=== PATIENT | male | born 1960 | race Caucasian/White ===

== ENCOUNTER 2022-06-11 09:38 | Inpatient (IN) | payer OTHER ==
[2022-06-11] VITALS (9 sets, daily range): BP systolic 109–167; BP diastolic 74–91
[~2022-06-11] VITALS: Ht 162.6 cm; Wt 99.4 kg
[2022-06-11 10:05] LABS: BASOPHILS % (AUTO) 0 % (0-10); EOSINOPHILS # (AUTO) 0.2 10^3/uL (0.0-0.3); EOSINOPHILS % (AUTO) 3 % (0-10); HEMATOCRIT 34 % (40-54); HEMOGLOBIN 11.3 g/dL (13.3-17.7); LYMPHOCYTES # (AUTO) 1.3 10^3/uL (1.0-4.0); LYMPHOCYTES % (AUTO) 18 % (12-44); MEAN CORPUSCULAR HEMOGLOBIN 30 pg (25-34); MEAN CORPUSCULAR HGB CONC 34 g/dL (32-36); MEAN CORPUSCULAR VOLUME 88 fL (80-99); MEAN PLATELET VOLUME 10.1 fL (9.0-12.2); MONOCYTES # (AUTO) 0.5 10^3/uL (0.0-1.0); MONOCYTES % (AUTO) 8 % (0-12); NEUTROPHILS % (AUTO) 71 % (42-75); PLATELET COUNT 264 10^3/uL (130-400); WHITE BLOOD COUNT 7.2 10^3/uL (4.3-11.0)
--- NOTE | 2022-06-11 10:11 | Diagnostic Imaging Report ---
CLINICAL INDICATIONS: Patient with chest pain. EXAM: Portable chest x-ray upright view. COMPARISON: None. FINDINGS: Lungs/pleura: There are patchy infiltrates involving both midlung stacy and both lung bases. There is no pneumothorax. There is no pleural effusion. Mediastinum: Unremarkable. Pulmonary vasculature: There is mild pulmonary vascular congestion. Heart: There is cardiomegaly. Bones/extrathoracic soft tissue: There are degenerative spurs involving the thoracic spine. IMPRESSION: 1: There is cardiomegaly with mild pulmonary vascular congestion. These findings may be related to congestive heart failure. 2: There is bilateral lung infiltrates concerning for pulmonary congestion or lung infiltrates/infectious process. Dictated by: Dictated on workstation # [id number]
[2022-06-11 10:13] LABS: POTASSIUM 4.6 MMOL/L (3.6-5.0)
[2022-06-11 10:14] LABS: CALCIUM 8.3 MG/DL (8.5-10.1)
[2022-06-11 10:16] LABS: INR 0.9 (0.8-1.4); PROTHROMBIN TIME PATIENT 12.8 SEC (12.2-14.7); TOTAL PROTEIN 7.1 GM/DL (6.4-8.2)
--- NOTE | 2022-06-11 10:17 | ED Respiratory ---
General Chief Complaint: Respiratory Problems Stated Complaint: SOB Source: patient Exam Limitations: no limitations History of Present Illness Date Seen by Provider: Jun 11, 2022 Time Seen by Provider: 09:40 Initial Comments This is 62-year-old gentleman presents to the emergency room via EMS with shortness of breath and wheezing. He states that shortness of breath has been progressive over the last several years. He received a DuoNeb treatment in route and reports that significantly improved his shortness of breath. He activated EMS today because he felt like he was going to pass out from his shortness of breath. He denies any known heart or lung diagnoses. He denies any chest pain. He has no new swelling and denies fever or cough. Dr. Rogers is his primary care provider, but he only goes to the office once or twice a year. He does not monitor his diabetes. He does check his blood pressure daily. Allergies and Home Medications Allergies Coded Allergies: No Known Drug Allergies (Unverified , 06/11/22) Patient Home Medication List Home Medication List Reviewed: Yes Alprazolam (Alprazolam) 1 Mg Tablet, 0.5-1 MG PO Q8H PRN for ANXIETY, (Reported) Entered as Reported by: CAMERON WALDRON on 06/11/221608 Last Action: Continued Amlodipine Besylate (Amlodipine Besylate) 10 Mg Tablet, 10 MG PO DAILY, (Reported) Entered as Reported by: CAMERON WALDRON on 06/11/221608 Last Action: Continued Glyburide (Glyburide) 5 Mg Tablet, 5 MG PO DAILY, (Reported) Entered as Reported by: CAMERON WALDRON on 06/11/221608 Last Action: Held Losartan Potassium (Losartan Potassium) 100 Mg Tablet, 100 MG PO DAILY, (Reported) Entered as Reported by: CAMERON WALDRON on 06/11/221608 Last Action: Held Metformin HCl (Metformin HCl) 500 Mg Tablet, 1,000 MG PO DAILY, (Reported) Entered as Reported by: CAMERON WALDRON on 06/11/221608 Last Action: Held Metoprolol Succinate (Metoprolol Succinate) 100 Mg Tab.er.24h, 100 MG PO DAILY, (Reported) Entered as Reported by: CAMERON WALDRON on 06/11/221608 Last Action: Continued Naproxen Sodium (Aleve) 220 Mg Tablet, 220-440 MG PO Q12H PRN for PAIN-MILD (1- 4), (Reported) Entered as Reported by: CAMERON WALDRON on 06/11/221608 Last Action: Held Sildenafil Citrate (Sildenafil) 20 Mg Tablet, 20 MG PO UD PRN for ED, (Reported) Entered as Reported by: CAMERON WALDRON on 06/11/221608 Last Action: Held Review of Systems Review of Systems Constitutional: No fever; weakness EENTM: no symptoms reported Respiratory: see HPI Cardiovascular: see HPI Gastrointestinal: no symptoms reported Genitourinary: no symptoms reported Musculoskeletal: no symptoms reported Skin: no symptoms reported Psychiatric/Neurological: Other (feeling depressed) Hematologic/Lymphatic: No Symptoms Reported Immunological/Allergic: no symptoms reported Past Awuytri-Rlxqnb-Saimlx Hx Patient Social History Tobacco Use?: No Tobacco type used: Cigarettes Smoking Status: Former Smoker Substance use?: No Alcohol Use?: Yes Alcohol Frequency: Rarely Past Medical History Surgeries: No Respiratory: Yes (Chronic SOA, pulmonary HTN) Cardiac: Yes Hypertension Neurological: No Genitourinary: No Gastrointestinal: No Musculoskeletal: No Endocrine: Yes Diabetes, Non-Insulin dep HEENT: No Cancer: No Psychosocial: Yes Depression Physical Exam Vital Signs - First Documented 06/11/22 09:38 Temp 36.4 Pulse 96 Resp 28 B/P (MAP) 174/90 (118) Pulse Ox 98 O2 Delivery Room Air O2 Flow Rate 5.00 Capillary Refill : Height: '" Weight: lbs. oz. kg; BMI Method: General Appearance: WD/WN, no apparent distress, obese HEENT: normal ENT inspection Neck: normal inspection Respiratory: no respiratory distress, no accessory muscle use, decreased breath sounds, wheezing Cardiovascular: regular rate, rhythm, no murmur, other (bilateral LE edema) Gastrointestinal: normal bowel sounds, non tender, soft Extremities: non-tender, swelling Neurologic/Psychiatric: no motor/sensory deficits, alert, oriented x 3, other (depressed mood) Skin: normal color, warm/dry Progress/Results/Core Measures Suspected Sepsis SIRS Temperature: Pulse: Respiratory Rate: Laboratory Tests 06/11/22 09:45: White Blood Count 7.2 Blood Pressure / Mean: Laboratory Tests 06/11/22 09:45: Creatinine 3.61H, INR Comment 0.9, Platelet Count 264, Total Bilirubin 0.3 Results/Orders Lab Results Laboratory Tests Test 06/11/22 09:45 06/11/22 09:55 Range/Units White Blood Count 7.2 4.3-11.0 10^3/uL Red Blood Count 3.80 L 4.30-5.52 10^6/uL Hemoglobin 11.3 L 13.3-17.7 g/dL Hematocrit 34 L 40-54 % Mean Corpuscular Volume 88 80-99 fL Mean Corpuscular Hemoglobin 30 25-34 pg Mean Corpuscular Hemoglobin Concent 34 32-36 g/dL Red Cell Distribution Width 13.4 10.0-14.5 % Platelet Count 264 130-400 10^3/uL Mean Platelet Volume 10.1 9.0-12.2 fL Immature Granulocyte % (Auto) 1 % Neutrophils (%) (Auto) 71 42-75 % Lymphocytes (%) (Auto) 18 12-44 % Monocytes (%) (Auto) 8 0-12 % Eosinophils (%) (Auto) 3 0-10 % Basophils (%) (Auto) 0 0-10 % Neutrophils # (Auto) 5.0 1.8-7.8 10^3/uL Lymphocytes # (Auto) 1.3 1.0-4.0 10^3/uL Monocytes # (Auto) 0.5 0.0-1.0 10^3/uL Eosinophils # (Auto) 0.2 0.0-0.3 10^3/uL Basophils # (Auto) 0.0 0.0-0.1 10^3/uL Immature Granulocyte # (Auto) 0.1 0.0-0.1 10^3/uL Prothrombin Time 12.8 12.2-14.7 SEC INR Comment 0.9 0.8-1.4 Activated Partial Thromboplast Time 28 24-35 SEC Sodium Level 135 135-145 MMOL/L Potassium Level 4.6 3.6-5.0 MMOL/L Chloride Level 104 98-107 MMOL/L Carbon Dioxide Level 20 L 21-32 MMOL/L Anion Gap 11 5-14 MMOL/L Blood Urea Nitrogen 59 H 7-18 MG/DL Creatinine 3.61 H 0.60-1.30 MG/DL Estimat Glomerular Filtration Rate 18 BUN/Creatinine Ratio 16 Glucose Level 321 H 70-105 MG/DL Calcium Level 8.3 L 8.5-10.1 MG/DL Corrected Calcium 8.3 L 8.5-10.1 MG/DL Magnesium Level 1.5 L 1.6-2.4 MG/DL Total Bilirubin 0.3 0.1-1.0 MG/DL Aspartate Amino Transf (AST/SGOT) 15 5-34 U/L Alanine Aminotransferase (ALT/SGPT) 19 0-55 U/L Alkaline Phosphatase 62 40-136 U/L Myoglobin 336.0 H 10.0-92.0 NG/ML Troponin I < 0.028 <0.028 NG/ML C-Reactive Protein High Sensitivity 0.54 H 0.00-0.50 MG/DL B-Type Natriuretic Peptide 579.2 H <100.0 PG/ML Total Protein 7.1 6.4-8.2 GM/DL Albumin 4.0 3.2-4.5 GM/DL Procalcitonin 0.17 H <0.10 NG/ML Influenza Type A (RT-PCR) Not Detected Not Detecte Influenza Type B (RT-PCR) Not Detected Not Detecte SARS-CoV-2 RNA (RT-PCR) Not Detected Not Detecte My Orders Orders - ZACK MUNROE MD Covid 19 Inhouse Test (06/11/22 09:46) Influenza A And B By Pcr (06/11/22 09:46) Cbc With Automated Diff (06/11/22 09:57) Magnesium (06/11/22 09:57) Chest 1 View, Ap/Pa Only (06/11/22 09:57) Ekg Tracing (06/11/22 09:57) Comprehensive Metabolic Panel (06/11/22 09:57) Myoglobin Serum (06/11/22 09:57) Protime With Inr (06/11/22 09:57) Partial Thromboplastin Time (06/11/22 09:57) O2 (06/11/22 09:57) Monitor-Rhythm Ecg Trace Only (06/11/22 09:57) Lipid Panel (06/12/22 06:00) Ed Iv/Invasive Line Start (06/11/22 09:57) Troponin I Bianka (06/11/22 09:57) Bnp Bianka (06/11/22 10:38) Hs C Reactive Protein (06/11/22 10:38) Procalcitonin (Pct) (06/11/22 10:38) Troponin I Bianka (06/11/22 11:45) Magnesium 1 Gm/100 Ml Ivpb (Magnesium Travis (06/11/22 11:45) Ns Iv 500 Ml (Sodium Chloride 0.9%) (06/11/22 11:45) Vital Signs/I&O 06/11/22 06/11/22 06/11/22 09:38 09:38 11:30 Temp 36.4 Pulse 96 Resp 28 B/P (MAP) 174/90 (118) Pulse Ox 98 95 O2 Delivery Room Air T Piece Nasal Cannula O2 Flow Rate 5.00 2.00 Capillary Refill : Progress Note : Progress Note Breathing improved with DuoNeb. СЕРГЕЙ was noted. Congestion was noted on CXR and peripheral edema was noted. However, СЕРГЕЙ and lower BNP would suggest patient has intravascular fluid depletion. IVF was initiated. Labs did not support bacterial infection. Admission for treatment of СЕРГЕЙ while monitoring respiratory status was deemed necessary. Repeat troponin was elevated. ASA given and Dr. Ugarte consulted. He recommended Lovenox 1 mg//kg x 1. Patient denied chest pain. ECG Initial ECG Impression Date: Jun 11, 2022 Initial ECG Impression Time: 09:49 Initial ECG Rate: 85 Initial ECG Rhythm: Normal Sinus Initial ECG Intervals: Normal Comment Sinus rhythm with no ST elevation. Possible minor bundle branch block. Subtle nondiagnostic ST depression. No axis deviation. EKG : EKG Time: 13:44 Rate: 84 Rhythm: Normal Sinus Intervals: Normal ECG Impression: Normal Comment NSR with no ST elevation or depression. No abnormal intervals or axis deviation. Diagnostic Imaging Diagonstic Imaging: Xray Plain Films/CT/US/NM/MRI: chest Comments NAME: KENRICK HEALY [facility] REC#: [id number] PT STATUS: ADM [place] : 1960 PHYSICIAN: ZACK MUNROE MD ADMIT DATE: 06/11/22/[facility] Signed Date of Exam:06/11/22 CHEST 1 VIEW, AP/PA ONLY CLINICAL INDICATIONS: Patient with chest pain. EXAM: Portable chest x-ray upright view. COMPARISON: None. FINDINGS: Lungs/pleura: There are patchy infiltrates involving both midlung stacy and both lung bases. There is no pneumothorax. There is no pleural effusion. Mediastinum: Unremarkable. Pulmonary vasculature: There is mild pulmonary vascular congestion. Heart: There is cardiomegaly. Bones/extrathoracic soft tissue: There are degenerative spurs involving the thoracic spine. IMPRESSION: 1: There is cardiomegaly with mild pulmonary vascular congestion. These findings may be related to congestive heart failure. 2: There is bilateral lung infiltrates concerning for pulmonary congestion or lung infiltrates/infectious process. Dictated by: Dictated on workstation # [id number] Dict: 06/11/22 1005 Trans: 06/11/221744 [facility] [id number] Interpreted by: DIANNA SLADE MD Electronically signed by: DIANNA SLADE MD 06/11/22 1745 Departure Communication (Admissions) Time/Spoke to Admitting Phy: 13:50 Dr. Rogers Time/Spoke to Consulting Phy: 13:50 Dr. Ugarte Impression Primary Impression: Acute kidney injury Additional Impressions: COPD exacerbation Shortness of breath Abnormal chest x-ray Uncontrolled diabetes mellitus Qualified Codes: E11.65 - Type 2 diabetes mellitus with hyperglycemia Disposition: ADMITTED INPATIENT Condition: Improved Admissions Decision to Admit Reason: Admit from ER (General) Decision to Admit/Date: Jun 11, 2022 Time/Decision to Admit Time: 12:00 Departure-Patient Inst. Referrals: TIFFANY ROGERS MD (PCP) Primary Care Physician RIYA ARORA MD (Family) Primary Care Physician ZACK MUNROE MD Jun 11, 2022 10:17
[2022-06-11 10:18] LABS: BILIRUBIN,TOTAL 0.3 MG/DL (0.1-1.0)
[2022-06-11 10:19] LABS: CREATININE SERUM 3.61 MG/DL (0.60-1.30)
[2022-06-11 10:22] LABS: MAGNESIUM 1.5 MG/DL (1.6-2.4)
[2022-06-11] MEDS ORDERED: NS IV 500 ML 500 ML IV ONE (11:45)
[2022-06-11] MEDS ORDERED: MAGNESIUM 1 GM/100 ML IVPB 100 ML IV ONE (11:45)
[2022-06-11] MEDS ORDERED: ASPIRIN 81 MG CHEW (CHILDREN'S ASA) PO ONE (14:00)
[2022-06-11] MEDS ORDERED: ENOXAPARIN 100 MG/1 ML (LOVENOX) SYR SC ONE (14:00)
[2022-06-11] MEDS: NS IV 1000 ML 1,000 ML IV SCH (15:13)
[2022-06-11] MEDS ORDERED: ONDANSETRON 4 MG/2 ML (SDV) Z0FRAN IV PRN (15:15)
[2022-06-11] MEDS ORDERED: GLBR5T PO (16:09)
[2022-06-11] MEDS ORDERED: ALPR1TAB7 PO (16:09)
[2022-06-11] MEDS ORDERED: SILD20TA14 PO (16:09)
[2022-06-11] MEDS ORDERED: METF-397 PO (16:09)
[2022-06-11] MEDS ORDERED: NAPR220T66 PO (16:09)
[2022-06-11] MEDS ORDERED: LOSA100T57 PO (16:09)
[2022-06-11] MEDS ORDERED: MTP100TCR PO (16:09)
[2022-06-11] MEDS ORDERED: AMLO-251 PO (16:09)
--- NOTE | 2022-06-11 16:21 | Consultation-Cardiology ---
HPI-Cardiology Cardiology Consultation: Date of Consultation 06/11/22 Date of Admission 06/11/22 Attending Physician Frank Londono MD Admitting Physician Admitting Physician: Frank Londono MD Attending Physician: Frank Londono MD Consulting Physician AR PALENCIA JR, MD HPI: Time Seen by a Provider: 16:15 Chief Complaint: REASON FOR CONSULTATION: Dyspnea and abnormal troponin level. I had the pleasure of seeing Robson on the cardiac stepdown unit at [facility] in [place], [place] today. He has no known history of coronary artery disease but has cardiac risk factors of hypertension and type 2 diabetes mellitus. He tells me that most of his adult life he has had difficulty breathing through his nose. As long as he breathes through his mouth, he does not typically feel short of breath. However, over the past year he has noticed some increasing dyspnea on exertion. He did not discuss this with his primary care provider because he does not currently have insurance. Then this morning he woke up and had a very difficult time catching his breath. He became kimberley rned and came to the ER for further evaluation. During his evaluation, he was found to initially have an undetectable troponin level but a few hours later, his troponin level was abnormal. He denies any chest discomfort. He denies paroxysmal nocturnal dyspnea, orthopnea, palpitations, lightheadedness, syncope, or ankle edema. He did have ankle edema a few years ago but after he got on treatment for diabetes and hypertension, the edema resolved. He previously worked at the [employer] but when the facility shutdown at the beginning , he stopped working and never went back to work. He spends most of his day just sitting around the house but sometimes does go outside and do some yard work. Certain portions of this document may have been dictated utilizing voice recognition technology. Inherent to this technology, typographical and grammatical errors may exist. As much as I am diligent to identify and correct these mistakes, some errors may remain in the document. Review of Systems-Cardiology Review of Systems Other comments Review of 10 organ systems is as per the history of present illness, otherwise negative. RHF-Kofjtm-Njwzqb Hx Patient Social History Marrital Status: Smoking Status: Former Smoker Have you traveled recently?: No Alcohol Use?: Yes Pt feels they are or have been: No Tobacco type used: Cigarettes Immunizations Up To Date Date of Influenza Vaccine: Jun 10, 2022 Past Medical History PMH As described under Assessment. Family Medical History Family Medical History: The patient does not know of any family history of premature coronary artery disease in first-degree relatives. His mother did have a heart condition but at an older age. Allergies and Home Medications Allergies Coded Allergies: No Known Drug Allergies (Unverified , 06/11/22) Patient Home Medication List Home Medication List Reviewed: Yes Alprazolam (Alprazolam) 1 Mg Tablet, 0.5-1 MG PO Q8H PRN for ANXIETY, (Reported) Entered as Reported by: CAMERON WALDRON on 06/11/221608 Last Action: Reviewed Amlodipine Besylate (Amlodipine Besylate) 10 Mg Tablet, 10 MG PO DAILY, (Reported) Entered as Reported by: CAMERON WALDRON on 06/11/221608 Last Action: Reviewed Glyburide (Glyburide) 5 Mg Tablet, 5 MG PO DAILY, (Reported) Entered as Reported by: CAMERON WALDRON on 06/11/221608 Last Action: Reviewed Losartan Potassium (Losartan Potassium) 100 Mg Tablet, 100 MG PO DAILY, (Reported) Entered as Reported by: CAMERON WALDRON on 06/11/221608 Last Action: Reviewed Metformin HCl (Metformin HCl) 500 Mg Tablet, 1,000 MG PO DAILY, (Reported) Entered as Reported by: CAMERON WALDRON on 06/11/221608 Last Action: Reviewed Metoprolol Succinate (Metoprolol Succinate) 100 Mg Tab.er.24h, 100 MG PO DAILY, (Reported) Entered as Reported by: CAMERON WALDRON on 06/11/221608 Last Action: Reviewed Naproxen Sodium (Aleve) 220 Mg Tablet, 220-440 MG PO Q12H PRN for PAIN-MILD (1- 4), (Reported) Entered as Reported by: CAMERON WALDRON on 06/11/221608 Last Action: Reviewed Sildenafil Citrate (Sildenafil) 20 Mg Tablet, 20 MG PO UD PRN for ED, (Reported) Entered as Reported by: CAMERON WALDRON on 06/11/221608 Last Action: Reviewed Exam Vital Signs Vital Signs Date Time Temp Pulse Resp B/P (MAP) Pulse Ox O2 Delivery O2 Flow Rate FiO2 06/11/22 11:30 95 Nasal Cannula 2.00 06/11/22 09:38 36.4 96 28 174/90 (118) Physical Exam General: Alert. At times he appears visibly short of breath just while answering questions and talking. Well nourished and appears stated age. He is obese. Eye: Extraocular movements are intact. Conjunctivae are clear. There are no xanthelasma. HENT: Normocephalic. Atraumatic. Carotid pulsations 2/2 without bruits. Neck: Jugular venous pressure does not appear elevated. No thyromegaly appreciated. Respiratory: Lungs are clear to auscultation. Respirations are non-labored. Breath sounds are equal. Symmetrical chest wall expansion. Cardiovascular: Normal rate. Regular rhythm. No murmur. No gallop. Point of maximal impulse is not appear displaced. Good pulses equal in all extremities. No edema. Gastrointestinal: Soft. Normal bowel sounds. Skin: Skin turgor is normal. There is no pallor. Musculoskeletal: No kyphosis or scoliosis appreciated. Neurologic: Alert and oriented to person, place, time. Cranial nerves 3-12 appear grossly intact. The patient has good motor tone strength in the upper and lower extremities bilaterally. Psychiatric: Cooperative. Appropriate mood & affect. Labs Laboratory Tests Test 06/11/22 09:45 06/11/22 09:55 06/11/22 12:36 Range/Units White Blood Count 7.2 4.3-11.0 10^3/uL Red Blood Count 3.80 L 4.30-5.52 10^6/uL Hemoglobin 11.3 L 13.3-17.7 g/dL Hematocrit 34 L 40-54 % Mean Corpuscular Volume 88 80-99 fL Mean Corpuscular Hemoglobin 30 25-34 pg Mean Corpuscular Hemoglobin Concent 34 32-36 g/dL Red Cell Distribution Width 13.4 10.0-14.5 % Platelet Count 264 130-400 10^3/uL Mean Platelet Volume 10.1 9.0-12.2 fL Immature Granulocyte % (Auto) 1 % Neutrophils (%) (Auto) 71 42-75 % Lymphocytes (%) (Auto) 18 12-44 % Monocytes (%) (Auto) 8 0-12 % Eosinophils (%) (Auto) 3 0-10 % Basophils (%) (Auto) 0 0-10 % Neutrophils # (Auto) 5.0 1.8-7.8 10^3/uL Lymphocytes # (Auto) 1.3 1.0-4.0 10^3/uL Monocytes # (Auto) 0.5 0.0-1.0 10^3/uL Eosinophils # (Auto) 0.2 0.0-0.3 10^3/uL Basophils # (Auto) 0.0 0.0-0.1 10^3/uL Immature Granulocyte # (Auto) 0.1 0.0-0.1 10^3/uL Prothrombin Time 12.8 12.2-14.7 SEC INR Comment 0.9 0.8-1.4 Activated Partial Thromboplast Time 28 24-35 SEC Sodium Level 135 135-145 MMOL/L Potassium Level 4.6 3.6-5.0 MMOL/L Chloride Level 104 98-107 MMOL/L Carbon Dioxide Level 20 L 21-32 MMOL/L Anion Gap 11 5-14 MMOL/L Blood Urea Nitrogen 59 H 7-18 MG/DL Creatinine 3.61 H 0.60-1.30 MG/DL Estimat Glomerular Filtration Rate 18 BUN/Creatinine Ratio 16 Glucose Level 321 H 70-105 MG/DL Calcium Level 8.3 L 8.5-10.1 MG/DL Corrected Calcium 8.3 L 8.5-10.1 MG/DL Magnesium Level 1.5 L 1.6-2.4 MG/DL Total Bilirubin 0.3 0.1-1.0 MG/DL Aspartate Amino Transf (AST/SGOT) 15 5-34 U/L Alanine Aminotransferase (ALT/SGPT) 19 0-55 U/L Alkaline Phosphatase 62 40-136 U/L Myoglobin 336.0 H 10.0-92.0 NG/ML Troponin I < 0.028 0.479 *H <0.028 NG/ML C-Reactive Protein High Sensitivity 0.54 H 0.00-0.50 MG/DL B-Type Natriuretic Peptide 579.2 H <100.0 PG/ML Total Protein 7.1 6.4-8.2 GM/DL Albumin 4.0 3.2-4.5 GM/DL Procalcitonin 0.17 H <0.10 NG/ML Influenza Type A (RT-PCR) Not Detected Not Detecte Influenza Type B (RT-PCR) Not Detected Not Detecte SARS-CoV-2 RNA (RT-PCR) Not Detected Not Detecte Radiology ECHOCARDIOGRAM (06/11/2022): 1. This is a technically difficult study due to poor image quality secondary to patient's body habitus. 2. Left ventricle: The cavity size is normal. There is moderate concentric hypertrophy. Systolic function is normal. The estimated ejection fraction is 50- 55%. Left ventricular diastolic function parameters are normal. 3. Regional wall motion abnormality: Hypokinesis of the mid inferior myocardium. 4. Left atrium: The left atrium is severely dilated with a volume index ranging from 50-54 mL/m. 5. Mitral valve: There is mild to moderate mitral regurgitation. 6. Pulmonary arteries: The estimated pulmonary artery systolic pressure is 61 mmHg assuming a right atrial pressure of 5 mmHg. ECG Impression ECG Comment Sinus rhythm with possible old inferior myocardial infarction. Diagnosis/Problems Diagnosis/Problems (1) Shortness of breath Status: Acute Assessment & Plan: Exact etiology unclear. He does not have any known history of pulmonary disease. He does not smoke and quit many years ago. He does lead a somewhat sedentary lifestyle over the past few years as noted above. His echocardiogram shows pulmonary hypertension. This raises a concern for pulmonary embolism. There were no other abnormalities on his echocardiogram to explain a cardiac cause of shortness of breath. Although his BNP is elevated this is in the setting of an acute kidney injury which can cause elevation of the BNP level. I do not suspect he has heart failure. I have ordered a D-dimer to screen for possible pulmonary embolism. Coronary ischemia is also in the differential diagnosis and at some point, he may need some sort of ischemic evaluation versus a cardiac catheterization. (2) Troponin level elevated Status: Acute Assessment & Plan: His initial troponin was undetectable but a follow-up troponin was elevated. His electrocardiogram shows a possible old inferior myocardial infarction and his echocardiogram suggests inferior hypokinesis. However, there are no ischemic changes on his electrocardiogram. He was given aspirin and 1 therapeutic dose of enoxaparin. A follow-up troponin level is pending. As above, at some point he may need a an ischemic evaluation with a stress test versus a cardiac catheterization. At this point in time, he is not a good candidate for an invasive cardiac evaluation due to his acute kidney injury. (3) Pulmonary hypertension Assessment & Plan: Etiology unclear. As above, this raises concern for possible pulmonary embolism. We will proceed as above. He also probably needs to have a sleep study at some point in time following discharge. (4) Primary hypertension Status: Chronic Assessment & Plan: I ordered his home dose of amlodipine and metoprolol succinate. I suggest due to the acute kidney injury, we hold his losartan which he was taking at home. (5) Acute kidney injury Status: Acute Assessment & Plan: Exact etiology unclear. It appears as though he received half liter of normal saline in the emergency room. I have ordered a urinalysis and another liter of IV normal saline. His renal function will need to be followed closely. I have discontinued his losartan and metformin. (6) Type 2 diabetes mellitus with complication Status: Chronic Assessment & Plan: This is being managed by the hospitalist. (7) Obesity Status: Chronic Assessment & Plan: He needs to work on weight loss. Problem Qualifiers (1) Obesity: Body mass index: BMI 38.0-38.9 AR PALENCIA JR, MD Jun 11, 2022 16:21
[2022-06-11] MEDS ORDERED: RT-ALBUTEROL/IPRATROPIUM 3 ML (DUONEB) VIAL INH PRN (16:45)
[2022-06-11] MEDS ORDERED: NS IV 1000 ML 1,000 ML IV SCH (16:45)
[2022-06-11] MEDS ORDERED: amLODIPine 10 MG (NORVASC) TAB PO NR (17:30)
[2022-06-11] MEDS ORDERED: meTOprolol SUCCINATE 100 MG (TOPROL XL) TAB PO NR (17:30)
[2022-06-11] MEDS ORDERED: ALPRAZolam 1 MG (XANAX) TAB PO PRN (18:30)
--- NOTE | 2022-06-11 18:35 | History & Physicial ---
History of Present Illness History of Present Illness Reason for visit/HPI 2-year-old male who presented today via EMS to be [facility] emergency department. He reports this morning having shortness of breath and due to not having insurance he decided to go to [facility]. Apparently once he was there, the provider realized his care needed more intensive evaluation so he was sent to emergency department via EMS. He does have a history of hypertension as well as type 2 diabetes. He does take his medications faithfully but he has not had much follow-up with regards to laboratory or checking hemoglobin A1c. He denies any significant cough and certainly no fever. He does usually have some shortness of breath as he does have a tendency to breathe through his mouth as opposed his nostrils. He has not had any sleep studies performed. He denies any chest pain, palpitations, or lightheadedness. Covid he reports having 19 in the first few months 2019. He was laid off of his work through [employer] and does spend most of his day sitting around or doing things around the house Date of Admission Jun 11, 2022 at 12:15 Date Seen by a Provider: Jun 11, 2022 Time Seen by a Provider: 16:45 I consulted on this patient on 06/11/22 18:30 Attending Physician Frank Rogers MD Admitting Physician Admitting Physician: Frank Rogers MD Attending Physician: Frank Rogers MD Consult Allergies and Home Medications Allergies Coded Allergies: No Known Drug Allergies (Unverified , 06/11/22) Patient Home Medication List Home Medication List Reviewed: Yes Alprazolam (Alprazolam) 1 Mg Tablet, 0.5-1 MG PO Q8H PRN for ANXIETY, (Reported) Entered as Reported by: CAMERON WALDRON on 06/11/221608 Last Action: Continued Amlodipine Besylate (Amlodipine Besylate) 10 Mg Tablet, 10 MG PO DAILY, (Reported) Entered as Reported by: CAMERON WALDRON on 06/11/221608 Last Action: Continued Glyburide (Glyburide) 5 Mg Tablet, 5 MG PO DAILY, (Reported) Entered as Reported by: CAMERON WALDRON on 06/11/221608 Last Action: Held Losartan Potassium (Losartan Potassium) 100 Mg Tablet, 100 MG PO DAILY, (Reported) Entered as Reported by: CAMERON WALDRON on 06/11/221608 Last Action: Held Metformin HCl (Metformin HCl) 500 Mg Tablet, 1,000 MG PO DAILY, (Reported) Entered as Reported by: CAMERON WALDRON on 06/11/221608 Last Action: Held Metoprolol Succinate (Metoprolol Succinate) 100 Mg Tab.er.24h, 100 MG PO DAILY, (Reported) Entered as Reported by: CAMERON WALDRON on 06/11/221608 Last Action: Continued Naproxen Sodium (Aleve) 220 Mg Tablet, 220-440 MG PO Q12H PRN for PAIN-MILD (1- 4), (Reported) Entered as Reported by: CAMERON WALDRON on 06/11/221608 Last Action: Held Sildenafil Citrate (Sildenafil) 20 Mg Tablet, 20 MG PO UD PRN for ED, (Reported) Entered as Reported by: CAMERON WALDRON on 06/11/221608 Last Action: Held Past [id number]-[id number] Hx Patient Social History Marrital Status: Smoking Status: Former Smoker Have you traveled recently?: No Alcohol Use?: Yes Pt feels they are or have been: No Tobacco type used: Cigarettes Immunizations Up To Date Date of Influenza Vaccine: Jun 10, 2022 Review of Systems Constitutional: see HPI Physical Exam Vital Signs Vital Signs - First Documented 06/11/22 06/11/22 09:38 16:30 Temp 36.4 Pulse 96 Resp 28 B/P (MAP) 174/90 (118) Pulse Ox 98 O2 Delivery Room Air O2 Flow Rate 5.00 FiO2 24 Capillary Refill : Height, Weight, BMI Height: '" Weight: lbs. oz. kg; 38.65 BMI Method: General Appearance: Anxious Eyes: Bilateral Eye Normal Inspection HEENT: Pharynx Normal, Moist Mucous Membranes Neck: Full Range of Motion, Supple; No JVD Respiratory: Lungs Clear, No Respiratory Distress (Mild) Cardiovascular: Regular Rate, Rhythm, No Murmur Gastrointestinal: Normal Bowel Sounds, Non Tender, Soft Rectal: Deferred Back: Normal Inspection Extremity: Normal Capillary Refill Neurologic/Psychiatric: Alert, Oriented x3 Skin: Normal Color Comments [facility], [place] NAME: KENRICK HEALY [facility] REC#: [id number] PT STATUS: ADM [place] : 1960 PHYSICIAN: ZACK MUNROE MD ADMIT DATE: 06/11/22/[facility] Signed Date of Exam:06/11/22 CHEST 1 VIEW, AP/PA ONLY CLINICAL INDICATIONS: Patient with chest pain. EXAM: Portable chest x-ray upright view. COMPARISON: None. FINDINGS: Lungs/pleura: There are patchy infiltrates involving both midlung stacy and both lung bases. There is no pneumothorax. There is no pleural effusion. Mediastinum: Unremarkable. Pulmonary vasculature: There is mild pulmonary vascular congestion. Heart: There is cardiomegaly. Bones/extrathoracic soft tissue: There are degenerative spurs involving the thoracic spine. IMPRESSION: 1: There is cardiomegaly with mild pulmonary vascular congestion. These findings may be related to congestive heart failure. 2: There is bilateral lung infiltrates concerning for pulmonary congestion or lung infiltrates/infectious process. Dictated by: Dictated on workstation # [id number] Dict: 06/11/22 1005 Trans: 06/11/22 1745 [facility] [id number] Interpreted by: DIANNA SLADE MD Electronically signed by: DIANNA SLADE MD 06/11/22 1745 Assessment/Plan Assessment and Plan 1. Dyspneaetiology unclear at this time. - possibly related to the findings by chest x-ray of bilateral infiltrates. Pulmonary congestion versus infiltrates but doubt infiltrates as he has a normal white count and no fever. -Dr Ugarte has ordered a d-dimer to exclude pulmonary embolism. 2. Acute renal insufficiency -he is currently receiving 150 cc/h of IV fluids. This will need to be adjusted to ensure he does not develop congestive heart failure. At current it is given at this rate to help with the elevated creatinine. The creatinine will be rechecked in the morning of June 12 3. Elevated troponin -cardiology has ordered serial troponin and monitoring the heart condition. 4. Hypertension -his losartan has been discontinued. He is now on metoprolol 100 mg along with amlodipine 10 mg daily. 5. Pulmonary infiltrates -may want to recheck chest x-ray tomorrow morning but will await after making rounds. 6. Diabetes type 2 -for now he will be placed on insulin sliding scale. His metformin will be held -he will be on a diabetic diet Admission Diagnosis 1. Dyspnea 2. Acute renal insufficiency 3. Elevated troponin 4. Hypertension 5. Pulmonary infiltrates 6. Diabetes type 2 Admission Status: Inpatient Order (span 2 midnights) Reason for Inpatient Admission: Further pulmonary and cardiovascular care. Cardiology consultation. IV fluid rehydration FRANK ROGERS MD Jun 11, 2022 18:35
[2022-06-11] MEDS: inSUlin ASPART (NovoLOG) 1 UNIT/0.01 ML (CHARGE PER UNIT) SC SCH (20:51)
[2022-06-11] MEDS: RT-ALBUTEROL/IPRATROPIUM 3 ML (DUONEB) VIAL INH SCH (21:50)
[2022-06-11 21:53] LABS: BILIRUBIN,URINE NEGATIVE (NEGATIVE); CLARITY,URINE CLEAR; COLOR,URINE YELLOW; GLUCOSE, URINE (UA) 1+ (NEGATIVE); KETONES,URINE NEGATIVE (NEGATIVE); LEUKOCYTE ESTERASE ,URINE NEGATIVE (NEGATIVE); NITRITE,URINE NEGATIVE (NEGATIVE); PH,URINE 6.5 (5-9); PROTEIN,URINE 3+ (NEGATIVE)
[2022-06-11 22:11] LABS: BACTERIA,URINE TRACE /HPF; RBC,URINE RARE /HPF; WBC,URINE 0-2 /HPF
[2022-06-12] VITALS: BP 145/81
[2022-06-12] MEDS: ENOXAPARIN 100 MG/1 ML (LOVENOX) SYR SC SCH (02:10)
[2022-06-12] MEDS: RT-ALBUTEROL/IPRATROPIUM 3 ML (DUONEB) VIAL INH SCH ×4 (02:45→21:55)
[2022-06-12] MEDS: NS IV 1000 ML 1,000 ML IV SCH ×2 (03:48→16:09)
[2022-06-12 03:49] VITALS: BP 141/81
[2022-06-12 06:09] LABS: BASOPHILS % (AUTO) 0 % (0-10); EOSINOPHILS # (AUTO) 0.2 10^3/uL (0.0-0.3); EOSINOPHILS % (AUTO) 2 % (0-10); HEMATOCRIT 30 % (40-54); HEMOGLOBIN 10.2 g/dL (13.3-17.7); LYMPHOCYTES # (AUTO) 1.7 10^3/uL (1.0-4.0); LYMPHOCYTES % (AUTO) 19 % (12-44); MEAN CORPUSCULAR HEMOGLOBIN 30 pg (25-34); MEAN CORPUSCULAR HGB CONC 34 g/dL (32-36); MEAN CORPUSCULAR VOLUME 88 fL (80-99); MEAN PLATELET VOLUME 9.9 fL (9.0-12.2); MONOCYTES # (AUTO) 0.6 10^3/uL (0.0-1.0); MONOCYTES % (AUTO) 7 % (0-12); NEUTROPHILS % (AUTO) 70 % (42-75); PLATELET COUNT 251 10^3/uL (130-400); WHITE BLOOD COUNT 8.6 10^3/uL (4.3-11.0)
[2022-06-12 06:27] LABS: ALBUMIN 3.6 GM/DL (3.2-4.5); BILIRUBIN,TOTAL 0.3 MG/DL (0.1-1.0); CALCIUM 8.2 MG/DL (8.5-10.1); CREATININE SERUM 2.98 MG/DL (0.60-1.30); POTASSIUM 4.7 MMOL/L (3.6-5.0); TOTAL PROTEIN 6.3 GM/DL (6.4-8.2)
[2022-06-12] MEDS: inSUlin ASPART (NovoLOG) 1 UNIT/0.01 ML (CHARGE PER UNIT) SC SCH ×4 (06:28→21:48)
[2022-06-12 06:50] LABS: CHOLESTEROL 240 MG/DL (< 200); HDL CHOLESTEROL 28 MG/DL (40-60); TRIGLYCERIDES 389 MG/DL (<150); VLDL CHOLESTEROL 78 MG/DL (5-40)
--- NOTE | 2022-06-12 07:44 | Progress Note ---
Subjective Date Seen by a Provider: Jun 12, 2022 Time Seen by a Provider: 07:15 Subjective/Events-last exam patient does not report any new chest pain. He was resting comfortably on his left side this morning. He still does have some shortness of breath. No reported edema of the lower extremities. Objective Exam Vital Signs Date Time Temp Pulse Resp B/P (MAP) Pulse Ox O2 Delivery O2 Flow Rate FiO2 06/12/22 03:49 36.4 75 18 141/81 (101) 94 Nasal Cannula 3.00 06/12/22 02:45 95 Nasal Cannula 3.00 06/12/22 01:00 72 06/12/22 00:00 36.6 79 15 145/81 (102) 95 Nasal Cannula 3.00 06/11/22 21:51 94 Nasal Cannula 3.00 06/11/22 20:00 97 Nasal Cannula 2.00 06/11/22 19:15 36.3 76 20 149/87 (107) 96 06/11/22 19:00 80 06/11/22 16:45 79 156/89 (111) 94 Nasal Cannula 2.00 06/11/22 16:30 36.8 87 93 24 06/11/22 16:30 84 167/90 (115) 92 Nasal Cannula 2.00 06/11/22 16:15 36.8 87 22 150/84 (106) 93 Nasal Cannula 2.00 06/11/22 16:00 85 150/84 (106) 94 Nasal Cannula 2.00 06/11/22 15:45 77 109/91 (97) 96 Nasal Cannula 2.00 06/11/22 15:30 92 06/11/22 15:30 92 153/74 (100) 93 Nasal Cannula 2.00 06/11/22 15:15 Nasal Cannula 2.00 06/11/22 15:15 83 141/78 (99) 94 Nasal Cannula 2.00 06/11/22 15:00 Nasal Cannula 2.00 06/11/22 15:00 84 161/79 (106) 94 Nasal Cannula 2.00 06/11/22 14:40 87 22 170/98 94 Nasal Cannula 2.00 06/11/22 11:30 95 Nasal Cannula 2.00 06/11/22 09:38 36.4 96 28 174/90 (118) 98 T Piece 5.00 06/11/22 09:38 Room Air I & O 06/12/22 07:00 Intake Total 2780 ml Output Total 2100 ml Balance 680 ml Capillary Refill : General Appearance: No Apparent Distress (with mild shortness of breath) Respiratory: Lungs Clear (except for coarseness in the bases) Cardiovascular: Regular Rate, Rhythm Gastrointestinal: soft Extremity: No Calf Tenderness Neurologic/Psychiatric: Alert, Oriented x3 Results Lab Laboratory Tests 06/11/22 09:45: White Blood Count 7.2, Red Blood Count 3.80L, Hemoglobin 11.3L, Hematocrit 34L, Mean Corpuscular Volume 88, Mean Corpuscular Hemoglobin 30, Mean Corpuscular Hemoglobin Concent 34, Red Cell Distribution Width 13.4, Platelet Count 264, Mean Platelet Volume 10.1, Immature Granulocyte % (Auto) 1, Neutrophils (%) (Auto) 71, Lymphocytes (%) (Auto) 18, Monocytes (%) (Auto) 8, Eosinophils (%) (Auto) 3, Basophils (%) (Auto) 0, Neutrophils # (Auto) 5.0, Lymphocytes # (Auto) 1.3, Monocytes # (Auto) 0.5, Eosinophils # (Auto) 0.2, Basophils # (Auto) 0.0, Immature Granulocyte # (Auto) 0.1, Prothrombin Time 12.8, INR Comment 0.9, Activated Partial Thromboplast Time 28, Sodium Level 135, Potassium Level 4.6, Chloride Level 104, Carbon Dioxide Level 20L, Anion Gap 11, Blood Urea Nitrogen 59H, Creatinine 3.61H, Estimat Glomerular Filtration Rate 18, BUN/Creatinine Ratio 16, Glucose Level 321H, Calcium Level 8.3L, Corrected Calcium 8.3L, Magnesium Level 1.5L, Total Bilirubin 0.3, Aspartate Amino Transf (AST/SGOT) 15, Alanine Aminotransferase (ALT/SGPT) 19, Alkaline Phosphatase 62, Myoglobin 336.0H, Troponin I < 0.028, C-Reactive Protein High Sensitivity 0.54H, B-Type Natriuretic Peptide 579.2H, Total Protein 7.1, Albumin 4.0, Procalcitonin 0.17H 06/11/22 09:55: Influenza Type A (RT-PCR) Not Detected, Influenza Type B (RT-PCR) Not Detected, SARS-CoV-2 RNA (RT-PCR) Not Detected 06/11/22 12:36: Troponin I 0.479*H 06/11/22 17:00: Troponin I 1.811*H, D-Dimer 0.98H 06/11/22 18:15: Glucometer 140H 06/11/22 21:40: Urine Color YELLOW, Urine Clarity CLEAR, Urine pH 6.5, Urine Specific [place] 1.025H, Urine Protein 3+H, Urine Glucose (UA) 1+H, Urine Ketones NEGATIVE, Urine Nitrite NEGATIVE, Urine Bilirubin NEGATIVE, Urine Urobilinogen 0.2, Urine Leukocyte Esterase NEGATIVE, Urine RBC (Auto) 1+H, Urine RBC RARE, Urine WBC 0- 2, Urine Squamous Epithelial Cells NONE, Urine Crystals NONE, Urine Bacteria TRACE, Urine Casts NONE, Urine Mucus NEGATIVE, Urine Culture Indicated NO 06/12/22 05:28: White Blood Count 8.6, Red Blood Count 3.44L, Hemoglobin 10.2L, Hematocrit 30L, Mean Corpuscular Volume 88, Mean Corpuscular Hemoglobin 30, Mean Corpuscular Hemoglobin Concent 34, Red Cell Distribution Width 13.7, Platelet Count 251, Mean Platelet Volume 9.9, Immature Granulocyte % (Auto) 1, Neutrophils (%) (Auto) 70, Lymphocytes (%) (Auto) 19, Monocytes (%) (Auto) 7, Eosinophils (%) (Auto) 2, Basophils (%) (Auto) 0, Neutrophils # (Auto) 6.0, Lymphocytes # (Auto) 1.7, Monocytes # (Auto) 0.6, Eosinophils # (Auto) 0.2, Basophils # (Auto) 0.0, Immature Granulocyte # (Auto) 0.1, Sodium Level 136, Potassium Level 4.7, Chloride Level 108H, Carbon Dioxide Level 16L, Anion Gap 12, Blood Urea Nitrogen 50H, Creatinine 2.98#H, Estimat Glomerular Filtration Rate 23, BUN/Creatinine Ratio 17, Glucose Level 89, Calcium Level 8.2L, Corrected Calcium 8.5, Total Bilirubin 0.3, Aspartate Amino Transf (AST/SGOT) 18, Alanine Aminotransferase (ALT/SGPT) 18, Alkaline Phosphatase 56, Troponin I 2.919*H, Total Protein 6.3L, Albumin 3.6, Triglycerides Level 389H, Cholesterol Level 240H, LDL Cholesterol Direct 138H, VLDL Cholesterol 78H, HDL Cholesterol 28L Assessment/Plan Assessment/Plan Assess & Plan/Chief Complaint 1. Dyspneaetiology unclear at this time. - possibly related to the findings by chest x-ray of bilateral infiltrates. Pulmonary congestion versus infiltrates but doubt infiltrates as he has a normal white count and no fever. -Dr Ugarte has ordered a d-dimer to exclude pulmonary embolism. 06/12 -patient is arranged to have VQ scan this morning 2. Acute renal insufficiency -he is currently receiving 150 cc/h of IV fluids. This will need to be adjusted to ensure he does not develop congestive heart failure. At current it is given at this rate to help with the elevated creatinine. The creatinine will be rechecked in the morning of June 1206/12 -creatinine decreased to 2.98 this morning -Hopefully with fluids as well as altering his lipid pressure medications and his creatinine will continue to decrease. 3. Elevated troponin -cardiology has ordered serial troponin and monitoring the heart condition. 4. Hypertension -his losartan has been discontinued. He is now on metoprolol 100 mg along with amlodipine 10 mg daily. 5. Pulmonary infiltrates -may want to recheck chest x-ray tomorrow morning but will await after making rounds. -VQ study this morning 6. Diabetes type 2 -for now he will be placed on insulin sliding scale. His metformin will be held -he will be on a diabetic diet 7. Hypercholesterolemia -I suspect he will need to have statin therapy Clinical Quality Measures Admission Status Admission Dx 1. Dyspneaetiology unclear at this time. - possibly related to the findings by chest x-ray of bilateral infiltrates. Pulmonary congestion versus infiltrates but doubt infiltrates as he has a normal white count and no fever. -Dr Ugarte has ordered a d-dimer to exclude pulmonary embolism. 2. Acute renal insufficiency -he is currently receiving 150 cc/h of IV fluids. This will need to be adjusted to ensure he does not develop congestive heart failure. At current it is given at this rate to help with the elevated creatinine. The creatinine will be rechecked in the morning of June 12 3. Elevated troponin -cardiology has ordered serial troponin and monitoring the heart condition. 4. Hypertension -his losartan has been discontinued. He is now on metformin 100 mg along with amlodipine 10 mg daily. 5. Pulmonary infiltrates -may want to recheck chest x-ray tomorrow morning but will await after making rounds. 6. Diabetes type 2 -for now he will be placed on insulin sliding scale. His metformin will be held -he will be on a diabetic diet TIFFANY ROGERS MD Jun 12, 2022 07:43
[2022-06-12 07:56] VITALS: BP 160/88
[2022-06-12] MEDS: ASPIRIN 81 MG CHEW (CHILDREN'S ASA) PO SCH (10:16)
[2022-06-12] MEDS: meTOprolol SUCCINATE 100 MG (TOPROL XL) TAB PO SCH (10:17)
[2022-06-12] MEDS: amLODIPine 10 MG (NORVASC) TAB PO SCH (10:17)
--- NOTE | 2022-06-12 11:01 | Diagnostic Imaging Report ---
INDICATION: Shortness of air and COPD exacerbation. Patient was administered 5.3 mCi technetium 99m MAA intravenously and imaging over the chest was performed at multiple obliquities. There is homogeneous perfusion of both lungs. No pleural-based perfusion defects are identified. IMPRESSION: Normal perfusion lung scan. Dictated by: Dictated on workstation # [id number]
[2022-06-12 12:00] VITALS: BP 157/90
[2022-06-12] MEDS ORDERED: FUROSEMIDE 40 MG/4 ML INJ (LASIX) ONE (14:43)
[2022-06-12 15:38] VITALS: BP 159/92
--- NOTE | 2022-06-12 17:20 | Cardiology Progress Note ---
Progress Note-Cardiology Events since last exam Date Seen by Provider: Jun 12, 2022 Time Seen by Provider: 17:15 Events since last exam I am following him due to probable NSTEMI. This afternoon the nurse had to i ncrease his oxygen due to low oxygen saturations. He does not feel short of breath unless he is moving around in the room. He denies chest discomfort, palpitations, syncope, or lower extremity edema. Certain portions of this document may have been dictated utilizing voice recognition technology. Inherent to this technology, typographical and grammatical errors may exist. As much as I am diligent to identify and correct these mistakes, some errors may remain in the document. Vitals Last set of Vitals Signs Vital Signs 06/11/22 06/12/22 16:30 15:38 Temp 36.6 Pulse 78 Resp 16 B/P (MAP) 159/92 (114) Pulse Ox 94 O2 Delivery High Flow N/C O2 Flow Rate 10.00 FiO2 24 Labs Labs Laboratory Tests 06/12/22 05:28 Exam Vital Signs Vital Signs Date Time Temp Pulse Resp B/P (MAP) Pulse Ox O2 Delivery O2 Flow Rate FiO2 06/12/22 15:38 36.6 78 16 159/92 (114) 94 High Flow N/C 10.00 06/11/22 16:30 24 Physical Exam General: Alert. No acute distress. He is obese. Eye: No xanthelasma. HENT: Normocephalic. Neck: Jugular venous pressure does not appear elevated. Respiratory: Lungs are clear to auscultation. Respirations are non-labored. Breath sounds are equal. Symmetrical chest wall expansion. Cardiovascular: Normal rate. Regular rhythm. No murmur. No gallop. No edema. Gastrointestinal: Soft. Normal bowel sounds. Skin: Warm. Dry. Neurologic: Alert and oriented to person, place, time. Cranial nerves 3-11 grossly intact. Psychiatric: Cooperative. Appropriate mood & affect. Labs Laboratory Tests Test 06/11/22 18:15 06/11/22 21:40 06/12/22 05:28 06/12/22 10:26 Range/Units Glucometer 140 H 136 H 70-110 MG/DL Urine Color YELLOW Urine Clarity CLEAR Urine pH 6.5 5-9 Urine Specific [place] 1.025 H 1.016-1.022 Urine Protein 3+ H NEGATIVE Urine Glucose (UA) 1+ H NEGATIVE Urine Ketones NEGATIVE NEGATIVE Urine Nitrite NEGATIVE NEGATIVE Urine Bilirubin NEGATIVE NEGATIVE Urine Urobilinogen 0.2 < = 1.0 MG/DL Urine Leukocyte Esterase NEGATIVE NEGATIVE Urine RBC (Auto) 1+ H NEGATIVE Urine RBC RARE /HPF Urine WBC 0-2 /HPF Urine Squamous Epithelial Cells NONE /HPF Urine Crystals NONE /LPF Urine Bacteria TRACE /HPF Urine Casts NONE /LPF Urine Mucus NEGATIVE /LPF Urine Culture Indicated NO White Blood Count 8.6 4.3-11.0 10^3/uL Red Blood Count 3.44 L 4.30-5.52 10^6/uL Hemoglobin 10.2 L 13.3-17.7 g/dL Hematocrit 30 L 40-54 % Mean Corpuscular Volume 88 80-99 fL Mean Corpuscular Hemoglobin 30 25-34 pg Mean Corpuscular Hemoglobin Concent 34 32-36 g/dL Red Cell Distribution Width 13.7 10.0-14.5 % Platelet Count 251 130-400 10^3/uL Mean Platelet Volume 9.9 9.0-12.2 fL Immature Granulocyte % (Auto) 1 % Neutrophils (%) (Auto) 70 42-75 % Lymphocytes (%) (Auto) 19 12-44 % Monocytes (%) (Auto) 7 0-12 % Eosinophils (%) (Auto) 2 0-10 % Basophils (%) (Auto) 0 0-10 % Neutrophils # (Auto) 6.0 1.8-7.8 10^3/uL Lymphocytes # (Auto) 1.7 1.0-4.0 10^3/uL Monocytes # (Auto) 0.6 0.0-1.0 10^3/uL Eosinophils # (Auto) 0.2 0.0-0.3 10^3/uL Basophils # (Auto) 0.0 0.0-0.1 10^3/uL Immature Granulocyte # (Auto) 0.1 0.0-0.1 10^3/uL Sodium Level 136 135-145 MMOL/L Potassium Level 4.7 3.6-5.0 MMOL/L Chloride Level 108 H 98-107 MMOL/L Carbon Dioxide Level 16 L 21-32 MMOL/L Anion Gap 12 5-14 MMOL/L Blood Urea Nitrogen 50 H 7-18 MG/DL Creatinine 2.98 #H 0.60-1.30 MG/DL Estimat Glomerular Filtration Rate 23 BUN/Creatinine Ratio 17 Glucose Level 89 70-105 MG/DL Calcium Level 8.2 L 8.5-10.1 MG/DL Corrected Calcium 8.5 8.5-10.1 MG/DL Total Bilirubin 0.3 0.1-1.0 MG/DL Aspartate Amino Transf (AST/SGOT) 18 5-34 U/L Alanine Aminotransferase (ALT/SGPT) 18 0-55 U/L Alkaline Phosphatase 56 40-136 U/L Troponin I 2.919 *H <0.028 NG/ML Total Protein 6.3 L 6.4-8.2 GM/DL Albumin 3.6 3.2-4.5 GM/DL Triglycerides Level 389 H <150 MG/DL Cholesterol Level 240 H < 200 MG/DL LDL Cholesterol Direct 138 H 1-129 MG/DL VLDL Cholesterol 78 H 5-40 MG/DL HDL Cholesterol 28 L 40-60 MG/DL Test 06/12/22 14:47 Range/Units Glucometer 118 H 70-110 MG/DL Diagnosis/Problems Diagnosis/Problems (1) Shortness of breath Status: Acute Assessment & Plan: Exact etiology unclear. He does not have any known history of pulmonary disease. He does not smoke and quit many years ago. His echocardiogram shows pulmonary hypertension. He underwent a VQ scan this morning that was negative for pulmonary embolism. There were no other abnormalities on his echocardiogram to explain a cardiac cause of shortness of breath. Although his BNP is elevated this is in the setting of an acute kidney injury which can cause elevation of the BNP level. I do not suspect he has heart failure. Coronary ischemia is also in the differential diagnosis of the shortness of breath and at some point, he may need a cardiac catheterization. (2) Non-ST elevation myocardial infarction (NSTEMI), initial care episode Assessment & Plan: His troponin level became more elevated this morning despite his renal function making some marginal improvement. This is concerning for a true non-ST elevation myocardial infarction. I recommend he continue aspirin, therapeutic dose of enoxaparin and beta-davy. I will also start him on intensive dose statin medication. He is not currently a candidate for cardiac catheterization due to his acute kidney injury. (3) Pulmonary hypertension Assessment & Plan: Etiology unclear. His VQ scan was negative for pulmonary emboli. The pulmonary hypertension could be due to some underlying chronic pulmonary disease. He also probably needs to have a sleep study at some point in time following discharge. (4) Primary hypertension Status: Chronic Assessment & Plan: I ordered his home dose of amlodipine and metoprolol succinate. I suggest due to the acute kidney injury, we hold his losartan which he was taking at home. (5) Mixed hyperlipidemia Assessment & Plan: I will start him on intensive dose statin medication due to the probable NSTEMI. (6) Acute kidney injury Status: Acute Assessment & Plan: Exact etiology unclear. His renal function has started to improve with IV fluids and this will need to be followed closely. The primary provider ordered 1 dose of IV furosemide in light of the worsening oxygenation. I suggest we stop the IV fluids at this point in time. I have discontinued his losartan and metformin. (7) Type 2 diabetes mellitus with complication Status: Chronic Assessment & Plan: This is being managed by the primary provider. (8) Obesity Status: Chronic Assessment & Plan: He needs to work on weight loss. Problem Qualifiers (1) Obesity: Body mass index: BMI 38.0-38.9 AR PALENCIA JR, MD Jun 12, 2022 17:20
[2022-06-12 19:38] VITALS: BP 160/86
[2022-06-12] MEDS ORDERED: LACTULOSE SYRUP 10GM/15ML (ENULOSE) 30ML UDC PO PRN (20:30)
[2022-06-12] MEDS ORDERED: ALPRAZolam 0.25 MG (XANAX) TAB PO PRN (20:30)
[2022-06-12] MEDS ORDERED: DOCUSATE SODIUM 100 MG (COLACE) CAP PO PRN (20:30)
[2022-06-12] MEDS ORDERED: ONDANSETRON 4 MG (ZOFRAN) ORAL DISSOLVE TAB PO PRN (20:30)
[2022-06-12] MEDS ORDERED: diphenhydrAMINE 25 MG TAB (BENADRYL) PO PRN (20:30)
[2022-06-12] MEDS ORDERED: HYDROcodone/APAP 5 MG/325 MG (LORTAB) TAB PO PRN (20:30)
[2022-06-12] MEDS ORDERED: ACETAMINOPHEN 325 MG TABLET PO PRN (20:30)
[2022-06-12] MEDS ORDERED: ONDANSETRON 4 MG/2 ML (SDV) Z0FRAN IVP PRN (20:30)
[2022-06-12] MEDS ORDERED: CALCIUM CARBONATE 500 MG (TUMS) TAB.CHEW PO PRN (20:30)
[2022-06-12] MEDS ORDERED: LOPERAMIDE 2 MG (IMODIUM) TABLET PO PRN (20:30)
[2022-06-12] MEDS ORDERED: MELATONIN 3 MG TABLET PO PRN (20:30)
[2022-06-12] MEDS ORDERED: MENTHOL/ZINC OXIDE (CALMOSEPTINE) 113 GM TUBE TP PRN (20:30)
[2022-06-12] MEDS: SENNA W/DOCUSATE (SENOKOT S) TABLET PO SCH (21:46)
[2022-06-12] MEDS: ROSUVASTATIN 20 MG (CRESTOR) TABLET PO SCH (21:46)
[2022-06-12] MEDS: polyethylene glycoL POWDER 17 GM (MIRALAX) PACK PO SCH (21:48)
[2022-06-13] VITALS (7 sets, daily range): BP systolic 154–176; BP diastolic 80–94
[2022-06-13] MEDS: RT-ALBUTEROL/IPRATROPIUM 3 ML (DUONEB) VIAL INH SCH ×3 (02:36→15:34)
[2022-06-13] MEDS: ENOXAPARIN 100 MG/1 ML (LOVENOX) SYR SC SCH (02:37)
[2022-06-13 05:29] LABS: BASOPHILS % (AUTO) 0 % (0-10); EOSINOPHILS # (AUTO) 0.2 10^3/uL (0.0-0.3); EOSINOPHILS % (AUTO) 2 % (0-10); HEMATOCRIT 30 % (40-54); HEMOGLOBIN 9.9 g/dL (13.3-17.7); LYMPHOCYTES % (AUTO) 13 % (12-44); MEAN CORPUSCULAR HEMOGLOBIN 30 pg (25-34); MEAN CORPUSCULAR HGB CONC 34 g/dL (32-36); MEAN CORPUSCULAR VOLUME 88 fL (80-99); MEAN PLATELET VOLUME 9.9 fL (9.0-12.2); MONOCYTES # (AUTO) 0.6 10^3/uL (0.0-1.0); MONOCYTES % (AUTO) 8 % (0-12); NEUTROPHILS # (AUTO) 6.3 10^3/uL (1.8-7.8); NEUTROPHILS % (AUTO) 77 % (42-75); PLATELET COUNT 229 10^3/uL (130-400); WHITE BLOOD COUNT 8.1 10^3/uL (4.3-11.0)
[2022-06-13 05:53] LABS: ALBUMIN 3.5 GM/DL (3.2-4.5); BILIRUBIN,TOTAL 0.6 MG/DL (0.1-1.0); CALCIUM 8.5 MG/DL (8.5-10.1); CREATININE SERUM 2.95 MG/DL (0.60-1.30); POTASSIUM 5.2 MMOL/L (3.6-5.0); TOTAL PROTEIN 6.2 GM/DL (6.4-8.2)
[2022-06-13] MEDS: inSUlin ASPART (NovoLOG) 1 UNIT/0.01 ML (CHARGE PER UNIT) SC SCH ×4 (06:10→19:44)
--- NOTE | 2022-06-13 06:26 | Progress Note - Hospitalist ---
Subjective HPI/CC On Admission Date Seen by Provider: Jun 13, 2022 Time Seen by Provider: 10:30 Subjective/Events-last exam Patient doing better Less short of breath No pain Becomes tearful at times Feels overwhelmed Creatinine levels are elevated Review of Systems General: Fatigue, Malaise Pulmonary: Dyspnea, Cough Objective Exam Vital Signs Vital Signs Date Time Temp Pulse Resp B/P (MAP) Pulse Ox O2 Delivery O2 Flow Rate FiO2 06/13/22 11:55 36.4 80 18 164/86 (112) 97 High Flow N/C 6.00 06/11/22 16:30 24 Capillary Refill : General Appearance: WD/WN, Anxious, Chronically ill, Mild Distress Respiratory: No Accessory Muscle Use, No Respiratory Distress, Decreased Breath Sounds Cardiovascular: Regular Rate, Rhythm Neurologic/Psychiatric: Alert, Oriented x3, No Motor/Sensory Deficits, Normal Mood/Affect Results/Procedures Lab Laboratory Tests 06/13/22 05:02 Patient resulted labs reviewed. Assessment/Plan Assessment and Plan Assess & Plan/Chief Complaint 1. Dyspneaetiology unclear at this time. - possibly related to the findings by chest x-ray of bilateral infiltrates. Pulmonary congestion versus infiltrates but doubt infiltrates as he has a normal white count and no fever. -Dr Ugarte has ordered a d-dimer to exclude pulmonary embolism. 2. Acute renal insufficiency -he is currently receiving 150 cc/h of IV fluids. This will need to be adjusted to ensure he does not develop congestive heart failure. At current it is given at this rate to help with the elevated creatinine. The creatinine will be rechecked in the morning of June 12 3. Elevated troponin -cardiology has ordered serial troponin and monitoring the heart condition. 4. Hypertension -his losartan has been discontinued. He is now on metformin 100 mg along with amlodipine 10 mg daily. 5. Pulmonary infiltrates -may want to recheck chest x-ray tomorrow morning but will await after making rounds. 6. Diabetes type 2 -for now he will be placed on insulin sliding scale. His metformin will be held -he will be on a diabetic diet 7.Anxiety GABBI CALDERA DO Jun 13, 2022 06:26
[2022-06-13] MEDS ORDERED: FUROSEMIDE 40 MG/4 ML INJ (LASIX) IVP SCH (09:00)
[2022-06-13] MEDS: amLODIPine 10 MG (NORVASC) TAB PO SCH (09:33)
[2022-06-13] MEDS: meTOprolol SUCCINATE 100 MG (TOPROL XL) TAB PO SCH (09:33)
[2022-06-13] MEDS: ASPIRIN 81 MG CHEW (CHILDREN'S ASA) PO SCH (09:33)
[2022-06-13] MEDS: SENNA W/DOCUSATE (SENOKOT S) TABLET PO SCH ×2 (09:52→19:45)
[2022-06-13] MEDS: polyethylene glycoL POWDER 17 GM (MIRALAX) PACK PO SCH ×2 (09:52→19:45)
--- NOTE | 2022-06-13 10:11 | Cardiology Progress Note ---
Progress Note-Cardiology Events since last exam Date Seen by Provider: Jun 13, 2022 Time Seen by Provider: 10:05 Events since last exam I am following him due to probable NSTEMI. He states his breathing is markedly improved today. He denies chest discomfort, palpitations, syncope, or ankle edema. Certain portions of this document may have been dictated utilizing voice recognition technology. Inherent to this technology, typographical and grammatical errors may exist. As much as I am diligent to identify and correct these mistakes, some errors may remain in the document. Vitals Last set of Vitals Signs Vital Signs 06/11/22 06/13/22 06/13/22 06/13/22 16:30 07:00 07:47 09:34 Temp 37.1 Pulse 65 Resp 18 B/P (MAP) 158/88 (111) Pulse Ox 97 O2 Delivery High Flow N/C O2 Flow Rate 10.00 FiO2 24 Labs Labs Laboratory Tests 06/13/22 05:02 Exam Vital Signs Vital Signs Date Time Temp Pulse Resp B/P (MAP) Pulse Ox O2 Delivery O2 Flow Rate FiO2 06/13/22 09:34 97 High Flow N/C 10.00 06/13/22 07:47 37.1 18 158/88 (111) 06/13/22 07:00 65 06/11/22 16:30 24 Physical Exam General: Alert. No acute distress. He is obese. He is wearing oxygen by nasal cannula. Eye: No xanthelasma. HENT: Normocephalic. Neck: Jugular venous pressure does not appear elevated. Respiratory: Lungs are clear to auscultation. Respirations are non-labored. Breath sounds are equal. Symmetrical chest wall expansion. Cardiovascular: Normal rate. Regular rhythm. No murmur. No gallop. No edema. Gastrointestinal: Soft. Normal bowel sounds. Skin: Warm. Dry. Neurologic: Alert and oriented to person, place, time. Cranial nerves 3-11 grossly intact. Psychiatric: Cooperative. Appropriate mood & affect. Labs Laboratory Tests Test 06/12/22 10:26 06/12/22 14:47 06/12/22 20:46 06/13/22 05:02 Range/Units Glucometer 136 H 118 H 107 70-110 MG/DL White Blood Count 8.1 4.3-11.0 10^3/uL Red Blood Count 3.36 L 4.30-5.52 10^6/uL Hemoglobin 9.9 L 13.3-17.7 g/dL Hematocrit 30 L 40-54 % Mean Corpuscular Volume 88 80-99 fL Mean Corpuscular Hemoglobin 30 25-34 pg Mean Corpuscular Hemoglobin Concent 34 32-36 g/dL Red Cell Distribution Width 13.5 10.0-14.5 % Platelet Count 229 130-400 10^3/uL Mean Platelet Volume 9.9 9.0-12.2 fL Immature Granulocyte % (Auto) 0 % Neutrophils (%) (Auto) 77 H 42-75 % Lymphocytes (%) (Auto) 13 12-44 % Monocytes (%) (Auto) 8 0-12 % Eosinophils (%) (Auto) 2 0-10 % Basophils (%) (Auto) 0 0-10 % Neutrophils # (Auto) 6.3 1.8-7.8 10^3/uL Lymphocytes # (Auto) 1.0 1.0-4.0 10^3/uL Monocytes # (Auto) 0.6 0.0-1.0 10^3/uL Eosinophils # (Auto) 0.2 0.0-0.3 10^3/uL Basophils # (Auto) 0.0 0.0-0.1 10^3/uL Immature Granulocyte # (Auto) 0.0 0.0-0.1 10^3/uL Sodium Level 133 L 135-145 MMOL/L Potassium Level 5.2 H 3.6-5.0 MMOL/L Chloride Level 106 98-107 MMOL/L Carbon Dioxide Level 17 L 21-32 MMOL/L Anion Gap 10 5-14 MMOL/L Blood Urea Nitrogen 45 H 7-18 MG/DL Creatinine 2.95 H 0.60-1.30 MG/DL Estimat Glomerular Filtration Rate 23 BUN/Creatinine Ratio 15 Glucose Level 128 H 70-105 MG/DL Calcium Level 8.5 8.5-10.1 MG/DL Corrected Calcium 8.9 8.5-10.1 MG/DL Total Bilirubin 0.6 0.1-1.0 MG/DL Aspartate Amino Transf (AST/SGOT) 15 5-34 U/L Alanine Aminotransferase (ALT/SGPT) 16 0-55 U/L Alkaline Phosphatase 58 40-136 U/L Total Protein 6.2 L 6.4-8.2 GM/DL Albumin 3.5 3.2-4.5 GM/DL Test 06/13/22 09:39 Range/Units Diagnosis/Problems Diagnosis/Problems (1) Shortness of breath Status: Acute Assessment & Plan: Exact etiology unclear. He does not have any known history of pulmonary disease. He does not smoke and quit many years ago. His echocardiogram shows pulmonary hypertension. There were no other abnormalities on his echocardiogram to explain a cardiac cause of shortness of breath. He underwent a VQ scan on 06/12 that was negative for pulmonary embolism. Although his BNP is elevated this is in the setting of an acute kidney injury which can cause elevation of the BNP level. I do not suspect he has heart failure. The pulmonary congestion noted on his chest x-ray from admission could just be related to pulmonary engorgement from the pulmonary hypertension. Coronary ischemia is also in the differential diagnosis of the shortness of breath and at some point, he may need a cardiac catheterization. I will obtain a follow-up chest x-ray. (2) Non-ST elevation myocardial infarction (NSTEMI), initial care episode Assessment & Plan: His troponin level had a rise and fall despite his renal function making some minimal improvement. This is concerning for a true non-ST elevation myocardial infarction. I recommend he continue aspirin, therapeutic d ose of enoxaparin, beta-davy and intensive dose statin medication. He is not currently a candidate for cardiac catheterization due to his acute kidney injury. If his renal function improves by Wednesday, we may be able to consider cardiac catheterization that day. If not, then I may consider a pharmacologic nuclear stress test on Wednesday. (3) Pulmonary hypertension Assessment & Plan: Etiology unclear. His VQ scan was negative for pulmonary emboli. The pulmonary hypertension could be due to some underlying chronic pulmonary disease. He also probably needs to have a sleep study at some point in time following discharge to assess for sleep apnea which can also cause pulmonary hypertension. (4) Primary hypertension Status: Chronic Assessment & Plan: I ordered his home dose of amlodipine and metoprolol succinate. I suggest due to the acute kidney injury, we hold his losartan which he was taking at home. (5) Mixed hyperlipidemia Assessment & Plan: I started him on intensive dose statin medication due to the probable NSTEMI. (6) Acute kidney injury Status: Acute Assessment & Plan: Exact etiology unclear. His renal function has started to improve with IV fluids and this will need to be followed closely. I stopped the IV fluids out of concern for possibly causing volume overload. He is now ordered for daily IV Lasix. (7) Type 2 diabetes mellitus with complication Status: Chronic Assessment & Plan: This is being managed by the primary provider. (8) Obesity Status: Chronic Assessment & Plan: He needs to work on weight loss. Problem Qualifiers (1) Obesity: Body mass index: BMI 38.0-38.9 AR PALENCIA JR, MD Jun 13, 2022 10:10
--- NOTE | 2022-06-13 10:31 | Diagnostic Imaging Report ---
INDICATION: Increase in shortness of breath. Oxygen requirement. COMPARISON: 06/11/2022. FINDINGS: There is enlargement of the cardiac silhouette. The patient's pulmonary vascular status appears improved though there is some persistent interstitial prominence that may reflect mild residual interstitial edema. There is no alveolar consolidation. There is no large effusion. There is no pneumothorax. The diaphragms are flattened suggesting a component of underlying air trapping. IMPRESSION: 1. Enlarged cardiac silhouette with central pulmonary interstitial prominence which may reflect some mild ongoing interstitial edema. The patient's overall pulmonary vascular status appears improved from the prior study performed 06/11/2022. 2. Flattening of the diaphragms suggests a component of underlying air trapping. Dictated by: Dictated on workstation # [id number]
[2022-06-13] MEDS: ROSUVASTATIN 20 MG (CRESTOR) TABLET PO SCH (20:51)
[2022-06-14] VITALS (7 sets, daily range): BP systolic 146–182; BP diastolic 79–90
[2022-06-14] MEDS: ENOXAPARIN 100 MG/1 ML (LOVENOX) SYR SC SCH (02:08)
[2022-06-14] MEDS: RT-ALBUTEROL/IPRATROPIUM 3 ML (DUONEB) VIAL INH SCH ×4 (03:25→22:46)
[2022-06-14 06:00] LABS: BASOPHILS % (AUTO) 0 % (0-10); EOSINOPHILS # (AUTO) 0.2 10^3/uL (0.0-0.3); EOSINOPHILS % (AUTO) 2 % (0-10); HEMATOCRIT 30 % (40-54); LYMPHOCYTES # (AUTO) 1.1 10^3/uL (1.0-4.0); LYMPHOCYTES % (AUTO) 18 % (12-44); MEAN CORPUSCULAR HEMOGLOBIN 30 pg (25-34); MEAN CORPUSCULAR HGB CONC 33 g/dL (32-36); MEAN CORPUSCULAR VOLUME 88 fL (80-99); MEAN PLATELET VOLUME 9.8 fL (9.0-12.2); MONOCYTES # (AUTO) 0.6 10^3/uL (0.0-1.0); MONOCYTES % (AUTO) 10 % (0-12); NEUTROPHILS # (AUTO) 4.3 10^3/uL (1.8-7.8); NEUTROPHILS % (AUTO) 69 % (42-75); PLATELET COUNT 220 10^3/uL (130-400); WHITE BLOOD COUNT 6.2 10^3/uL (4.3-11.0)
--- NOTE | 2022-06-14 06:10 | Progress Note - Hospitalist ---
Subjective HPI/CC On Admission Date Seen by Provider: Jun 14, 2022 Time Seen by Provider: 11:00 Subjective/Events-last exam Doing much better at bedside No pain Less short of air Weaned off O2 Lasix held Conferred with Dr Ugarte Review of Systems General: Fatigue, Malaise Objective Exam Vital Signs Vital Signs Date Time Temp Pulse Resp B/P (MAP) Pulse Ox O2 Delivery O2 Flow Rate FiO2 06/14/22 13:49 36.0 69 93 21 06/14/22 12:00 18 172/86 (114) Room Air 06/14/22 09:01 0.00 Capillary Refill : General Appearance: No Apparent Distress, WD/WN, Chronically ill, Obese Respiratory: Lungs Clear, Normal Breath Sounds Cardiovascular: Regular Rate, Rhythm Neurologic/Psychiatric: Alert, Oriented x3, No Motor/Sensory Deficits, Normal Mood/Affect Results/Procedures Lab Laboratory Tests 06/14/22 05:24 Patient resulted labs reviewed. Assessment/Plan Assessment and Plan Assess & Plan/Chief Complaint 1. Dyspneaetiology unclear at this time. - possibly related to the findings by chest x-ray of bilateral infiltrates. Pulmonary congestion versus infiltrates but doubt infiltrates as he has a normal white count and no fever. -Dr Ugarte has ordered a d-dimer to exclude pulmonary embolism. 2. Acute renal insufficiency -he is currently receiving 150 cc/h of IV fluids. This will need to be adjusted to ensure he does not develop congestive heart failure. At current it is given at this rate to help with the elevated creatinine. The creatinine will be rechecked in the morning of June 12 3. Elevated troponin -cardiology has ordered serial troponin and monitoring the heart condition. 4. Hypertension -his losartan has been discontinued. He is now on metformin 100 mg along with amlodipine 10 mg daily. 5. Pulmonary infiltrates -may want to recheck chest x-ray tomorrow morning but will await after making rounds. 6. Diabetes type 2 -for now he will be placed on insulin sliding scale. His metformin will be held -he will be on a diabetic diet 7.Anxiety Plan: Move to floor PT OT Wean O2 Monitor creat GABBI CALDERA DO Jun 14, 2022 06:10
[2022-06-14 06:23] LABS: ALBUMIN 3.4 GM/DL (3.2-4.5); BILIRUBIN,TOTAL 0.5 MG/DL (0.1-1.0); CALCIUM 8.4 MG/DL (8.5-10.1); CREATININE SERUM 3.05 MG/DL (0.60-1.30); POTASSIUM 4.8 MMOL/L (3.6-5.0); TOTAL PROTEIN 6.1 GM/DL (6.4-8.2)
[2022-06-14] MEDS: inSUlin ASPART (NovoLOG) 1 UNIT/0.01 ML (CHARGE PER UNIT) SC SCH ×4 (06:27→21:19)
[2022-06-14] MEDS: meTOprolol SUCCINATE 100 MG (TOPROL XL) TAB PO SCH ×2 (08:09→20:13)
[2022-06-14] MEDS: polyethylene glycoL POWDER 17 GM (MIRALAX) PACK PO SCH ×2 (08:09→20:13)
[2022-06-14] MEDS: ASPIRIN 81 MG CHEW (CHILDREN'S ASA) PO SCH (08:09)
[2022-06-14] MEDS: amLODIPine 10 MG (NORVASC) TAB PO SCH (08:09)
[2022-06-14] MEDS: SENNA W/DOCUSATE (SENOKOT S) TABLET PO SCH ×2 (08:10→20:14)
[2022-06-14] MEDS: FLUTICASONE NASAL SPRAY (FLONASE) 16 GM BTL NS SCH (08:42)
[2022-06-14] MEDS ORDERED: REGADENOSON 0.4 MG/5 ML SYR (LEXISCAN) IV ONE (08:45)
--- NOTE | 2022-06-14 09:27 | Cardiology Progress Note ---
Progress Note-Cardiology Events since last exam Date Seen by Provider: Jun 14, 2022 Time Seen by Provider: 09:23 Events since last exam I am following him due to probable NSTEMI. His breathing has markedly improved and is almost back to his baseline. He denies chest pain, palpitations, syncope, or ankle edema. Certain portions of this document may have been dictated utilizing voice recognition technology. Inherent to this technology, typographical and grammatical errors may exist. As much as I am diligent to identify and correct these mistakes, some errors may remain in the document. Vitals Last set of Vitals Signs Vital Signs 06/11/22 06/14/22 06/14/22 16:30 07:31 09:01 Temp 36.0 Pulse 75 Resp 22 B/P (MAP) 151/90 (110) Pulse Ox 93 O2 Delivery Room Air O2 Flow Rate 0.00 FiO2 24 Labs Labs Laboratory Tests 06/14/22 05:24 Exam Vital Signs Vital Signs Date Time Temp Pulse Resp B/P (MAP) Pulse Ox O2 Delivery O2 Flow Rate FiO2 06/14/22 09:01 93 Room Air 0.00 06/14/22 07:31 36.0 75 22 151/90 (110) 06/11/22 16:30 24 Physical Exam General: Alert. No acute distress. He is obese. He is on oxygen by nasal cannula. Eye: No xanthelasma. HENT: Normocephalic. Neck: Jugular venous pressure does not appear elevated. Respiratory: Lungs are clear to auscultation. Respirations are non-labored. Breath sounds are equal. Symmetrical chest wall expansion. Cardiovascular: Normal rate. Regular rhythm. No murmur. No gallop. No edema. Gastrointestinal: Soft. Normal bowel sounds. Skin: Warm. Dry. Neurologic: Alert and oriented to person, place, time. Cranial nerves 3-11 grossly intact. Psychiatric: Cooperative. Appropriate mood & affect. Labs Laboratory Tests Test 06/13/22 09:39 06/13/22 14:22 06/13/22 19:32 06/14/22 05:24 Range/Units Glucometer 166 H 161 H 179 H 70-110 MG/DL White Blood Count 6.2 4.3-11.0 10^3/uL Red Blood Count 3.39 L 4.30-5.52 10^6/uL Hemoglobin 10.0 L 13.3-17.7 g/dL Hematocrit 30 L 40-54 % Mean Corpuscular Volume 88 80-99 fL Mean Corpuscular Hemoglobin 30 25-34 pg Mean Corpuscular Hemoglobin Concent 33 32-36 g/dL Red Cell Distribution Width 13.4 10.0-14.5 % Platelet Count 220 130-400 10^3/uL Mean Platelet Volume 9.8 9.0-12.2 fL Immature Granulocyte % (Auto) 1 % Neutrophils (%) (Auto) 69 42-75 % Lymphocytes (%) (Auto) 18 12-44 % Monocytes (%) (Auto) 10 0-12 % Eosinophils (%) (Auto) 2 0-10 % Basophils (%) (Auto) 0 0-10 % Neutrophils # (Auto) 4.3 1.8-7.8 10^3/uL Lymphocytes # (Auto) 1.1 1.0-4.0 10^3/uL Monocytes # (Auto) 0.6 0.0-1.0 10^3/uL Eosinophils # (Auto) 0.2 0.0-0.3 10^3/uL Basophils # (Auto) 0.0 0.0-0.1 10^3/uL Immature Granulocyte # (Auto) 0.0 0.0-0.1 10^3/uL Sodium Level 135 135-145 MMOL/L Potassium Level 4.8 3.6-5.0 MMOL/L Chloride Level 106 98-107 MMOL/L Carbon Dioxide Level 19 L 21-32 MMOL/L Anion Gap 10 5-14 MMOL/L Blood Urea Nitrogen 49 H 7-18 MG/DL Creatinine 3.05 H 0.60-1.30 MG/DL Estimat Glomerular Filtration Rate 22 BUN/Creatinine Ratio 16 Glucose Level 115 H 70-105 MG/DL Calcium Level 8.4 L 8.5-10.1 MG/DL Corrected Calcium 8.9 8.5-10.1 MG/DL Total Bilirubin 0.5 0.1-1.0 MG/DL Aspartate Amino Transf (AST/SGOT) 16 5-34 U/L Alanine Aminotransferase (ALT/SGPT) 15 0-55 U/L Alkaline Phosphatase 56 40-136 U/L Total Protein 6.1 L 6.4-8.2 GM/DL Albumin 3.4 3.2-4.5 GM/DL Diagnosis/Problems Diagnosis/Problems (1) Shortness of breath Status: Acute Assessment & Plan: Exact etiology unclear. He does not have any known history of pulmonary disease. He does not smoke and quit many years ago. His echocardiogram shows pulmonary hypertension. There were no other abnormalities on his echocardiogram to explain a cardiac cause of shortness of breath. He underwent a VQ scan on 06/12 that was negative for pulmonary embolism. Although his BNP is elevated this is in the setting of an acute kidney injury which can cause elevation of the BNP level. I do not suspect he has heart failure. The pulmonary congestion noted on his chest x-ray from admission could just be related to pulmonary engorgement from the pulmonary hypertension. Coronary ischemia is also in the differential diagnosis of the shortness of breath and at some point, he may need a cardiac catheterization. His chest x- ray from 06/13 showed possible pulmonary congestion and he was given IV Lasix. However, his renal function is tenuous. As such, I will discontinue the IV Lasix today. (2) Non-ST elevation myocardial infarction (NSTEMI), initial care episode Assessment & Plan: His troponin level had a rise and fall despite his renal function making minimal improvement. This is concerning for a true non-ST elevation myocardial infarction. I recommend he continue aspirin, therapeutic dose of enoxaparin for a total of 5 days, beta-davy and intensive dose statin medication. He is not currently a candidate for cardiac catheterization due to his acute kidney injury. Since his renal function its not making any significant improvement, I will have him undergo a Lexiscan nuclear stress test tomorrow. (3) Primary hypertension Status: Chronic Assessment & Plan: I ordered his home dose of amlodipine and metoprolol succinate. I suggest due to the acute kidney injury, we hold his losartan which he was taking at home. His blood pressures remain elevated at times. I will change the metoprolol succinate to 100 mg twice daily. (4) Pulmonary hypertension Assessment & Plan: Etiology unclear. His VQ scan was negative for pulmonary emboli. The pulmonary hypertension could be due to some underlying chronic pulmonary disease. He also probably needs to have a sleep study at some point in time following discharge to assess for sleep apnea which can also cause pulmonary hypertension. (5) Mixed hyperlipidemia Assessment & Plan: I started him on intensive dose statin medication due to the probable NSTEMI. (6) Acute kidney injury Status: Acute Assessment & Plan: Exact etiology unclear. His renal function started to improve with IV fluids but then there was concern for volume overload and he was given a dose of IV Lasix. It appears as though his creatinine level may be reaching a plateau around 3. I have discontinued the intravenous furosemide. We will need to continue to watch his renal function closely. (7) Type 2 diabetes mellitus with complication Status: Chronic Assessment & Plan: This is being managed by the primary provider. (8) Obesity Status: Chronic Assessment & Plan: He needs to work on weight loss. Problem Qualifiers (1) Obesity: Body mass index: BMI 38.0-38.9 AR PALENCIA JR, MD Jun 14, 2022 09:27
[2022-06-14] MEDS: NS IV 1000 ML 1,000 ML IV SCH (12:54)
[2022-06-14] MEDS: ROSUVASTATIN 20 MG (CRESTOR) TABLET PO SCH (20:13)
[2022-06-15] VITALS (7 sets, daily range): BP systolic 148–174; BP diastolic 72–91
[2022-06-15] MEDS: NS IV 1000 ML 1,000 ML IV SCH ×3 (00:12→16:11)
[2022-06-15] MEDS: ENOXAPARIN 100 MG/1 ML (LOVENOX) SYR SC SCH (01:56)
[2022-06-15] MEDS: RT-ALBUTEROL/IPRATROPIUM 3 ML (DUONEB) VIAL INH SCH ×4 (03:05→21:52)
[2022-06-15 05:45] LABS: BASOPHILS % (AUTO) 0 % (0-10); EOSINOPHILS # (AUTO) 0.1 10^3/uL (0.0-0.3); EOSINOPHILS % (AUTO) 2 % (0-10); HEMATOCRIT 29 % (40-54); HEMOGLOBIN 9.7 g/dL (13.3-17.7); LYMPHOCYTES # (AUTO) 1.2 10^3/uL (1.0-4.0); LYMPHOCYTES % (AUTO) 19 % (12-44); MEAN CORPUSCULAR HEMOGLOBIN 30 pg (25-34); MEAN CORPUSCULAR HGB CONC 34 g/dL (32-36); MEAN CORPUSCULAR VOLUME 87 fL (80-99); MEAN PLATELET VOLUME 9.8 fL (9.0-12.2); MONOCYTES # (AUTO) 0.5 10^3/uL (0.0-1.0); MONOCYTES % (AUTO) 8 % (0-12); NEUTROPHILS # (AUTO) 4.1 10^3/uL (1.8-7.8); NEUTROPHILS % (AUTO) 69 % (42-75); PLATELET COUNT 200 10^3/uL (130-400); WHITE BLOOD COUNT 5.9 10^3/uL (4.3-11.0)
[2022-06-15] MEDS: inSUlin ASPART (NovoLOG) 1 UNIT/0.01 ML (CHARGE PER UNIT) SC SCH ×4 (05:55→18:53)
[2022-06-15 06:19] LABS: ALBUMIN 3.3 GM/DL (3.2-4.5); BILIRUBIN,TOTAL 0.4 MG/DL (0.1-1.0); CALCIUM 8.3 MG/DL (8.5-10.1); CREATININE SERUM 2.98 MG/DL (0.60-1.30); TOTAL PROTEIN 5.9 GM/DL (6.4-8.2)
--- NOTE | 2022-06-15 08:22 | Progress Note ---
Subjective Date Seen by a Provider: Jun 15, 2022 Time Seen by a Provider: 07:20 Subjective/Events-last exam patient slept fairly well throughout the evening. He does report if he relaxes his breathing is much better. No reported chest pain. He reports feeling a little anxious today having his chemical stress test. He did eat a salad yesterday. He hasn't been walking very much Objective Exam Vital Signs Date Time Temp Pulse Resp B/P (MAP) Pulse Ox O2 Delivery O2 Flow Rate FiO2 06/15/22 07:42 92 Room Air 0.00 06/15/22 03:41 36.7 72 19 164/82 (109) 95 Room Air 06/15/22 03:12 93 Room Air 0.00 06/15/22 00:12 36.9 85 19 174/79 (110) 92 Room Air 06/14/22 22:46 95 Room Air 0.00 06/14/22 20:00 Room Air 06/14/22 19:39 37.0 80 20 170/89 (116) 93 Room Air 06/14/22 15:32 93 Room Air 0.00 06/14/22 15:25 37.0 78 20 168/87 (114) 93 Room Air 06/14/22 13:49 36.0 69 93 21 06/14/22 12:00 37.1 78 18 172/86 (114) 94 Room Air 06/14/22 11:48 37.1 80 16 182/89 (120) 95 Room Air 06/14/22 09:01 93 Room Air 0.00 I & O 06/15/22 07:00 Intake Total 790 ml Output Total 1825 ml Balance -1035 ml Capillary Refill : General Appearance: No Apparent Distress Respiratory: Lungs Clear Cardiovascular: Regular Rate, Rhythm Gastrointestinal: soft (but slightly distended); No guarding, No rebound, No tenderness Extremity: Normal Capillary Refill Results Lab Laboratory Tests 06/14/22 09:34: Glucometer 164H 06/14/22 21:15: Glucometer 115H 06/15/22 05:20: White Blood Count 5.9, Red Blood Count 3.28L, Hemoglobin 9.7L, Hematocrit 29L, Mean Corpuscular Volume 87, Mean Corpuscular Hemoglobin 30, Mean Corpuscular Hemoglobin Concent 34, Red Cell Distribution Width 13.3, Platelet Count 200, Mean Platelet Volume 9.8, Immature Granulocyte % (Auto) 0, Neutrophils (%) (Auto) 69, Lymphocytes (%) (Auto) 19, Monocytes (%) (Auto) 8, Eosinophils (%) (Auto) 2, Basophils (%) (Auto) 0, Neutrophils # (Auto) 4.1, Lymphocytes # (Auto) 1.2, Monocytes # (Auto) 0.5, Eosinophils # (Auto) 0.1, Basophils # (Auto) 0.0, Immature Granulocyte # (Auto) 0.0, Sodium Level 133L, Potassium Level 5.0, Chloride Level 106, Carbon Dioxide Level 17L, Anion Gap 10, Blood Urea Nitrogen 50H, Creatinine 2.98H, Estimat Glomerular Filtration Rate 23, BUN/Creatinine Ratio 17, Glucose Level 108H, Calcium Level 8.3L, Corrected Calcium 8.9, Total Bilirubin 0.4, Aspartate Amino Transf (AST/SGOT) 23, Alanine Aminotransferase (ALT/SGPT) 20, Alkaline Phosphatase 54, Total Protein 5.9L, Albumin 3.3 06/15/22 05:34: Glucometer 103 Assessment/Plan Assessment/Plan Assess & Plan/Chief Complaint 1. Dyspneaetiology unclear at this time. - possibly related to the findings by chest x-ray of bilateral infiltrates. Pulmonary congestion versus infiltrates but doubt infiltrates as he has a normal white count and no fever. -Dr Ugarte has ordered a d-dimer to exclude pulmonary embolism. 06/12 -patient is arranged to have VQ scan this morning 06/15 -low probability of PE from VQ scan 2. Acute renal insufficiency -he is currently receiving 150 cc/h of IV fluids. This will need to be adjusted to ensure he does not develop congestive heart failure. At current it is given at this rate to help with the elevated creatinine. The creatinine will be rechecked in the morning of June 1206/12 -creatinine decreased to 2.98 this morning -Hopefully with fluids as well as altering his lipid pressure medications and his creatinine will continue to decrease. 06/15 -creatinine is not budging and is 2.9 this am. Patient and made aware of this -May need neprology consultation. 3. Elevated troponin -cardiology has ordered serial troponin and monitoring the heart condition. 06/15 -Lexiscan this morning per cardiology 4. Hypertension -his losartan has been discontinued. He is now on metoprolol 100 mg along with amlodipine 10 mg daily. 5. Pulmonary infiltrates -may want to recheck chest x-ray tomorrow morning but will await after making rounds. -VQ study this morning 6. Diabetes type 2 -for now he will be placed on insulin sliding scale. His metformin will be held -he will be on a diabetic diet 7. Hypercholesterolemia -I suspect he will need to have statin therapy Clinical Quality Measures Admission Status Admission Dx 1. Dyspneaetiology unclear at this time. - possibly related to the findings by chest x-ray of bilateral infiltrates. Pulmonary congestion versus infiltrates but doubt infiltrates as he has a normal white count and no fever. -Dr Ugarte has ordered a d-dimer to exclude pulmonary embolism. 2. Acute renal insufficiency -he is currently receiving 150 cc/h of IV fluids. This will need to be adjusted to ensure he does not develop congestive heart failure. At current it is given at this rate to help with the elevated creatinine. The creatinine will be rechecked in the morning of June 12 3. Elevated troponin -cardiology has ordered serial troponin and monitoring the heart condition. 4. Hypertension -his losartan has been discontinued. He is now on metoprolol 100 mg along with amlodipine 10 mg daily. 5. Pulmonary infiltrates -may want to recheck chest x-ray tomorrow morning but will await after making rounds. 6. Diabetes type 2 -for now he will be placed on insulin sliding scale. His metformin will be held -he will be on a diabetic diet TIFFANY ROGERS MD Jun 15, 2022 08:22
[2022-06-15] MEDS: polyethylene glycoL POWDER 17 GM (MIRALAX) PACK PO SCH ×2 (08:37→19:41)
[2022-06-15] MEDS: SENNA W/DOCUSATE (SENOKOT S) TABLET PO SCH ×2 (08:38→19:41)
[2022-06-15] MEDS: ASPIRIN 81 MG CHEW (CHILDREN'S ASA) PO SCH (08:42)
[2022-06-15] MEDS: amLODIPine 10 MG (NORVASC) TAB PO SCH (08:42)
[2022-06-15] MEDS: FLUTICASONE NASAL SPRAY (FLONASE) 16 GM BTL NS SCH ×2 (08:42→21:13)
[2022-06-15] MEDS: meTOprolol SUCCINATE 100 MG (TOPROL XL) TAB PO SCH ×2 (08:42→21:12)
--- NOTE | 2022-06-15 09:48 | Physical Therapy Evaluation ---
PT Evaluation-General Medical Diagnosis Admission Date Jun 12, 2022 at 11:37 Medical Diagnosis: СЕРГЕЙ/SOA/COPD Onset Date: Jun 12, 2022 Therapy Diagnosis Therapy Diagnosis: debility/weakness Precautions Precautions/Isolations: Standard Precautions Referral Physician: Carlitos Reason for Referral: Evaluation/Treatment Medical History Pertinent Medical History: COPD, DM, HTN Current History EMS secondary to SOA Reviewed History: Yes Social History Home: Single Level Current Living Status: Spouse Prior Prior Level of Function SCALE: Activities may be completed with or without assistive devices. 9-Tnerygqdop-kepkuym completes the activity by him/herself with no assistance from a helper. 5-Set-up or Clean-up Assistance-helper sets up or cleans up; patient completes activity. Henderson assists only prior to or following the activity. 4-Supervision or Touching Assistance-helper provides verbal cues and/or touching/steadying and/or contact guard assistance as patient completes activity. Assistance may be provided throughout the activity or intermittently. 3-Partial/Moderate Assistance-helper does LESS THAN HALF the effort. Henderson l ifts, holds or supports trunk or limbs, but provides less than half the effort. 2-Substantial/Maximal Assistance-helper does MORE THAN HALF the effort. Henderson lifts or holds trunk or limbs and provides more than half the effort. 3-Mjwwqajsr-udycii does ALL the effort. Patient does none of the effort to complete the activity. Or, the assistance of 2 or more helpers is required for t he patient to complete the activity. If activity was not attempted, code reason: 7-Patient Refused. 9-Not Applicable-not attempted and the patient did not perform the activity before the current illness, exacerbation or injury. 10-Not Attempted due to Environmental Limitations-(lack of equipment, weather restraints, etc.). 88-Not Attempted due to Medical Conditions or Safety Concerns. Bed Mobility: 6 Transfers (B,C,W/C): 6 Gait: 6 Stairs: 6 Indoor Mobility (Ambulation): Independent Prior Devices Use: None PT Evaluation-Current Subjective Patient agrees to PT. Pain Numeric Pain Scale: 5-Moderate Pain Location: Posterior, Left, Soft Tissue Location Body Site: Thigh Pain Description: Ache Objective Patient Orientation: Normal For Age Attachments: IV ROM/Strength ROM Lower Extremities bilateral LE WFL Strength Lower Extremities 4/5 grossly bilateral LE all planes Integumentary/Posture Bowel Incontinence: No Bladder Incontinence: No Posture WFL Neuromuscular (Tone, Coordination, Reflexes) grossly intact Sensory Vision: Wears Glasses Hearing: Functional Transfers Lying to Sitting/Side of Bed(Q: 6 Sit to Stand (QC): 6 Chair/Esr-cf-Swbux Xfer(QC): 6 Gait Mode of Locomotion: Walk Anticipated Mode of Locomotion: Walk Walk 10 feet (QC): 6 Walk 50 ft with 2 Turns(QC): 6 Walk 150 ft (QC): 6 Distance: 500' Gait Assistive Device: None Comments/Gait Description safe and functional with no deviation Balance Sitting Static: Normal Sitting Dynamic: Normal Standing Dynamic: Normal Picking up an Object (QC): 6 Assessment/Needs Patient is currently at independent OF with all gross motor skills safely and does not require skilled PT intervention. Rehab Potential: Fair PT Plan Treatment/Plan Treatment Plan: Discontinue PT, goals met Treatment Duration: Jun 15, 2022 Frequency: 1 time per week Estimated Hrs Per Day: .25 hour per day Patient and/or Family Agrees t: Yes Discharge Recommendations Therapy Discharge Recommendati: Home & Family Time Time In: 800 Time Out: 809 DATE: Jun 15, 2022 Total Billed Treatment Time: 9 Total Billed Treatment 1 visit EV[facility]C 9 min CHARITY IVERSON PT Jun 15, 2022 09:48
--- NOTE | 2022-06-15 10:35 | Occ Therapy Progress Note ---
Therapy Progress Note OT orders received and chart reviewed. OT visited with pt who indicates he is at his PLOF with ADLs and functional mobility. Pt is up ad joyce in his room, IND with toileting and has no concerns with other ADLS. No skilled OT services indicated at this time, as pt is at his PLOF and IND with ADLS, d/c from OT. 1, visit. D/c. BRAXTON PENALOZA OT Jun 15, 2022 10:35
[2022-06-15] MEDS ORDERED: CATHETER FLUSH 10 ML SYR IVP PRN (11:15)
[2022-06-15] MEDS ORDERED: REGADENOSON 0.4 MG/5 ML SYR (LEXISCAN) IV ONE (12:08)
--- NOTE | 2022-06-15 16:08 | NUCLEAR STRESS TEST ---
REGADENOSON NUCLEAR STRESS Date of procedure: 06/15/2022. Primary care provider: Frank Londono MD Admitting physician: Rad Ugarte Jr., MD. INDICATION: Non-ST elevation myocardial infarction. BASELINE ELECTROCARDIOGRAM: Sinus rhythm with low voltage in the precordial leads and poor R wave progression. STRESS TEST PROCEDURE: The patient was administered 0.4 mg of intravenous Regadenoson. The resting heart rate was 79 bpm and the peak heart rate was 91 bpm. The resting blood pressure was 145/88 mmHg and the minimum blood pressure was 145/110 mmHg. This represents a normal heart rate and a blunted blood pressure response to Regadenoson. The test was stopped due to the protocol. There was no chest discomfort during the test. There were no arrhythmias during the test. There were no significant stress induced electrocardiogram changes. NUCLEAR PROCEDURE: The patient was administered 10.2 mCi of intravenous technetium 99m Tetrofosmin at rest for the rest images. The patient was subsequently administered 30.1 mCi of intravenous technetium 99m Tetrofosmin at peak stress for the stress images. Following an appropriate wait after each injection, imaging was obtained. The images were subsequently processed and reformatted in the usual views. Gated imaging was obtained. The image quality was adequate with a mild degree of gastrointestinal attenuation artifact. CT attenuation correction was used as a adjunct to standard imaging. Both the corrected and uncorrected images were reviewed for interpretation. NUCLEAR RESULTS: There was a large, severe intensity, partially reversible basal to apical inferior and lateral defect with a small amount of inducible ischemia at the apex with a summed stress score of 23 and a summed difference score of 4. The left ventricle was dilated with an end-diastolic volume of 157 mL and an end-systolic volume of 113 mL. There was no evidence of transient ischemic dilatation. The TID ratio was 1.05. There was mid to distal lateral akinesis with global hypokinesis elsewhere with severe left ventricular systolic dysfunction with a calculated ejection fraction of 28%. IMPRESSION: 1. Normal heart rate and a blunted blood pressure response to regadenoson. 2. There was no chest discomfort, arrhythmias, or electrocardiogram changes during the test. 3. There was a large, severe intensity, partially reversible basal to apical inferior and lateral defect with a small amount of inducible ischemia at the apex with a summed stress score of 23 and a summed difference score of 4. 4. The left ventricle was dilated with an end-diastolic volume of 157 mL and an end-systolic volume of 113 mL. 5. There was mid to distal lateral akinesis with global hypokinesis elsewhere with severe left ventricular systolic dysfunction with a calculated ejection fraction of 28%. 6. This is an abnormal result representing an overall high risk for possible fu ture coronary ischemic events. Certain portions of this document may have been dictated utilizing voice recognition technology. Inherent to this technology, typographical and grammatical errors may exist. As much as I am diligent to identify and correct these mistakes, some errors may remain in the document. RAD UGARTE JR, MD Jun 15, 2022 16:08
[2022-06-15] MEDS ORDERED: ISOSORBIDE MONONITRATE 60 MG (IMDUR) TAB PO NR (17:30)
[2022-06-15] MEDS ORDERED: CLOPIDOGREL 300 MG (PLAVIX) TABLET PO NR (17:30)
--- NOTE | 2022-06-15 17:33 | Cardiology Progress Note ---
Progress Note-Cardiology Events since last exam Date Seen by Provider: Jun 15, 2022 Time Seen by Provider: 17:28 Events since last exam I am following him due to NSTEMI. His breathing is markedly improved and he feels better than he has in years. His sinus congestion resolved. He denies chest pain, palpitations, syncope, or ankle edema. Certain portions of this document may have been dictated utilizing voice recognition technology. Inherent to this technology, typographical and grammatical errors may exist. As much as I am diligent to identify and correct these mistakes, some errors may remain in the document. Vitals Last set of Vitals Signs Vital Signs 06/14/22 06/15/22 06/15/22 13:49 15:29 15:41 Temp 36.6 Pulse 68 Resp 19 B/P (MAP) 162/81 (108) Pulse Ox 98 O2 Delivery Room Air O2 Flow Rate 0.00 FiO2 21 Labs Labs Laboratory Tests 06/15/22 05:20 Exam Vital Signs Vital Signs Date Time Temp Pulse Resp B/P (MAP) Pulse Ox O2 Delivery O2 Flow Rate FiO2 06/15/22 15:41 36.6 68 19 162/81 (108) 98 Room Air 06/15/22 15:29 0.00 06/14/22 13:49 21 Physical Exam General: Alert. No acute distress. He is obese. He is wearing oxygen by nasal cannula. Eye: No xanthelasma. HENT: Normocephalic. Neck: Jugular venous pressure does not appear elevated. Respiratory: Lungs are clear to auscultation. Respirations are non-labored. Breath sounds are equal. Symmetrical chest wall expansion. Cardiovascular: Normal rate. Regular rhythm. No murmur. No gallop. No edema. Gastrointestinal: Soft. Normal bowel sounds. Skin: Warm. Dry. Neurologic: Alert and oriented to person, place, time. Cranial nerves 3-11 grossly intact. Psychiatric: Cooperative. Appropriate mood & affect. Labs Laboratory Tests Test 06/14/22 21:15 06/15/22 05:20 06/15/22 05:34 06/15/22 10:55 Range/Units Glucometer 115 H 103 122 H 70-110 MG/DL White Blood Count 5.9 4.3-11.0 10^3/uL Red Blood Count 3.28 L 4.30-5.52 10^6/uL Hemoglobin 9.7 L 13.3-17.7 g/dL Hematocrit 29 L 40-54 % Mean Corpuscular Volume 87 80-99 fL Mean Corpuscular Hemoglobin 30 25-34 pg Mean Corpuscular Hemoglobin Concent 34 32-36 g/dL Red Cell Distribution Width 13.3 10.0-14.5 % Platelet Count 200 130-400 10^3/uL Mean Platelet Volume 9.8 9.0-12.2 fL Immature Granulocyte % (Auto) 0 % Neutrophils (%) (Auto) 69 42-75 % Lymphocytes (%) (Auto) 19 12-44 % Monocytes (%) (Auto) 8 0-12 % Eosinophils (%) (Auto) 2 0-10 % Basophils (%) (Auto) 0 0-10 % Neutrophils # (Auto) 4.1 1.8-7.8 10^3/uL Lymphocytes # (Auto) 1.2 1.0-4.0 10^3/uL Monocytes # (Auto) 0.5 0.0-1.0 10^3/uL Eosinophils # (Auto) 0.1 0.0-0.3 10^3/uL Basophils # (Auto) 0.0 0.0-0.1 10^3/uL Immature Granulocyte # (Auto) 0.0 0.0-0.1 10^3/uL Sodium Level 133 L 135-145 MMOL/L Potassium Level 5.0 3.6-5.0 MMOL/L Chloride Level 106 98-107 MMOL/L Carbon Dioxide Level 17 L 21-32 MMOL/L Anion Gap 10 5-14 MMOL/L Blood Urea Nitrogen 50 H 7-18 MG/DL Creatinine 2.98 H 0.60-1.30 MG/DL Estimat Glomerular Filtration Rate 23 BUN/Creatinine Ratio 17 Glucose Level 108 H 70-105 MG/DL Calcium Level 8.3 L 8.5-10.1 MG/DL Corrected Calcium 8.9 8.5-10.1 MG/DL Total Bilirubin 0.4 0.1-1.0 MG/DL Aspartate Amino Transf (AST/SGOT) 23 5-34 U/L Alanine Aminotransferase (ALT/SGPT) 20 0-55 U/L Alkaline Phosphatase 54 40-136 U/L Total Protein 5.9 L 6.4-8.2 GM/DL Albumin 3.3 3.2-4.5 GM/DL Test 06/15/22 14:41 Range/Units Glucometer 120 H 70-110 MG/DL Radiology REGADENOSON NUCLEAR STRESS TEST (06/15/2022): 1. Normal heart rate and a blunted blood pressure response to regadenoson. 2. There was no chest discomfort, arrhythmias, or electrocardiogram changes during the test. 3. There was a large, severe intensity, partially reversible basal to apical inferior and lateral defect with a small amount of inducible ischemia at the apex with a summed stress score of 23 and a summed difference score of 4. 4. The left ventricle was dilated with an end-diastolic volume of 157 mL and an end-systolic volume of 113 mL. 5. There was mid to distal lateral akinesis with global hypokinesis elsewhere with severe left ventricular systolic dysfunction with a calculated ejection fraction of 28%. 6. This is an abnormal result representing an overall high risk for possible future coronary ischemic events. Diagnosis/Problems Diagnosis/Problems (1) Non-ST elevation myocardial infarction (NSTEMI), initial care episode Assessment & Plan: His troponin level had a rise and fall despite his renal function making minimal improvement. His stress test showed a large infarct in the left circumflex coronary territory with mild ischemia. I recommend he continue aspirin, therapeutic dose of enoxaparin for a total of 5 days, beta- davy and intensive dose statin medication. I will start him on clopidogrel. He is not currently a candidate for cardiac catheterization due to his acute kidney injury. I ordered a nephrology consultation as well. If his renal function improves over the next month, then we may consider a cardiac catheterization following discharge. (2) Primary hypertension Status: Chronic Assessment & Plan: I ordered his home dose of amlodipine and metoprolol succinate. I suggest due to the acute kidney injury, we hold his losartan which he was taking at home. I changed the metoprolol succinate to 100 mg twice daily on 06/16. His stress test did show a depressed ejection fraction although sometimes a nuclear stress test gives an ambiguous result for the ejection fraction with a large perfusion defect like this patient has. Nonetheless, I will start him on hydralazine and nitrates for possible left ventricular systolic dysfunction. This should also help with his hypertension. (3) Mixed hyperlipidemia Assessment & Plan: I started him on intensive dose statin medication due to the probable NSTEMI. (4) Shortness of breath Status: Acute Assessment & Plan: Exact etiology unclear. He does not have any known history of pulmonary disease. He does not smoke and quit many years ago. His echocardiogram shows pulmonary hypertension but a normal ejection fraction. There were no other abnormalities on his echocardiogram to explain a cardiac cause of shortness of breath. He underwent a VQ scan on 06/12 that was negative for pulmonary embolism. Although his BNP is elevated this is in the setting of an acute kidney injury which can cause elevation of the BNP level. I do not suspect he has heart failure. The pulmonary congestion noted on his chest x-ray from admission could just be related to pulmonary engorgement from the pulmonary hypertension. (5) Pulmonary hypertension Assessment & Plan: Etiology unclear. His VQ scan was negative for pulmonary emboli. The pulmonary hypertension could be due to some underlying chronic pulmonary disease. He also probably needs to have a sleep study at some point in time following discharge to assess for sleep apnea which can also cause pulmonary hypertension. (6) Acute kidney injury Status: Acute Assessment & Plan: Exact etiology unclear. His renal function started to improve with IV fluids but then there was concern for volume overload and he was given a dose of IV Lasix. It appears as though his creatinine level may be reaching a plateau around 3. I have discontinued the intravenous furosemide. We will need to continue to watch his renal function closely. I ordered a nephrology consultation but will need to contact the underwriter mortgage loan tomorrow when I can get her phone number. (7) Type 2 diabetes mellitus with complication Status: Chronic Assessment & Plan: This is being managed by the primary provider. (8) Obesity Status: Chronic Assessment & Plan: He needs to work on weight loss. Problem Qualifiers (1) Obesity: Body mass index: BMI 38.0-38.9 AR PALENCIA JR, MD Jun 15, 2022 17:33
[2022-06-15] MEDS: ROSUVASTATIN 20 MG (CRESTOR) TABLET PO SCH (21:12)
[2022-06-15] MEDS: hydrALAZINE (APRESOLINE) 25 MG TAB PO SCH (21:12)
[2022-06-16] VITALS: BP 135/67
[2022-06-16] MEDS: NS IV 1000 ML 1,000 ML IV SCH ×3 (01:20→18:07)
[2022-06-16] MEDS: RT-ALBUTEROL/IPRATROPIUM 3 ML (DUONEB) VIAL INH SCH ×4 (02:46→21:19)
[2022-06-16] MEDS: ENOXAPARIN 100 MG/1 ML (LOVENOX) SYR SC SCH (02:46)
[2022-06-16 06:00] LABS: BASOPHILS % (AUTO) 0 % (0-10); EOSINOPHILS # (AUTO) 0.2 10^3/uL (0.0-0.3); EOSINOPHILS % (AUTO) 3 % (0-10); HEMATOCRIT 26 % (40-54); HEMOGLOBIN 8.9 g/dL (13.3-17.7); LYMPHOCYTES % (AUTO) 16 % (12-44); MEAN CORPUSCULAR HEMOGLOBIN 30 pg (25-34); MEAN CORPUSCULAR HGB CONC 35 g/dL (32-36); MEAN CORPUSCULAR VOLUME 87 fL (80-99); MEAN PLATELET VOLUME 9.6 fL (9.0-12.2); MONOCYTES # (AUTO) 0.5 10^3/uL (0.0-1.0); MONOCYTES % (AUTO) 8 % (0-12); NEUTROPHILS # (AUTO) 4.6 10^3/uL (1.8-7.8); NEUTROPHILS % (AUTO) 72 % (42-75); PLATELET COUNT 202 10^3/uL (130-400); WHITE BLOOD COUNT 6.3 10^3/uL (4.3-11.0)
[2022-06-16] MEDS: hydrALAZINE (APRESOLINE) 25 MG TAB PO SCH ×3 (06:05→22:07)
[2022-06-16 06:43] LABS: ALBUMIN 3.1 GM/DL (3.2-4.5); BILIRUBIN,TOTAL 0.3 MG/DL (0.1-1.0); CREATININE SERUM 2.81 MG/DL (0.60-1.30); POTASSIUM 4.5 MMOL/L (3.6-5.0); TOTAL PROTEIN 5.7 GM/DL (6.4-8.2)
[2022-06-16] MEDS: inSUlin ASPART (NovoLOG) 1 UNIT/0.01 ML (CHARGE PER UNIT) SC SCH ×4 (06:45→19:50)
[2022-06-16 07:39] VITALS: BP 144/73
--- NOTE | 2022-06-16 08:12 | Progress Note ---
Subjective Date Seen by a Provider: Jun 16, 2022 Time Seen by a Provider: 07:15 Subjective/Events-last exam Robson was sleeping comfortably this morning upon entering the room. He reports he is now breathing through his nose instead of his mouth all the time. No chest pain reported. He is trying to drink plenty of fluids. He has no shortness of breath as well. Objective Exam Vital Signs Date Time Temp Pulse Resp B/P (MAP) Pulse Ox O2 Delivery O2 Flow Rate FiO2 06/16/22 07:39 36.7 73 18 144/73 (96) 95 Room Air 06/16/22 02:46 95 Room Air 06/16/22 00:00 36.5 75 18 135/67 (89) 94 Room Air 06/15/22 21:52 97 Room Air 06/15/22 20:00 Room Air 06/15/22 19:29 37.0 79 18 165/72 (103) Room Air 06/15/22 15:41 36.6 68 19 162/81 (108) 98 Room Air 06/15/22 15:29 97 Room Air 0.00 06/15/22 12:15 36.5 74 18 173/91 (118) 96 Room Air 06/15/22 12:14 76 148/88 (108) 06/15/22 08:15 36.8 83 18 165/78 (107) 91 Room Air I & O 06/16/22 07:00 Intake Total 1536 ml Output Total 800 ml Balance 736 ml Capillary Refill : General Appearance: No Apparent Distress Neck: Supple Respiratory: Lungs Clear Cardiovascular: Regular Rate, Rhythm Gastrointestinal: soft Extremity: No Pedal Edema Results Lab Laboratory Tests 06/15/22 10:55: Glucometer 122H 06/15/22 14:41: Glucometer 120H 06/15/22 18:48: Glucometer 171H 06/16/22 05:43: White Blood Count 6.3, Red Blood Count 2.98L, Hemoglobin 8.9L, Hematocrit 26L, Mean Corpuscular Volume 87, Mean Corpuscular Hemoglobin 30, Mean Corpuscular Hemoglobin Concent 35, Red Cell Distribution Width 13.2, Platelet Count 202, Mean Platelet Volume 9.6, Immature Granulocyte % (Auto) 1, Neutrophils (%) (Auto) 72, Lymphocytes (%) (Auto) 16, Monocytes (%) (Auto) 8, Eosinophils (%) (Auto) 3, Basophils (%) (Auto) 0, Neutrophils # (Auto) 4.6, Lymphocytes # (Auto) 1.0, Monocytes # (Auto) 0.5, Eosinophils # (Auto) 0.2, Basophils # (Auto) 0.0, Immature Granulocyte # (Auto) 0.0, Sodium Level 133L, Potassium Level 4.5, Chloride Level 108H, Carbon Dioxide Level 17L, Anion Gap 8, Blood Urea Nitrogen 48H, Creatinine 2.81H, Estimat Glomerular Filtration Rate 25, BUN/Creatinine Ratio 17, Glucose Level 109H, Calcium Level 8.0L, Corrected Calcium 8.7, Total Bilirubin 0.3, Aspartate Amino Transf (AST/SGOT) 26, Alanine Aminotransferase (ALT/SGPT) 26, Alkaline Phosphatase 52, Total Protein 5.7L, Albumin 3.1L Assessment/Plan Assessment/Plan Assess & Plan/Chief Complaint 1. Dyspneaetiology unclear at this time. - possibly related to the findings by chest x-ray of bilateral infiltrates. Pulmonary congestion versus infiltrates but doubt infiltrates as he has a normal white count and no fever. -Dr Ugarte has ordered a d-dimer to exclude pulmonary embolism. 06/12 -patient is arranged to have VQ scan this morning 06/15 -low probability of PE from VQ scan 06/16 -his dyspnea has pretty much resolved at this time. 2. Acute renal insufficiency -he is currently receiving 150 cc/h of IV fluids. This will need to be adjusted to ensure he does not develop congestive heart failure. At current it is given at this rate to help with the elevated creatinine. The creatinine will be rechecked in the morning of June 1206/12 -creatinine decreased to 2.98 this morning -Hopefully with fluids as well as altering his lipid pressure medications and his creatinine will continue to decrease. 06/15 -creatinine is not budging and is 2.9 this am. Patient and made aware of this -May need neprology consultation. 06/16 -it is my understanding that nephrology may possibly be seeing patient today. His creatinine did decrease to 2.81 3. Elevated troponin -cardiology has ordered serial troponin and monitoring the heart condition. 06/15 -Lexiscan this morning per cardiology 06/16 -Lexiscan results reviewed 4. Hypertension -his losartan has been discontinued. He is now on metoprolol 100 mg along with amlodipine 10 mg daily. 5. Pulmonary infiltrates -may want to recheck chest x-ray tomorrow morning but will await after making rounds. -VQ study this morning 6. Diabetes type 2 -for now he will be placed on insulin sliding scale. His metformin will be held -he will be on a diabetic diet 7. Hypercholesterolemia -I suspect he will need to have statin therapy Clinical Quality Measures Admission Status Admission Dx 1. Dyspneaetiology unclear at this time. - possibly related to the findings by chest x-ray of bilateral infiltrates. Pulmonary congestion versus infiltrates but doubt infiltrates as he has a normal white count and no fever. -Dr Ugarte has ordered a d-dimer to exclude pulmonary embolism. 2. Acute renal insufficiency -he is currently receiving 150 cc/h of IV fluids. This will need to be adjusted to ensure he does not develop congestive heart failure. At current it is given at this rate to help with the elevated creatinine. The creatinine will be rechecked in the morning of June 12 3. Elevated troponin -cardiology has ordered serial troponin and monitoring the heart condition. 4. Hypertension -his losartan has been discontinued. He is now on metoprolol 100 mg along with amlodipine 10 mg daily. 5. Pulmonary infiltrates -may want to recheck chest x-ray tomorrow morning but will await after making rounds. 6. Diabetes type 2 -for now he will be placed on insulin sliding scale. His metformin will be held -he will be on a diabetic diet TIFFANY ROGERS MD Jun 16, 2022 08:11
[2022-06-16] MEDS: meTOprolol SUCCINATE 100 MG (TOPROL XL) TAB PO SCH ×2 (08:30→20:20)
[2022-06-16] MEDS: CLOPIDOGREL 75 MG (PLAVIX) TABLET PO SCH (08:30)
[2022-06-16] MEDS: ASPIRIN 81 MG CHEW (CHILDREN'S ASA) PO SCH (08:30)
[2022-06-16] MEDS: amLODIPine 10 MG (NORVASC) TAB PO SCH (08:30)
[2022-06-16] MEDS: SENNA W/DOCUSATE (SENOKOT S) TABLET PO SCH ×2 (08:30→20:07)
[2022-06-16] MEDS: ISOSORBIDE MONONITRATE 60 MG (IMDUR) TAB PO SCH (08:30)
[2022-06-16] MEDS: polyethylene glycoL POWDER 17 GM (MIRALAX) PACK PO SCH ×2 (08:31→20:07)
[2022-06-16 16:01] VITALS: BP 157/78
--- NOTE | 2022-06-16 16:18 | Consultation ---
History of Present Illness History of Present Illness Patient Consulted On(clark/time) 06/17/22 945am Date Seen by Provider: Jun 17, 2022 Time Seen by Provider: 10:03 Reason for Visit: сергей History of Present Illness Mr. Norman Juarez is a very pleasant 62 y/o M with history of HTN, DM, and arthritis admitted with elevated troponin and СЕРГЕЙ. [employer] meds included metformin, losartan, and naproxen. Pt admits to taking nsaids twice daily for a few day prior to admission. Stress test was abnormal and ideally would have a cath but holding off due to СЕРГЕЙ. Admission cr 3.6. denies h/o ckd or renal disease. no old labs that he can think of that we can track down to compare. Allergies and Home Medications Allergies Coded Allergies: No Known Drug Allergies (Unverified , 06/11/22) Patient Home Medication List Home Medication List Reviewed: Yes Alprazolam (Alprazolam) 1 Mg Tablet, 0.5-1 MG PO Q8H PRN for ANXIETY, (Reported) Entered as Reported by: CAMERON WALDRON on 06/11/221608 Last Action: Continued Amlodipine Besylate (Amlodipine Besylate) 10 Mg Tablet, 10 MG PO DAILY, (Reported) Entered as Reported by: CAMERON WALDRON on 06/11/221608 Last Action: Continued Glyburide (Glyburide) 5 Mg Tablet, 5 MG PO DAILY, (Reported) Entered as Reported by: CAMERON WALDRON on 06/11/221608 Last Action: Held Losartan Potassium (Losartan Potassium) 100 Mg Tablet, 100 MG PO DAILY, (Reported) Entered as Reported by: CAMERON WALDRON on 06/11/221608 Last Action: Held Metformin HCl (Metformin HCl) 500 Mg Tablet, 1,000 MG PO DAILY, (Reported) Entered as Reported by: CAMERON WALDRON on 06/11/221608 Last Action: Held Metoprolol Succinate (Metoprolol Succinate) 100 Mg Tab.er.24h, 100 MG PO DAILY, (Reported) Entered as Reported by: CAMERON WALDRON on 06/11/221608 Last Action: Continued Naproxen Sodium (Aleve) 220 Mg Tablet, 220-440 MG PO Q12H PRN for PAIN-MILD (1- 4), (Reported) Entered as Reported by: CAMERON WALDRON on 06/11/221608 Last Action: Held Sildenafil Citrate (Sildenafil) 20 Mg Tablet, 20 MG PO UD PRN for ED, (Reported) Entered as Reported by: CAMERON WALDRON on 06/11/221608 Last Action: Held Past Cbkgdws-Qjosno-Wnidog Hx Patient Social History Tobacco Use?: No Tobacco type used: Cigarettes Smoking Status: Former Smoker Smokeless Tobacco Frequency: Former User Use of E-Cig and/or Vaping dev: No Substance use?: No Alcohol Use?: Yes Alcohol type: Beer, Wine Alcohol Frequency: Rarely Pt feels they are or have been: No Immunizations Up To Date Influenza Vaccine Up-to-Date: Yes; Up-to-Date First/Initial COVID19 Vaccinat: 2020 Second COVID19 Vaccination Clark: 2020 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: [employer] Past Medical History Surgeries: No Respiratory: Yes (Chronic SOA, pulmonary HTN) Cardiac: Yes Hypertension Neurological: No Genitourinary: No Gastrointestinal: No Musculoskeletal: No Endocrine: Yes Diabetes, Non-Insulin dep HEENT: No Cancer: No Psychosocial: Yes Depression Review of Systems-General Constitutional: see HPI Physical Exam-General Problems Physical Exam Vital Signs Vital Signs - First Documented 06/11/22 06/11/22 09:38 16:30 Temp 36.4 Pulse 96 Resp 28 B/P (MAP) 174/90 (118) Pulse Ox 98 O2 Delivery Room Air O2 Flow Rate 5.00 FiO2 24 Capillary Refill : Assessment/Plan Assessment/Plan Admission Diagnosis/Plan СЕРГЕЙ ?baseline ckd not clear did have nsaids on board prior to admission educated to avoid all nsaids which he understands volume expand will r/o obstruction with renal u/s with post void residual volume check u/a showed blood; will repeat and quantify protein renally dose meds agree with holding off on cath until сергей resolves avoid use of acei/arb given сергей met acidosis start po bicarb 1300 bid goal 22-24 elevated trop with abnormal stress test will need C in the near future once сергей resolves discussed with Dr. Ugarte HTN goal <130/80 MOODY JAY MD Jun 16, 2022 16:18
[2022-06-16] MEDS: FLUTICASONE NASAL SPRAY (FLONASE) 16 GM BTL NS SCH (19:50)
--- NOTE | 2022-06-16 20:13 | Cardiology Progress Note ---
Progress Note-Cardiology Events since last exam Date Seen by Provider: Jun 16, 2022 Time Seen by Provider: 20:09 Events since last exam I am following him due to possible NSTEMI. His breathing is markedly improved. He denies chest discomfort, palpitations, syncope, or ankle edema. Certain portions of this document may have been dictated utilizing voice recognition technology. Inherent to this technology, typographical and grammatical errors may exist. As much as I am diligent to identify and correct these mistakes, some errors may remain in the document. Vitals Last set of Vitals Signs Vital Signs 06/14/22 06/15/22 06/16/22 13:49 15:29 16:01 Temp 36.9 Pulse 80 Resp 20 B/P (MAP) 157/78 (104) Pulse Ox 96 O2 Delivery Room Air O2 Flow Rate 0.00 FiO2 21 Labs Labs Laboratory Tests 06/16/22 05:43 Exam Vital Signs Vital Signs Date Time Temp Pulse Resp B/P (MAP) Pulse Ox O2 Delivery O2 Flow Rate FiO2 06/16/22 16:01 36.9 80 20 157/78 (104) 96 Room Air 06/15/22 15:29 0.00 06/14/22 13:49 21 Physical Exam General: Alert. No acute distress. He is obese. He is wearing oxygen by nasal cannula. Eye: No xanthelasma. HENT: Normocephalic. Neck: Jugular venous pressure does not appear elevated. Respiratory: Lungs are clear to auscultation. Respirations are non-labored. Breath sounds are equal. Symmetrical chest wall expansion. Cardiovascular: Normal rate. Regular rhythm. No murmur. No gallop. No edema. Gastrointestinal: Soft. Normal bowel sounds. Skin: Warm. Dry. Neurologic: Alert and oriented to person, place, time. Cranial nerves 3-11 grossly intact. Psychiatric: Cooperative. Appropriate mood & affect. Labs Laboratory Tests Test 06/16/22 05:43 06/16/22 09:24 06/16/22 11:07 06/16/22 14:32 Range/Units White Blood Count 6.3 4.3-11.0 10^3/uL Red Blood Count 2.98 L 4.30-5.52 10^6/uL Hemoglobin 8.9 L 13.3-17.7 g/dL Hematocrit 26 L 40-54 % Mean Corpuscular Volume 87 80-99 fL Mean Corpuscular Hemoglobin 30 25-34 pg Mean Corpuscular Hemoglobin Concent 35 32-36 g/dL Red Cell Distribution Width 13.2 10.0-14.5 % Platelet Count 202 130-400 10^3/uL Mean Platelet Volume 9.6 9.0-12.2 fL Immature Granulocyte % (Auto) 1 % Neutrophils (%) (Auto) 72 42-75 % Lymphocytes (%) (Auto) 16 12-44 % Monocytes (%) (Auto) 8 0-12 % Eosinophils (%) (Auto) 3 0-10 % Basophils (%) (Auto) 0 0-10 % Neutrophils # (Auto) 4.6 1.8-7.8 10^3/uL Lymphocytes # (Auto) 1.0 1.0-4.0 10^3/uL Monocytes # (Auto) 0.5 0.0-1.0 10^3/uL Eosinophils # (Auto) 0.2 0.0-0.3 10^3/uL Basophils # (Auto) 0.0 0.0-0.1 10^3/uL Immature Granulocyte # (Auto) 0.0 0.0-0.1 10^3/uL Sodium Level 133 L 135-145 MMOL/L Potassium Level 4.5 3.6-5.0 MMOL/L Chloride Level 108 H 98-107 MMOL/L Carbon Dioxide Level 17 L 21-32 MMOL/L Anion Gap 8 5-14 MMOL/L Blood Urea Nitrogen 48 H 7-18 MG/DL Creatinine 2.81 H 0.60-1.30 MG/DL Estimat Glomerular Filtration Rate 25 BUN/Creatinine Ratio 17 Glucose Level 109 H 70-105 MG/DL Calcium Level 8.0 L 8.5-10.1 MG/DL Corrected Calcium 8.7 8.5-10.1 MG/DL Total Bilirubin 0.3 0.1-1.0 MG/DL Aspartate Amino Transf (AST/SGOT) 26 5-34 U/L Alanine Aminotransferase (ALT/SGPT) 26 0-55 U/L Alkaline Phosphatase 52 40-136 U/L Total Protein 5.7 L 6.4-8.2 GM/DL Albumin 3.1 L 3.2-4.5 GM/DL Glucometer 144 H 132 H 151 H 70-110 MG/DL Diagnosis/Problems Diagnosis/Problems (1) Non-ST elevation myocardial infarction (NSTEMI), initial care episode Assessment & Plan: His troponin level had a rise and fall despite his renal function making minimal improvement. His stress test showed a large infarct in the left circumflex coronary territory with mild ischemia. I recommend he continue aspirin, clopidogrel, beta-davy and intensive dose statin medication. At this time, he completed a full course of therapeutic dose of enoxaparin for the probable acute myocardial infarction and I will change this over to DVT prophylaxis dose. He is not currently a candidate for cardiac catheterization due to his acute kidney injury. I ordered a nephrology consultation as well. If his renal function improves over the next month, then we may consider a cardiac catheterization following discharge. From a cardiac standpoint, he may be ready for discharge tomorrow. (2) Primary hypertension Status: Chronic Assessment & Plan: I ordered his home dose of amlodipine and metoprolol succinate. I suggest due to the acute kidney injury, we hold his losartan which he was taking at home. I changed the metoprolol succinate to 100 mg twice daily on 06/16. His stress test did show a depressed ejection fraction although sometimes a nuclear stress test gives an ambiguous result for the ejection fraction with a large perfusion defect like this patient has. Nonetheless, I started him on hydralazine and nitrates for possible left ventricular systolic dysfunction. This should also help with his hypertension. His blood pressures are intermittently elevated. If this persists, we may need to make some bulmaro tional adjustments to his antihypertensive medication (3) Mixed hyperlipidemia Assessment & Plan: I started him on intensive dose statin medication due to the probable NSTEMI. (4) Pulmonary hypertension Assessment & Plan: Etiology unclear. His VQ scan was negative for pulmonary emboli. The pulmonary hypertension could be due to some underlying chronic pulmonary disease. He also probably needs to have a sleep study at some point in time following discharge to assess for sleep apnea which can also cause pu lmonary hypertension. (5) Shortness of breath Status: Acute Assessment & Plan: Exact etiology unclear. He does not have any known history of pulmonary disease. He does not smoke and quit many years ago. His echocardiogram shows pulmonary hypertension but a normal ejection fraction. There were no other abnormalities on his echocardiogram to explain a cardiac cause of shortness of breath. He underwent a VQ scan on 06/12 that was negative for pulmonary embolism. Although his BNP is elevated this is in the setting of an acute kidney injury which can cause elevation of the BNP level. I do not suspect he has heart failure. The pulmonary congestion noted on his chest x-ray from admission could just be related to pulmonary engorgement from the pulmonary hypertension. (6) Acute kidney injury Status: Acute Assessment & Plan: Exact etiology unclear. His renal function started to improve with IV fluids but then there was concern for volume overload and he was given a dose of IV Lasix. It appears as though his creatinine level may be reaching a plateau around 3. I have discontinued the intravenous furosemide. We will need to continue to watch his renal function closely. I did speak with nephrology today we will plan to do a telemedicine visit with the patient while he is here in the hospital and if that is not possible, she will plan to see him in our office. (7) Type 2 diabetes mellitus with complication Status: Chronic Assessment & Plan: This is being managed by the primary provider. (8) Obesity Status: Chronic Assessment & Plan: He needs to work on weight loss. Problem Qualifiers (1) Obesity: Body mass index: BMI 38.0-38.9 AR PALENCIA JR, MD Jun 16, 2022 20:13
[2022-06-16] MEDS ORDERED: NITROGLYCERIN 0.4 MG SL TABS BTL 25'S SL PRN (20:15)
[2022-06-16] MEDS: ROSUVASTATIN 20 MG (CRESTOR) TABLET PO SCH (20:20)
[2022-06-16 22:07] VITALS: BP 175/80
[2022-06-16 23:35] VITALS: BP 158/76
[2022-06-17] MEDS: RT-ALBUTEROL/IPRATROPIUM 3 ML (DUONEB) VIAL INH SCH (03:09)
[2022-06-17] MEDS: hydrALAZINE (APRESOLINE) 25 MG TAB PO SCH ×3 (05:17→21:50)
[2022-06-17 06:23] LABS: BASOPHILS % (AUTO) 0 % (0-10); EOSINOPHILS # (AUTO) 0.2 10^3/uL (0.0-0.3); EOSINOPHILS % (AUTO) 3 % (0-10); HEMATOCRIT 29 % (40-54); HEMOGLOBIN 9.7 g/dL (13.3-17.7); LYMPHOCYTES # (AUTO) 1.2 10^3/uL (1.0-4.0); LYMPHOCYTES % (AUTO) 18 % (12-44); MEAN CORPUSCULAR HEMOGLOBIN 30 pg (25-34); MEAN CORPUSCULAR HGB CONC 34 g/dL (32-36); MEAN CORPUSCULAR VOLUME 88 fL (80-99); MEAN PLATELET VOLUME 10.1 fL (9.0-12.2); MONOCYTES # (AUTO) 0.6 10^3/uL (0.0-1.0); MONOCYTES % (AUTO) 9 % (0-12); NEUTROPHILS # (AUTO) 4.6 10^3/uL (1.8-7.8); NEUTROPHILS % (AUTO) 70 % (42-75); PLATELET COUNT 226 10^3/uL (130-400); WHITE BLOOD COUNT 6.7 10^3/uL (4.3-11.0)
[2022-06-17] MEDS: NS IV 1000 ML 1,000 ML IV SCH (06:35)
[2022-06-17 06:49] LABS: ALBUMIN 3.4 GM/DL (3.2-4.5); BILIRUBIN,TOTAL 0.4 MG/DL (0.1-1.0); CALCIUM 8.1 MG/DL (8.5-10.1); POTASSIUM 4.6 MMOL/L (3.6-5.0); TOTAL PROTEIN 6.3 GM/DL (6.4-8.2)
[2022-06-17] MEDS: inSUlin ASPART (NovoLOG) 1 UNIT/0.01 ML (CHARGE PER UNIT) SC SCH ×4 (06:52→19:20)
[2022-06-17 08:07] VITALS: BP 150/78
[2022-06-17 08:10] VITALS: BP 150/78
[2022-06-17] MEDS: ENOXAPARIN INJECTION 30 MG/0.3 ML SYR SC SCH (08:11)
[2022-06-17] MEDS: ISOSORBIDE MONONITRATE 60 MG (IMDUR) TAB PO SCH (08:12)
[2022-06-17] MEDS: amLODIPine 10 MG (NORVASC) TAB PO SCH (08:12)
[2022-06-17] MEDS: CLOPIDOGREL 75 MG (PLAVIX) TABLET PO SCH (08:12)
[2022-06-17] MEDS: ASPIRIN 81 MG CHEW (CHILDREN'S ASA) PO SCH (08:12)
[2022-06-17] MEDS: meTOprolol SUCCINATE 100 MG (TOPROL XL) TAB PO SCH ×2 (08:12→19:47)
[2022-06-17] MEDS: polyethylene glycoL POWDER 17 GM (MIRALAX) PACK PO SCH ×2 (08:13→19:47)
[2022-06-17] MEDS: SENNA W/DOCUSATE (SENOKOT S) TABLET PO SCH ×2 (08:13→19:48)
--- NOTE | 2022-06-17 14:17 | Diagnostic Imaging Report ---
PROCEDURE: US left lower extremity venous. TECHNIQUE: Multiple Real-time grayscale images were obtained over the left lower extremity in various projections. Additional duplex Doppler and color Doppler images were also obtained. INDICATION: Left leg pain. FINDINGS: There is no evidence of left lower extremity DVT. The left lower extremity deep venous system shows normal compressibility with normal response to augmentation and Valsalva. No fluid collection or mass is detected. IMPRESSION: No evidence of left lower extremity DVT. Dictated by: Dictated on workstation # [id number]
--- NOTE | 2022-06-17 14:18 | Diagnostic Imaging Report ---
PROCEDURE: US Renal Bilateral. TECHNIQUE: Multiple Real-time grayscale images were obtained over the kidneys in various projections bilaterally. INDICATION: Acute kidney injury. FINDINGS: The right kidney measures 10.7 x 6.5 x 6.0 cm and the left kidney measures 10.5 x 6.0 x 6.7 cm. The cortical thickness and echogenicity appear normal. No calculi are seen. There is no hydronephrosis. The prevoid bladder volume is 535 mL. The post void volume is 47 mL. The right ureteral jet was visualized. The left ureteral jet was not visualized. IMPRESSION: Unremarkable renal and bladder ultrasound. Dictated by: Dictated on workstation # [id number]
--- NOTE | 2022-06-17 15:35 | Cardiology Progress Note ---
Progress Note-Cardiology Events since last exam Date Seen by Provider: Jun 17, 2022 Time Seen by Provider: 17:01 Events since last exam I am following him due to probable NSTEMI. He continues to feel as though his breathing is good. He denies chest discomfort, palpitations, syncope, or ankle edema. He was having some pain in his left thigh on the inner aspect. His primary provider had him undergo an ultrasound and this did not show any evidence of venous thrombosis. Certain portions of this document may have been dictated utilizing voice recognition technology. Inherent to this technology, typographical and grammatical errors may exist. As much as I am diligent to identify and correct these mistakes, some errors may remain in the document. Vitals Last set of Vitals Signs Vital Signs 06/14/22 06/15/22 06/17/22 13:49 15:29 15:56 Temp 36.4 Pulse 77 Resp 16 B/P (MAP) 152/79 (103) Pulse Ox 92 O2 Delivery Room Air O2 Flow Rate 0.00 FiO2 21 Labs Labs Laboratory Tests 06/17/22 05:50 Exam Vital Signs Vital Signs Date Time Temp Pulse Resp B/P (MAP) Pulse Ox O2 Delivery O2 Flow Rate FiO2 06/17/22 15:56 36.4 77 16 152/79 (103) 92 Room Air 06/15/22 15:29 0.00 06/14/22 13:49 21 Physical Exam General: Alert. No acute distress. He is obese. Eye: No xanthelasma. HENT: Normocephalic. Neck: Jugular venous pressure does not appear elevated. Respiratory: Lungs are clear to auscultation. Respirations are non-labored. Breath sounds are equal. Symmetrical chest wall expansion. Cardiovascular: Normal rate. Regular rhythm. No murmur. No gallop. No edema. Gastrointestinal: Soft. Normal bowel sounds. Skin: Warm. Dry. Neurologic: Alert and oriented to person, place, time. Cranial nerves 3-11 grossly intact. Psychiatric: Cooperative. Appropriate mood & affect. ECHOCARDIOGRAM (06/17/2022): 1. This is a limited 2D only study to assess ejection fraction. 2. Left ventricle: The cavity size is normal. There is severe concentric hypertrophy. The estimated ejection fraction is 55-60%. The left ventricular diastolic function was not determined on this study. 3. Pulmonary arteries: The pulmonary artery pressure was not determined on the study as no Doppler was performed. 4. Compared to the previous study from 06/11/2022, there has been no significant change in the ejection fraction. Labs Laboratory Tests Test 06/17/22 00:00 06/17/22 05:50 06/17/22 09:23 06/17/22 10:00 Range/Units Urine Protein 462 H 6-12 MG/DL Urine Creatinine 55 30-125 MG/DL Urine Protein/Creatinine Ratio 8.40 White Blood Count 6.7 4.3-11.0 10^3/uL Red Blood Count 3.27 L 4.30-5.52 10^6/uL Hemoglobin 9.7 L 13.3-17.7 g/dL Hematocrit 29 L 40-54 % Mean Corpuscular Volume 88 80-99 fL Mean Corpuscular Hemoglobin 30 25-34 pg Mean Corpuscular Hemoglobin Concent 34 32-36 g/dL Red Cell Distribution Width 13.3 10.0-14.5 % Platelet Count 226 130-400 10^3/uL Mean Platelet Volume 10.1 9.0-12.2 fL Immature Granulocyte % (Auto) 1 % Neutrophils (%) (Auto) 70 42-75 % Lymphocytes (%) (Auto) 18 12-44 % Monocytes (%) (Auto) 9 0-12 % Eosinophils (%) (Auto) 3 0-10 % Basophils (%) (Auto) 0 0-10 % Neutrophils # (Auto) 4.6 1.8-7.8 10^3/uL Lymphocytes # (Auto) 1.2 1.0-4.0 10^3/uL Monocytes # (Auto) 0.6 0.0-1.0 10^3/uL Eosinophils # (Auto) 0.2 0.0-0.3 10^3/uL Basophils # (Auto) 0.0 0.0-0.1 10^3/uL Immature Granulocyte # (Auto) 0.0 0.0-0.1 10^3/uL Sodium Level 134 L 135-145 MMOL/L Potassium Level 4.6 3.6-5.0 MMOL/L Chloride Level 110 H 98-107 MMOL/L Carbon Dioxide Level 15 L 21-32 MMOL/L Anion Gap 9 5-14 MMOL/L Blood Urea Nitrogen 48 H 7-18 MG/DL Creatinine 3.00 H 0.60-1.30 MG/DL Estimat Glomerular Filtration Rate 23 BUN/Creatinine Ratio 16 Glucose Level 99 70-105 MG/DL Calcium Level 8.1 L 8.5-10.1 MG/DL Corrected Calcium 8.6 8.5-10.1 MG/DL Total Bilirubin 0.4 0.1-1.0 MG/DL Aspartate Amino Transf (AST/SGOT) 27 5-34 U/L Alanine Aminotransferase (ALT/SGPT) 30 0-55 U/L Alkaline Phosphatase 57 40-136 U/L Total Protein 6.3 L 6.4-8.2 GM/DL Albumin 3.4 3.2-4.5 GM/DL Glucometer 155 H 70-110 MG/DL Erythrocyte Sedimentation Rate 67 H 0-30 MM/HR C-Reactive Protein High Sensitivity 0.87 H 0.00-0.50 MG/DL Test 06/17/22 14:22 Range/Units Glucometer 154 H 70-110 MG/DL Diagnosis/Problems Diagnosis/Problems (1) Non-ST elevation myocardial infarction (NSTEMI), initial care episode Assessment & Plan: His troponin level had a rise and fall despite his renal function making minimal improvement. His stress test showed a large infarct in the left circumflex coronary territory with mild ischemia. I recommend he continue aspirin, clopidogrel, beta-davy and intensive dose statin medication. At this time, he completed a full course of therapeutic dose of enoxaparin for the probable acute myocardial infarction and I will change this over to DVT prophylaxis dose. He is not currently a candidate for cardiac catheterization due to his acute kidney injury. Nephrology told the patient not to take any NSAIDs and hopefully will follow him as an outpatient. If his renal function improves over the next month, then we may consider a cardiac catheterization following discharge. From a cardiac standpoint, he is ready for discharge once his noncardiac issues are improved. (2) Primary hypertension Status: Chronic Assessment & Plan: I ordered his home dose of amlodipine and metoprolol succinate. I suggest due to the acute kidney injury, we hold his losartan which he was taking at home. I changed the metoprolol succinate to 100 mg twice daily on 06/16. His stress test did show a depressed ejection fraction although sometimes a nuclear stress test gives an ambiguous result for the ejection fraction with a large perfusion defect like this patient has. Nonetheless, I started him on hydralazine and nitrates for possible left ventricular systolic dysfunction. This should also help with his hypertension. His blood pressures are intermittently elevated. If this persists, we may need to make some additional adjustments to his antihypertensive medication. I did have him undergo another echocardiogram today that again showed a normal ejection fraction. (3) Mixed hyperlipidemia Assessment & Plan: I started him on intensive dose statin medication due to the probable NSTEMI. (4) Pulmonary hypertension Assessment & Plan: Etiology unclear. His VQ scan was negative for pulmonary emboli. The pulmonary hypertension could be due to some underlying chronic pulmonary disease. He also probably needs to have a sleep study at some point in time following discharge to assess for sleep apnea which can also cause pulmonary hypertension. (5) Shortness of breath Status: Acute Assessment & Plan: His breathing has now improved. Exact etiology of his shortness of breath is unclear. He does not have any known history of pulmonary disease. He does not smoke and quit many years ago. His echocardiogram shows pulmonary hypertension but a normal ejection fraction. There were no other abnormalities on his echocardiogram to explain a cardiac cause of shortness of breath. He underwent a VQ scan on 06/12 that was negative for pulmonary embolism. Although his BNP is elevated this is in the setting of an acute kidney injury which can cause elevation of the BNP level. I do not suspect he has heart failure. The pulmonary congestion noted on his chest x-ray from admission could just be related to pulmonary engorgement from the pulmonary hypertension. (6) Acute kidney injury Status: Acute Assessment & Plan: Exact etiology unclear. He had been taking 2 Aleve every day for at least a couple of weeks prior to admission. His renal function started to improve with IV fluids but then there was concern for volume overload and he was given a dose of IV Lasix. It appears as though his creatinine level may be reaching a plateau around 3. He had been getting some intravenous furosemide which I discontinued. We will need to continue to watch his renal function closely. Nephrology has seen the patient for consultation. (7) Type 2 diabetes mellitus with complication Status: Chronic Assessment & Plan: This is being managed by the primary provider. (8) Obesity Status: Chronic Assessment & Plan: He needs to work on weight loss. Problem Qualifiers (1) Obesity: Body mass index: BMI 38.0-38.9 AR PALENCIA JR, MD Jun 17, 2022 15:35
[2022-06-17 15:56] VITALS: BP 152/79
[2022-06-17] MEDS: SODIUM BICARBONATE 650 MG TABLET PO SCH (19:47)
[2022-06-17] MEDS: ROSUVASTATIN 20 MG (CRESTOR) TABLET PO SCH (19:47)
[2022-06-17] MEDS: FLUTICASONE NASAL SPRAY (FLONASE) 16 GM BTL NS SCH (19:47)
[2022-06-17 21:49] VITALS: BP 161/87
[2022-06-17 23:59] VITALS: BP 165/82
[2022-06-18] MEDS: hydrALAZINE (APRESOLINE) 25 MG TAB PO SCH ×2 (05:17→13:35)
[2022-06-18] MEDS: inSUlin ASPART (NovoLOG) 1 UNIT/0.01 ML (CHARGE PER UNIT) SC SCH ×3 (05:37→14:33)
[2022-06-18 06:55] LABS: BASOPHILS % (AUTO) 0 % (0-10); EOSINOPHILS # (AUTO) 0.3 10^3/uL (0.0-0.3); EOSINOPHILS % (AUTO) 4 % (0-10); HEMATOCRIT 28 % (40-54); HEMOGLOBIN 9.7 g/dL (13.3-17.7); LYMPHOCYTES # (AUTO) 1.2 10^3/uL (1.0-4.0); LYMPHOCYTES % (AUTO) 16 % (12-44); MEAN CORPUSCULAR HEMOGLOBIN 30 pg (25-34); MEAN CORPUSCULAR HGB CONC 34 g/dL (32-36); MEAN CORPUSCULAR VOLUME 87 fL (80-99); MEAN PLATELET VOLUME 10.3 fL (9.0-12.2); MONOCYTES # (AUTO) 0.6 10^3/uL (0.0-1.0); MONOCYTES % (AUTO) 8 % (0-12); NEUTROPHILS # (AUTO) 5.3 10^3/uL (1.8-7.8); NEUTROPHILS % (AUTO) 72 % (42-75); PLATELET COUNT 243 10^3/uL (130-400); WHITE BLOOD COUNT 7.4 10^3/uL (4.3-11.0)
[2022-06-18 06:59] LABS: ALBUMIN 3.4 GM/DL (3.2-4.5)
[2022-06-18 07:00] LABS: POTASSIUM 4.8 MMOL/L (3.6-5.0)
[2022-06-18 07:01] LABS: CALCIUM 8.4 MG/DL (8.5-10.1)
[2022-06-18 07:02] LABS: TOTAL PROTEIN 6.2 GM/DL (6.4-8.2)
[2022-06-18 07:04] LABS: BILIRUBIN,TOTAL 0.4 MG/DL (0.1-1.0)
[2022-06-18 07:06] LABS: CREATININE SERUM 2.92 MG/DL (0.60-1.30)
[2022-06-18] MEDS: ISOSORBIDE MONONITRATE 60 MG (IMDUR) TAB PO SCH (08:17)
[2022-06-18] MEDS: amLODIPine 10 MG (NORVASC) TAB PO SCH (08:17)
[2022-06-18] MEDS: ENOXAPARIN INJECTION 30 MG/0.3 ML SYR SC SCH (08:17)
[2022-06-18] MEDS: SODIUM BICARBONATE 650 MG TABLET PO SCH (08:17)
[2022-06-18] MEDS: meTOprolol SUCCINATE 100 MG (TOPROL XL) TAB PO SCH (08:17)
[2022-06-18] MEDS: polyethylene glycoL POWDER 17 GM (MIRALAX) PACK PO SCH (08:17)
[2022-06-18] MEDS: CLOPIDOGREL 75 MG (PLAVIX) TABLET PO SCH (08:17)
[2022-06-18] MEDS: ASPIRIN 81 MG CHEW (CHILDREN'S ASA) PO SCH (08:17)
[2022-06-18] MEDS: SENNA W/DOCUSATE (SENOKOT S) TABLET PO SCH (08:18)
[2022-06-18 08:29] VITALS: BP 159/81
--- NOTE | 2022-06-18 14:15 | Cardiology Progress Note ---
Progress Note-Cardiology Events since last exam Date Seen by Provider: Jun 18, 2022 Time Seen by Provider: 14:12 Events since last exam I am following him due to probable NSTEMI. He feels 100% better and is ready to go home. He denies chest discomfort, dyspnea, palpitations, syncope, or ankle edema. Certain portions of this document may have been dictated utilizing voice recognition technology. Inherent to this technology, typographical and grammatical errors may exist. As much as I am diligent to identify and correct these mistakes, some errors may remain in the document. Vitals Last set of Vitals Signs Vital Signs 06/14/22 06/15/22 06/18/22 13:49 15:29 08:29 Temp 36.7 Pulse 73 Resp 18 B/P (MAP) 159/81 (107) Pulse Ox 92 O2 Delivery Room Air O2 Flow Rate 0.00 FiO2 21 Labs Labs Laboratory Tests 06/18/22 05:39 Exam Vital Signs Vital Signs Date Time Temp Pulse Resp B/P (MAP) Pulse Ox O2 Delivery O2 Flow Rate FiO2 06/18/22 08:29 36.7 73 18 159/81 (107) 92 Room Air 06/15/22 15:29 0.00 06/14/22 13:49 21 Physical Exam General: Alert. No acute distress. Eye: No xanthelasma. HENT: Normocephalic. Neck: Jugular venous pressure does not appear elevated. Respiratory: Lungs are clear to auscultation. Respirations are non-labored. Breath sounds are equal. Symmetrical chest wall expansion. Cardiovascular: Normal rate. Regular rhythm. No murmur. No gallop. No edema. Gastrointestinal: Soft. Normal bowel sounds. Skin: Warm. Dry. Neurologic: Alert and oriented to person, place, time. Cranial nerves 3-11 grossly intact. Psychiatric: Cooperative. Appropriate mood & affect. Labs Laboratory Tests Test 06/17/22 14:22 06/17/22 19:17 06/18/22 05:30 06/18/22 05:39 Range/Units Glucometer 154 H 135 H 94 70-110 MG/DL White Blood Count 7.4 4.3-11.0 10^3/uL Red Blood Count 3.28 L 4.30-5.52 10^6/uL Hemoglobin 9.7 L 13.3-17.7 g/dL Hematocrit 28 L 40-54 % Mean Corpuscular Volume 87 80-99 fL Mean Corpuscular Hemoglobin 30 25-34 pg Mean Corpuscular Hemoglobin Concent 34 32-36 g/dL Red Cell Distribution Width 13.3 10.0-14.5 % Platelet Count 243 130-400 10^3/uL Mean Platelet Volume 10.3 9.0-12.2 fL Immature Granulocyte % (Auto) 1 % Neutrophils (%) (Auto) 72 42-75 % Lymphocytes (%) (Auto) 16 12-44 % Monocytes (%) (Auto) 8 0-12 % Eosinophils (%) (Auto) 4 0-10 % Basophils (%) (Auto) 0 0-10 % Neutrophils # (Auto) 5.3 1.8-7.8 10^3/uL Lymphocytes # (Auto) 1.2 1.0-4.0 10^3/uL Monocytes # (Auto) 0.6 0.0-1.0 10^3/uL Eosinophils # (Auto) 0.3 0.0-0.3 10^3/uL Basophils # (Auto) 0.0 0.0-0.1 10^3/uL Immature Granulocyte # (Auto) 0.1 0.0-0.1 10^3/uL Sodium Level 133 L 135-145 MMOL/L Potassium Level 4.8 3.6-5.0 MMOL/L Chloride Level 108 H 98-107 MMOL/L Carbon Dioxide Level 16 L 21-32 MMOL/L Anion Gap 9 5-14 MMOL/L Blood Urea Nitrogen 48 H 7-18 MG/DL Creatinine 2.92 H 0.60-1.30 MG/DL Estimat Glomerular Filtration Rate 24 BUN/Creatinine Ratio 16 Glucose Level 102 70-105 MG/DL Calcium Level 8.4 L 8.5-10.1 MG/DL Corrected Calcium 8.9 8.5-10.1 MG/DL Total Bilirubin 0.4 0.1-1.0 MG/DL Aspartate Amino Transf (AST/SGOT) 26 5-34 U/L Alanine Aminotransferase (ALT/SGPT) 29 0-55 U/L Alkaline Phosphatase 64 40-136 U/L Total Protein 6.2 L 6.4-8.2 GM/DL Albumin 3.4 3.2-4.5 GM/DL Test 06/18/22 09:38 Range/Units Glucometer 146 H 70-110 MG/DL Diagnosis/Problems Diagnosis/Problems (1) Non-ST elevation myocardial infarction (NSTEMI), initial care episode Assessment & Plan: His troponin level had a rise and fall despite his renal function making minimal improvement. His stress test showed a large infarct in the left circumflex coronary territory with mild ischemia. I recommend he continue aspirin, clopidogrel, beta-davy and intensive dose statin medication. He completed a full course of therapeutic dose of enoxaparin for t he probable acute myocardial infarction and I changed this over to DVT prophylaxis dose. He is not currently a candidate for cardiac catheterization due to his acute kidney injury. Nephrology told the patient not to take any NSAIDs and hopefully will follow him as an outpatient. If his renal function improves over the next month, then we may consider a cardiac catheterization following discharge. From a cardiac standpoint, he is ready for discharge once his noncardiac issues are improved. (2) Primary hypertension Status: Chronic Assessment & Plan: I ordered his home dose of amlodipine and metoprolol succinate. I suggest due to the acute kidney injury, we hold his losartan which he was taking at home. I changed the metoprolol succinate to 100 mg twice daily on 06/16. His stress test did show a depressed ejection fraction although sometimes a nuclear stress test gives an ambiguous result for the ejection fraction with a large perfusion defect like this patient has. Nonetheless, I started him on hydralazine and nitrates for possible left ventricular systolic dysfunction. This should also help with his hypertension. His blood pressures are intermittently elevated. I will increase the dose of hydralazine. (3) Mixed hyperlipidemia Assessment & Plan: I started him on intensive dose statin medication due to the probable NSTEMI. (4) Pulmonary hypertension Assessment & Plan: Etiology unclear. His VQ scan was negative for pulmonary emboli. The pulmonary hypertension could be due to some underlying chronic pulmonary disease. He also probably needs to have a sleep study at some point in time following discharge to assess for sleep apnea which can also cause pulmonary hypertension. (5) Shortness of breath Status: Acute Assessment & Plan: His breathing has now improved. Exact etiology of his shortness of breath is unclear. He does not have any known history of pulmonary disease. He does not smoke and quit many years ago. His echocardiogram shows pulmonary hypertension but a normal ejection fraction. There were no other abnormalities on his echocardiogram to explain a cardiac cause of shortness of breath. He underwent a VQ scan on 06/12 that was negative for pulmonary embolism. Although his BNP is elevated this is in the setting of an acute kidney injury which can cause elevation of the BNP level. I do not suspect he has heart failure. The pulmonary congestion noted on his chest x-ray from admission could just be related to pulmonary engorgement from the pulmonary hypertension. (6) Acute kidney injury Status: Acute Assessment & Plan: Exact etiology unclear. He had been taking 2 Aleve every day for at least a couple of weeks prior to admission. His renal function started to improve with IV fluids but then there was concern for volume overload and he was given a dose of IV Lasix. It appears as though his creatinine level may be reaching a plateau around 3. He had been getting some intravenous furosemide which I discontinued. We will need to continue to watch his renal function closely. Nephrology has seen the patient for consultation. (7) Type 2 diabetes mellitus with complication Status: Chronic Assessment & Plan: This is being managed by the primary provider. (8) Obesity Status: Chronic Assessment & Plan: He needs to work on weight loss. Problem Qualifiers (1) Obesity: Body mass index: BMI 38.0-38.9 AR PALENCIA JR, MD Jun 18, 2022 14:15
[2022-06-18 15:48] VITALS: BP 162/83
[2022-06-18] MEDS ORDERED: CLOP75TA28 PO (16:19)
[2022-06-18] MEDS ORDERED: MTP100TCR PO (16:19)
[2022-06-18] MEDS ORDERED: AMLO-251 PO (16:19)
[2022-06-18] MEDS ORDERED: ROSU20TA32 PO (16:19)
--- NOTE | 2022-06-18 16:21 | Discharge Inst-Simple/Standard ---
Discharge Inst-Standard Discharge Medications New, Converted or Re-Newed RX: Transmitted to Pharmacy ([facility]) Patient Instructions/Follow Up Plan of Care/Instructions/FU: Dr Chaves on June 23 Activity as Tolerated: Yes Discharge Diet: ADA Diet Return to The Hospital For: Worsening Chest pain, shortness of breath TIFFANY ROGERS MD Jun 18, 2022 16:21
--- NOTE | 2022-06-18 16:31 | Discharge Summary ---
Diagnosis/Chief Complaint Date of Admission Jun 12, 2022 at 11:37 Date of Discharge June 18, 2022 Discharge Date: Jun 18, 2022 Reason Hospital Visit 2-year-old male who presented today via EMS to be [facility] emergency department. He reports this morning having shortness of breath and due to not having insurance he decided to go to [facility]. Apparently once he was there, the provider realized his care needed more intensive evaluation so he was sent to emergency department via EMS. He does have a history of hypertension as well as type 2 diabetes. He does take his medications faithfully but he has not had much follow-up with regards to laboratory or checking hemoglobin A1c. He denies any significant cough and certainly no fever. He does usually have some shortness of breath as he does have a tendency to breathe through his mouth as opposed his nostrils. He has not had any sleep studies performed. He denies any chest pain, palpitations, or lightheadedness. Covid he reports having 19 in the first few months 2019. He was laid off of his work through [employer] and does spend most of his day sitting around or doing things around the house Discharge Summary Hospital Course Labs Laboratory Tests 06/15/22 18:48: Glucometer 171H 06/16/22 05:43: Red Blood Count 2.98L, Hemoglobin 8.9L, Hematocrit 26L, Sodium Level 133L, Chloride Level 108H, Carbon Dioxide Level 17L, Blood Urea Nitrogen 48H, Creatinine 2.81H, Glucose Level 109H, Calcium Level 8.0L, Total Protein 5.7L, Albumin 3.1L 06/16/22 09:24: Glucometer 144H 06/16/22 11:07: Glucometer 132H 06/16/22 14:32: Glucometer 151H 06/17/22 00:00: Urine Protein 462H 06/17/22 05:50: Red Blood Count 3.27L, Hemoglobin 9.7L, Hematocrit 29L, Sodium Level 134L, Chloride Level 110H, Carbon Dioxide Level 15L, Blood Urea Nitrogen 48H, Creatinine 3.00H, Calcium Level 8.1L, Total Protein 6.3L 06/17/22 09:23: Glucometer 155H 06/17/22 10:00: Erythrocyte Sedimentation Rate 67H, C-Reactive Protein High Sensitivity 0.87H 06/17/22 14:22: Glucometer 154H 06/17/22 19:17: Glucometer 135H 06/18/22 05:30: 06/18/22 05:39: Red Blood Count 3.28L, Hemoglobin 9.7L, Hematocrit 28L, Sodium Level 133L, Chloride Level 108H, Carbon Dioxide Level 16L, Blood Urea Nitrogen 48H, Creatinine 2.92H, Calcium Level 8.4L, Total Protein 6.2L 06/18/22 09:38: Glucometer 146H 06/18/22 14:27: Glucometer 166H Procedures None. Discharge Physical Examination Allergies: Coded Allergies: No Known Drug Allergies (Unverified , 06/11/22) Vitals & I&Os Vital Signs Date Time Temp Pulse Resp B/P (MAP) Pulse Ox O2 Delivery O2 Flow Rate FiO2 06/18/22 15:48 36.9 70 16 162/83 (109) 95 Room Air 06/15/22 15:29 0.00 06/14/22 13:49 21 General Appearance: No Acute Distress Respiratory: Clear to Auscultation Cardiovascular: Regular Rate Discharge Home Medications Reviewed and agree with Discharge Medication list on patient's Discharge Instruction sheet Instructions to Patient/Family Please see electronic discharge instructions given to patient. TIFFANY ROGERS MD Jun 18, 2022 16:31
[2022-06-18 18:22] VITALS: BP 162/83
[2022-06-18] MEDS ORDERED: hydrALAZINE (APRESOLINE) 25 MG TAB PO SCH (22:00)
== END 2022-06-18 18:38 | disposition home or self-care (01) | DRG 682 ==
LOC: EDUNIT# 09:38 → ER 09:40 → CSD 12:15 → OBSVTOIN 06-12 11:37 → CSD 06-12 11:58 → 4TH 06-14 11:57
PROVIDERS: ADMIT Family Medicine; ATTEND Family Medicine
PROC: 5A0935A Assistance with Respiratory Ventilation, Less than 24 Consecutive Hours, High Flow/Velocity Cannula (ICD-10-PCS; principal; 2022-06-12)
DX: N17.9 Acute kidney failure, unspecified (principal); I21.4 Non-ST elevation (NSTEMI) myocardial infarction; J44.1 Chronic obstructive pulmonary disease with (acute) exacerbation; E87.20 Acidosis, unspecified; E11.65 Type 2 diabetes mellitus with hyperglycemia; I10 Essential (primary) hypertension; I27.20 Pulmonary hypertension, unspecified; Z87.891 Personal history of nicotine dependence; Z79.84 Long term (current) use of oral hypoglycemic drugs; Z79.899 Other long term (current) drug therapy; M19.90 Unspecified osteoarthritis, unspecified site; E78.00 Pure hypercholesterolemia, unspecified; R91.8 Other nonspecific abnormal finding of lung field; R06.00 Dyspnea, unspecified; E78.2 Mixed hyperlipidemia; R06.02 Shortness of breath; E66.9 Obesity, unspecified; Z68.38 Body mass index [BMI] 38.0-38.9, adult; Z20.822 Contact with and (suspected) exposure to COVID-19
CPT/HCPCS: 36415; 71045; 71046; 76770; 78452; 80053; 80061; 81000; 82570; 82947; 83036; 83735; 83874; 83880; 84145; 84156; 84484; 85025; 85379; 85610; 85652; 85730; 86141; 87636; 93005; 93017; 93041; 93306; 93308; 94640; 94664; 94760; 96361; 96365; 96372

== ENCOUNTER 2022-08-21 10:26 | Outpatient (RCR) | payer OTHER ==
[~2022-08-21 10:26] MED LIST: ALPR1TAB7 PO; AMLO-251 PO; CLOP75TA28 PO; GLBR5T PO; LOSA100T57 PO; METF-397 PO; MTP100TCR PO; NAPR220T66 PO; ROSU20TA32 PO; SILD20TA14 PO
[2022-08-24] MEDS ORDERED: ASPI-1238 PO (15:21)
[2022-08-24] MEDS ORDERED: FLUT16SP22 NSEACH (15:21)
[2022-08-24] MEDS ORDERED: ACET-2267 PO (15:21)
[2022-08-24] MEDS ORDERED: AMLO-251 PO (15:21)
[2022-08-24] MEDS ORDERED: ROSU20TA32 PO (15:21)
[2022-08-24] MEDS ORDERED: ERGO1250 PO (15:21)
[2022-08-24] MEDS ORDERED: CLOP75TA28 PO (15:21)
[2022-08-24] MEDS ORDERED: NF-SODBICA PO (15:21)
[2022-08-24] MEDS ORDERED: PROP10DR2 OU (15:21)
[2022-08-24] MEDS ORDERED: MTP100TCR PO (15:21)
== END 2022-09-01 | disposition home or self-care (01) ==
LOC: CR 10:26
PROVIDERS: ATTEND Internal Medicine Cardiovascular Disease
DX: Z29.8 Encounter for other specified prophylactic measures (principal); I25.2 Old myocardial infarction
CPT/HCPCS: 93798

== ENCOUNTER 2022-08-24 09:05 | Inpatient (IN) | payer OTHER ==
[~2022-08-24] VITALS: Ht 163 cm; Wt 86.2 kg
--- NOTE | 2022-08-24 09:14 | ED Dyspnea ---
General Stated Complaint: SOB History of Present Illness Date Seen by Provider: Aug 24, 2022 Time Seen by Provider: 09:13 Initial Comments 62-year-old male presents with shortness of breath for approximately 3 to 4 days. Patient reports that he feels like he just cannot get enough air and. Patient did have a TX back in June. He reports that he notices it more in the evenings and can notice it at cardiac rehab. The on Wednesday his oxygen was in the 80s but he declined to come to the ER. Patient reports that he has been using his concentrator. Normally is at 2 L but he is up to the 3 L. He denies any fevers chills cough chest pain or other systemic complaints. Allergies and Home Medications Allergies Coded Allergies: No Known Drug Allergies (Unverified , 06/11/22) Patient Home Medication List Home Medication List Reviewed: Yes Alprazolam (Alprazolam) 1 Mg Tablet, 0.5-1 MG PO Q8H PRN for ANXIETY, (Reported) Entered as Reported by: CAMERON WALDRON on 06/11/22 160 Amlodipine Besylate (Amlodipine Besylate) 10 Mg Tablet, 10 MG PO DAILY Prescribed by: TIFFANY ROGERS on 06/18/22 161 Clopidogrel Bisulfate (Clopidogrel) 75 Mg Tablet, 75 MG PO DAILY Prescribed by: TIFFANY ROGERS on 06/18/22 161 Glyburide (Glyburide) 5 Mg Tablet, 5 MG PO DAILY, (Reported) Entered as Reported by: CAMERON WALDRON on 06/11/22 160 Metoprolol Succinate (Metoprolol Succinate) 100 Mg Tab.er.24h, 100 MG PO DAILY Prescribed by: TIFFANY ROGERS on 06/18/22 161 Rosuvastatin Calcium (Rosuvastatin Calcium) 20 Mg Tablet, 20 MG PO HS Prescribed by: TIFFANY ROGERS on 06/18/22 161 Review of Systems Review of Systems Constitutional: No chills, No fever EENTM: no symptoms reported Respiratory: see HPI; No cough Cardiovascular: no symptoms reported Gastrointestinal: no symptoms reported Genitourinary: no symptoms reported Musculoskeletal: no symptoms reported Skin: no symptoms reported Psychiatric/Neurological: No Symptoms Reported Past Uizafgj-[id number]-Lxbddv Hx Immunizations Up To Date First/Initial COVID19 Vaccinat: 2020 Second COVID19 Vaccination Clark: 2020 Past Medical History Surgeries: No Respiratory: Yes (Chronic SOA, pulmonary HTN) Cardiac: Yes Hypertension Neurological: No Genitourinary: No Gastrointestinal: No Musculoskeletal: No Endocrine: Yes Diabetes, Non-Insulin dep HEENT: No Cancer: No Psychosocial: Yes Depression Physical Exam Vital Signs Vital Signs - First Documented 08/24/22 08/24/22 09:20 09:29 Temp 36.5 Pulse 71 Resp 26 B/P (MAP) 143/82 (102) Pulse Ox 93 O2 Delivery Nasal Cannula O2 Flow Rate 10.00 Capillary Refill : Height, Weight, BMI Height: '" Weight: lbs. oz. 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 II-XII Norm as Tested Skin: Normal Color, Warm/Dry Progress/Results/Core Measures Results/Orders Lab Results Laboratory Tests Test 08/24/22 09:11 08/24/22 09:25 Range/Units White Blood Count 11.7 H 4.3-11.0 10^3/uL Red Blood Count 3.66 L 4.30-5.52 10^6/uL Hemoglobin 9.7 L 13.3-17.7 g/dL Hematocrit 31 L 40-54 % Mean Corpuscular Volume 84 80-99 fL Mean Corpuscular Hemoglobin 27 25-34 pg Mean Corpuscular Hemoglobin Concent 32 32-36 g/dL Red Cell Distribution Width 14.3 10.0-14.5 % Platelet Count 538 H 130-400 10^3/uL Mean Platelet Volume 9.3 9.0-12.2 fL Immature Granulocyte % (Auto) 1 % Neutrophils (%) (Auto) 82 H 42-75 % Lymphocytes (%) (Auto) 8 L 12-44 % Monocytes (%) (Auto) 7 0-12 % Eosinophils (%) (Auto) 2 0-10 % Basophils (%) (Auto) 0 0-10 % Neutrophils # (Auto) 9.6 H 1.8-7.8 10^3/uL Lymphocytes # (Auto) 0.9 L 1.0-4.0 10^3/uL Monocytes # (Auto) 0.9 0.0-1.0 10^3/uL Eosinophils # (Auto) 0.2 0.0-0.3 10^3/uL Basophils # (Auto) 0.0 0.0-0.1 10^3/uL Immature Granulocyte # (Auto) 0.1 0.0-0.1 10^3/uL D-Dimer 1.23 H 0.00-0.49 UG/ML Sodium Level 136 135-145 MMOL/L Potassium Level 4.8 3.6-5.0 MMOL/L Chloride Level 104 98-107 MMOL/L Carbon Dioxide Level 21 21-32 MMOL/L Anion Gap 11 5-14 MMOL/L Blood Urea Nitrogen 53 H 7-18 MG/DL Creatinine 2.84 H 0.60-1.30 MG/DL Estimat Glomerular Filtration Rate 24 BUN/Creatinine Ratio 19 Glucose Level 163 H 70-105 MG/DL Calcium Level 8.7 8.5-10.1 MG/DL Corrected Calcium 9.3 8.5-10.1 MG/DL Magnesium Level 2.1 1.6-2.4 MG/DL Total Bilirubin 0.5 0.1-1.0 MG/DL Aspartate Amino Transf (AST/SGOT) 37 H 5-34 U/L Alanine Aminotransferase (ALT/SGPT) 40 0-55 U/L Alkaline Phosphatase 137 H 40-136 U/L Troponin I < 0.028 <0.028 NG/ML B-Type Natriuretic Peptide 2000.3 H <100.0 PG/ML Total Protein 7.3 6.4-8.2 GM/DL Albumin 3.2 3.2-4.5 GM/DL Influenza Type A (RT-PCR) Not Detected Not Detecte Influenza Type B (RT-PCR) Not Detected Not Detecte SARS-CoV-2 RNA (RT-PCR) Not Detected Not Detecte My Orders Orders - LORENZO LAND DO Cbc With Automated Diff (08/24/22 09:19) Comprehensive Metabolic Panel (08/24/22 09:19) Fibrin Degradation Products (08/24/22 09:19) Magnesium (08/24/22 09:19) Troponin I Bianka (08/24/22 09:19) Influenza A And B By Pcr (08/24/22 09:19) Covid 19 Inhouse Test (08/24/22 09:19) Albuterol/Ipra Inhalation Soln (Duoneb I (08/24/22 09:30) Svn Small Volume Nebulizer (08/24/22 09:19) Bnp [place] (08/24/22 09:21) Chest Pa/Lat (2 View) (08/24/22 10:22) Furosemide Injection (Lasix Injection) (08/25/22 09:00) Azithromycin Injection (Zithromax Inject (08/24/22 11:04) Ceftriaxone 1 Gm Pre-Mix (Rocephin 1 Gm (08/24/22 11:04) Furosemide Injection (Lasix Injection) (08/24/22 11:01) Medications Given in ED Current Medications Medications Dose Ordered Sig/Sofie Route Start Time Stop Time Status Last Admin Dose Admin Albuterol/ Ipratropium 3 ml ONCE ONCE INH 08/24/22 09:30 08/24/22 09:31 DC 08/24/22 10:46 3 ML Vital Signs/I&O 08/24/22 08/24/22 08/24/22 09:20 09:29 10:47 Temp 36.5 Pulse 71 Resp 26 B/P (MAP) 143/82 (102) Pulse Ox 93 92 O2 Delivery Nasal Cannula OxyMask OxyMask O2 Flow Rate 10.00 10.00 Progress Progress Note : Progress Note Patient's x-ray shows bilateral perihilar infiltrates consistent with pneumonia. Patient's oxygen is borderline around 90-92 with increasing dyspnea and baseline oxygen need. Patient to be admitted due to pneumonia for inpatient IV antibiotics, breathing treatments and other treatment as deemed necessary. I did discuss case with Dr. Rogers, who agrees to admit patient and with admission. Patient would benefit from admission as he is not always compliant with home treatment and I feel that since he has been 4 to 5 days since his symptoms started and he is just now presenting he would benefit from inpatient IV antibiotics until source improved. Patient is stable upon admission Initial ECG Impression Date: Aug 24, 2022 Initial ECG Impression Time: 09:14 Initial ECG Rate: 72 Initial ECG Rhythm: Normal Sinus Initial ECG Intervals: QRS (118) Initial ECG Impression: Nonspecific Changes Comment no acute st elevation or changes Diagnostic Imaging Diagonstic Imaging: Xray Plain Films/CT/US/NM/MRI: chest Comments Date of Exam:08/24/22 CHEST PA/LAT (2 VIEW) INDICATION: Shortness of breath. EXAMINATION: PA and lateral chest. FINDINGS: There are bilateral perihilar alveolar infiltrates with relative sparing of the lung periphery. Heart size is upper limits of normal. There are no pleural effusions. There is no increased pulmonary vascularity. IMPRESSION: Bilateral perihilar infiltrates, consistent with pneumonia. Reviewed: Reviewed by Me, Reviewed/Discussed Departure Impression Primary Impression: Bilateral pneumonia Qualified Codes: J18.9 - Pneumonia, unspecified organism Disposition: ADMITTED INPATIENT Condition: Stable Admissions Decision to Admit/Date: Aug 24, 2022 Time/Decision to Admit Time: 11:29 Departure-Patient Inst. Referrals: TIFFANY ROGERS MD (PCP/Family) Primary Care Physician LORENZO LAND DO Aug 24, 2022 09:13
[2022-08-24 09:26] LABS: BASOPHILS % (AUTO) 0 % (0-10); EOSINOPHILS # (AUTO) 0.2 10^3/uL (0.0-0.3); EOSINOPHILS % (AUTO) 2 % (0-10); HEMATOCRIT 31 % (40-54); HEMOGLOBIN 9.7 g/dL (13.3-17.7); LYMPHOCYTES # (AUTO) 0.9 10^3/uL (1.0-4.0); LYMPHOCYTES % (AUTO) 8 % (12-44); MEAN CORPUSCULAR HEMOGLOBIN 27 pg (25-34); MEAN CORPUSCULAR HGB CONC 32 g/dL (32-36); MEAN CORPUSCULAR VOLUME 84 fL (80-99); MEAN PLATELET VOLUME 9.3 fL (9.0-12.2); MONOCYTES # (AUTO) 0.9 10^3/uL (0.0-1.0); MONOCYTES % (AUTO) 7 % (0-12); NEUTROPHILS # (AUTO) 9.6 10^3/uL (1.8-7.8); NEUTROPHILS % (AUTO) 82 % (42-75); PLATELET COUNT 538 10^3/uL (130-400); WHITE BLOOD COUNT 11.7 10^3/uL (4.3-11.0)
[2022-08-24 09:29] LABS: ALBUMIN 3.2 GM/DL (3.2-4.5)
[2022-08-24 09:30] LABS: CHLORIDE 104 MMOL/L (98-107); POTASSIUM 4.8 MMOL/L (3.6-5.0); SODIUM 136 MMOL/L (135-145)
[2022-08-24] MEDS ORDERED: RT-ALBUTEROL/IPRATROPIUM 3 ML (DUONEB) VIAL INH ONE (09:30)
[2022-08-24 09:31] LABS: CALCIUM 8.7 MG/DL (8.5-10.1)
[2022-08-24 09:32] LABS: GLUCOSE 163 MG/DL (70-105); TOTAL PROTEIN 7.3 GM/DL (6.4-8.2)
[2022-08-24 09:33] LABS: CARBON DIOXIDE 21 MMOL/L (21-32)
[2022-08-24 09:34] LABS: BILIRUBIN,TOTAL 0.5 MG/DL (0.1-1.0)
[2022-08-24 09:35] LABS: ALKALINE PHOSPHATASE 137 U/L (40-136); CREATININE SERUM 2.84 MG/DL (0.60-1.30); GFR ESTIMATED 24
[2022-08-24 09:37] LABS: BUN/CREATININE RATIO 19
[2022-08-24 09:38] LABS: ALANINE AMINOTRANSFERASE 40 U/L (0-55); MAGNESIUM 2.1 MG/DL (1.6-2.4)
--- NOTE | 2022-08-24 10:54 | Diagnostic Imaging Report ---
INDICATION: Shortness of breath. EXAMINATION: PA and lateral chest. FINDINGS: There are bilateral perihilar alveolar infiltrates with relative sparing of the lung periphery. Heart size is upper limits of normal. There are no pleural effusions. There is no increased pulmonary vascularity. IMPRESSION: Bilateral perihilar infiltrates, consistent with pneumonia. Dictated by: Dictated on workstation # [id number]
[2022-08-24] MEDS ORDERED: FUROSEMIDE 40 MG/4 ML INJ (LASIX) IVP ONE (11:00)
[2022-08-24] MEDS ORDERED: FUROSEMIDE 40 MG/4 ML INJ (LASIX) ONE (11:01)
[2022-08-24] MEDS ORDERED: AZITHROMYCIN INJECTION 500 MG in NS (IVPB) 250 ML IV STA (11:04)
[2022-08-24] MEDS ORDERED: cefTRIAXone 1 GM PRE-MIX 50 ML IV STA (11:04)
[2022-08-24 12:38] VITALS: BP 138/80
[2022-08-24] MEDS ORDERED: RT-ALBUTEROL SULF 2.5 MG/3 ML PRE-MIX VIAL INH PRN ×2 (14:15→16:00)
[2022-08-24] MEDS ORDERED: RT-IPRATROPIUM (ATROVENT) 0.5MG/2.5ML AMP IH PRN ×2 (14:15→16:00)
[2022-08-24] MEDS ORDERED: ASPI-1238 PO (15:21)
[2022-08-24] MEDS ORDERED: ERGO1250 PO (15:21)
[2022-08-24] MEDS ORDERED: ACET-2267 PO (15:21)
[2022-08-24] MEDS ORDERED: PROP10DR2 OU (15:21)
[2022-08-24] MEDS ORDERED: FLUT16SP22 NSEACH (15:21)
[2022-08-24] MEDS ORDERED: MTP100TCR PO (15:21)
[2022-08-24] MEDS ORDERED: AMLO-251 PO (15:21)
[2022-08-24] MEDS ORDERED: NF-SODBICA PO (15:21)
[2022-08-24] MEDS ORDERED: CLOP75TA28 PO (15:21)
[2022-08-24] MEDS ORDERED: ROSU20TA32 PO (15:21)
[2022-08-24 15:37] VITALS: BP 145/80
[2022-08-24 15:39] VITALS: BP 143/82
[2022-08-24] MEDS ORDERED: CATHETER FLUSH 10 ML SYR IVP PRN (16:30)
[2022-08-24] MEDS ORDERED: FLUTICASONE NASAL SPRAY (FLONASE) 16 GM BTL NS PRN (18:00)
--- NOTE | 2022-08-24 18:03 | History & Physicial ---
History of Present Illness History of Present Illness Reason for visit/HPI Kenrick is a 62-year-old male who presents to emergency department with shortness of breath. Within the last few months he has chronic kidney disease. He has also been undergoing cardiac rehab and apparently over the past few weeks has had low oxygen saturation. He was started on oxygen by nasal cannula at home but both patient and report he did not seem to be improving with the oxyg en. Today he was somewhat anxious and this prompted her to bring him out to the emergency department for evaluation. He also did have a myocardial infarction in June 2022. He currently denies any significant fever or chilling. Date of Admission Aug 24, 2022 at 12:01 Date Seen by a Provider: Aug 24, 2022 Time Seen by a Provider: 16:20 I consulted on this patient on 08/24/22 17:58 Attending Physician Frank Rogers MD Admitting Physician Admitting Physician: Frank Rogers MD Attending Physician: Frank Rogers MD Consult Allergies and Home Medications Allergies Coded Allergies: No Known Drug Allergies (Unverified , 06/11/22) Patient Home Medication List Home Medication List Reviewed: Yes Acetaminophen (Tylenol Extra Strength) 500 Mg Tablet, 1,000 MG PO Q8H PRN for PAIN-MILD (1-4), (Reported) Entered as Reported by: YEIMY HAYS on 08/24/221520 Last Action: Held Alprazolam (Alprazolam) 1 Mg Tablet, 0.5-1 MG PO Q8H PRN for ANXIETY, (Reported) Entered as Reported by: CAMERON WALDRON on 06/11/22 1609 Last Action: Continued Amlodipine Besylate (Amlodipine Besylate) 10 Mg Tablet, 10 MG PO DAILY, (Reported) Entered as Reported by: YEIMY HAYS on 08/24/221520 Last Action: Continued Aspirin (Aspirin EC) 81 Mg Tablet.dr, 81 MG PO DAILY, (Reported) Entered as Reported by: YEIMY HAYS on 08/24/221520 Last Action: Continued Clopidogrel Bisulfate (Clopidogrel) 75 Mg Tablet, 75 MG PO DAILY, (Reported) Entered as Reported by: YEIMY HAYS on 08/24/221520 Last Action: Continued Ergocalciferol (Vitamin D2) (Vitamin D2) 1,250 Mcg (09965 Unit) Capsule, 1,250 MCG PO WEDNESDAY, (Reported) Entered as Reported by: YEIMY HAYS on 08/24/221520 Last Action: Reviewed Fluticasone Propionate (Fluticasone Propionate) 50 Mcg/Actuation Refugio.susp, 1 SPRAY NSEACH DAILY PRN for CONGESTION, (Reported) Entered as Reported by: YEIMY HAYS on 08/24/221520 Last Action: Continued Glyburide (Glyburide) 5 Mg Tablet, 5 MG PO DAILY, (Reported) Entered as Reported by: CAMERON WALDRON on 06/11/22 1609 Last Action: Reviewed Metoprolol Succinate (Metoprolol Succinate) 100 Mg Tab.er.24h, 100 MG PO BID, ( Reported) Entered as Reported by: YEIMY HAYS on 08/24/221520 Last Action: Continued Propylene Glycol/Peg 400 (Systane Ultra 0.4-0.3% Eye Drp) 0.3 %-0.4 % Drops, 1 DROP OU DAILY PRN for DRY EYES, (Reported) Entered as Reported by: YEIMY HAYS on 08/24/221520 Last Action: Reviewed Rosuvastatin Calcium (Rosuvastatin Calcium) 20 Mg Tablet, 20 MG PO HS, (Reported) Entered as Reported by: YEIMY HAYS on 08/24/221520 Last Action: Continued Sodium Bicarbonate (Sodium Bicarbonate) 650 Mg Tablet, 1,300 MG PO BID, (Rep orted) Entered as Reported by: YEIMY HAYS on 08/24/221520 Last Action: Continued Past Mknxocj-Lwsngv-Spjtuu Hx Patient Social History Marrital Status: Number of Children: 2 Employed/Student: unemployed Smoking Status: Former Smoker Have you traveled recently?: No Alcohol Use?: No Pt feels they are or have been: No Immunizations Up To Date Date of Influenza Vaccine: Jun 10, 2022 Surgeries No Respiratory Yes (Chronic SOA, pulmonary HTN) Cardiovascular Yes Hypertension Neurological No Genitourinary No Gastrointestinal No Musculoskeletal No Endocrine History of Endocrine Disorders: Yes Endocrine Disorders: Diabetes, Non-Insulin dep HEENT History of HEENT Disorders: No Cancer No Psychosocial History of Psychiatric Problem: Yes Behavioral Health Disorders: Depression Review of Systems Constitutional: see HPI Physical Exam Vital Signs Vital Signs - First Documented 08/24/22 08/24/22 09:20 09:29 Temp 36.5 Pulse 71 Resp 26 B/P (MAP) 143/82 (102) Pulse Ox 93 O2 Delivery Nasal Cannula O2 Flow Rate 10.00 Capillary Refill : Height, Weight, BMI Height: '" Weight: lbs. oz. kg; 35.41 BMI Method: General Appearance: Anxious Eyes: Bilateral Eye Normal Inspection HEENT: Normal ENT Inspection Neck: Non Tender, Supple Respiratory: Accessory Muscle Use (Mild), Decreased Breath Sounds, Rales (Scattered throughout but mild), Respiratory Distress (Mild but no rib retracting) Cardiovascular: Regular Rate, Rhythm (With occasional ectopy) Gastrointestinal: Soft Rectal: Deferred Extremity: Normal Capillary Refill, No Calf Tenderness, Pedal Edema Neurologic/Psychiatric: Alert, Oriented x3 Comments [facility], [place] NAME: KENRICK [facility]ZAN [facility] REC#: [id number] PT STATUS: ADM IN : 1960 PHYSICIAN: LORENZO LAND DO ADMIT DATE: 08/24/22 Signed Date of Exam:08/24/22 CHEST PA/LAT (2 VIEW) INDICATION: Shortness of breath. EXAMINATION: PA and lateral chest. FINDINGS: There are bilateral perihilar alveolar infiltrates with relative sparing of the lung periphery. Heart size is upper limits of normal. There are no pleural effusions. There is no increased pulmonary vascularity. IMPRESSION: Bilateral perihilar infiltrates, consistent with pneumonia. Dictated by: Dictated on workstation # [id number] Dict: 08/24/22 1051 Trans: 08/24/22 1449 [id number] Interpreted by: SHERLYN KOTHARI MD Electronically signed by: SHERLYN KOTHARI MD 08/24/22 1449 Assessment/Plan Assessment and Plan 1. Dyspnea and this appears to be related to the interstitial infiltrates consistent with pneumonia -patient has been initiated on azithromycin as well as ceftriaxone 2. Chronic kidney disease diagnosed June 2022 -he will stay on bicarbonate as prescribed by his integration consultant 3. Status post [place] June 25 -currently undergoing cardiac rehab but this will be held until he is noted to be doing better with regard to the infiltrates 4. Diabetes mellitus type 2 -he will stay on his diabetic medication glyburide 5. Hypertension -currently on metoprolol 6. Hyperlipidemia -on Crestor Admission Diagnosis 1. Dyspnea and this appears to be related to the interstitial infiltrates consistent with pneumonia 2. Chronic kidney disease diagnosed June 2022 3. Status post [place] June 25 4. Diabetes mellitus type 2 5. Hypertension 6. Hyperlipidemia Admission Status: Inpatient Order (span 2 midnights) Reason for Inpatient Admission: Further pulmonary care which will include IV antibiotics as well as oxygen by nasal cannula. Breathing treatments as necessary FRANK ROGERS MD Aug 24, 2022 18:03
[2022-08-24] MEDS: RT-ALBUTEROL SULF 2.5 MG/3 ML PRE-MIX VIAL INH SCH ×2 (18:41→22:07)
[2022-08-24] MEDS: RT-IPRATROPIUM (ATROVENT) 0.5MG/2.5ML AMP IH SCH ×2 (18:41→22:07)
[2022-08-24 19:04] VITALS: BP 138/71
[2022-08-24] MEDS: meTOprolol SUCCINATE 100 MG (TOPROL XL) TAB PO SCH (20:35)
[2022-08-24] MEDS: SODIUM BICARBONATE 650 MG TABLET PO SCH (20:35)
[2022-08-24] MEDS ORDERED: ROSUVASTATIN 20 MG (CRESTOR) TABLET PO SCH (21:00)
[2022-08-24] MEDS: inSUlin ASPART (NovoLOG) 1 UNIT/0.01 ML (CHARGE PER UNIT) SC SCH (22:16)
[2022-08-24 23:31] VITALS: BP 149/71
[2022-08-25] MEDS: ALPRAZolam 1 MG (XANAX) TAB PO PRN ×3 (00:26→23:08)
[2022-08-25] MEDS: RT-IPRATROPIUM (ATROVENT) 0.5MG/2.5ML AMP IH SCH ×6 (00:43→23:27)
[2022-08-25] MEDS: RT-ALBUTEROL SULF 2.5 MG/3 ML PRE-MIX VIAL INH SCH ×6 (00:43→23:27)
[2022-08-25 05:13] VITALS: BP 136/76
[2022-08-25 05:15] LABS: ABG BASE EXCESS -0.6 MMOL/L (-2.5-2.5); ABG OXYGEN SATURATION 96 % (94-100); ABG PCO2 39 MMHG (35-45); ABG PO2 75 MMHG (79-93); ABG TCO2 24.7 MMOL/L (21.0-31.0)
[2022-08-25 05:16] LABS: ALLENS TEST YES-POS; INSPIRED O2 40%; PATIENT TEMP 36.9; VENTILATOR NO
[2022-08-25 05:39] LABS: BASOPHILS % (AUTO) 0 % (0-10); EOSINOPHILS # (AUTO) 0.2 10^3/uL (0.0-0.3); EOSINOPHILS % (AUTO) 2 % (0-10); HEMATOCRIT 26 % (40-54); HEMOGLOBIN 7.9 g/dL (13.3-17.7); LYMPHOCYTES % (AUTO) 14 % (12-44); MEAN CORPUSCULAR HEMOGLOBIN 26 pg (25-34); MEAN CORPUSCULAR HGB CONC 31 g/dL (32-36); MEAN CORPUSCULAR VOLUME 83 fL (80-99); MEAN PLATELET VOLUME 9.2 fL (9.0-12.2); MONOCYTES # (AUTO) 0.7 10^3/uL (0.0-1.0); MONOCYTES % (AUTO) 10 % (0-12); NEUTROPHILS # (AUTO) 5.3 10^3/uL (1.8-7.8); NEUTROPHILS % (AUTO) 73 % (42-75); PLATELET COUNT 350 10^3/uL (130-400); WHITE BLOOD COUNT 7.3 10^3/uL (4.3-11.0)
[2022-08-25 05:52] LABS: CALCIUM 8.2 MG/DL (8.5-10.1); CREATININE SERUM 2.81 MG/DL (0.60-1.30); POTASSIUM 4.3 MMOL/L (3.6-5.0)
[2022-08-25] MEDS: inSUlin ASPART (NovoLOG) 1 UNIT/0.01 ML (CHARGE PER UNIT) SC SCH ×4 (06:45→20:32)
[2022-08-25 07:20] VITALS: BP 155/83
--- NOTE | 2022-08-25 07:46 | Progress Note ---
Subjective Date Seen by a Provider: Aug 25, 2022 Time Seen by a Provider: 07:00 Subjective/Events-last exam Patient on bipap overnight and was breathing better. He finally urinated during the evening. No chest pains. Objective Exam Vital Signs Date Time Temp Pulse Resp B/P (MAP) Pulse Ox O2 Delivery O2 Flow Rate FiO2 08/25/22 07:20 36.5 76 20 155/83 (107) 94 NIV Bilevel 40.00 08/25/22 06:44 69 37 91 40.00 08/25/22 05:13 36.9 69 28 136/76 (96) 93 NIV Bilevel 40.00 08/25/22 02:53 66 24 94 40.00 08/25/22 00:36 78 19 100 75.00 08/24/22 23:31 36.6 73 20 149/71 (97) 94 High Flow N/C 10.00 08/24/22 22:08 93 High Flow N/C 10.00 08/24/22 19:04 36.8 81 20 138/71 (93) 93 High Flow N/C 10.00 08/24/22 18:41 92 High Flow N/C 10.00 08/24/22 15:41 91 OxyMask 10.00 08/24/22 15:39 36.5 71 93 08/24/22 15:37 36.6 70 22 145/80 (101) 87 OxyMask 7.50 08/24/22 12:38 36.6 77 20 138/80 (99) 92 OxyMask 10.00 08/24/22 11:58 36.5 75 18 142/84 91 OxyMask 10.00 10.00 08/24/22 10:47 92 OxyMask 10.00 08/24/22 09:29 36.5 71 26 143/82 (102) 93 OxyMask 10.00 08/24/22 09:20 Nasal Cannula I & O 08/25/22 07:00 Intake Total 1450 ml Output Total 1350 ml Balance 100 ml Capillary Refill : General Appearance: No Apparent Distress (but is wearing bipap) Neck: Supple Respiratory: No No Respiratory Distress, No Accessory Muscle Use; Crackles Cardiovascular: Regular Rate, Rhythm, Other (ankle edema) Gastrointestinal: soft Results Lab Laboratory Tests 08/24/22 09:11: White Blood Count 11.7H, Red Blood Count 3.66L, Hemoglobin 9.7L, Hematocrit 31L, Mean Corpuscular Volume 84, Mean Corpuscular Hemoglobin 27, Mean Corpuscular Hemoglobin Concent 32, Red Cell Distribution Width 14.3, Platelet Count 538H, Mean Platelet Volume 9.3, Immature Granulocyte % (Auto) 1, Neutrophils (%) (Auto) 82H, Lymphocytes (%) (Auto) 8L, Monocytes (%) (Auto) 7, Eosinophils (%) (Auto) 2, Basophils (%) (Auto) 0, Neutrophils # (Auto) 9.6H, Lymphocytes # (Auto) 0.9L, Monocytes # (Auto) 0.9, Eosinophils # (Auto) 0.2, Basophils # (Auto) 0.0, Immature Granulocyte # (Auto) 0.1, D-Dimer 1.23H, Sodium Level 136, Potassium Level 4.8, Chloride Level 104, Carbon Dioxide Level 21, Anion Gap 11, Blood Urea Nitrogen 53H, Creatinine 2.84H, Estimat Glomerular Filtration Rate 24, BUN/Creatinine Ratio 19, Glucose Level 163H, Calcium Level 8.7, Corrected Calcium 9.3, Magnesium Level 2.1, Total Bilirubin 0.5, Aspartate Amino Transf (AST/SGOT) 37H, Alanine Aminotransferase (ALT/SGPT) 40, Alkaline Phosphatase 137H, Troponin I < 0.028, B-Type Natriuretic Peptide 2000.3H, Total Protein 7.3, Albumin 3.2 08/24/22 09:25: Influenza Type A (RT-PCR) Not Detected, Influenza Type B (RT-PCR) Not Detected, SARS-CoV-2 RNA (RT-PCR) Not Detected 08/25/22 05:08: Blood Gas Puncture Site R WRIST, Blood Gas Patient Temperature 36.9, Arterial Blood pH 7.40, Arterial Blood Partial Pressure CO2 39, Arterial Blood Partial Pressure O2 75L, Arterial Blood HCO3 24, Arterial Blood Total CO2 24.7, Arterial Blood Oxygen Saturation 96, Arterial Blood Base Excess -0.6, Juan Test YES-POS, Blood Gas Ventilator Setting NO, Blood Gas Inspired Oxygen 40% 08/25/22 05:12: White Blood Count 7.3, Red Blood Count 3.07L, Hemoglobin 7.9L, Hematocrit 26L, Mean Corpuscular Volume 83, Mean Corpuscular Hemoglobin 26, Mean Corpuscular Hemoglobin Concent 31L, Red Cell Distribution Width 14.5, Platelet Count 350, Mean Platelet Volume 9.2, Immature Granulocyte % (Auto) 1, Neutrophils (%) (Auto) 73, Lymphocytes (%) (Auto) 14, Monocytes (%) (Auto) 10, Eosinophils (%) (Auto) 2, Basophils (%) (Auto) 0, Neutrophils # (Auto) 5.3, Lymphocytes # (Auto) 1.0, Monocytes # (Auto) 0.7, Eosinophils # (Auto) 0.2, Basophils # (Auto) 0.0, Immature Granulocyte # (Auto) 0.1, Sodium Level 138, Potassium Level 4.3, Chloride Level 106, Carbon Dioxide Level 20L, Anion Gap 12, Blood Urea Nitrogen 53H, Creatinine 2.81H, Estimat Glomerular Filtration Rate 25, BUN/Creatinine Ratio 19, Glucose Level 85, Calcium Level 8.2L Assessment/Plan Assessment/Plan Assess & Plan/Chief Complaint 1. Dyspnea and this appears to be related to the interstitial infiltrates consistent with pneumonia -patient has been initiated on azithromycin as well as ceftriaxone 08/25 -plan on rechecking chest x-ray in the morning of August 26 2. Chronic kidney disease diagnosed June 2022 -he will stay on bicarbonate as prescribed by his wire spooler 3. Status post [place] June 25 -currently undergoing cardiac rehab but this will be held until he is noted to be doing better with regard to the infiltrates 08/25 -due to his BNP elevation will consult cardiology as well. 4. Diabetes mellitus type 2 -he will stay on his diabetic medication glyburide 5. Hypertension -currently on metoprolol 6. Hyperlipidemia -on Crestor 7. Anemia -recheck CBC in the morning of August 26 Clinical Quality Measures Admission Status Admission Dx 1. Dyspnea and this appears to be related to the interstitial infiltrates consistent with pneumonia 2. Chronic kidney disease diagnosed June 2022 3. Status post [place] June 25 4. Diabetes mellitus type 2 5. Hypertension 6. Hyperlipidemia TIFFANY ROGERS MD Aug 25, 2022 07:46
[2022-08-25] MEDS: meTOprolol SUCCINATE 100 MG (TOPROL XL) TAB PO SCH ×2 (08:34→20:35)
[2022-08-25] MEDS: SODIUM BICARBONATE 650 MG TABLET PO SCH ×2 (08:34→20:33)
[2022-08-25] MEDS: ASPIRIN E.C. 81 MG (ECOTRIN) TAB PO SCH (08:34)
[2022-08-25] MEDS ORDERED: FUROSEMIDE 40 MG/4 ML INJ (LASIX) IVP SCH (09:00)
[2022-08-25] MEDS ORDERED: CLOPIDOGREL 75 MG (PLAVIX) TABLET PO SCH (09:00)
[2022-08-25] MEDS ORDERED: amLODIPine 10 MG (NORVASC) TAB PO SCH (09:00)
--- NOTE | 2022-08-25 10:33 | Consultation-Cardiology ---
HPI-Cardiology Cardiology Consultation Date of Consultation 08/25/22 Date of Admission Time Seen by Provider: 08:25 Indication: Dyspnea, elevated BNP HPI Patient is a 62 y/o male with history of CAD with NV in June 2022, has been medically managed, CKD, HTN, HLP, DM. Presented to the ER yesterday with complaints of increased dyspnea x 3-4 days with associated cough. Denies any chest pain, dizziness or lightheadedness. Reporting increased peripheral edema over the last month. Noted to have bilateral infiltrates on CXR and being treated for pneumonia. Currently maintained on BiPAP Home Medications & Allergies Allergies: Coded Allergies: No Known Drug Allergies (Unverified , 06/11/22) NUA-Uwqsny-Lufxht Hx Patient Social History Marital Status: Number of Children: 2 Employed/Student: unemployed Smoking Status: Former Smoker Have you traveled recently?: No Alcohol Use?: No Immunizations Up To Date Date of Influenza Vaccine: Jun 10, 2022 Review of Systems-General Review of Systems Constitutional: see HPI EENTM: no symptoms reported Respiratory: see HPI; No cough Cardiovascular: no symptoms reported Gastrointestinal: no symptoms reported Genitourinary: no symptoms reported Musculoskeletal: no symptoms reported Skin: no symptoms reported Psychiatric/Neurological: No Symptoms Reported Physical Exam Physical Exam Vital Signs Vital Signs - First Documented 08/24/22 08/24/22 08/25/22 09:20 09:29 09:04 Temp 36.5 Pulse 71 Resp 26 B/P (MAP) 143/82 (102) Pulse Ox 93 O2 Delivery Nasal Cannula O2 Flow Rate 10.00 FiO2 100 Capillary Refill : Height, Weight, BMI Height: '" Weight: lbs. oz. kg; 35.41 BMI Method: General Appearance: No Apparent Distress (but is wearing bipap) Eyes: Bilateral Eye Normal Inspection HEENT: Normal ENT Inspection Neck: Supple Respiratory: No No Respiratory Distress, No Accessory Muscle Use; Crackles Cardiovascular: Regular Rate, Rhythm, Other (ankle edema) Gastrointestinal: Soft Rectal: Deferred Extremity: Normal Capillary Refill, No Calf Tenderness, Pedal Edema Neurologic/Psychiatric: Alert, Oriented x3 Skin: Normal Color, Warm/Dry A/P-Cardiology Admission Diagnosis Pneumonia Elevated BNP CAD HTN Assessment/Plan Bilateral pneumonia, CXR showing bilat infiltrate, started on antibiotics, management per PCP. Coronary artery disease, History of NSTEMI in June of 2022. Stress test done June [address] Ugarte showing large, severe intensity, partially reversible basal to apical inferior and lateral defect with a small amount of inducible ischemia at the apex with a SSS 23, SDS 4. Mid to distal lateral akinesis with global hypokinesis elsewhere with severe left ventricular systolic dysfunction with a calculated ejection fraction of 28%. Patient did not undergo LHC at the time d/t underlying kidney function. Has been medically managed, maintained on ASA, Plavix and beta davy, statin as outpatient. Will plan for viability study with dobutamine stress echo. Hypertension, restart home blood pressure medication and continue to monitor. Hyperlipidemia, maintained on Crestor 20mg Pulmonary hypertension CKD, stage IV, continue to monitor renal function. DM, management per PCP Obesity Thank you for allowing us to participate in the management of Mr. Norman Juarez. This is Tanja Adames PA-C, as a scribe for Dr. Fowler. Patient was seen and evaluated with Tanja, I examined and interviewed the patient, discussed management plan Patient has history of coronary artery disease, non-ST NV Has been treated with conservative management I am planning to evaluate viability study once his pneumonia is better then we can plan the next step. Continue to monitor and continue to maximize medical therapy. TANJA WHITMAN Aug 25, 2022 10:33 SUGEY FOWLER MD Aug 25, 2022 11:45
[2022-08-25] MEDS: cefTRIAXone 1 GM IV (PRE-MIX) 50 ML IV SCH (10:49)
[2022-08-25] MEDS ORDERED: AZITHROMYCIN 500 MG/NS 250 ML IVPB IV SCH ×2 (11:00)
[2022-08-25 11:19] VITALS: BP 132/69
[2022-08-25] MEDS ORDERED: PATIENT MAY USE OWN MEDS, ALL MC SCH (11:30)
[2022-08-25 15:37] VITALS: BP 144/73
[2022-08-25 19:04] VITALS: BP 145/75
[2022-08-25] MEDS: ROSUVASTATIN 20 MG (CRESTOR) TABLET PO SCH (20:34)
[2022-08-26] VITALS: BP 138/72
[2022-08-26] MEDS: RT-IPRATROPIUM (ATROVENT) 0.5MG/2.5ML AMP IH SCH ×6 (03:08→21:57)
[2022-08-26] MEDS: RT-ALBUTEROL SULF 2.5 MG/3 ML PRE-MIX VIAL INH SCH ×6 (03:08→21:57)
[2022-08-26 04:53] VITALS: BP 156/75
[2022-08-26 05:39] LABS: BASOPHILS % (AUTO) 0 % (0-10); EOSINOPHILS # (AUTO) 0.2 10^3/uL (0.0-0.3); EOSINOPHILS % (AUTO) 3 % (0-10); HEMATOCRIT 23 % (40-54); HEMOGLOBIN 7.1 g/dL (13.3-17.7); LYMPHOCYTES # (AUTO) 0.7 10^3/uL (1.0-4.0); LYMPHOCYTES % (AUTO) 9 % (12-44); MEAN CORPUSCULAR HEMOGLOBIN 26 pg (25-34); MEAN CORPUSCULAR HGB CONC 31 g/dL (32-36); MEAN CORPUSCULAR VOLUME 84 fL (80-99); MEAN PLATELET VOLUME 9.4 fL (9.0-12.2); MONOCYTES # (AUTO) 0.7 10^3/uL (0.0-1.0); MONOCYTES % (AUTO) 10 % (0-12); NEUTROPHILS # (AUTO) 5.7 10^3/uL (1.8-7.8); NEUTROPHILS % (AUTO) 77 % (42-75); PLATELET COUNT 334 10^3/uL (130-400); WHITE BLOOD COUNT 7.4 10^3/uL (4.3-11.0)
[2022-08-26 05:58] LABS: ALBUMIN 2.5 GM/DL (3.2-4.5); BILIRUBIN,TOTAL 0.2 MG/DL (0.1-1.0); CALCIUM 7.8 MG/DL (8.5-10.1); CREATININE SERUM 3.04 MG/DL (0.60-1.30); POTASSIUM 4.2 MMOL/L (3.6-5.0); TOTAL PROTEIN 5.7 GM/DL (6.4-8.2)
[2022-08-26] MEDS: inSUlin ASPART (NovoLOG) 1 UNIT/0.01 ML (CHARGE PER UNIT) SC SCH ×4 (06:11→20:19)
[2022-08-26 07:23] VITALS: BP 155/74
--- NOTE | 2022-08-26 07:42 | Progress Note ---
Subjective Date Seen by a Provider: Aug 26, 2022 Time Seen by a Provider: 06:55 Subjective/Events-last exam Slept with bipap on overnight. Yesterday he had vapotherm during the day. Overall breathing a little better. No change of bowel habit and no dark tary stools. Objective Exam Vital Signs Date Time Temp Pulse Resp B/P (MAP) Pulse Ox O2 Delivery O2 Flow Rate FiO2 08/26/22 07:23 36.5 78 20 155/74 (101) 92 NIV Bilevel 08/26/22 07:00 81 23 90 40.00 08/26/22 04:53 36.6 88 24 156/75 (102) 91 NIV Bilevel 40.00 40.00 08/26/22 03:08 78 33 94 40.00 08/26/22 00:00 36.6 79 22 138/72 (94) 93 NIV Bilevel 08/25/22 23:27 81 36 92 40.00 08/25/22 20:00 Vapotherm 20.00 90 08/25/22 19:04 37.2 79 24 145/75 (98) 93 Vapotherm 90.00 20.00 08/25/22 18:35 97 Vapotherm 20.00 100 08/25/22 15:37 36.8 70 23 144/73 (96) 95 Vapotherm 100.00 20.00 08/25/22 14:38 94 Vapotherm 20.00 100 08/25/22 11:19 36.3 73 18 132/69 (90) 96 Vapotherm 100.00 20.00 08/25/22 09:31 96 Vapotherm 20.00 100 08/25/22 09:04 98 Vapotherm 20.00 100 08/25/22 08:44 94 NIV Bilevel 10.00 I & O 08/26/22 07:00 Intake Total 3000 ml Output Total 1400 ml Balance 1600 ml Capillary Refill : General Appearance: No Apparent Distress (but he is on bipap) Respiratory: Crackles (in apical region) Cardiovascular: Regular Rate, Rhythm Gastrointestinal: soft Results Lab Laboratory Tests 08/25/22 11:22: Glucometer 155H 08/25/22 15:40: Glucometer 223H 08/25/22 20:22: Glucometer 243H 08/26/22 04:57: Glucometer 260H 08/26/22 05:12: White Blood Count 7.4, Red Blood Count 2.76L, Hemoglobin 7.1L, Hematocrit 23L, Mean Corpuscular Volume 84, Mean Corpuscular Hemoglobin 26, Mean Corpuscular Hemoglobin Concent 31L, Red Cell Distribution Width 14.4, Platelet Count 334, Mean Platelet Volume 9.4, Immature Granulocyte % (Auto) 1, Neutrophils (%) (Auto) 77H, Lymphocytes (%) (Auto) 9L, Monocytes (%) (Auto) 10, Eosinophils (%) (Auto) 3, Basophils (%) (Auto) 0, Neutrophils # (Auto) 5.7, Lymphocytes # (Auto) 0.7L, Monocytes # (Auto) 0.7, Eosinophils # (Auto) 0.2, Basophils # (Auto) 0.0, Immature Granulocyte # (Auto) 0.0, Sodium Level 137, Potassium Level 4.2, Chloride Level 105, Carbon Dioxide Level 20L, Anion Gap 12, Blood Urea Nitrogen 57H, Creatinine 3.04H, Estimat Glomerular Filtration Rate 22, BUN/Creatinine Ratio 19, Glucose Level 276H, Calcium Level 7.8L, Corrected Calcium 9.0, Total Bilirubin 0.2, Aspartate Amino Transf (AST/SGOT) 21, Alanine Aminotransferase (ALT/SGPT) 34, Alkaline Phosphatase 101, Total Protein 5.7L, Albumin 2.5L 08/26/22 07:22: Glucometer 284H Assessment/Plan Assessment/Plan Assess & Plan/Chief Complaint 1. Dyspnea and this appears to be related to the interstitial infiltrates consistent with pneumonia -patient has been initiated on azithromycin as well as ceftriaxone 08/25 -plan on rechecking chest x-ray in the morning of August 2608/26 -CXR this am 2. Chronic kidney disease diagnosed June 2022 -he will stay on bicarbonate as prescribed by his technology applications teacher 3. Status post [place] June 25 -currently undergoing cardiac rehab but this will be held until he is noted to be doing better with regard to the infiltrates 08/25 -due to his BNP elevation will consult cardiology as well. 4. Diabetes mellitus type 2 -he will stay on his diabetic medication glyburide 5. Hypertension -currently on metoprolol 6. Hyperlipidemia -on Crestor 7. Anemia -recheck CBC in the morning of August 26 Clinical Quality Measures Admission Status Admission Dx 1. Dyspnea and this appears to be related to the interstitial infiltrates consistent with pneumonia 2. Chronic kidney disease diagnosed June 2022 3. Status post [place] June 25 4. Diabetes mellitus type 2 5. Hypertension 6. Hyperlipidemia TIFFANY ROGERS MD Aug 26, 2022 07:42
[2022-08-26] MEDS: meTOprolol SUCCINATE 100 MG (TOPROL XL) TAB PO SCH ×2 (08:57→20:17)
[2022-08-26] MEDS: CLOPIDOGREL 75 MG (PLAVIX) TABLET PO SCH (08:58)
[2022-08-26] MEDS: AZITHROMYCIN 250 MG TAB (ZITHROMAX) PO SCH (08:58)
[2022-08-26] MEDS: ASPIRIN E.C. 81 MG (ECOTRIN) TAB PO SCH (08:58)
[2022-08-26] MEDS: amLODIPine 10 MG (NORVASC) TAB PO SCH (08:59)
[2022-08-26] MEDS: SODIUM BICARBONATE 650 MG TABLET PO SCH ×2 (08:59→20:16)
[2022-08-26] MEDS: ROSUVASTATIN 20 MG (CRESTOR) TABLET PO SCH ×2 (09:00→20:17)
[2022-08-26] MEDS: cefTRIAXone 1 GM IV (PRE-MIX) 50 ML IV SCH (09:01)
--- NOTE | 2022-08-26 09:05 | Diagnostic Imaging Report ---
INDICATION: Pulmonary infiltrates, shortness of breath. COMPARISON: 08/24/2022. TECHNIQUE: Two radiographs of the chest dated 08/26/2022. FINDINGS: The cardiac silhouette is stable. The pulmonary vasculature is obscured. Extensive bilateral pulmonary infiltrates are again identified, greatest centrally and predominantly sparing the periphery of the lungs. This has not significantly changed since the prior examination. No significant pleural effusion. No pneumothorax. No acute osseous abnormality. IMPRESSION: Extensive and stable bilateral central pulmonary infiltrates without adverse change when compared to the prior exam. Dictated by: Dictated on workstation # [id number]
[2022-08-26 11:30] VITALS: BP 154/76
--- NOTE | 2022-08-26 12:02 | Cardiology Progress Note ---
Subjective Date Seen by Provider: Aug 26, 2022 Time Seen by Provider: 08:40 Subjective/Events-last exam Patient is sitting up at bed side, still having dyspnea. Denies any chest pain Objective-Cardiology Exam Last Set of Vital Signs Vital Signs 08/26/22 08/26/22 10:19 11:30 Temp 36.2 Pulse 80 Resp 20 B/P (MAP) 154/76 (102) Pulse Ox 99 O2 Delivery Vapotherm O2 Flow Rate 90.00 20.00 FiO2 90 I&O Intake and Output 08/26/22 00:00 Intake Total 2000 ml Output Total 1350 ml Balance 650 ml Intake Oral 2000 ml Output Urine Total 1350 ml # Voids 3 # Bowel Movements 1 General: Alert, Oriented X3 HEENT: Atraumatic, PERRLA Lungs: Other (bilat rhonchi) Heart: Regular Rate Abdomen: Normal Bowel Sounds, Soft Skin: No Rashes, No Significant Lesion Neuro: Normal Speech Psych/Mental Status: Mental Status NL, Mood NL Results Lab Laboratory Tests 08/26/22 05:12 A/P-Cardiology Admission Diagnosis Pneumonia Elevated BNP CAD HTN Assessment/Plan Bilateral pneumonia, CXR showing bilat infiltrate, started on antibiotics, management per PCP. Coronary artery disease, History of NSTEMI in June of 2022. Stress test done June [address] Ugarte showing large, severe intensity, partially reversible basal to apical inferior and lateral defect with a small amount of inducible ischemia at the apex with a SSS 23, SDS 4. Mid to distal lateral akinesis with global hypokinesis elsewhere with severe left ventricular systolic dysfunction with a calculated ejection fraction of 28%. Patient did not undergo LHC at the time d/t underlying kidney function. Has been medically managed, maintained on ASA, Plavix and beta davy, statin as outpatient. Will plan for viability study with dobutamine stress echo once more stable Hypertension, controlled, continue to monitor. Hyperlipidemia, maintained on Crestor 20mg Anemia, worsening H/H, continue to monitor closely, will require w/u once more clinically stable. Pulmonary hypertension CKD, stage IV, continue to monitor renal function. DM, management per PCP Obesity Supervisory-Addendum Brief Supervisory Addendum Participated in pt care: history, MDM, physical Personally performed: exam, history, MDM Care discussed with: MIRNA Results interpretation: Verified all documentation Notes: Patient was seen and evaluated with Tanja, examination performed, management plan was discussed, agree with the current scribed note, I made few changes to the note using Italic font Patient was seen at bedside, laying down comfortably, feeling better Breathing better today Discussed the management plan, planning for viability study as an outpatient Continue on current treatment at this point TANJA WHITMAN Aug 26, 2022 12:02 SUGEY FUENTES MD Aug 26, 2022 13:39
[2022-08-26 15:29] VITALS: BP 149/72
[2022-08-26 16:47] LABS: ABG BASE EXCESS 0.7 MMOL/L (-2.5-2.5); ABG OXYGEN SATURATION 92 % (94-100); ABG PCO2 44 MMHG (35-45); ABG PH 7.38 (7.37-7.43); ABG PO2 62 MMHG (79-93); ABG TCO2 26.6 MMOL/L (21.0-31.0)
[2022-08-26 16:49] LABS: ALLENS TEST POSITIVE; INSPIRED O2 10 L; PATIENT TEMP 37; VENTILATOR NO
[2022-08-26 20:14] VITALS: BP 146/74
[2022-08-26] MEDS: ALPRAZolam 1 MG (XANAX) TAB PO PRN (20:18)
[2022-08-27] VITALS (7 sets, daily range): BP systolic 115–155; BP diastolic 37–78
[2022-08-27] MEDS: RT-IPRATROPIUM (ATROVENT) 0.5MG/2.5ML AMP IH SCH ×6 (02:41→22:30)
[2022-08-27] MEDS: RT-ALBUTEROL SULF 2.5 MG/3 ML PRE-MIX VIAL INH SCH ×6 (02:41→22:30)
[2022-08-27 07:15] LABS: BASOPHILS % (AUTO) 0 % (0-10); EOSINOPHILS # (AUTO) 0.3 10^3/uL (0.0-0.3); EOSINOPHILS % (AUTO) 3 % (0-10); HEMATOCRIT 23 % (40-54); HEMOGLOBIN 7.1 g/dL (13.3-17.7); LYMPHOCYTES # (AUTO) 0.9 10^3/uL (1.0-4.0); LYMPHOCYTES % (AUTO) 11 % (12-44); MEAN CORPUSCULAR HEMOGLOBIN 26 pg (25-34); MEAN CORPUSCULAR HGB CONC 31 g/dL (32-36); MEAN CORPUSCULAR VOLUME 84 fL (80-99); MEAN PLATELET VOLUME 9.3 fL (9.0-12.2); MONOCYTES # (AUTO) 0.7 10^3/uL (0.0-1.0); MONOCYTES % (AUTO) 9 % (0-12); NEUTROPHILS # (AUTO) 6.2 10^3/uL (1.8-7.8); NEUTROPHILS % (AUTO) 76 % (42-75); PLATELET COUNT 315 10^3/uL (130-400); WHITE BLOOD COUNT 8.2 10^3/uL (4.3-11.0)
[2022-08-27 07:26] LABS: ALBUMIN 2.7 GM/DL (3.2-4.5); POTASSIUM 4.4 MMOL/L (3.6-5.0)
[2022-08-27 07:30] LABS: BILIRUBIN,TOTAL 0.2 MG/DL (0.1-1.0)
[2022-08-27 07:32] LABS: CREATININE SERUM 2.94 MG/DL (0.60-1.30)
[2022-08-27] MEDS: inSUlin ASPART (NovoLOG) 1 UNIT/0.01 ML (CHARGE PER UNIT) SC SCH ×4 (08:02→20:04)
[2022-08-27] MEDS: ASPIRIN E.C. 81 MG (ECOTRIN) TAB PO SCH (08:03)
[2022-08-27] MEDS: ALPRAZolam 1 MG (XANAX) TAB PO PRN ×2 (08:03→20:04)
[2022-08-27] MEDS: AZITHROMYCIN 250 MG TAB (ZITHROMAX) PO SCH (08:03)
[2022-08-27] MEDS: CLOPIDOGREL 75 MG (PLAVIX) TABLET PO SCH (08:04)
[2022-08-27] MEDS: amLODIPine 10 MG (NORVASC) TAB PO SCH (08:05)
[2022-08-27] MEDS: SODIUM BICARBONATE 650 MG TABLET PO SCH ×2 (08:07→20:00)
[2022-08-27] MEDS: meTOprolol SUCCINATE 100 MG (TOPROL XL) TAB PO SCH ×2 (08:07→20:01)
--- NOTE | 2022-08-27 08:38 | Cardiology Progress Note ---
Subjective Date Seen by Provider: Aug 27, 2022 Time Seen by Provider: 08:25 Subjective/Events-last exam Patient sitting up in bed, complaining of increased edema to lower and upper extremities. Denies any chest pain. Objective-Cardiology Exam Last Set of Vital Signs Vital Signs 08/27/22 08/27/22 10:47 11:57 Temp 36.9 Pulse 82 Resp 22 B/P (MAP) 142/67 (92) Pulse Ox 97 O2 Delivery Vapotherm O2 Flow Rate 90.00 20.00 FiO2 90 I&O Intake and Output 08/27/22 00:00 Intake Total 3190 ml Output Total 1900 ml Balance 1290 ml Intake Oral 3190 ml Output Urine Total 1900 ml General: Alert, Oriented X3 HEENT: Atraumatic, PERRLA Lungs: Other (bilat rhonchi) Heart: Regular Rate Abdomen: Normal Bowel Sounds, Soft Skin: No Rashes, No Significant Lesion Neuro: Normal Speech Psych/Mental Status: Mental Status NL, Mood NL Results Lab Laboratory Tests 08/27/22 07:06 A/P-Cardiology Admission Diagnosis Pneumonia Elevated BNP CAD HTN Assessment/Plan Bilateral pneumonia, CXR showing bilat infiltrate, started on antibiotics, management per PCP. Coronary artery disease, History of NSTEMI in June of 2022. Stress test done June [address] Ugarte showing large, severe intensity, partially reversible basal to apical inferior and lateral defect with a small amount of inducible ischemia at the apex with a SSS 23, SDS 4. Mid to distal lateral akinesis with global hypokinesis elsewhere with severe left ventricular systolic dysfunction with a calculated ejection fraction of 28%. Patient did not undergo LHC at the time d/t underlying kidney function. Has been medically managed, maintained on ASA, Plavix and beta davy, statin as outpatient. Will plan for viability study with dobutamine stress echo once more stable Hypertension, controlled, continue to monitor. Hyperlipidemia, maintained on Crestor 20mg Anemia, worsening H/H, continue to monitor closely, will require w/u once more clinically stable. Pulmonary hypertension CKD, stage IV, continue to monitor renal function. Will consult nephology Worsening peripheral edema, would like to diurese as toleranted, will consult nephrology. DM, management per PCP Obesity Supervisory-Addendum Brief Supervisory Addendum Participated in pt care: history, MDM, physical Personally performed: exam, history, MDM Care discussed with: MIRNA Results interpretation: Verified all documentation Notes: Patient was seen and evaluated with Tanja, examination performed, management plan was discussed, agree with the current scribed note, I made few changes to the note using Italic font Patient was seen at bedside, laying down comfortably Still on Vapotherm Discussed the management plan, recommended nephrology evaluation and aggressive diuresis if possible TANJA WHITMAN Aug 27, 2022 08:38 SUGEY FUENTES MD Aug 27, 2022 14:03
[2022-08-27] MEDS: cefTRIAXone 1 GM IV (PRE-MIX) 50 ML IV SCH (10:57)
--- NOTE | 2022-08-27 12:50 | Pulmonary Consultation ---
History of Present Illness History of Present Illness Date Seen by Provider: Aug 27, 2022 Time Seen by Provider: 12:48 Date of Admission (Tele-pulmonary Physician , consultation as per request of PCP - hypoxia , dyspnea , and CXR Service provided via interactive audio and video telecommunTerapeak system to a patient admitted to [facility]. "Robson is a 62-year-old male who presents to emergency department with shortness of breath. Within the last few months he has chronic kidney disease. He has also been undergoing cardiac rehab and apparently over the past few weeks has had low oxygen saturation. He was started on oxygen by nasal cannula at home but both patient and report he did not seem to be improving with the oxygen. Today he was somewhat anxious and this prompted her to bring him out to the emergency department for evaluation. 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 bronchospam No family history of lung disease LAST 2 YEARS ++cough, morning and intermittent , occasionally with sputum, NO hemoptysis, NO wheezing, Not reports dyspnea on exertion, but did noted + nasal congestion, + snoring, SLEEPING IN A CHAIR FOR LAST YEAR + PND no symptoms of GERD + chronic BISI WHile hospitalized - + i/o - drinks 3 L day PO -trued nebs - can not say if feels better -tried Bipap - likes what it does " open lungs " , but claustrophobic - on ABX wiyth no fever , or WBC * Dyspnea baseline due to pulm HTN and presumed component od pulm dz ( bron chospam, flat diaphragms on cxr ) Suspected chronic norturnal hypoxia. No CXR evidence of ILD 06/2022, but never had any PFT or CT. Met acidosis is corrected with bicarb - so dypnea not related to acidosis. Anemia might play a role ( not main ) , ? CAD - as per cards . Will need PFT and sleep stufy as outpatient *Hypoxia and dyspnea during this admission, Acute hypoxia resp failure =most likely pulm edema / volume overload with pulm HTN and anemia =less likely PNA , No suspicious for puln hemorrahe , , ILD , atypical pathogens ( PCP , fingal ) - will need dieresis , but with CKD would advise to do it with renal service guidance ( has established nephrology ) . Meanwhile - needs strict I/O and fluid restriction - cont VT to maintain Sao2 - keep trying NIPPV - might benefit fron nasal mask if available -cont nebs prn , but based on history he is probaly going to get minimal relieve - no indication for steroids now - is clinical suspicion of worsening PNA , would change to HAP coverage - do not feel it nessessary now - if worsening despite diuresis , will need CT chest Discussed with patient the medical regiment after discharge, goals, side effects and symptoms. All questions were answered. Plans in collaboration with bedside consultants and IM MD. discussed with Dr Welch Discussed with RN to reach out if any questions or concerns Reason for Visit: Dyspnea, elevated BNP Allergies and Home Medications Allergies Coded Allergies: No Known Drug Allergies (Unverified , 06/11/22) Home Medications Acetaminophen 500 Mg Tablet, 1,000 MG PO Q8H PRN for PAIN-MILD (1-4), (Reported) Alprazolam 1 Mg Tablet, 0.5-1 MG PO Q8H PRN for ANXIETY, (Reported) Amlodipine Besylate 10 Mg Tablet, 10 MG PO DAILY, (Reported) Aspirin 81 Mg Tablet.dr, 81 MG PO DAILY, (Reported) Clopidogrel Bisulfate 75 Mg Tablet, 75 MG PO DAILY, (Reported) Ergocalciferol (Vitamin D2) 1,250 Mcg (64104 Unit) Capsule, 1,250 MCG PO WEDNESDAY, (Reported) Fluticasone Propionate 50 Mcg/Actuation [place].susp, 1 SPRAY NSEACH DAILY PRN for CONGESTION, (Reported) Glyburide 5 Mg Tablet, 5 MG PO DAILY, (Reported) Metoprolol Succinate 100 Mg Tab.er.24h, 100 MG PO BID, (Reported) Propylene Glycol/Peg 400 0.3 %-0.4 % Drops, 1 DROP OU DAILY PRN for DRY EYES, (Reported) Rosuvastatin Calcium 20 Mg Tablet, 20 MG PO HS, (Reported) Sodium Bicarbonate 650 Mg Tablet, 1,300 MG PO BID, (Reported) TKAES 2 (650MG) TABS Past Medical/Social/Family Hx Patient Social History Marrital Status: Number of Children: 2 Employed/Student: unemployed Tobacco Use?: Yes Smoking Status: Former Smoker Smokeless type used: Chew Smokeless Tobacco Frequency: Former User Substance use?: No Alcohol Use?: No Alcohol Frequency: Rarely Pt stated abuse/neglect: No Immunizations Up To Date Influenza Vaccine Up-to-Date: Yes; Up-to-Date First/Initial COVID19 Vaccinat: 2020 Second COVID19 Vaccination Clark: 2020 Tetanus Booster (TDap): Unknown Hepatitis A: Yes Hepatitis B: Yes TB Skin Test: None Current Status Advance Directives: No Communicates: Verbally Primary Language: Brazilian Preferred Spoken Language: Brazilian Is interpretation needed?: No Sensory deficits: Vision impairment Review of Systems Constitutional: see HPI Sepsis Event Evaluation Height, Weight, BMI Height: '" Weight: lbs. oz. kg; 35.41 BMI Method: Exam Exam Patient acknowledged, consented, and participated in this virtual visit which was conducted using real time audio/video Vital Signs Date Time Temp Pulse Resp B/P (MAP) Pulse Ox O2 Delivery O2 Flow Rate FiO2 08/27/22 11:57 36.9 82 22 142/67 (92) Vapotherm 90.00 20.00 08/27/22 10:47 97 Vapotherm 20.00 90 08/27/22 08:03 36.6 78 21 115/75 (88) 97 Vapotherm 90.00 20.00 08/27/22 08:00 97 Vapotherm 20.00 90 08/27/22 06:43 93 Vapotherm 20.00 90 08/27/22 04:18 36.8 85 28 148/75 (99) 93 Vapotherm 90.00 20.00 08/27/22 02:41 83 33 92 40.00 08/27/22 00:30 36.7 83 22 143/37 (72) 94 NIV Bilevel 08/26/22 21:57 80 31 94 40.00 08/26/22 20:14 36.9 77 18 146/74 (98) 92 Vapotherm 90.00 15.00 08/26/22 20:00 Vapotherm 15.00 90 08/26/22 18:28 93 Vapotherm 10.00 90 08/26/22 15:29 36.9 79 18 149/72 (97) 96 Vapotherm 90.00 20.00 08/26/22 14:44 93 Vapotherm 20.00 90 I & O 08/27/22 07:00 Intake Total 1690 ml Output Total 1100 ml Balance 590 ml Height & Weight Height: '" Weight: lbs. oz. kg; 35.41 BMI Method: General Appearance: No Apparent Distress (but he is on bipap) HEENT: Normal ENT Inspection Neck: Supple Respiratory: Crackles (in apical region) Cardiovascular: Regular Rate, Rhythm Gastrointestinal: soft Extremity: Normal Capillary Refill, No Calf Tenderness, Pedal Edema Neurologic/Psychiatric: Alert, Oriented x3 Skin: Normal Color, Warm/Dry Results Lab Laboratory Tests 08/26/22 05:12 08/27/22 07:06 Assessment/Plan Assessment/Plan 1 ELEAZAR VARNER MD Aug 27, 2022 12:50
[2022-08-27] MEDS ORDERED: FUROSEMIDE 40 MG/4 ML INJ (LASIX) IVP NR (14:00)
[2022-08-27] MEDS: FUROSEMIDE 40 MG/4 ML INJ (LASIX) IVP SCH (16:33)
[2022-08-27] MEDS: ROSUVASTATIN 20 MG (CRESTOR) TABLET PO SCH (20:01)
--- NOTE | 2022-08-27 22:37 | Progress Note ---
Subjective Date Seen by a Provider: Aug 27, 2022 Time Seen by a Provider: 07:05 Subjective/Events-last exam Patient somewhat groggy according to his . He had received alprazolam for relaxation while on bipap or vapotherm. Objective Exam Vital Signs Date Time Temp Pulse Resp B/P (MAP) Pulse Ox O2 Delivery O2 Flow Rate FiO2 08/27/22 22:31 77 22 93 08/27/22 20:00 Vapotherm 20.00 90 08/27/22 19:58 36.7 78 16 147/68 (94) 99 Vapotherm 20.00 08/27/22 19:07 94 Vapotherm 20.00 90 08/27/22 16:13 36.9 83 22 155/78 (103) 94 NIV Bilevel 40.00 08/27/22 14:11 95 Vapotherm 20.00 90 08/27/22 11:57 36.9 82 22 142/67 (92) Vapotherm 90.00 20.00 08/27/22 10:47 97 Vapotherm 20.00 90 08/27/22 08:03 36.6 78 21 115/75 (88) 97 Vapotherm 90.00 20.00 08/27/22 08:00 97 Vapotherm 20.00 90 08/27/22 06:43 93 Vapotherm 20.00 90 08/27/22 04:18 36.8 85 28 148/75 (99) 93 Vapotherm 90.00 20.00 08/27/22 02:41 83 33 92 40.00 08/27/22 00:30 36.7 83 22 143/37 (72) 94 NIV Bilevel I & O 08/27/22 07:00 Intake Total 1690 ml Output Total 1100 ml Balance 590 ml Capillary Refill : General Appearance: Anxious Neck: Supple Respiratory: Crackles Cardiovascular: Regular Rate, Rhythm Results Lab Laboratory Tests 08/27/22 06:58: Glucometer 149H 08/27/22 07:06: White Blood Count 8.2, Red Blood Count 2.75L, Hemoglobin 7.1L, Hematocrit 23L, Mean Corpuscular Volume 84, Mean Corpuscular Hemoglobin 26, Mean Corpuscular Hemoglobin Concent 31L, Red Cell Distribution Width 14.7H, Platelet Count 315, Mean Platelet Volume 9.3, Immature Granulocyte % (Auto) 1, Neutrophils (%) (Auto) 76H, Lymphocytes (%) (Auto) 11L, Monocytes (%) (Auto) 9, Eosinophils (%) (Auto) 3, Basophils (%) (Auto) 0, Neutrophils # (Auto) 6.2, Lymphocytes # (Auto) 0.9L, Monocytes # (Auto) 0.7, Eosinophils # (Auto) 0.3, Basophils # (Auto) 0.0, Immature Granulocyte # (Auto) 0.1, Sodium Level 137, Potassium Level 4.4, Chloride Level 105, Carbon Dioxide Level 20L, Anion Gap 12, Blood Urea Nitrogen 62H, Creatinine 2.94H, Estimat Glomerular Filtration Rate 23, BUN/Creatinine Ratio 21, Glucose Level 160H, Calcium Level 8.0L, Corrected Calcium 9.0, Total Bilirubin 0.2, Aspartate Amino Transf (AST/SGOT) 20, Alanine Aminotransferase (ALT/SGPT) 31, Alkaline Phosphatase 99, Total Protein 6.0L, Albumin 2.7L 08/27/22 10:13: Glucometer 191H 08/27/22 15:23: Glucometer 230H 08/27/22 19:57: Glucometer 185H Assessment/Plan Assessment/Plan Assess & Plan/Chief Complaint 1. Dyspnea and this appears to be related to the interstitial infiltrates consistent with pneumonia -patient has been initiated on azithromycin as well as ceftriaxone 08/25 -plan on rechecking chest x-ray in the morning of August 2608/26 -CXR this am 08/27 -CXR unchanged -pulmonary consultation 2. Chronic kidney disease diagnosed June 2022 -he will stay on bicarbonate as prescribed by his coning machine operator 08/27 -spoke with Dr Chaves today. Patient is at baseline for Cr. If with mild chf, ok for lasix. 3. Status post [place] June 25 -currently undergoing cardiac rehab but this will be held until he is noted to be doing better with regard to the infiltrates 08/25 -due to his BNP elevation will consult cardiology as well. 4. Diabetes mellitus type 2 -he will stay on his diabetic medication glyburide 5. Hypertension -currently on metoprolol 6. Hyperlipidemia -on Crestor 7. Anemia -recheck CBC in the morning of August 26 Clinical Quality Measures Admission Status Admission Dx 1. Dyspnea and this appears to be related to the interstitial infiltrates consistent with pneumonia 2. Chronic kidney disease diagnosed June 2022 3. Status post [place] June 25 4. Diabetes mellitus type 2 5. Hypertension 6. Hyperlipidemia TIFFANY ROGERS MD Aug 27, 2022 22:37
[2022-08-28] VITALS (8 sets, daily range): BP systolic 122–149; BP diastolic 59–76
[2022-08-28] MEDS: RT-IPRATROPIUM (ATROVENT) 0.5MG/2.5ML AMP IH SCH ×6 (02:16→22:11)
[2022-08-28] MEDS: RT-ALBUTEROL SULF 2.5 MG/3 ML PRE-MIX VIAL INH SCH ×6 (02:17→22:11)
[2022-08-28 05:35] LABS: BASOPHILS % (AUTO) 0 % (0-10); EOSINOPHILS # (AUTO) 0.2 10^3/uL (0.0-0.3); EOSINOPHILS % (AUTO) 3 % (0-10); HEMATOCRIT 22 % (40-54); LYMPHOCYTES # (AUTO) 0.7 10^3/uL (1.0-4.0); LYMPHOCYTES % (AUTO) 10 % (12-44); MEAN CORPUSCULAR HGB CONC 30 g/dL (32-36); MEAN CORPUSCULAR VOLUME 85 fL (80-99); MEAN PLATELET VOLUME 9.7 fL (9.0-12.2); MONOCYTES # (AUTO) 0.7 10^3/uL (0.0-1.0); MONOCYTES % (AUTO) 10 % (0-12); NEUTROPHILS # (AUTO) 5.2 10^3/uL (1.8-7.8); NEUTROPHILS % (AUTO) 77 % (42-75); PLATELET COUNT 311 10^3/uL (130-400); WHITE BLOOD COUNT 6.9 10^3/uL (4.3-11.0)
[2022-08-28 05:55] LABS: ALBUMIN 2.6 GM/DL (3.2-4.5); HEMOGLOBIN 6.6 g/dL (13.3-17.7); MEAN CORPUSCULAR HEMOGLOBIN 25 pg (25-34)
[2022-08-28 05:56] LABS: POTASSIUM 4.4 MMOL/L (3.6-5.0)
[2022-08-28 05:57] LABS: CALCIUM 8.1 MG/DL (8.5-10.1)
[2022-08-28 05:58] LABS: TOTAL PROTEIN 5.8 GM/DL (6.4-8.2)
[2022-08-28 06:00] LABS: BILIRUBIN,TOTAL 0.2 MG/DL (0.1-1.0)
[2022-08-28 06:02] LABS: CREATININE SERUM 3.08 MG/DL (0.60-1.30)
[2022-08-28] MEDS: FUROSEMIDE 40 MG/4 ML INJ (LASIX) IVP SCH ×2 (06:31→16:31)
[2022-08-28] MEDS: inSUlin ASPART (NovoLOG) 1 UNIT/0.01 ML (CHARGE PER UNIT) SC SCH ×4 (06:31→20:29)
--- NOTE | 2022-08-28 08:10 | Progress Note ---
Subjective Date Seen by a Provider: Aug 28, 2022 Time Seen by a Provider: 07:10 Subjective/Events-last exam Sitting in bed. Wearing vapotherm. No CP. No labored breathing. Objective Exam Vital Signs Date Time Temp Pulse Resp B/P (MAP) Pulse Ox O2 Delivery O2 Flow Rate FiO2 08/28/22 08:00 36.9 77 19 140/72 (94) 95 Vapotherm 90.00 20.00 08/28/22 07:58 94 Vapotherm 20.00 90 08/28/22 03:14 36.8 79 22 134/63 (86) 97 NIV Bilevel 08/28/22 02:17 76 20 87 40.00 08/27/22 23:06 36.9 76 24 136/68 (90) 92 NIV Bilevel 08/27/22 22:31 77 22 93 40.00 08/27/22 20:00 Vapotherm 20.00 90 08/27/22 19:58 36.7 78 16 147/68 (94) 99 Vapotherm 20.00 08/27/22 19:07 94 Vapotherm 20.00 90 08/27/22 16:13 36.9 83 22 155/78 (103) 94 NIV Bilevel 40.00 08/27/22 14:11 95 Vapotherm 20.00 90 08/27/22 11:57 36.9 82 22 142/67 (92) Vapotherm 90.00 20.00 08/27/22 10:47 97 Vapotherm 20.00 90 I & O 08/28/22 07:00 Intake Total 2150 ml Output Total 750 ml Balance 1400 ml Capillary Refill : General Appearance: No Apparent Distress Neck: Supple Respiratory: Crackles (in apical region) Cardiovascular: Regular Rate, Rhythm Gastrointestinal: soft Neurologic/Psychiatric: Alert, Oriented x3 Skin: Pallor Results Lab Laboratory Tests 08/27/22 10:13: Glucometer 191H 08/27/22 15:23: Glucometer 230H 08/27/22 19:57: Glucometer 185H 08/28/22 04:58: White Blood Count 6.9, Red Blood Count 2.59L, Hemoglobin 6.6*L, Hematocrit 22L, Mean Corpuscular Volume 85, Mean Corpuscular Hemoglobin 25, Mean Corpuscular Hemoglobin Concent 30L, Red Cell Distribution Width 14.6H, Platelet Count 311, Mean Platelet Volume 9.7, Immature Granulocyte % (Auto) 1, Neutrophils (%) (Auto) 77H, Lymphocytes (%) (Auto) 10L, Monocytes (%) (Auto) 10, Eosinophils (%) (Auto) 3, Basophils (%) (Auto) 0, Neutrophils # (Auto) 5.2, Lymphocytes # (Auto) 0.7L, Monocytes # (Auto) 0.7, Eosinophils # (Auto) 0.2, Basophils # (Auto) 0.0, Immature Granulocyte # (Auto) 0.0, Sodium Level 138, Potassium Level 4.4, Chloride Level 105, Carbon Dioxide Level 20L, Anion Gap 13, Blood Urea Nitrogen 68H, Creatinine 3.08H, Estimat Glomerular Filtration Rate 22, BUN/Creatinine Ratio 22, Glucose Level 193H, Calcium Level 8.1L, Corrected Calcium 9.2, Total Bilirubin 0.2, Aspartate Amino Transf (AST/SGOT) 22, Alanine Aminotransferase (ALT/SGPT) 31, Alkaline Phosphatase 94, Total Protein 5.8L, Albumin 2.6L 08/28/22 07:07: Glucometer 167H Assessment/Plan Assessment/Plan Assess & Plan/Chief Complaint 1. Dyspnea and this appears to be related to the interstitial infiltrates consistent with pneumonia -patient has been initiated on azithromycin as well as ceftriaxone 08/25 -plan on rechecking chest x-ray in the morning of August 2608/26 -CXR this am 08/27 -CXR unchanged -pulmonary consultation 08/28 -repeat lasix this am 2. 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 Patient is at baseline for Cr. If with mild chf, ok for lasix. 3. Status post [place] June 25 -currently undergoing cardiac rehab but this will be held until he is noted to be doing better with regard to the infiltrates 08/25 -due to his BNP elevation will consult cardiology as well. 4. Diabetes mellitus type 2 -he will stay on his diabetic medication glyburide 5. Hypertension -currently on metoprolol 6. Hyperlipidemia -on Crestor 7. Anemia -recheck CBC in the morning of August 2608/28 -hg 6.6 this am -will give 1 U PRBC this am. -check occult blood from stool Clinical Quality Measures Admission Status Admission Dx 1. Dyspnea and this appears to be related to the interstitial infiltrates consistent with pneumonia 2. Chronic kidney disease diagnosed June 2022 3. Status post [place] June 25 4. Diabetes mellitus type 2 5. Hypertension 6. Hyperlipidemia TIFFANY ROGERS MD Aug 28, 2022 08:10
[2022-08-28] MEDS ORDERED: FUROSEMIDE 40 MG/4 ML INJ (LASIX) IVP NR (08:30)
[2022-08-28] MEDS: AZITHROMYCIN 250 MG TAB (ZITHROMAX) PO SCH (09:30)
[2022-08-28] MEDS: meTOprolol SUCCINATE 100 MG (TOPROL XL) TAB PO SCH ×2 (09:30→20:30)
[2022-08-28] MEDS: SODIUM BICARBONATE 650 MG TABLET PO SCH ×2 (09:31→20:30)
[2022-08-28] MEDS: amLODIPine 10 MG (NORVASC) TAB PO SCH (09:32)
[2022-08-28] MEDS: ASPIRIN E.C. 81 MG (ECOTRIN) TAB PO SCH (09:43)
[2022-08-28] MEDS: CLOPIDOGREL 75 MG (PLAVIX) TABLET PO SCH (09:43)
[2022-08-28] MEDS ORDERED: NS IV 500 ML 500 ML IV SCH (10:15)
[2022-08-28] MEDS: cefTRIAXone 1 GM IV (PRE-MIX) 50 ML IV SCH (11:12)
--- NOTE | 2022-08-28 12:12 | Cardiology Progress Note ---
Subjective Date Seen by Provider: Aug 28, 2022 Time Seen by Provider: 12:10 Subjective/Events-last exam Patient was seen at bedside, sitting comfortably, feeling better, still having peripheral edema and dyspnea Review of Systems General: No Chills, No Night Sweats; Fatigue, Malaise; No Appetite, No Other HEENT: No Head Aches, No Visual Changes, No Eye Pain, No Ear Pain, No Dysphasia, No Sinus Congestion, No Post Nasal Drip, No Sore Throat, No Other Pulmonary: Dyspnea; No Cough, No Pleuritic Chest Pain, No Other Cardiovascular: Edema; No: Chest Pain, Palpitations, Orthopnea, Paroxysmal Noc. Dyspnea, Lt Headedness, Other Objective-Cardiology Exam Last Set of Vital Signs Vital Signs 08/28/22 12:02 Temp 36.4 Pulse 80 Resp 22 B/P (MAP) 127/67 Pulse Ox 96 O2 Delivery Vapotherm O2 Flow Rate 20.00 FiO2 80 I&O Intake and Output 08/28/22 00:00 Intake Total 2050 ml Output Total 750 ml Balance 1300 ml Intake Oral 2050 ml Output Urine Total 750 ml # Voids 1 # Bowel Movements 1 General: Alert, Oriented X3 HEENT: Atraumatic, PERRLA Lungs: Normal Air Movement, Other (bilat rhonchi) Heart: Regular Rate Abdomen: Normal Bowel Sounds, Soft Extremities: Other (Peripheral edema) Skin: No Rashes, No Significant Lesion Neuro: Normal Speech Psych/Mental Status: Mental Status NL, Mood NL Results Lab Laboratory Tests 08/28/22 04:58 A/P-Cardiology Admission Diagnosis Pneumonia Elevated BNP CAD HTN Assessment/Plan Bilateral pneumonia, CXR showing bilat infiltrate, started on antibiotics, management per PCP. Coronary artery disease, History of NSTEMI in June of 2022. Stress test done June [address] Ugarte showing large, severe intensity, partially reversible basal to apical inferior and lateral defect with a small amount of inducible ischemia at the apex with a SSS 23, SDS 4. Mid to distal lateral akinesis with global hypokinesis elsewhere with severe left ventricular systolic dysfunction with a calculated ejection fraction of 28%. Patient did not undergo LHC at the time d/t underlying kidney function. Has been medically managed, maintained on ASA, Plavix and beta davy, statin as outpatient. Will plan for viability study with dobutamine stress echo once more stable Chronic kidney failure, stage IV. Having fluid overload. Continue with aggressive diuresis Managed by medical team. Hypertension, controlled, continue to monitor. Hyperlipidemia, maintained on Crestor 20mg Anemia, worsening H/H Managed by primary care team Pulmonary hypertension Worsening peripheral edema, would like to diurese as toleranted, will consult nephrology. DM, management per PCP Obesity SUGEY FUENTES MD Aug 28, 2022 12:12
--- NOTE | 2022-08-28 13:17 | Pulmonary Progress Note ---
Subjective Date Seen by a Provider: Aug 28, 2022 Time Seen by a Provider: 13:12 Subjective/Events-last exam (Tele-ICU Physician/pulmonary physician progress note) Available chart/ vitals / labs / Images reviewed H&P is from ER notes Patient's information available about PMH, allergy reviewed in EMR. ROS as per chart and RN report Video assessment done using teleICU camera, rest of exam as per RN Discussed with RN. He is a 62-year-old male with past medical history of hypertension, coronary artery disease, chronic kidney disease for the last several months now admitted with progressive shortness of breath associated with hypoxia which is noted while he was doing cardiac rehab dilatation and worsening of follow-up swelling of the feet and a new onset of swelling of both upper extremities. Chest x-ray showed bilateral pulmonary infiltrate. It is felt that he had decompensated congestive heart failure and admitted for further evaluation and management he required Vapotherm for oxygenation. Today his oxygenation improved and his FiO2 is being weaned down. I made a video visit with the iPad and discussed with the patient and patient's as well as the RN Edgar Pérez. RN reports that he had a bilateral basilar rales. I have reviewed his chest x- ray from 08/26/2022. Creatinine is progressively increasing. He is being followed by primary care as well as cardiology service and I believe nephrology service also. A pulmonary consultation is requested to assist in the management for her which my predecessor has seen already. Impression 1. Acute and chronic congestive heart failure 2. Acute and chronic anemia. 3. Acute hypoxic respiratory failure secondary to congestive heart failure 4. Acute and chronic kidney disease. 5. At this time I do not think he has any pneumonia. Recommendations 1. Agree with transfusion of packed red blood cells and give Lasix as needed 2. We will repeat a chest x-ray tomorrow a.m. 3. Wean FiO2 as tolerated 4. Repeat CBC and BMP in a.m. 5. DVT prophylaxiS with SCDs. We will hold off anticoagulants due to anemia 6. Empiric antibiotic therapy for possible pneumonia even though I doubt it. His prognosis is guarded Coordination of care with bedside consultants and with primary care physician. Time spent during this visit is 25 minutes Sepsis Event Evaluation Height, Weight, BMI Height: '" Weight: lbs. oz. kg; 35.41 BMI Method: Exam Exam Patient acknowledged, consented, and participated in this virtual visit which was conducted using real time audio/video Vital Signs Date Time Temp Pulse Resp B/P (MAP) Pulse Ox O2 Delivery O2 Flow Rate FiO2 08/28/22 12:02 36.4 80 22 127/67 96 Vapotherm 20.00 80 08/28/22 11:47 36.4 81 22 122/64 94 Vapotherm 20.00 80 08/28/22 11:45 36.9 78 20 135/70 (91) 97 Vapotherm 80.00 20.00 08/28/22 10:53 96 Vapotherm 20.00 80 08/28/22 08:00 Vapotherm 20.00 90 08/28/22 08:00 36.9 77 19 140/72 (94) 95 Vapotherm 90.00 20.00 08/28/22 07:58 94 Vapotherm 20.00 90 08/28/22 03:14 36.8 79 22 134/63 (86) 97 NIV Bilevel 08/28/22 02:17 76 20 87 40.00 08/27/22 23:06 36.9 76 24 136/68 (90) 92 NIV Bilevel 08/27/22 22:31 77 22 93 40.00 08/27/22 20:00 Vapotherm 20.00 90 08/27/22 19:58 36.7 78 16 147/68 (94) 99 Vapotherm 20.00 08/27/22 19:07 94 Vapotherm 20.00 90 08/27/22 16:13 36.9 83 22 155/78 (103) 94 NIV Bilevel 40.00 08/27/22 14:11 95 Vapotherm 20.00 90 I & O 08/28/22 07:00 Intake Total 2150 ml Output Total 750 ml Balance 1400 ml Height & Weight Height: '" Weight: lbs. oz. kg; 35.41 BMI Method: General Appearance: Anxious HEENT: Normal ENT Inspection Neck: Supple Respiratory: Crackles Cardiovascular: Regular Rate, Rhythm Gastrointestinal: soft Extremity: Normal Capillary Refill, No Calf Tenderness, Pedal Edema Neurologic/Psychiatric: Alert, Oriented x3 Skin: Pallor Other comments PE PER RN/ATTENDING PHYSICIAN Results Lab Laboratory Tests 08/27/22 07:06 08/28/22 04:58 Assessment/Plan Assessment/Plan ABOVE Critical Care: Critically Ill Patient Time spent with patient (mins): 25 CAMERON CHEN MD Aug 28, 2022 13:17
[2022-08-28 15:16] LABS: HEMOGLOBIN 7.8 g/dL (13.3-17.7)
[2022-08-28] MEDS: ROSUVASTATIN 20 MG (CRESTOR) TABLET PO SCH (20:29)
[2022-08-28] MEDS: ALPRAZolam 1 MG (XANAX) TAB PO PRN (22:45)
[2022-08-29 00:11] VITALS: BP 143/72
[2022-08-29] MEDS: RT-IPRATROPIUM (ATROVENT) 0.5MG/2.5ML AMP IH SCH ×6 (02:36→22:11)
[2022-08-29] MEDS: RT-ALBUTEROL SULF 2.5 MG/3 ML PRE-MIX VIAL INH SCH ×6 (02:36→22:12)
[2022-08-29 03:43] VITALS: BP 142/76
--- NOTE | 2022-08-29 05:43 | Progress Note - Hospitalist ---
Subjective HPI/CC On Admission Date Seen by Provider: Aug 29, 2022 Time Seen by Provider: 12:00 Subjective/Events-last exam Patient stable but worsened Moved to ICU for precautionary measures No pain reported Using IS but only pulling 500cc Breathing is more labored Reviewed meds and labs CXR reviewed and will need Cefepime for additional coverage Lasix will be needed If volume overload cannot be managed with diuresis he will meet criteria for dialysis Review of Systems General: Fatigue, Malaise Pulmonary: Dyspnea, Cough Objective Exam Vital Signs Vital Signs Date Time Temp Pulse Resp B/P (MAP) Pulse Ox O2 Delivery O2 Flow Rate FiO2 08/29/22 18:00 76 21 133/80 (97) 95 Vapotherm 20.00 80.00 08/29/22 16:00 36.8 08/29/22 14:56 80 Capillary Refill : General Appearance: WD/WN, Chronically ill, Mild Distress, Obese Respiratory: Lungs Clear, Normal Breath Sounds, Accessory Muscle Use Cardiovascular: Regular Rate, Rhythm Neurologic/Psychiatric: Alert, Oriented x3 Results/Procedures Lab Laboratory Tests 08/29/22 05:15 Patient resulted labs reviewed. Assessment/Plan Assessment and Plan Assess & Plan/Chief Complaint Assessment: Acute on chronic heart failure Acute on chronic respiratory failure Worsened status so sent to ICU today CKD Anemia s/p 1 unit of blood Plan: May need dialysis if volume overload cannot be resolved with diuresis Critical Care Critically Ill Patient GABBI CALDERA DO Aug 29, 2022 05:43
[2022-08-29 05:53] LABS: BASOPHILS % (AUTO) 0 % (0-10); EOSINOPHILS # (AUTO) 0.3 10^3/uL (0.0-0.3); EOSINOPHILS % (AUTO) 4 % (0-10); HEMATOCRIT 23 % (40-54); HEMOGLOBIN 7.3 g/dL (13.3-17.7); LYMPHOCYTES # (AUTO) 0.7 10^3/uL (1.0-4.0); LYMPHOCYTES % (AUTO) 11 % (12-44); MEAN CORPUSCULAR HEMOGLOBIN 26 pg (25-34); MEAN CORPUSCULAR HGB CONC 31 g/dL (32-36); MEAN CORPUSCULAR VOLUME 84 fL (80-99); MEAN PLATELET VOLUME 9.3 fL (9.0-12.2); MONOCYTES # (AUTO) 0.6 10^3/uL (0.0-1.0); MONOCYTES % (AUTO) 9 % (0-12); NEUTROPHILS # (AUTO) 5.1 10^3/uL (1.8-7.8); NEUTROPHILS % (AUTO) 76 % (42-75); PLATELET COUNT 313 10^3/uL (130-400); WHITE BLOOD COUNT 6.7 10^3/uL (4.3-11.0)
[2022-08-29 06:02] LABS: ALBUMIN 2.6 GM/DL (3.2-4.5)
[2022-08-29 06:03] LABS: CALCIUM 8.1 MG/DL (8.5-10.1)
[2022-08-29 06:04] LABS: TOTAL PROTEIN 5.9 GM/DL (6.4-8.2)
[2022-08-29 06:06] LABS: BILIRUBIN,TOTAL 0.2 MG/DL (0.1-1.0)
[2022-08-29 06:08] LABS: CREATININE SERUM 2.97 MG/DL (0.60-1.30)
[2022-08-29 06:10] LABS: BILIRUBIN,DIRECT 0.1 MG/DL (0.0-0.3); BILIRUBIN,INDIRECT 0.1 MG/DL
[2022-08-29] MEDS: inSUlin ASPART (NovoLOG) 1 UNIT/0.01 ML (CHARGE PER UNIT) SC SCH ×4 (06:36→21:16)
[2022-08-29] MEDS: FUROSEMIDE 40 MG/4 ML INJ (LASIX) IVP SCH ×2 (06:36→17:11)
--- NOTE | 2022-08-29 07:01 | Diagnostic Imaging Report ---
INDICATION: Congestive heart failure. There is cardiomegaly. There are bilateral perihilar infiltrates that could be pulmonary edema. These infiltrates appear worse than prior exam done on 06/11/22. There is no effusion. IMPRESSION: Bilateral perihilar infiltrates could be pneumonia versus pulmonary edema. Dictated by: Dictated on workstation # [id number]
[2022-08-29 08:14] VITALS: BP 144/68
[2022-08-29] MEDS: meTOprolol SUCCINATE 100 MG (TOPROL XL) TAB PO SCH ×2 (09:50→21:23)
[2022-08-29] MEDS: SODIUM BICARBONATE 650 MG TABLET PO SCH ×2 (09:51→21:23)
[2022-08-29] MEDS: CLOPIDOGREL 75 MG (PLAVIX) TABLET PO SCH (09:51)
[2022-08-29] MEDS: amLODIPine 10 MG (NORVASC) TAB PO SCH (09:51)
[2022-08-29] MEDS: ASPIRIN E.C. 81 MG (ECOTRIN) TAB PO SCH (09:51)
[2022-08-29] MEDS ORDERED: NS IV 500 ML 500 ML IV PRN (12:00)
[2022-08-29] MEDS ORDERED: methylPREDNISolone 40 MG/ML (Solu-MEDROL) VIAL IV SCH (12:00)
[2022-08-29] MEDS ORDERED: LORATADINE (CLARITIN) 10 MG TAB PO NR (12:00)
[2022-08-29] MEDS: CEFEPIME INJECTION 1,000 MG in NS (IVPB) 50 ML IV SCH ×2 (12:51→23:46)
--- NOTE | 2022-08-29 13:48 | Tele-ICU Progress Note ---
Subjective Date Seen by a Provider: Aug 29, 2022 Time Seen by a Provider: 13:43 Subjective/Events-last exam 08/29/22. (Tele-ICU Physician progress note) Available chart/ vitals / labs / Images reviewed H&P is from ER notes Patient's information available about PMH, allergy reviewed in EMR. ROS as per chart and RN report Video assessment done using teleICU camera, rest of exam as per RN Discussed with RN. He is a 62-year-old male with past medical history of hypertension, coronary artery disease, chronic kidney disease for the last several months now admitted with progressive shortness of breath associated with hypoxia which is noted while he was doing cardiac rehab dilatation and worsening of follow-up swelling of the feet and a new onset of swelling of both upper extremities. Chest x-ray showed bilateral pulmonary infiltrate. It is felt that he had decompensated congestive heart failure and admitted for further evaluation and management he required Vapotherm for oxygenation. Today his oxygenation improved and his FiO2 is being weaned down. I made a video visit with the iPad and discussed with the patient and patient's as well as the RN Edgar Pérez. RN reports that he had a bilateral basilar rales. I have reviewed his chest x- ray from 08/26/2022. Creatinine is progressively increasing. He is being followed by primary care as well as cardiology service and I believe nephrology service also. A pulmonary consultation is requested to assist in the management for her which my predecessor has seen already. 08/29/22. Patient today is transferred to intensive care unit for close monitoring. Patient is awake alert and states today slightly better. He still has all 4 limbs edema. Chest x-ray still showing bilateral congestive changes. He is started on IV Solu-Medrol which might complicate his metabolic profile especially BUN/creatinine and because of worsening of the edema. Patient also on amlodipine 10 mg once a day which can cause also edema. I have discussed these issues with Dr. Rehman and I have discontinued these medicines. he is also started on IV Lasix which might help him but will monitor his BUN/creatinine closely. Impression 1. Acute and chronic congestive heart failure 2. Acute and chronic anemia. 3. Acute hypoxic respiratory failure secondary to congestive heart failure 4. Acute and chronic kidney disease. 5. At this time I do not think he has any pneumonia. 6. I suspect amlodipine also contributing to his edema. Recommendations 1. will discontinue amlodipine,and solu-medrol 2. We will repeat a chest x-ray tomorrow a.m. 3. Wean FiO2 as tolerated. Bipap as needed 4. Repeat CBC and BMP in a.m. 5. DVT prophylaxiS with SCDs. We will hold off anticoagulants due to anemia 6. Empiric antibiotic therapy for possible pneumonia even though I doubt it. 7. Agree with iv lasix His prognosis is guarded Coordination of care with bedside consultants and with primary care physician. Time spent during this visit is 25 minutes Sepsis Event Evaluation Height, Weight, BMI Height: '" Weight: lbs. oz. kg; 35.41 BMI Method: Exam Exam Patient acknowledged, consented, and participated in this virtual visit which was conducted using real time audio/video Vital Signs Date Time Temp Pulse Resp B/P (MAP) Pulse Ox O2 Delivery O2 Flow Rate FiO2 08/29/22 13:00 76 21 143/78 (89) 98 Vapotherm 20.00 80.00 08/29/22 12:54 74 08/29/22 12:15 Vapotherm 20.00 80 08/29/22 12:10 36.7 80 20 154/78 (103) 96 Vapotherm 20.00 80.00 08/29/22 09:29 94 Vapotherm 20.00 80 08/29/22 08:14 37.2 79 20 144/68 (93) 94 Vapotherm 80.00 20.00 08/29/22 08:00 Vapotherm 20.00 80 08/29/22 06:33 93 Vapotherm 20.00 80 08/29/22 03:43 37.0 72 18 142/76 (98) 95 NIV Bilevel 08/29/22 02:37 77 23 93 50.00 08/29/22 00:11 36.7 76 18 143/72 (95) 96 NIV Bilevel 08/28/22 22:12 88 20 94 40.00 08/28/22 20:13 36.8 87 20 149/76 (100) 92 Vapotherm 80.00 20.00 08/28/22 20:00 Vapotherm 20.00 90 08/28/22 18:42 94 Vapotherm 20.00 80 08/28/22 16:14 37.2 81 19 137/72 (93) 97 Vapotherm 80.00 20.00 08/28/22 14:55 96 Vapotherm 20.00 80 08/28/22 14:00 36.8 77 24 126/59 96 Vapotherm 20.00 80 I & O 08/29/22 07:00 Intake Total 1690 ml Output Total 2290 ml Balance -600 ml Height & Weight Height: '" Weight: lbs. oz. kg; 35.41 BMI Method: General Appearance: Anxious HEENT: Normal ENT Inspection Neck: Supple Respiratory: Crackles Cardiovascular: Regular Rate, Rhythm Gastrointestinal: soft Extremity: Normal Capillary Refill, No Calf Tenderness, Pedal Edema Neurologic/Psychiatric: Alert, Oriented x3 Skin: Pallor Other comments PE PER RN Results Lab Laboratory Tests 08/28/22 04:58 08/28/22 14:55 08/29/22 05:15 Assessment/Plan Assessment/Plan ABOVE Critical Care: Critically Ill Patient Time spent with patient (mins): 25 CAMERON CHEN MD Aug 29, 2022 13:48
--- NOTE | 2022-08-29 14:13 | Progress Note - Cardiology ---
Cardiology SOAP Progress Note Subjective: He notes some improvement of shortness of breath He denies cp or palp or syncope He has mild, intermittent cough that is non-productive He has gen malaise and weakness He denies n/v/d He does not report focal weakness Objective: I&O/Vital Signs 08/29/22 08/29/22 08/29/22 08/29/22 02:37 03:43 06:33 08:00 Temp 37.0 Pulse 77 72 Resp 23 18 B/P (MAP) 142/76 (98) Pulse Ox 93 95 93 O2 Delivery NIV Bilevel Vapotherm Vapotherm O2 Flow Rate 50.00 20.00 20.00 FiO2 80 80 08/29/22 08/29/22 08/29/22 08/29/22 08:14 09:29 12:10 12:15 Temp 37.2 36.7 Pulse 79 80 Resp 20 20 B/P (MAP) 144/68 (93) 154/78 (103) Pulse Ox 94 94 96 O2 Delivery Vapotherm Vapotherm Vapotherm Vapotherm O2 Flow Rate 80.00 20.00 20.00 20.00 20.00 80.00 FiO2 80 80 08/29/22 08/29/22 12:54 13:00 Pulse 74 76 Resp 21 B/P (MAP) 143/78 (89) Pulse Ox 98 O2 Delivery Vapotherm O2 Flow Rate 20.00 80.00 08/29/22 00:00 Intake Total 980 ml Output Total 1950 ml Balance -970 ml Constitutional: AAO x 3, well-developed, well-nourished Respiratory: No accessory muscle use; chest expansion is symmetric, chest is bilaterally symmetric, other (fair to good, bilateral air entry; coarse and fine basal crackles) Cardiovascular: regular rate-rhythm, S1 and S2, systolic murmur (soft ELI at card base) Gastrointestional: No tender; soft; No guarding, No rebound; audible bowel sounds Extremities: No clubbing, No cyanosis, No significant edema Neurologic/Psychiatric: oriented x 3, other (moves all limbs equally) Skin: normal color, warm/dry; No cyanosis, No rash on exposed areas, No ulcerations on exposed areas Results/Procedures: Labs Laboratory Tests 08/28/22 14:55: Hemoglobin 7.8L, Hematocrit 25L 08/28/22 15:03: Glucometer 184H 08/28/22 20:17: Glucometer 252H 08/29/22 05:15: Hemoglobin 7.3L, Hematocrit 23L, White Blood Count 6.7, Red Blood Count 2.78L, M munira Corpuscular Volume 84, Mean Corpuscular Hemoglobin 26, Mean Corpuscular Hemoglobin Concent 31L, Red Cell Distribution Width 14.5, Platelet Count 313, Mean Platelet Volume 9.3, Immature Granulocyte % (Auto) 0, Neutrophils (%) (Auto) 76H, Lymphocytes (%) (Auto) 11L, Monocytes (%) (Auto) 9, Eosinophils (%) (Auto) 4, Basophils (%) (Auto) 0, Neutrophils # (Auto) 5.1, Lymphocytes # (Auto) 0.7L, Monocytes # (Auto) 0.6, Eosinophils # (Auto) 0.3, Basophils # (Auto) 0.0, Immature Granulocyte # (Auto) 0.0, Sodium Level 140, Potassium Level 4.0, Chloride Level 105, Carbon Dioxide Level 21, Anion Gap 14, Blood Urea Nitrogen 72H, Creatinine 2.97H, Estimat Glomerular Filtration Rate 23, BUN/Creatinine Ratio 24, Glucose Level 205H, Calcium Level 8.1L, Corrected Calcium 9.2, Total Bilirubin 0.2, Direct Bilirubin 0.1, Indirect Bilirubin 0.1, Aspartate Amino Transf (AST/SGOT) 22, Alanine Aminotransferase (ALT/SGPT) 32, Alkaline Phosp hatase 95, Total Protein 5.9L, Albumin 2.6L 08/29/22 10:06: Glucometer 185H Laboratory Tests 08/28/22 04:58 08/28/22 14:55 08/29/22 05:15 A/P: Assessment: Ac on chronic systolic and diastolic CHF - Coronary artery disease, History of NSTEMI in June of 2022. - Stress test done June [address] Ugarte showing large, severe intensity, partially reversible basal to apical inferior and lateral defect with a small amount of inducible ischemia at the apex with a SSS 23, SDS 4. Mid to distal lateral akinesis with global hypokinesis elsewhere with severe left ventricular systolic dysfunction with a calculated ejection fraction of 28%. Patient did not undergo LHC due to poor kidney function and because ischemia was only mild - Subsequent echo of Jun 2022 (Dr Ugarte) reported LVEF 55-60% ?Pneumonia - managed by Med and ICU svces Chronic kidney failure, stage IV - managed by Med and ICU svces Hypertension - fair control Hyperlipidemia - treated with rosuvastatin Severe anemia of undetermined etiology (possibly due to CKD) - managed by Med and ICU svces DM II - managed by Med svce Plan: * I interviewed and examined him and reviewed his records * He has been using large amounts of water to improve his kidneys. Advised cutting back to moderation * Continue diuretics * Monitor labs * We recommend blood transfusions (with additional diuretics) DAVID MATMAOROS MD FACP FACC CCDS Aug 29, 2022 14:13
[2022-08-29] MEDS ORDERED: ADVAIR HFA 115/21 MCG INHALER 8 GM IH SCH (21:00)
[2022-08-29] MEDS: MONTELUKAST 10 MG (SINGULAIR) TAB PO SCH (21:16)
[2022-08-29] MEDS ORDERED: SODIUM BICARBONATE 650 MG TABLET ONE (21:19)
[2022-08-29] MEDS ORDERED: ROSUVASTATIN 20 MG (CRESTOR) TABLET ONE (21:19)
[2022-08-29] MEDS ORDERED: meTOprolol SUCCINATE 100 MG (TOPROL XL) TAB PO ONE (21:22)
[2022-08-29] MEDS ORDERED: ALPRAZolam 1 MG (XANAX) TAB ONE (21:22)
[2022-08-29] MEDS: ALPRAZolam 1 MG (XANAX) TAB PO PRN (21:23)
[2022-08-29] MEDS: ROSUVASTATIN 20 MG (CRESTOR) TABLET PO SCH (21:25)
[2022-08-29] MEDS: RT--FLUTICASONE/SALMETEROL 113-14 (AIRDUO RespiCLICK) IH SCH (22:11)
[2022-08-30] MEDS: RT-ALBUTEROL SULF 2.5 MG/3 ML PRE-MIX VIAL INH SCH ×6 (02:34→21:35)
[2022-08-30] MEDS: RT-IPRATROPIUM (ATROVENT) 0.5MG/2.5ML AMP IH SCH ×6 (02:34→21:35)
[2022-08-30 04:18] LABS: BASOPHILS % (AUTO) 0 % (0-10); EOSINOPHILS % (AUTO) 0 % (0-10); HEMATOCRIT 24 % (40-54); HEMOGLOBIN 7.5 g/dL (13.3-17.7); LYMPHOCYTES # (AUTO) 0.3 10^3/uL (1.0-4.0); LYMPHOCYTES % (AUTO) 5 % (12-44); MEAN CORPUSCULAR HEMOGLOBIN 26 pg (25-34); MEAN CORPUSCULAR HGB CONC 31 g/dL (32-36); MEAN CORPUSCULAR VOLUME 82 fL (80-99); MEAN PLATELET VOLUME 9.5 fL (9.0-12.2); MONOCYTES # (AUTO) 0.1 10^3/uL (0.0-1.0); MONOCYTES % (AUTO) 2 % (0-12); NEUTROPHILS # (AUTO) 5.1 10^3/uL (1.8-7.8); NEUTROPHILS % (AUTO) 93 % (42-75); PLATELET COUNT 309 10^3/uL (130-400); WHITE BLOOD COUNT 5.5 10^3/uL (4.3-11.0)
[2022-08-30 04:23] LABS: ALBUMIN 2.7 GM/DL (3.2-4.5); POTASSIUM 4.7 MMOL/L (3.6-5.0)
[2022-08-30 04:25] LABS: CALCIUM 8.1 MG/DL (8.5-10.1)
[2022-08-30 04:28] LABS: BILIRUBIN,TOTAL 0.2 MG/DL (0.1-1.0)
[2022-08-30 04:30] LABS: CREATININE SERUM 3.08 MG/DL (0.60-1.30)
[2022-08-30 04:33] LABS: MAGNESIUM 1.7 MG/DL (1.6-2.4)
[2022-08-30 05:00] LABS: ABG BASE EXCESS -0.2 MMOL/L (-2.5-2.5); ABG OXYGEN SATURATION 99 % (94-100); ABG PCO2 47 MMHG (35-45); ABG PO2 117 MMHG (79-93); ABG TCO2 26.4 MMOL/L (21.0-31.0)
[2022-08-30 05:01] LABS: ALLENS TEST YES-POS; INSPIRED O2 50%; VENTILATOR NO
[2022-08-30 05:02] LABS: PATIENT TEMP 36.7
[2022-08-30] MEDS: POTASSIUM CL 10MEQ/50ML IVPB 50 ML IV SCH (05:02)
[2022-08-30] MEDS: KCL 20 MEQ TAB (K-DUR) PO SCH (05:03)
[2022-08-30] MEDS: MAGNESIUM 1 GM/100 ML IVPB 100 ML IV SCH ×5 (05:03→08:37)
[2022-08-30 05:04] LABS: ABG PH 7.34 (7.37-7.43)
[2022-08-30 05:13] LABS: ELLIPT/OVALOCYTES SLIGHT; HYPOCHROMASIA SLIGHT; LYMPHOCYTES % (MANUAL) 5 %; MICROCYTOSIS SLIGHT; NEUTROPHILS % (MANUAL) 95 %
[2022-08-30] MEDS: inSUlin ASPART (NovoLOG) 1 UNIT/0.01 ML (CHARGE PER UNIT) SC SCH ×3 (05:33→14:29)
[2022-08-30] MEDS: FUROSEMIDE 40 MG/4 ML INJ (LASIX) IVP SCH ×2 (06:01→17:24)
--- NOTE | 2022-08-30 06:27 | Progress Note - Hospitalist ---
Subjective HPI/CC On Admission Date Seen by Provider: Aug 30, 2022 Time Seen by Provider: 11:30 Subjective/Events-last exam Patient breathing better Vapotherm same as yesterday at bedside Insulin drip initiated due to severe hyperglycemia No pain reported Talked to them about dialysis may be required for volume overload Review of Systems General: Fatigue, Malaise Pulmonary: Dyspnea Objective Exam Vital Signs Vital Signs Date Time Temp Pulse Resp B/P (MAP) Pulse Ox O2 Delivery O2 Flow Rate FiO2 08/31/22 03:45 97 Vapotherm 20.00 75 08/31/22 02:00 72 19 128/66 (94) 08/31/22 00:00 36.9 Capillary Refill : General Appearance: No Apparent Distress, WD/WN, Anxious, Chronically ill, Obese Respiratory: No Accessory Muscle Use, No Respiratory Distress, Decreased Breath Sounds Cardiovascular: Regular Rate, Rhythm Neurologic/Psychiatric: Alert, Oriented x3 Results/Procedures Lab Laboratory Tests 08/31/22 03:30 Patient resulted labs reviewed. Assessment/Plan Assessment and Plan Assess & Plan/Chief Complaint Assessment: Acute on chronic heart failure Acute on chronic respiratory failure Worsened status so sent to ICU yesterday CKD Anemia s/p 1 unit of blood Severe hyperglycemia so started insulin drip Plan: May need dialysis if volume overload cannot be resolved with diuresis Critical Care Critically Ill Patient WERNERGABBI FULLER Aug 30, 2022 06:27
[2022-08-30 07:56] VITALS: BP 136/73
--- NOTE | 2022-08-30 08:19 | Diagnostic Imaging Report ---
Indication: Shortness of breath Portable chest 4:10 AM There is cardiomegaly. There are bilateral perihilar alveolar infiltrates. There are no effusions or pneumothoraces. IMPRESSION: Cardiomegaly. Bilateral infiltrates that are likely pneumonia. These have improved slightly compared to previous study. Dictated by: Dictated on workstation # [id number]
[2022-08-30] MEDS: ASPIRIN E.C. 81 MG (ECOTRIN) TAB PO SCH (08:37)
[2022-08-30] MEDS: LORATADINE (CLARITIN) 10 MG TAB PO SCH (08:37)
[2022-08-30] MEDS: CLOPIDOGREL 75 MG (PLAVIX) TABLET PO SCH (08:37)
[2022-08-30] MEDS: meTOprolol SUCCINATE 100 MG (TOPROL XL) TAB PO SCH ×2 (08:37→20:38)
[2022-08-30] MEDS: SODIUM BICARBONATE 650 MG TABLET PO SCH ×2 (08:38→20:38)
--- NOTE | 2022-08-30 10:09 | Tele-ICU Progress Note ---
Progress Note video rounds completed 62 y/o male admittedw ith bilateral PNA On cefipime and followed by cardiology Was anemic and received 1 unit PRBCs Hbg now 7.5 WBC wnl there is cardiomegaly. There are bilateral perihilar alveolar infiltrates. There are no effusions or pneumothoraces. IMPRESSION: Cardiomegaly. Bilateral infiltrates that are likely pneumonia. These have improved slightly compared to previous study. IMP; bilat PNA an danemia PLAN: continue antibiotics Time spent in eval 15 minutes Focused Exam Height, Weight, BMI Height: '" Weight: lbs. oz. kg; 35.41 BMI Method: Labs Laboratory Tests 08/30/22 04:00 Results Results/Procedures Labs Laboratory Tests 08/28/22 14:55 08/29/22 05:15 08/30/22 04:00 Patient resulted labs reviewed. Results Labs Labs Laboratory Tests 08/29/22 16:15: Glucometer 194H 08/29/22 19:48: Glucometer 384H 08/29/22 21:00: Glucometer 389H 08/30/22 00:25: Glucometer 377H 08/30/22 04:00: White Blood Count 5.5, Red Blood Count 2.92L, Hemoglobin 7.5L, Hematocrit 24L, Mean Corpuscular Volume 82, Mean Corpuscular Hemoglobin 26, Mean Corpuscular Hemoglobin Concent 31L, Red Cell Distribution Width 14.2, Platelet Count 309, Mean Platelet Volume 9.5, Immature Granulocyte % (Auto) 1, Neutrophils (%) (Auto) 93H, Lymphocytes (%) (Auto) 5L, Monocytes (%) (Auto) 2, Eosinophils (%) (Auto) 0, Basophils (%) (Auto) 0, Neutrophils # (Auto) 5.1, Lymphocytes # (Auto) 0.3L, Monocytes # (Auto) 0.1, Eosinophils # (Auto) 0.0, Basophils # (Auto) 0.0, Immature Granulocyte # (Auto) 0.1, Neutrophils % (Manual) 95, Lymphocytes % (Manual) 5, Hypochromasia SLIGHT, Microcytosis SLIGHT, Elliptocytes SLIGHT, Sodium Level 131L, Potassium Level 4.7, Chloride Level 99, Carbon Dioxide Level 21, Anion Gap 11, Blood Urea Nitrogen 79H, Creatinine 3.08H, Estimat Glomerular Filtration Rate 22, BUN/Creatinine Ratio 26, Glucose Level 443*H, Calcium Level 8.1L, Corrected Calcium 9.1, Phosphorus Level 5.0H, Magnesium Level 1.7, Total Bilirubin 0.2, Aspartate Amino Transf (AST/SGOT) 14, Alanine Aminotransferase (ALT/SGPT) 26, Alkaline Phosphatase 92, Total Protein 6.0L, Albumin 2.7L 08/30/22 04:50: Blood Gas Puncture Site L RAD, Blood Gas Patient Temperature 36.7, Arterial Blood pH 7.34*L, Arterial Blood Partial Pressure CO2 47H, Arterial Blood Partial Pressure O2 117H, Arterial Blood HCO3 25, Arterial Blood Total CO2 26.4, Arter ial Blood Oxygen Saturation 99, Arterial Blood Base Excess -0.2, Juan Test YES- POS, Blood Gas Ventilator Setting NO, Blood Gas Inspired Oxygen 50% KASSY ORTIZ MD Aug 30, 2022 10:09
[2022-08-30] MEDS: RT--FLUTICASONE/SALMETEROL 113-14 (AIRDUO RespiCLICK) IH SCH ×2 (10:30→21:35)
[2022-08-30] MEDS ORDERED: inSUlin (REGULAR) HUMAN 1 UNIT/0.01 ML (CHARGE PER UNIT) SC PRN (12:15)
[2022-08-30] MEDS: CEFEPIME INJECTION 1,000 MG in NS (IVPB) 50 ML IV SCH ×2 (12:37→23:35)
[2022-08-30] MEDS ORDERED: inSUlin (REGULAR) HUMAN 1 UNIT/0.01 ML (CHARGE PER UNIT) IV ONE (14:30)
--- NOTE | 2022-08-30 16:05 | Progress Note - Cardiology ---
Cardiology SOAP Progress Note Subjective: Gen weakness and malaise No focal weakness No n/v/d No cp or palp or syncope No shortness of breath at rest Shortness of breath present with activity Objective: I&O/Vital Signs 08/30/22 08/30/22 08/30/22 08/30/22 04:05 05:00 06:00 07:00 Pulse 71 73 69 Resp 18 16 15 B/P (MAP) 134/69 (90) 140/74 (96) 136/73 (95) Pulse Ox 96 98 96 O2 Delivery NIV Bilevel NIV Bilevel NIV Bilevel NIV Bilevel O2 Flow Rate 50.00 50.00 50.00 FiO2 50 08/30/22 08/30/22 08/30/22 08/30/22 07:00 07:35 07:56 08:00 Temp 36.1 Pulse 73 73 Resp 20 Pulse Ox 92 O2 Delivery Vapotherm O2 Flow Rate 40.00 20.00 FiO2 80 08/30/22 08/30/22 08/30/22 08/30/22 08:00 08:40 09:00 10:00 Pulse 73 77 72 Resp 11 23 10 B/P (MAP) 138/106 (119) 138/71 (97) 128/72 (95) Pulse Ox 92 91 97 O2 Delivery NIV Bilevel Vapotherm Vapotherm Vapotherm O2 Flow Rate 50.00 20.00 20.00 20.00 80.00 80.00 80.00 08/30/22 08/30/22 08/30/22 08/30/22 10:33 11:00 11:19 12:00 Temp 36.3 Pulse 78 Resp 26 B/P (MAP) 139/81 (106) Pulse Ox 95 93 O2 Delivery Vapotherm Vapotherm Vapotherm O2 Flow Rate 20.00 20.00 20.00 80.00 FiO2 80 80 08/30/22 08/30/22 08/30/22 08/30/22 12:00 12:35 13:00 14:00 Pulse 80 75 75 77 Resp 16 B/P (MAP) 140/74 (104) 134/76 (98) 134/67 (82) Pulse Ox 94 100 98 O2 Delivery Vapotherm Vapotherm Vapotherm O2 Flow Rate 20.00 20.00 20.00 80.00 80.00 80.00 08/30/22 08/30/22 08/30/22 14:44 15:00 15:36 Temp 36.8 Pulse 80 Resp 19 B/P (MAP) 144/74 (102) Pulse Ox 98 93 O2 Delivery Vapotherm Vapotherm O2 Flow Rate 20.00 20.00 80.00 FiO2 80 08/30/22 00:00 Intake Total 1890 ml Balance 1890 ml Constitutional: AAO x 3, well-developed, well-nourished Respiratory: No accessory muscle use; chest expansion is symmetric, chest is bilaterally symmetric, other (fair to good, bilateral air entry; coarse and fine basal crackles) Cardiovascular: regular rate-rhythm, S1 and S2, systolic murmur (soft ELI at card base) Gastrointestional: No tender; soft; No guarding, No rebound; audible bowel sounds Extremities: No clubbing, No cyanosis, No significant edema Neurologic/Psychiatric: oriented x 3, other (moves all limbs equally) Skin: normal color, warm/dry; No cyanosis, No rash on exposed areas, No ulcerations on exposed areas Results/Procedures: Labs Laboratory Tests 08/29/22 16:15: Glucometer 194H 08/29/22 19:48: Glucometer 384H 08/29/22 21:00: Glucometer 389H 08/30/22 00:25: Glucometer 377H 08/30/22 04:00: White Blood Count 5.5, Red Blood Count 2.92L, Hemoglobin 7.5L, Hematocrit 24L, M munira Corpuscular Volume 82, Mean Corpuscular Hemoglobin 26, Mean Corpuscular Hemoglobin Concent 31L, Red Cell Distribution Width 14.2, Platelet Count 309, Mean Platelet Volume 9.5, Immature Granulocyte % (Auto) 1, Neutrophils (%) (Auto) 93H, Lymphocytes (%) (Auto) 5L, Monocytes (%) (Auto) 2, Eosinophils (%) (Auto) 0, Basophils (%) (Auto) 0, Neutrophils # (Auto) 5.1, Lymphocytes # (Auto) 0.3L, Monocytes # (Auto) 0.1, Eosinophils # (Auto) 0.0, Basophils # (Auto) 0.0, Immature Granulocyte # (Auto) 0.1, Neutrophils % (Manual) 95, Lymphocytes % (Manual) 5, Hypochromasia SLIGHT, Microcytosis SLIGHT, Elliptocytes SLIGHT, Sodium Level 131L, Potassium Level 4.7, Chloride Level 99, Carbon Dioxide Level 21, Anion Gap 11, Blood Urea Nitrogen 79H, Creatinine 3.08H, Estimat Glomerular Filtration Rate 22, BUN/Creatinine Ratio 26, Glucose Level 443*H, Calcium Level 8.1L, Corrected Calcium 9.1, Phosphorus Level 5.0H, Magnesium Level 1.7, Total Bilirubin 0.2, Aspartate Amino Transf (AST/SGOT) 14, Alanine Aminotransferase (ALT/SGPT) 26, Alkaline Phosphatase 92, Total Protein 6.0L, Albumin 2.7L 08/30/22 04:50: Blood Gas Puncture Site L RAD, Blood Gas Patient Temperature 36.7, Arterial Blood pH 7.34*L, Arterial Blood Partial Pressure CO2 47H, Arterial Blood Partial Pressure O2 117H, Arterial Blood HCO3 25, Arterial Blood Total CO2 26.4, Arterial Blood Oxygen Saturation 99, Arterial Blood Base Excess -0.2, Juan Test YES-POS, Blood Gas Ventilator Setting NO, Blood Gas Inspired Oxygen 50% 08/30/22 10:55: Glucometer 410*H 08/30/22 14:00: Glucometer 476*H 08/30/22 15:33: Glucometer 451*H Laboratory Tests 08/29/22 05:15 08/30/22 04:00 A/P: Assessment: Ac on chronic systolic and diastolic CHF - Coronary artery disease, History of NSTEMI in June of 2022. - Stress test done June [address] Ugarte showing large, severe intensity, partially reversible basal to apical inferior and lateral defect with a small amount of inducible ischemia at the apex with a SSS 23, SDS 4. Mid to distal lateral akinesis with global hypokinesis elsewhere with severe left ventricular systolic dysfunction with a calculated ejection fraction of 28%. Patient did not undergo LHC due to poor kidney function and because ischemia was only mild - Subsequent echo of Jun 2022 (Dr Uagrte) reported LVEF 55-60% ?Pneumonia - managed by Med and ICU svces Chronic kidney failure, stage IV - managed by Med and ICU svces Hypertension - fair control Hyperlipidemia - treated with rosuvastatin Severe anemia of undetermined etiology (possibly due to CKD) - managed by Med and ICU svces (s/p 1 unit PRBC) DM II - managed by Med svce Plan: * Intake exceeding output. Advised to lower fluid intake * Continue diuretics * We recommend DVT prophylaxis * Monitor labs * If unresponsive to diuretics and if renal function continues to worsen, then consider transfer to a tertiary care facility with renal services DAVID MATAMOROS MD FACP FAC CCDS Aug 30, 2022 16:05
[2022-08-30] MEDS: ENOXAPARIN INJECTION 30 MG/0.3 ML SYR SC SCH (17:24)
[2022-08-30 19:56] VITALS: BP 143/82
[2022-08-30] MEDS: MONTELUKAST 10 MG (SINGULAIR) TAB PO SCH (20:37)
[2022-08-30] MEDS: ROSUVASTATIN 20 MG (CRESTOR) TABLET PO SCH (20:39)
[2022-08-30] MEDS ORDERED: ALPRAZolam 1 MG (XANAX) TAB ONE (22:57)
[2022-08-30] MEDS: ALPRAZolam 1 MG (XANAX) TAB PO PRN (22:58)
[2022-08-31] MEDS: RT-IPRATROPIUM (ATROVENT) 0.5MG/2.5ML AMP IH SCH ×6 (02:45→21:37)
[2022-08-31] MEDS: RT-ALBUTEROL SULF 2.5 MG/3 ML PRE-MIX VIAL INH SCH ×6 (02:45→21:37)
[2022-08-31 02:58] LABS: ABG BASE EXCESS 0.7 MMOL/L (-2.5-2.5); ABG OXYGEN SATURATION 91 % (94-100); ABG PCO2 47 MMHG (35-45); ABG PH 7.35 (7.37-7.43); ABG PO2 57 MMHG (79-93); ABG TCO2 27.3 MMOL/L (21.0-31.0)
[2022-08-31 03:08] LABS: ALLENS TEST YES-POS; INSPIRED O2 80%; PATIENT TEMP 36.3; VENTILATOR NO
[2022-08-31 03:57] LABS: BASOPHILS % (AUTO) 0 % (0-10); EOSINOPHILS # (AUTO) 0.1 10^3/uL (0.0-0.3); EOSINOPHILS % (AUTO) 1 % (0-10); HEMATOCRIT 24 % (40-54); HEMOGLOBIN 7.5 g/dL (13.3-17.7); LYMPHOCYTES # (AUTO) 0.8 10^3/uL (1.0-4.0); LYMPHOCYTES % (AUTO) 9 % (12-44); MEAN CORPUSCULAR HEMOGLOBIN 26 pg (25-34); MEAN CORPUSCULAR HGB CONC 31 g/dL (32-36); MEAN CORPUSCULAR VOLUME 82 fL (80-99); MEAN PLATELET VOLUME 9.5 fL (9.0-12.2); MONOCYTES # (AUTO) 1.1 10^3/uL (0.0-1.0); MONOCYTES % (AUTO) 13 % (0-12); NEUTROPHILS # (AUTO) 6.6 10^3/uL (1.8-7.8); NEUTROPHILS % (AUTO) 76 % (42-75); PLATELET COUNT 306 10^3/uL (130-400); WHITE BLOOD COUNT 8.7 10^3/uL (4.3-11.0)
[2022-08-31 04:21] LABS: ALBUMIN 2.7 GM/DL (3.2-4.5); BILIRUBIN,TOTAL 0.2 MG/DL (0.1-1.0); CALCIUM 8.6 MG/DL (8.5-10.1); CREATININE SERUM 3.04 MG/DL (0.60-1.30); MAGNESIUM 2.4 MG/DL (1.6-2.4); PHOSPHORUS 4.6 MG/DL (2.3-4.7); POTASSIUM 3.8 MMOL/L (3.6-5.0); TOTAL PROTEIN 6.1 GM/DL (6.4-8.2)
[2022-08-31] MEDS ORDERED: KCL 20 MEQ TAB (K-DUR) PO ONE (04:45)
[2022-08-31] MEDS: POTASSIUM CL 10MEQ/50ML IVPB 50 ML IV SCH (05:50)
[2022-08-31] MEDS: KCL 20 MEQ TAB (K-DUR) PO SCH (05:50)
[2022-08-31] MEDS: MAGNESIUM 1 GM/100 ML IVPB 100 ML IV SCH (05:50)
[2022-08-31] MEDS: FUROSEMIDE 40 MG/4 ML INJ (LASIX) IVP SCH ×2 (06:20→17:01)
--- NOTE | 2022-08-31 07:11 | Progress Note ---
Subjective Date Seen by a Provider: Aug 31, 2022 Time Seen by a Provider: 06:55 Subjective/Events-last exam patient currently in ICU. He reports breathing better to me this morning. He does have Vapotherm in place. He does not appear to be in any acute respiratory distress. His appetite is fairly good and he is eating well. Objective Exam Vital Signs Date Time Temp Pulse Resp B/P (MAP) Pulse Ox O2 Delivery O2 Flow Rate FiO2 08/31/22 06:57 93 Vapotherm 20.00 75 08/31/22 06:00 70 20 151/76 (101) 96 Vapotherm 20.00 75.00 08/31/22 05:26 71 22 150/79 (103) 97 Vapotherm 20.00 75.00 08/31/22 04:22 72 20 143/69 (99) 96 Vapotherm 20.00 75.00 08/31/22 03:45 97 Vapotherm 20.00 75 08/31/22 03:00 72 21 134/72 (95) 91 Vapotherm 20.00 75.00 08/31/22 02:45 96 Vapotherm 20.00 75 08/31/22 02:00 72 19 128/66 (94) 97 Vapotherm 20.00 75.00 08/31/22 01:00 73 08/31/22 01:00 73 18 133/67 (89) 97 Vapotherm 20.00 75.00 08/31/22 00:00 78 18 135/68 (92) 97 Vapotherm 20.00 75.00 08/31/22 00:00 36.9 Vapotherm 20.00 75.00 08/30/22 23:59 Vapotherm 20.00 75 08/30/22 23:00 80 23 139/70 (95) 97 Vapotherm 20.00 75.00 08/30/22 22:00 77 24 116/91 (96) 97 Vapotherm 20.00 75.00 08/30/22 21:35 97 Vapotherm 20.00 75 08/30/22 21:00 77 21 136/69 (89) 95 Vapotherm 20.00 75.00 08/30/22 20:00 80 139/73 (95) 95 Vapotherm 20.00 75.00 08/30/22 20:00 36.6 98 Vapotherm 20.00 75.00 08/30/22 19:56 36.5 71 93 08/30/22 19:47 Vapotherm 20.00 75 08/30/22 19:12 96 Vapotherm 20.00 75 08/30/22 19:00 77 38 131/72 (96) Vapotherm 20.00 75.00 08/30/22 19:00 77 08/30/22 18:00 85 142/73 (100) 82 Vapotherm 20.00 80.00 08/30/22 17:00 77 24 136/69 (95) 94 Vapotherm 20.00 80.00 08/30/22 16:00 75 17 136/71 (97) 98 Vapotherm 20.00 80.00 08/30/22 16:00 Vapotherm 20.00 80 08/30/22 15:36 36.8 08/30/22 15:00 80 19 144/74 (102) 93 Vapotherm 20.00 80.00 08/30/22 14:44 98 Vapotherm 20.00 80 08/30/22 14:00 77 134/67 (82) 98 Vapotherm 20.00 80.00 08/30/22 13:00 75 16 134/76 (98) 100 Vapotherm 20.00 80.00 08/30/22 12:35 75 08/30/22 12:00 80 140/74 (104) 94 Vapotherm 20.00 80.00 08/30/22 12:00 Vapotherm 20.00 80 08/30/22 11:19 36.3 08/30/22 11:00 78 26 139/81 (106) 93 Vapotherm 20.00 80.00 08/30/22 10:33 95 Vapotherm 20.00 80 08/30/22 10:00 72 10 128/72 (95) 97 Vapotherm 20.00 80.00 08/30/22 09:00 77 23 138/71 (97) 91 Vapotherm 20.00 80.00 08/30/22 08:40 Vapotherm 20.00 80.00 08/30/22 08:00 73 11 138/106 (119) 92 NIV Bilevel 50.00 08/30/22 08:00 Vapotherm 20.00 80 08/30/22 07:56 73 20 92 40.00 2/26/23 07:35 36.1 I & O 08/31/22 07:00 Intake Total 3185 ml Output Total 1275 ml Balance 1910 ml Capillary Refill : Less Than 3 Seconds General Appearance: No Apparent Distress Respiratory: Crackles (Faint but overall improved from previous exams) Cardiovascular: Regular Rate, Rhythm Gastrointestinal: soft Extremity: Swelling (Mild) Neurologic/Psychiatric: Alert, Oriented x3 Results Lab Laboratory Tests 08/30/22 10:55: Glucometer 410*H 08/30/22 14:00: Glucometer 476*H 08/30/22 15:33: Glucometer 451*H 08/30/22 16:37: Glucometer 417*H 08/30/22 17:27: Glucometer 359H 08/30/22 18:31: Glucometer 359H 08/30/22 19:25: Glucometer 292H 08/30/22 20:36: Glucometer 316H 08/30/22 21:36: Glucometer 268H 08/30/22 22:34: Glucometer 250H 08/30/22 23:34: Glucometer 213H 08/31/22 00:32: Glucometer 200H 08/31/22 01:39: Glucometer 160H 08/31/22 02:25: Glucometer 135H 08/31/22 02:40: Blood Gas Puncture Site RT RAD, Blood Gas Patient Temperature 36.3, Arterial Blood pH 7.35L, Arterial Blood Partial Pressure CO2 47H, Arterial Blood Partial Pressure O2 57L, Arterial Blood HCO3 26, Arterial Blood Total CO2 27.3, Arterial Blood Oxygen Saturation 91L, Arterial Blood Base Excess 0.7, Juan Test YES-POS, Blood Gas Ventilator Setting NO, Blood Gas Inspired Oxygen 80% 08/31/22 03:30: White Blood Count 8.7, Red Blood Count 2.92L, Hemoglobin 7.5L, Hematocrit 24L, Mean Corpuscular Volume 82, Mean Corpuscular Hemoglobin 26, Mean Corpuscular Hemoglobin Concent 31L, Red Cell Distribution Width 14.3, Platelet Count 306, Mean Platelet Volume 9.5, Immature Granulocyte % (Auto) 1, Neutrophils (%) (Auto) 76H, Lymphocytes (%) (Auto) 9L, Monocytes (%) (Auto) 13H, Eosinophils (%) (Auto) 1, Basophils (%) (Auto) 0, Neutrophils # (Auto) 6.6, Lymphocytes # (Auto) 0.8L, Monocytes # (Auto) 1.1H, Eosinophils # (Auto) 0.1, Basophils # (Auto) 0.0, Immature Granulocyte # (Auto) 0.1, Sodium Level 137, Potassium Level 3.8, Chloride Level 102, Carbon Dioxide Level 21, Anion Gap 14, Blood Urea Nitrogen 89H, Creatinine 3.04H, Estimat Glomerular Filtration Rate 22, BUN/Creatinine Ratio 29, Glucose Level 101, Calcium Level 8.6, Corrected Calcium 9.6, Phosphorus Level 4.6, Magnesium Level 2.4, Total Bilirubin 0.2, Aspartate Amino Transf (AST/SGOT) 13, Alanine Aminotransferase (ALT/SGPT) 24, Alkaline Phosphatase 83, Total Protein 6.1L, Albumin 2.7L 08/31/22 03:53: Glucometer 95 08/31/22 05:12: Glucometer 67L 08/31/22 05:27: Glucometer 62L 08/31/22 06:17: Glucometer 57*L 08/31/22 06:40: Glucometer 57*L Assessment/Plan Assessment/Plan Assess & Plan/Chief Complaint 1. Dyspnea and this appears to be related to the interstitial infiltrates consistent with pneumonia -patient has been initiated on azithromycin as well as ceftriaxone 08/25 -plan on rechecking chest x-ray in the morning of August 2608/26 -CXR this am 08/27 -CXR unchanged -pulmonary consultation 08/28 -repeat lasix this am 08/31 -furosemide 40 mg IV continues twice daily. Thus far his creatinine is stable at 3.0 -Appreciate all the cardiology input 2. Chronic kidney disease diagnosed June 2022 -he will stay on bicarbonate as prescribed by his application technician 08/27 -spoke with Dr Chaves today. Patient is at baseline for Cr. If with mild chf, ok for lasix. 3. Status post CT June 25 -currently undergoing cardiac rehab but this will be held until he is noted to be doing better with regard to the infiltrates 08/25 -due to his BNP elevation will consult cardiology as well. 4. Diabetes mellitus type 2 -he will stay on his diabetic medication glyburide 5. Hypertension -currently on metoprolol 6. Hyperlipidemia -on Crestor 7. Anemia -recheck CBC in the morning of August 2608/28 -hg 6.6 this am -will give 1 U PRBC this am. -check occult blood from stool Clinical Quality Measures Admission Status Admission Dx 1. Dyspnea and this appears to be related to the interstitial infiltrates consistent with pneumonia 2. Chronic kidney disease diagnosed June [address] June 25 4. Diabetes mellitus type 2 5. Hypertension 6. Hyperlipidemia TIFFANY ROGERS MD Aug 31, 2022 07:11
--- NOTE | 2022-08-31 07:51 | Diagnostic Imaging Report ---
INDICATION: Shortness of air, congestive heart failure, ICU care management. TECHNIQUE: Single view chest 4:16 AM. CORRELATION STUDY: 08/30/2022 FINDINGS: Extensive bilateral pulmonary infiltrate-like opacities particularly in the more central aspect of lung stacy do persist. May be slightly improved and overall diminished from prior. Heart size and mediastinum are enlarged and prominent. IMPRESSION: 1. Bilateral pulmonary infiltrates persisting but may be minimally improved. Given the overall findings in distribution, suggest edema. Superposed infiltrate not excluded. Dictated by: Dictated on workstation # [id number]
[2022-08-31] MEDS: SODIUM BICARBONATE 650 MG TABLET PO SCH ×2 (08:20→21:16)
[2022-08-31] MEDS: meTOprolol SUCCINATE 100 MG (TOPROL XL) TAB PO SCH ×2 (08:21→21:17)
[2022-08-31] MEDS: CLOPIDOGREL 75 MG (PLAVIX) TABLET PO SCH (08:21)
[2022-08-31] MEDS: LORATADINE (CLARITIN) 10 MG TAB PO SCH (08:24)
[2022-08-31] MEDS: ASPIRIN E.C. 81 MG (ECOTRIN) TAB PO SCH (08:24)
--- NOTE | 2022-08-31 10:03 | Cardiology Progress Note ---
Subjective Date Seen by Provider: Aug 31, 2022 Time Seen by Provider: 10:01 Subjective/Events-last exam Patient was seen at bedside, laying down in bed, feeling slightly better Maintained on Vapotherm Review of Systems General: No Chills, No Night Sweats; Fatigue, Malaise; No Appetite, No Other HEENT: No Head Aches, No Visual Changes, No Eye Pain, No Ear Pain, No Dy sphasia, No Sinus Congestion, No Post Nasal Drip, No Sore Throat, No Other Pulmonary: Dyspnea, Cough; No Pleuritic Chest Pain, No Other Cardiovascular: No: Chest Pain, Palpitations, Orthopnea, Paroxysmal Noc. Dyspnea, Edema, Lt Headedness, Other Objective-Cardiology Exam Last Set of Vital Signs Vital Signs 08/31/22 08/31/22 08/31/22 07:45 09:00 09:58 Pulse 73 Resp 16 B/P (MAP) 148/68 (94) Pulse Ox 99 O2 Delivery Vapotherm O2 Flow Rate 20.00 60.00 FiO2 70 I&O Intake and Output 08/31/22 00:00 Intake Total 3635 ml Output Total 2175 ml Balance 1460 ml Intake Oral 3085 ml IV Total 550 ml Output Urine Total 2175 ml General: Alert, Oriented X3 HEENT: Atraumatic, PERRLA Lungs: Normal Air Movement, Other (bilat rhonchi) Heart: Regular Rate, Normal S1, Normal S2 Abdomen: Normal Bowel Sounds, Soft Extremities: Other (Peripheral edema) Skin: No Rashes, No Significant Lesion Neuro: Normal Speech Psych/Mental Status: Mental Status NL, Mood NL Results Lab Laboratory Tests 08/31/22 03:30 A/P-Cardiology Admission Diagnosis Pneumonia Elevated BNP CAD HTN Assessment/Plan Bilateral pneumonia, acute respiratory failure Receiving antibiotics Currently in ICU and maintained on Vapotherm. Continue to monitor Coronary artery disease, History of NSTEMI in June of 2022. Stress test done June [address] Ugarte showing large, severe intensity, partially reversible basal to apical inferior and lateral defect with a small amount of inducible ischemia at the apex with a SSS 23, SDS 4. Mid to distal lateral akinesis with global hypokinesis elsewhere with severe left ventricular systolic dysfunction with a calculated ejection fraction of 28%. Patient did not undergo LHC at the time d/t underlying kidney function. Has been medically managed, maintained on ASA, Plavix and beta davy, statin as outpatient. Will plan for viability study with dobutamine stress echo once more stable Chronic kidney failure, stage IV. Monitor renal function. Hypertension, controlled, continue to monitor. Hyperlipidemia, maintained on Crestor 20mg Anemia, worsening H/H Managed by primary care team Pulmonary hypertension Worsening peripheral edema, would like to diurese as toleranted, will consult nephrology. DM, management per PCP Obesity SUGEY FUENTES MD Aug 31, 2022 10:02
[2022-08-31] MEDS: RT--FLUTICASONE/SALMETEROL 113-14 (AIRDUO RespiCLICK) IH SCH ×2 (10:39→21:37)
--- NOTE | 2022-08-31 11:18 | Tele-ICU Progress Note ---
Subjective Date Seen by a Provider: Aug 31, 2022 Time Seen by a Provider: 11:17 Subjective/Events-last exam (Tele-ICU Physician progress note) Available chart/ vitals / labs / Images reviewed H&P is from ER notes Patient's information available about PMH, allergy reviewed in EMR. ROS as per chart and RN report Video assessment done using teleICU camera, rest of exam as per RN Discussed with RN. He is a 62-year-old male with past medical history of hypertension, coronary artery disease, chronic kidney disease for the last several months now admitted with progressive shortness of breath associated with hypoxia which is noted while he was doing cardiac rehab dilatation and worsening of follow-up swelling of the feet and a new onset of swelling of both upper extremities. Chest x-ray showed bilateral pulmonary infiltrate. It is felt that he had decompensated congestive heart failure and admitted for further evaluation and management he required Vapotherm for oxygenation. Today his oxygenation improved and his FiO2 is being weaned down. I made a video visit with the iPad and discussed with the patient and patient's as well as the RN Edgar Pérez. RN reports that he had a bilateral basilar rales. I have reviewed his chest x- ray from 08/26/2022. Creatinine is progressively increasing. He is being followed by primary care as well as cardiology service and I believe nephrology service also. A pulmonary consultation is requested to assist in the management for her which my predecessor has seen already. 08/29/22. Patient today is transferred to intensive care unit for close monitoring. Patient is awake alert and states today slightly better. He still has all 4 limbs edema. Chest x-ray still showing bilateral congestive changes. He is started on IV Solu-Medrol which might complicate his metabolic profile especially BUN/creatinine and because of worsening of the edema. Patient also on amlodipine 10 mg once a day which can cause also edema. I have discussed these issues with Dr. Rehman and I have discontinued these medicines. he is also started on IV Lasix which might help him but will monitor his BUN/creatinine closely. 08/31/22. today he is feeling some better. mild improvement in leg edema. few basilar cracles per rn. cxr showed very little improvement. Impression 1. Acute and chronic congestive heart failure slowly improving. 2. Acute and chronic anemia.stable 3. Acute hypoxic respiratory failure secondary to congestive heart failure on vt 4. Acute and chronic kidney disease. 5. At this time I do not think he has any pneumonia. 6. I suspect amlodipine also contributing to his edema. Recommendations 1. will discontinue amlodipine,and solu-medrol 2. We will repeat a chest x-ray tomorrow a.m. 3. Wean FiO2 as tolerated. Bipap as needed 4. give one dose of zaroxylyn 5mg po. 5. DVT prophylaxiS with SCDs. We will hold off anticoagulants due to anemia 6. Empiric antibiotic therapy for possible pneumonia even though I doubt it. 7. continue iv lasix His prognosis is guarded Coordination of care with bedside consultants and with primary care physician. Time spent during this visit is 25 minutes Sepsis Event - Inpatient/Obs Sepsis Event Evaluation Height, Weight, BMI Height: '" Weight: lbs. oz. kg; 35.41 BMI Method: Focused Exam Focused Exam Exam-Pulmonary/CC Exam Exam Patient acknowledged, consented, and participated in this virtual visit which was conducted using real time audio/video Vital Signs Date Time Temp Pulse Resp B/P (MAP) Pulse Ox O2 Delivery O2 Flow Rate FiO2 08/29/22 13:00 76 21 143/78 (89) 98 Vapotherm 20.00 80.00 08/29/22 12:54 74 08/29/22 12:15 Vapotherm 20.00 80 08/29/22 12:10 36.7 80 20 154/78 (103) 96 Vapotherm 20.00 80.00 08/29/22 09:29 94 Vapotherm 20.00 80 08/29/22 08:14 37.2 79 20 144/68 (93) 94 Vapotherm 80.00 20.00 08/29/22 08:00 Vapotherm 20.00 80 08/29/22 06:33 93 Vapotherm 20.00 80 08/29/22 03:43 37.0 72 18 142/76 (98) 95 NIV Bilevel 08/29/22 02:37 77 23 93 50.00 08/29/22 00:11 36.7 76 18 143/72 (95) 96 NIV Bilevel 08/28/22 22:12 88 20 94 40.00 08/28/22 20:13 36.8 87 20 149/76 (100) 92 Vapotherm 80.00 20.00 08/28/22 20:00 Vapotherm 20.00 90 08/28/22 18:42 94 Vapotherm 20.00 80 08/28/22 16:14 37.2 81 19 137/72 (93) 97 Vapotherm 80.00 20.00 08/28/22 14:55 96 Vapotherm 20.00 80 08/28/22 14:00 36.8 77 24 126/59 96 Vapotherm 20.00 80 I & O 08/29/22 07:00 Intake Total 1690 ml Output Total 2290 ml Balance -600 ml Height & Weight Height: '" Weight: lbs. oz. kg; 35.41 BMI Method: General Appearance: Anxious HEENT: Normal ENT Inspection Neck: Supple Respiratory: Crackles Cardiovascular: Regular Rate, Rhythm Gastrointestinal: soft Extremity: Normal Capillary Refill, No Calf Tenderness, Pedal Edema Neurologic/Psychiatric: Alert, Oriented x3 Skin: Pallor Other comments PE PER RN Results Lab Laboratory Tests 08/28/22 04:58 08/28/22 14:55 08/29/22 05:15 Assessment/Plan Assessment/Plan Assessment/Plan ABOVE Critical Care: Critically Ill Patient Time spent with patient (mins): Problem List Diagnosis/Problems Copy To: Copy CAMERON CHEN MD Aug 29, 2022 13:48 Sepsis Event Evaluation Height, Weight, BMI Height: '" Weight: lbs. oz. kg; 37.82 BMI Method: Exam Exam Patient acknowledged, consented, and participated in this virtual visit which was conducted using real time audio/video Vital Signs Date Time Temp Pulse Resp B/P (MAP) Pulse Ox O2 Delivery O2 Flow Rate FiO2 08/31/22 11:00 75 19 143/72 (95) 93 Vapotherm 20.00 60.00 08/31/22 10:40 94 Vapotherm 20.00 50 08/31/22 10:00 72 135/64 (87) 97 Vapotherm 20.00 60.00 08/31/22 09:58 99 Vapotherm 20.00 60.00 08/31/22 09:00 73 16 148/68 (94) 92 Vapotherm 20.00 70.00 08/31/22 08:00 36.3 08/31/22 08:00 73 25 168/79 (108) 99 Vapotherm 20.00 70.00 08/31/22 07:45 96 Vapotherm 20.00 70 08/31/22 07:12 72 08/31/22 07:10 Vapotherm 20.00 70.00 08/31/22 07:00 71 23 144/76 (98) 93 Vapotherm 20.00 75.00 08/31/22 06:57 93 Vapotherm 20.00 75 08/31/22 06:00 70 20 151/76 (101) 96 Vapotherm 20.00 75.00 08/31/22 05:26 71 22 150/79 (103) 97 Vapotherm 20.00 75.00 08/31/22 04:22 72 20 143/69 (99) 96 Vapotherm 20.00 75.00 08/31/22 03:45 97 Vapotherm 20.00 75 08/31/22 03:00 72 21 134/72 (95) 91 Vapotherm 20.00 75.00 08/31/22 02:45 96 Vapotherm 20.00 75 08/31/22 02:00 72 19 128/66 (94) 97 Vapotherm 20.00 75.00 08/31/22 01:00 73 08/31/22 01:00 73 18 133/67 (89) 97 Vapotherm 20.00 75.00 08/31/22 00:00 78 18 135/68 (92) 97 Vapotherm 20.00 75.00 08/31/22 00:00 36.9 Vapotherm 20.00 75.00 08/30/22 23:59 Vapotherm 20.00 75 08/30/22 23:00 80 23 139/70 (95) 97 Vapotherm 20.00 75.00 08/30/22 22:00 77 24 116/91 (96) 97 Vapotherm 20.00 75.00 08/30/22 21:35 97 Vapotherm 20.00 75 08/30/22 21:00 77 21 136/69 (89) 95 Vapotherm 20.00 75.00 08/30/22 20:00 80 139/73 (95) 95 Vapotherm 20.00 75.00 08/30/22 20:00 36.6 98 Vapotherm 20.00 75.00 08/30/22 19:56 36.5 71 93 08/30/22 19:47 Vapotherm 20.00 75 08/30/22 19:12 96 Vapotherm 20.00 75 08/30/22 19:00 77 38 131/72 (96) Vapotherm 20.00 75.00 08/30/22 19:00 77 08/30/22 18:00 85 142/73 (100) 82 Vapotherm 20.00 80.00 08/30/22 17:00 77 24 136/69 (95) 94 Vapotherm 20.00 80.00 08/30/22 16:00 75 17 136/71 (97) 98 Vapotherm 20.00 80.00 08/30/22 16:00 Vapotherm 20.00 80 08/30/22 15:36 36.8 08/30/22 15:00 80 19 144/74 (102) 93 Vapotherm 20.00 80.00 08/30/22 14:44 98 Vapotherm 20.00 80 08/30/22 14:00 77 134/67 (82) 98 Vapotherm 20.00 80.00 08/30/22 13:00 75 16 134/76 (98) 100 Vapotherm 20.00 80.00 08/30/22 12:35 75 08/30/22 12:00 80 140/74 (104) 94 Vapotherm 20.00 80.00 08/30/22 12:00 Vapotherm 20.00 80 08/30/22 11:19 36.3 I & O 08/31/22 07:00 Intake Total 3185 ml Output Total 1275 ml Balance 1910 ml Height & Weight Height: '" Weight: lbs. oz. kg; 37.82 BMI Method: General Appearance: No Apparent Distress HEENT: Normal ENT Inspection Neck: Supple Respiratory: Crackles (Faint but overall improved from previous exams) Cardiovascular: Regular Rate, Rhythm Capillary Refill: Less Than 3 Seconds Gastrointestinal: soft Extremity: Swelling (Mild) Neurologic/Psychiatric: Alert, Oriented x3 Skin: Pallor Other comments PE PER RN Results Lab Laboratory Tests 08/30/22 04:00 08/31/22 03:30 Assessment/Plan Assessment/Plan ABOVE Critical Care: Critically Ill Patient Time spent with patient (mins): 25 CAMERON CHEN MD Aug 31, 2022 11:18
[2022-08-31] MEDS ORDERED: METOLAZONE 2.5 MG (ZAROXOLYN) TAB PO NR (11:30)
[2022-08-31] MEDS: CEFEPIME INJECTION 1,000 MG in NS (IVPB) 50 ML IV SCH ×2 (12:19→23:34)
[2022-08-31] MEDS: ENOXAPARIN INJECTION 30 MG/0.3 ML SYR SC SCH (17:02)
[2022-08-31] MEDS: ROSUVASTATIN 20 MG (CRESTOR) TABLET PO SCH (21:17)
[2022-08-31] MEDS: MONTELUKAST 10 MG (SINGULAIR) TAB PO SCH (21:23)
[2022-08-31] MEDS ORDERED: ALPRAZolam 1 MG (XANAX) TAB ONE (22:00)
[2022-08-31] MEDS: ALPRAZolam 1 MG (XANAX) TAB PO PRN (22:02)
[2022-08-31] MEDS ORDERED: inSUlin ASPART (NovoLOG) 1 UNIT/0.01 ML (CHARGE PER UNIT) ONE (22:08)
[2022-08-31] MEDS: inSUlin ASPART (NovoLOG) 1 UNIT/0.01 ML (CHARGE PER UNIT) SC SCH (22:18)
[2022-09-01] MEDS: RT-ALBUTEROL SULF 2.5 MG/3 ML PRE-MIX VIAL INH SCH ×6 (02:33→22:19)
[2022-09-01 02:34] VITALS: BP 134/81
[2022-09-01] MEDS: RT-IPRATROPIUM (ATROVENT) 0.5MG/2.5ML AMP IH SCH ×6 (02:34→22:19)
[2022-09-01 03:55] LABS: BASOPHILS % (AUTO) 0 % (0-10); EOSINOPHILS # (AUTO) 0.4 10^3/uL (0.0-0.3); EOSINOPHILS % (AUTO) 5 % (0-10); HEMATOCRIT 25 % (40-54); HEMOGLOBIN 7.8 g/dL (13.3-17.7); LYMPHOCYTES % (AUTO) 13 % (12-44); MEAN CORPUSCULAR HEMOGLOBIN 25 pg (25-34); MEAN CORPUSCULAR HGB CONC 31 g/dL (32-36); MEAN CORPUSCULAR VOLUME 82 fL (80-99); MEAN PLATELET VOLUME 9.5 fL (9.0-12.2); MONOCYTES # (AUTO) 0.8 10^3/uL (0.0-1.0); MONOCYTES % (AUTO) 11 % (0-12); NEUTROPHILS # (AUTO) 5.2 10^3/uL (1.8-7.8); NEUTROPHILS % (AUTO) 70 % (42-75); PLATELET COUNT 342 10^3/uL (130-400); WHITE BLOOD COUNT 7.5 10^3/uL (4.3-11.0)
[2022-09-01 04:13] LABS: ALBUMIN 2.8 GM/DL (3.2-4.5); BILIRUBIN,TOTAL 0.3 MG/DL (0.1-1.0); CALCIUM 8.6 MG/DL (8.5-10.1); CREATININE SERUM 3.25 MG/DL (0.60-1.30); MAGNESIUM 2.2 MG/DL (1.6-2.4); PHOSPHORUS 4.9 MG/DL (2.3-4.7); TOTAL PROTEIN 6.1 GM/DL (6.4-8.2)
[2022-09-01] MEDS: MAGNESIUM 1 GM/100 ML IVPB 100 ML IV SCH (04:23)
[2022-09-01] MEDS: POTASSIUM CL 10MEQ/50ML IVPB 50 ML IV SCH (04:23)
[2022-09-01] MEDS: inSUlin ASPART (NovoLOG) 1 UNIT/0.01 ML (CHARGE PER UNIT) SC SCH ×4 (04:23→21:28)
[2022-09-01] MEDS: KCL 20 MEQ TAB (K-DUR) PO SCH (04:23)
[2022-09-01] MEDS: FUROSEMIDE 40 MG/4 ML INJ (LASIX) IVP SCH ×2 (06:17→17:12)
--- NOTE | 2022-09-01 06:49 | Diagnostic Imaging Report ---
INDICATION: Respiratory failure Portable chest 4:00 AM There are diffuse alveolar nodular infiltrates in the lungs. There are no effusions or pneumothoraces. IMPRESSION: Diffuse pulmonary infiltrates appear unchanged compared to previous day. Dictated by: Dictated on workstation # [id number]
[2022-09-01 06:51] VITALS: BP 129/72
[2022-09-01] MEDS: RT--FLUTICASONE/SALMETEROL 113-14 (AIRDUO RespiCLICK) IH SCH (06:51)
[2022-09-01 07:38] LABS: ABG BASE EXCESS 2.7 MMOL/L (-2.5-2.5); ABG OXYGEN SATURATION 98 % (94-100); ABG PCO2 50 MMHG (35-45); ABG PH 7.36 (7.37-7.43); ABG PO2 90 MMHG (79-93); ABG TCO2 29.3 MMOL/L (21.0-31.0)
[2022-09-01 07:40] LABS: INSPIRED O2 50; PATIENT TEMP 36.3; VENTILATOR NO
--- NOTE | 2022-09-01 08:28 | Cardiology Progress Note ---
Subjective Date Seen by Provider: Sep 01, 2022 Time Seen by Provider: 08:27 Subjective/Events-last exam Patient was seen at bedside, laying down comfortably. Feeling better today. Review of Systems General: No Chills, No Night Sweats; Fatigue; No Malaise, No Appetite, No Other HEENT: No Head Aches, No Visual Changes, No Eye Pain, No Ear Pain, No Dysphasia, No Sinus Congestion, No Post Nasal Drip, No Sore Throat, No Other Pulmonary: Dyspnea; No Cough, No Pleuritic Chest Pain, No Other Cardiovascular: Edema; No: Chest Pain, Palpitations, Orthopnea, Paroxysmal Noc. Dyspnea, Lt Headedness, Other Objective-Cardiology Exam Last Set of Vital Signs Vital Signs 09/01/22 09/01/22 09/01/22 09/01/22 09/01/22 04:00 06:00 06:51 07:14 07:37 Temp 36.3 Pulse 75 Resp 20 B/P (MAP) 129/72 (95) Pulse Ox 92 O2 Delivery Vapotherm O2 Flow Rate 20.00 50.00 FiO2 40 I&O Intake and Output 09/01/22 00:00 Intake Total 2540 ml Output Total 2565 ml Balance -25 ml Intake Oral 2340 ml IV Total 200 ml Output Urine Total 2565 ml # Voids 2 # Bowel Movements 2 General: Alert, Oriented X3 HEENT: Atraumatic, PERRLA Lungs: Normal Air Movement, Other (bilat rhonchi) Heart: Regular Rate, Normal S1, Normal S2 Abdomen: Normal Bowel Sounds, Soft Extremities: Other (Peripheral edema) Skin: No Rashes, No Significant Lesion Neuro: Normal Speech Psych/Mental Status: Mental Status NL, Mood NL Results Lab Laboratory Tests 09/01/22 03:36 A/P-Cardiology Admission Diagnosis Pneumonia Elevated BNP CAD HTN Assessment/Plan Bilateral pneumonia, acute respiratory failure Receiving antibiotics Currently in ICU and maintained on Vapotherm. Continue to monitor Congestive heart failure, acute on chronic left ventricular systolic dysfunction Receiving diuretics Received additional dose of Zaroxolyn Continue to monitor Coronary artery disease, History of NSTEMI in June of 2022. Stress test done June [address] Ugarte showing large, severe intensity, partially reversible basal to apical inferior and lateral defect with a small amount of inducible ischemia at the apex with a SSS 23, SDS 4. Mid to distal lateral akinesis with global hypokinesis elsewhere with severe left ventricular systolic dysfunction with a calculated ejection fraction of 28%. Patient did not undergo LHC at the time d/t underlying kidney function. Has been medically managed, maintained on ASA, Plavix and beta davy, statin as outpatient. Will plan for viability study with dobutamine stress echo once more stable Chronic kidney failure, stage IV. Monitor renal function. Hypertension, controlled, continue to monitor. Hyperlipidemia, maintained on Crestor 20mg Anemia, worsening H/H Managed by primary care team Pulmonary hypertension Worsening peripheral edema, would like to diurese as toleranted, will consult nephrology. DM, management per PCP Obesity SUGEY FUENTES MD Sep 01, 2022 08:28
[2022-09-01] MEDS ORDERED: ASPIRIN E.C. 81 MG (ECOTRIN) TAB PO SCH (09:00)
[2022-09-01] MEDS ORDERED: LORATADINE (CLARITIN) 10 MG TAB PO SCH (09:00)
[2022-09-01] MEDS: CLOPIDOGREL 75 MG (PLAVIX) TABLET PO SCH (09:29)
[2022-09-01] MEDS: meTOprolol SUCCINATE 100 MG (TOPROL XL) TAB PO SCH ×2 (09:29→21:27)
[2022-09-01] MEDS: SODIUM BICARBONATE 650 MG TABLET PO SCH ×2 (09:29→21:27)
[2022-09-01] MEDS: CEFEPIME INJECTION 1,000 MG in NS (IVPB) 50 ML IV SCH ×2 (13:44→23:26)
--- NOTE | 2022-09-01 13:47 | Tele-ICU Progress Note ---
Subjective Date Seen by a Provider: Sep 01, 2022 Time Seen by a Provider: 13:46 Subjective/Events-last exam (Tele-ICU Physician , Progress Note ) Service provided via interactive audio and video telecommunications E-CARE system to a patient admitted to ICU bed in [facility]. Patient is seen today due to persistent need of ICU care Available chart/ vitals / labs / Images reviewed Video assessment done using teleICU camera, rest of exam as per RN Discussed with RN Events overnight : Afebrile hemodynamically stable Respiratory - I/O = Drips: Pressors- no Hospital course: 08-24: +Sev Sepsis COVID Neg 62 y/o M - Pneumonia - Progressive SOB - CHF 08-28: Hgb 6.6 - 1uPRBC's 08-29: Tx to ICU - Worsening infiltrates - PNA vs P Edema A/P Acute resp failure with VO . pulm edema ( No CXR evidence of ILD 06/2022, but never had any PFT or CT. - Bipap 06/09 -VT 20 L 50% day time - OFF solumedrol 08/31 Pulmonary hypertension - severe by ECHO 06/2022- RVSP 70 - cont diuresis СЕРГЕЙ / CKD - lasix and zaroxaline - po bicarb - fluid restriction fluid restriction - await nephrology consult Acute and chronic anemia. - s/p transfusion 08/31 -stable PNA - empiric tx , will do short course - ? d/c tomorrow Hyperglycemia - off insulin gtt - long acting started Lines : periph , (Central Line Necessity Reviewed) Chua: void OG: Nutrition: Analgesia: Anxiety/ delirium VTE Prophylaxis: cory 40 ( discussed with Stress Ulcer Prophylaxis: Plans in collaboration with bedside consultants and IM MDs. Discussed with RN to reach out if any questions or concerns A total of 31 minutes of critical care time was devoted to this patient today, required to treat and/or prevent further deterioration of critical care condition ( as above ) . I am remotely monitoring this patient from another state. I am unable to do the bedside exam, and history/physical and pertinent information is taken from other notes in the computer and bedside staff. Sepsis Event Evaluation Height, Weight, BMI Height: '" Weight: lbs. oz. kg; 37.82 BMI Method: Exam Exam Patient acknowledged, consented, and participated in this virtual visit which was conducted using real time audio/video Vital Signs Date Time Temp Pulse Resp B/P (MAP) Pulse Ox O2 Delivery O2 Flow Rate FiO2 09/01/22 13:00 78 19 135/72 (93) 94 Vapotherm 20.00 50.00 09/01/22 12:59 78 09/01/22 12:00 80 20 142/78 (99) 92 Vapotherm 20.00 50.00 09/01/22 11:00 79 36 145/81 (102) 87 Vapotherm 20.00 50.00 09/01/22 10:36 92 Vapotherm 20.00 50 09/01/22 10:00 74 18 132/71 (91) 92 Vapotherm 20.00 50.00 09/01/22 09:00 79 28 130/71 (90) 94 Vapotherm 20.00 50.00 09/01/22 08:15 94 Vapotherm 20.00 50 09/01/22 08:00 82 28 143/76 (98) 93 Vapotherm 20.00 50.00 09/01/22 07:37 36.3 Vapotherm 20.00 50.00 09/01/22 07:14 75 09/01/22 07:00 74 18 139/76 (97) 95 Vapotherm 20.00 60.00 09/01/22 06:51 73 20 92 50.00 09/01/22 06:00 71 17 129/72 (95) 95 Vapotherm 20.00 60.00 09/01/22 05:31 36.6 09/01/22 05:00 70 18 115/64 (82) 93 Vapotherm 20.00 60.00 09/01/22 04:00 67 18 131/78 (103) 97 Vapotherm 20.00 60.00 09/01/22 04:00 96 NIV Bilevel 40 09/01/22 03:00 72 16 139/78 (102) 97 Vapotherm 20.00 60.00 09/01/22 02:34 75 35 99 40.00 09/01/22 02:00 70 17 134/81 (98) 95 Vapotherm 20.00 60.00 09/01/22 01:00 71 33 138/75 (103) 94 Vapotherm 20.00 60.00 09/01/22 01:00 70 09/01/22 00:00 36.4 2/28/23 00:00 71 20 133/72 (103) 94 Vapotherm 20.00 60.00 08/31/22 23:59 96 NIV Bilevel 40 08/31/22 23:00 74 19 146/87 (104) 95 Vapotherm 20.00 60.00 08/31/22 22:00 75 18 145/81 (108) 94 Vapotherm 20.00 60.00 08/31/22 21:38 96 Vapotherm 20.00 50 08/31/22 21:00 79 34 149/81 (113) 95 Vapotherm 20.00 60.00 08/31/22 20:00 95 Vapotherm 20.00 50 08/31/22 20:00 81 20 146/78 (105) 93 Vapotherm 20.00 60.00 08/31/22 19:13 36.7 08/31/22 19:00 82 08/31/22 19:00 82 17 139/76 (103) 93 Vapotherm 20.00 60.00 08/31/22 18:23 94 Vapotherm 20.00 50 08/31/22 18:00 80 27 141/69 (93) 94 Vapotherm 20.00 60.00 08/31/22 17:00 81 15 140/98 (112) 94 Vapotherm 20.00 60.00 08/31/22 16:30 93 Vapotherm 20.00 50 08/31/22 16:00 80 14 139/69 (92) 95 Vapotherm 20.00 60.00 08/31/22 15:43 36.6 08/31/22 15:09 94 Vapotherm 20.00 50 08/31/22 15:00 79 21 135/87 (103) 93 Vapotherm 20.00 60.00 08/31/22 14:00 82 24 129/83 (98) 95 Vapotherm 20.00 60.00 I & O 09/01/22 07:00 Intake Total 3690 ml Output Total 4040 ml Balance -350 ml Height & Weight Height: '" Weight: lbs. oz. kg; 37.82 BMI Method: General Appearance: No Apparent Distress HEENT: Normal ENT Inspection Neck: Supple Respiratory: Crackles (Faint but overall improved from previous exams) Cardiovascular: Regular Rate, Rhythm Capillary Refill: Less Than 3 Seconds Gastrointestinal: soft Extremity: Swelling (Mild) Neurologic/Psychiatric: Alert, Oriented x3 Skin: Pallor Results Lab Laboratory Tests 08/31/22 03:30 09/01/22 03:36 Assessment/Plan Assessment/Plan 1 ELEAZAR VARNER MD Sep 01, 2022 13:47
--- NOTE | 2022-09-01 15:14 | Progress Note ---
Subjective Date Seen by a Provider: Sep 01, 2022 Time Seen by a Provider: 07:10 Subjective/Events-last exam patient is resting comfortably with BiPAP in ICU this morning. He was sleeping but awakening he did not appear to be in any distress. He is now on a heart healthy diet. He has not done any ambulation whatsoever since hospitalized. He denies chest pain. There is some shortness of breath when he takes the BiPAP off. Objective Exam Vital Signs Date Time Temp Pulse Resp B/P (MAP) Pulse Ox O2 Delivery O2 Flow Rate FiO2 09/01/22 14:43 94 Vapotherm 20.00 45 09/01/22 14:15 95 Vapotherm 20.00 45.00 09/01/22 14:00 82 23 138/74 (95) 93 Vapotherm 20.00 50.00 09/01/22 13:00 78 19 135/72 (93) 94 Vapotherm 20.00 50.00 09/01/22 12:59 78 09/01/22 12:00 80 20 142/78 (99) 92 Vapotherm 20.00 50.00 09/01/22 12:00 90 Vapotherm 20.00 50 09/01/22 11:00 79 36 145/81 (102) 87 Vapotherm 20.00 50.00 09/01/22 10:36 92 Vapotherm 20.00 50 09/01/22 10:00 74 18 132/71 (91) 92 Vapotherm 20.00 50.00 09/01/22 09:00 79 28 130/71 (90) 94 Vapotherm 20.00 50.00 09/01/22 08:15 94 Vapotherm 20.00 50 09/01/22 08:00 82 28 143/76 (98) 93 Vapotherm 20.00 50.00 09/01/22 07:37 36.3 Vapotherm 20.00 50.00 09/01/22 07:14 75 09/01/22 07:00 74 18 139/76 (97) 95 Vapotherm 20.00 60.00 09/01/22 06:51 73 20 92 50.00 09/01/22 06:00 71 17 129/72 (95) 95 Vapotherm 20.00 60.00 09/01/22 05:31 36.6 09/01/22 05:00 70 18 115/64 (82) 93 Vapotherm 20.00 60.00 09/01/22 04:00 67 18 131/78 (103) 97 Vapotherm 20.00 60.00 09/01/22 04:00 96 NIV Bilevel 40 09/01/22 03:00 72 16 139/78 (102) 97 Vapotherm 20.00 60.00 09/01/22 02:34 75 35 99 40.00 09/01/22 02:00 70 17 134/81 (98) 95 Vapotherm 20.00 60.00 09/01/22 01:00 71 33 138/75 (103) 94 Vapotherm 20.00 60.00 09/01/22 01:00 70 09/01/22 00:00 36.4 09/01/22 00:00 71 20 133/72 (103) 94 Vapotherm 20.00 60.00 08/31/22 23:59 96 NIV Bilevel 40 08/31/22 23:00 74 19 146/87 (104) 95 Vapotherm 20.00 60.00 08/31/22 22:00 75 18 145/81 (108) 94 Vapotherm 20.00 60.00 08/31/22 21:38 96 Vapotherm 20.00 50 08/31/22 21:00 79 34 149/81 (113) 95 Vapotherm 20.00 60.00 08/31/22 20:00 95 Vapotherm 20.00 50 08/31/22 20:00 81 20 146/78 (105) 93 Vapotherm 20.00 60.00 08/31/22 19:13 36.7 08/31/22 19:00 82 08/31/22 19:00 82 17 139/76 (103) 93 Vapotherm 20.00 60.00 08/31/22 18:23 94 Vapotherm 20.00 50 08/31/22 18:00 80 27 141/69 (93) 94 Vapotherm 20.00 60.00 08/31/22 17:00 81 15 140/98 (112) 94 Vapotherm 20.00 60.00 08/31/22 16:30 93 Vapotherm 20.00 50 08/31/22 16:00 80 14 139/69 (92) 95 Vapotherm 20.00 60.00 08/31/22 15:43 36.6 I & O 09/01/22 07:00 Intake Total 3690 ml Output Total 4040 ml Balance -350 ml Capillary Refill : Less Than 3 Seconds General Appearance: Anxious Neck: Supple Respiratory: Crackles (In apical regions) Cardiovascular: Regular Rate, Rhythm Gastrointestinal: soft Neurologic/Psychiatric: Alert, Oriented x3 Results Lab Laboratory Tests 08/31/22 15:48: Glucometer 171H 08/31/22 17:03: Glucometer 152H 08/31/22 18:00: Glucometer 148H 08/31/22 19:06: Glucometer 165H 08/31/22 20:08: Glucometer 189H 08/31/22 21:26: Glucometer 183H 09/01/22 00:44: Glucometer 145H 09/01/22 03:36: White Blood Count 7.5, Red Blood Count 3.07L, Hemoglobin 7.8L, Hematocrit 25L, Mean Corpuscular Volume 82, Mean Corpuscular Hemoglobin 25, Mean Corpuscular Hemoglobin Concent 31L, Red Cell Distribution Width 14.5, Platelet Count 342, Mean Platelet Volume 9.5, Immature Granulocyte % (Auto) 1, Neutrophils (%) (Auto) 70, Lymphocytes (%) (Auto) 13, Monocytes (%) (Auto) 11, Eosinophils (%) (Auto) 5, Basophils (%) (Auto) 0, Neutrophils # (Auto) 5.2, Lymphocytes # (Auto) 1.0, Monocytes # (Auto) 0.8, Eosinophils # (Auto) 0.4H, Basophils # (Auto) 0.0, Immature Granulocyte # (Auto) 0.1, Sodium Level 138, Potassium Level 4.0, Chloride Level 102, Carbon Dioxide Level 23, Anion Gap 13, Blood Urea Nitrogen 96H, Creatinine 3.25H, Estimat Glomerular Filtration Rate 21, BUN/Creatinine Ratio 30, Glucose Level 124H, Calcium Level 8.6, Corrected Calcium 9.6, Phosphorus Level 4.9H, Magnesium Level 2.2, Total Bilirubin 0.3, Aspartate Amino Transf (AST/SGOT) 14, Alanine Aminotransferase (ALT/SGPT) 23, Alkaline Phosphatase 75, Total Protein 6.1L, Albumin 2.8L 09/01/22 07:30: Blood Gas Puncture Site L RADIAL, Blood Gas Patient Temperature 36.3, Arterial Blood pH 7.36L, Arterial Blood Partial Pressure CO2 50H, Arterial Blood Partial Pressure O2 90, Arterial Blood HCO3 28H, Arterial Blood Total CO2 29.3, Arterial Blood Oxygen Saturation 98, Arterial Blood Base Excess 2.7H, Juan Test NA, Blood Gas Ventilator Setting NO, Blood Gas Inspired Oxygen 50 Radiology [facility]. [place], [place] NAME: KENRICK BAZAN REC#: [id number] PT STATUS: ADM IN : 1960 PHYSICIAN: GABBI CALDERA DO ADMIT DATE: 08/24/22/ICU Signed Date of Exam:09/01/22 CHEST 1 VIEW, AP/PA ONLY INDICATION: Respiratory failure Portable chest 4:00 AM There are diffuse alveolar nodular infiltrates in the lungs. There are no effusions or pneumothoraces. IMPRESSION: Diffuse pulmonary infiltrates appear unchanged compared to previous day. Dictated by: Dictated on workstation # [id number] Dict: 09/01/22 0648 Trans: 09/01/22 0656 [facility] [place] [id number] Interpreted by: SHERLYN KOTHARI MD Electronically signed by: SHERLYN KOTHARI MD 09/01/22 0656 Assessment/Plan Assessment/Plan Assess & Plan/Chief Complaint 1. Dyspnea and this appears to be related to the interstitial infiltrates consistent with pneumonia -patient has been initiated on azithromycin as well as ceftriaxone 08/25 -plan on rechecking chest x-ray in the morning of August 2608/26 -CXR this am 08/27 -CXR unchanged -pulmonary consultation 08/28 -repeat lasix this am 08/31 -furosemide 40 mg IV continues twice daily. Thus far his creatinine is stable at 3.0 -Appreciate all the cardiology input 09/01 -he continues to be on cefepime day #4 2. Chronic kidney disease diagnosed June 2022 -he will stay on bicarbonate as prescribed by his icing coater 08/27 -spoke with Dr Chaves today. Patient is at baseline for Cr. If with mild chf, ok for lasix. 09/01 -I spoke with Dr. Chaves today and would like to go ahead and get official nephrology consultation. We discussed his edema of the extremities as well as pulmonary edema. We will add on metolazone 5 mg orally each day in addition to the Lasix 40 mg IV twice daily. Also recommendations were to wrap his lower extremities in the morning and take off in the evening. She was notified of his creatinine today of 3.25, which is up from yesterday 3. Status post DE June 25 -currently undergoing cardiac rehab but this will be held until he is noted to be doing better with regard to the infiltrates 08/25 -due to his BNP elevation will consult cardiology as well. 4. Diabetes mellitus type 2 -he will stay on his diabetic medication glyburide 5. Hypertension -currently on metoprolol 6. Hyperlipidemia -on Crestor 7. Anemia -recheck CBC in the morning of August 2608/28 -hg 6.6 this am -will give 1 U PRBC this am. -check occult blood from stool Clinical Quality Measures Admission Status Admission Dx 1. Dyspnea and this appears to be related to the interstitial infiltrates consistent with pneumonia 2. Chronic kidney disease diagnosed June 2022 3. Status post DE June 25 4. Diabetes mellitus type 2 5. Hypertension 6. Hyperlipidemia TIFFANY ROGERS MD Sep 01, 2022 15:14
[2022-09-01] MEDS: ENOXAPARIN INJECTION 30 MG/0.3 ML SYR SC SCH (17:12)
--- NOTE | 2022-09-01 17:56 | Consultation ---
History of Present Illness History of Present Illness Patient Consulted On(clark/time) 09/01/22 17:52 Date Seen by Provider: Sep 01, 2022 Time Seen by Provider: 18:04 Reason for Visit: Dyspnea, elevated BNP History of Present Illness Mr. Norman Juarez is a very pleasant 62 y/o M with history of HTN, DM, and arthritis admitted with soa and edema. There was some concern for pneumonia. Also started on iv diuresis for volume overload. Pt follows in my office since his СЕРГЕЙ admission 06/2022. Baseline likely 2.7 creatinine but not clear. 06/2022 Stress test was abnormal and ideally would have a cath but holding off due to СЕРГЕЙ.Admission cr 3.6 at that time then improved to 2.7. denies h/o ckd or renal disease. no old labs that he can think of that we can track down to compare. Allergies and Home Medications Allergies Coded Allergies: No Known Drug Allergies (Unverified , 06/11/22) Patient Home Medication List Home Medication List Reviewed: Yes Acetaminophen (Tylenol Extra Strength) 500 Mg Tablet, 1,000 MG PO Q8H PRN for PAIN-MILD (1-4), (Reported) Entered as Reported by: YEIMY HAYS on 08/24/221520 Last Action: Held Alprazolam (Alprazolam) 1 Mg Tablet, 0.5-1 MG PO Q8H PRN for ANXIETY, (Reported) Entered as Reported by: CAMERON WALDRON on 06/11/22 1609 Last Action: Continued Amlodipine Besylate (Amlodipine Besylate) 10 Mg Tablet, 10 MG PO DAILY, (Reported) Entered as Reported by: YEIMY HAYS on 08/24/221520 Last Action: Continued Aspirin (Aspirin EC) 81 Mg Tablet.dr, 81 MG PO DAILY, (Reported) Entered as Reported by: YEIMY HAYS on 08/24/221520 Last Action: Continued Clopidogrel Bisulfate (Clopidogrel) 75 Mg Tablet, 75 MG PO DAILY, (Reported) Entered as Reported by: YEIMY HAYS on 08/24/221520 Last Action: Continued Ergocalciferol (Vitamin D2) (Vitamin D2) 1,250 Mcg (71640 Unit) Capsule, 1,250 MCG PO WEDNESDAY, (Reported) Entered as Reported by: YEIMY HAYS on 08/24/221520 Last Action: Reviewed Fluticasone Propionate (Fluticasone Propionate) 50 Mcg/Actuation [place].susp, 1 SPRAY NSEACH DAILY PRN for CONGESTION, (Reported) Entered as Reported by: YEIMY HAYS on 08/24/221520 Last Action: Continued Glyburide (Glyburide) 5 Mg Tablet, 5 MG PO DAILY, (Reported) Entered as Reported by: CAMERON WALDRON on 06/11/22 1609 Last Action: Reviewed Metoprolol Succinate (Metoprolol Succinate) 100 Mg Tab.er.24h, 100 MG PO BID, (Reported) Entered as Reported by: YEIMY HAYS on 08/24/221520 Last Action: Continued Propylene Glycol/Peg 400 (Systane Ultra 0.4-0.3% Eye Drp) 0.3 %-0.4 % Drops, 1 DROP OU DAILY PRN for DRY EYES, (Reported) Entered as Reported by: YEIMY HAYS on 08/24/221520 Last Action: Reviewed Rosuvastatin Calcium (Rosuvastatin Calcium) 20 Mg Tablet, 20 MG PO HS, (Reported) Entered as Reported by: YEIMY HAYS on 08/24/221520 Last Action: Continued Sodium Bicarbonate (Sodium Bicarbonate) 650 Mg Tablet, 1,300 MG PO BID, (Reported) Entered as Reported by: YEIMY HAYS on 08/24/221520 Last Action: Continued Past Fcntrsu-Gtbbsd-Fslqdz Hx Patient Social History Tobacco Use?: Yes Smoking Status: Former Smoker Smokeless Tobacco Frequency: Former User Substance use?: No Alcohol Use?: No Alcohol Frequency: Rarely Pt feels they are or have been: No Immunizations Up To Date Influenza Vaccine Up-to-Date: Yes; Up-to-Date First/Initial COVID19 Vaccinat: 2020 Second COVID19 Vaccination Clark: 2020 Past Medical History Surgery/Hospitalization HX: - JUNE Surgeries: No Respiratory: Yes (Chronic SOA, pulmonary HTN) Cardiac: Yes Hypertension Neurological: No Genitourinary: No Gastrointestinal: No Musculoskeletal: No Endocrine: Yes Diabetes, Non-Insulin dep HEENT: No Cancer: No Psychosocial: Yes Depression Review of Systems-General Constitutional: see HPI Physical Exam-General Problems Physical Exam Vital Signs Vital Signs - First Documented 08/26/22 08/26/22 08/26/22 00:00 03:08 08:30 Temp 36.6 Pulse 79 Resp 22 B/P (MAP) 138/72 (94) Pulse Ox 93 O2 Delivery NIV Bilevel O2 Flow Rate 40.00 FiO2 90 Capillary Refill : Less Than 3 Seconds General Appearance: no apparent distress Respiratory: No respiratory distress Cardiovascular: no JVD Neurologic/Psychiatric: normal mood/affect Skin: No cyanosis Assessment/Plan Assessment/Plan Admission Diagnosis/Plan СЕРГЕЙ on CKD 4 now with volume overload baseline likely 2.7 no recent nsaids but did use them 06/2022 previously ruled out obstruction with renal u/s 06/2022 renally dose meds agree with holding off on cath until сергей resolves avoid use of acei/arb given сергей volume overload due to nephrotic syndrome secondary to h/o dm recommend mobilizing fluid with compression continue lasix 40 iv bid add metolazone 5mg qday replace k daily prn based on labs may need to increase lasix to 80 bid goal net negative 1-2L/day based on I/Os met acidosis continue po bicarb 1300 bid goal 22-24 elevated trop with abnormal stress test on previous admission will need LHC in the future once сергей resolves previously followed by Dr. Ugarte HTN goal <130/80 will monitor This visit was conducted using secure video chat. Pt gave verbal consent. MOODY JAY MD Sep 01, 2022 17:56
[2022-09-01] MEDS: ALPRAZolam 1 MG (XANAX) TAB PO PRN (21:27)
[2022-09-01] MEDS: MONTELUKAST 10 MG (SINGULAIR) TAB PO SCH (21:27)
[2022-09-01] MEDS: ROSUVASTATIN 20 MG (CRESTOR) TABLET PO SCH (21:28)
[2022-09-01 22:20] VITALS: BP 147/81
[2022-09-02 02:37] VITALS: BP 145/76
[2022-09-02] MEDS: RT-IPRATROPIUM (ATROVENT) 0.5MG/2.5ML AMP IH SCH ×6 (02:37→21:41)
[2022-09-02] MEDS: RT-ALBUTEROL SULF 2.5 MG/3 ML PRE-MIX VIAL INH SCH ×6 (02:37→21:41)
[2022-09-02] MEDS: RT--FLUTICASONE/SALMETEROL 113-14 (AIRDUO RespiCLICK) IH SCH ×3 (02:55→21:40)
[2022-09-02 04:25] LABS: BASOPHILS % (AUTO) 0 % (0-10); EOSINOPHILS # (AUTO) 0.2 10^3/uL (0.0-0.3); EOSINOPHILS % (AUTO) 3 % (0-10); HEMATOCRIT 26 % (40-54); HEMOGLOBIN 7.9 g/dL (13.3-17.7); LYMPHOCYTES # (AUTO) 0.7 10^3/uL (1.0-4.0); LYMPHOCYTES % (AUTO) 9 % (12-44); MEAN CORPUSCULAR HEMOGLOBIN 25 pg (25-34); MEAN CORPUSCULAR HGB CONC 31 g/dL (32-36); MEAN CORPUSCULAR VOLUME 82 fL (80-99); MEAN PLATELET VOLUME 9.6 fL (9.0-12.2); MONOCYTES # (AUTO) 0.9 10^3/uL (0.0-1.0); MONOCYTES % (AUTO) 12 % (0-12); NEUTROPHILS # (AUTO) 5.7 10^3/uL (1.8-7.8); NEUTROPHILS % (AUTO) 75 % (42-75); PLATELET COUNT 312 10^3/uL (130-400); WHITE BLOOD COUNT 7.7 10^3/uL (4.3-11.0)
[2022-09-02 04:47] LABS: ALBUMIN 2.7 GM/DL (3.2-4.5); BILIRUBIN,TOTAL 0.4 MG/DL (0.1-1.0); CALCIUM 8.5 MG/DL (8.5-10.1); CREATININE SERUM 3.27 MG/DL (0.60-1.30); MAGNESIUM 2.1 MG/DL (1.6-2.4); PHOSPHORUS 4.1 MG/DL (2.3-4.7); POTASSIUM 3.7 MMOL/L (3.6-5.0); TOTAL PROTEIN 5.9 GM/DL (6.4-8.2)
[2022-09-02] MEDS: POTASSIUM CL 10MEQ/50ML IVPB 50 ML IV SCH (05:02)
[2022-09-02] MEDS: MAGNESIUM 1 GM/100 ML IVPB 100 ML IV SCH (05:02)
[2022-09-02] MEDS: KCL 20 MEQ TAB (K-DUR) PO SCH (05:02)
[2022-09-02] MEDS: inSUlin ASPART (NovoLOG) 1 UNIT/0.01 ML (CHARGE PER UNIT) SC SCH ×4 (05:18→21:01)
[2022-09-02] MEDS: FUROSEMIDE 40 MG/4 ML INJ (LASIX) IVP SCH ×2 (06:01→16:34)
--- NOTE | 2022-09-02 07:44 | Progress Note ---
Subjective Date Seen by a Provider: Sep 02, 2022 Time Seen by a Provider: 07:10 Subjective/Events-last exam patient currently resting in bed on Vapotherm. He reports resting more comfortably on Vapotherm as opposed to BiPAP. Objective Exam Vital Signs Date Time Temp Pulse Resp B/P (MAP) Pulse Ox O2 Delivery O2 Flow Rate FiO2 09/02/22 07:38 36.5 09/02/22 06:54 98 Vapotherm 25.00 70 09/02/22 06:00 76 27 148/80 (111) 95 Vapotherm 25.00 70.00 09/02/22 05:00 76 21 146/75 (106) 95 Vapotherm 25.00 70.00 09/02/22 04:25 94 Vapotherm 25.00 70 09/02/22 04:00 80 34 152/79 (107) 99 Vapotherm 25.00 70.00 09/02/22 03:27 Vapotherm 25.00 70.00 09/02/22 03:05 36.7 NIV Bilevel 50.00 09/02/22 03:00 75 144/86 (108) 97 NIV Bilevel 50.00 09/02/22 02:37 77 26 97 50.00 09/02/22 02:00 79 34 145/76 (107) 94 NIV Bilevel 50.00 09/02/22 01:00 80 09/02/22 01:00 80 22 142/72 (97) 97 NIV Bilevel 50.00 09/02/22 00:27 36.9 NIV Bilevel 50.00 09/02/22 00:19 96 NIV Bilevel 50 09/02/22 00:00 85 25 142/78 (101) 95 NIV Bilevel 50.00 09/01/22 23:00 86 22 138/74 (104) 97 NIV Bilevel 50.00 09/01/22 22:34 NIV Bilevel 50.00 09/01/22 22:20 90 24 96 50.00 09/01/22 22:00 88 147/81 (109) 93 Vapotherm 25.00 70.00 09/01/22 21:00 80 20 141/75 (103) 97 Vapotherm 25.00 70.00 09/01/22 20:00 89 147/88 (107) 92 Vapotherm 25.00 70.00 09/01/22 20:00 91 Vapotherm 25.00 70 09/01/22 19:38 Vapotherm 25.00 70.00 09/01/22 19:20 93 Vapotherm 20.00 60 09/01/22 19:00 86 149/76 (107) 91 Vapotherm 25.00 70.00 09/01/22 19:00 37.0 Vapotherm 25.00 70.00 09/01/22 19:00 86 09/01/22 18:00 93 147/91 (109) 94 Vapotherm 20.00 60.00 09/01/22 17:43 92 Vapotherm 20.00 60.00 09/01/22 17:00 85 38 137/81 (99) 90 Vapotherm 20.00 45.00 09/01/22 16:23 36.6 09/01/22 16:22 90 Vapotherm 20.00 50 09/01/22 16:00 86 37 146/76 (99) 91 Vapotherm 20.00 45.00 09/01/22 15:00 84 22 140/74 (96) 91 Vapotherm 20.00 45.00 09/01/22 14:43 94 Vapotherm 20.00 45 09/01/22 14:15 95 Vapotherm 20.00 45.00 09/01/22 14:00 82 23 138/74 (95) 93 Vapotherm 20.00 50.00 09/01/22 13:00 78 19 135/72 (93) 94 Vapotherm 20.00 50.00 09/01/22 12:59 78 09/01/22 12:00 80 20 142/78 (99) 92 Vapotherm 20.00 50.00 09/01/22 12:00 90 Vapotherm 20.00 50 09/01/22 11:00 79 36 145/81 (102) 87 Vapotherm 20.00 50.00 09/01/22 10:36 92 Vapotherm 20.00 50 09/01/22 10:00 74 18 132/71 (91) 92 Vapotherm 20.00 50.00 09/01/22 09:00 79 28 130/71 (90) 94 Vapotherm 20.00 50.00 09/01/22 08:15 94 Vapotherm 20.00 50 09/01/22 08:00 82 28 143/76 (98) 93 Vapotherm 20.00 50.00 I & O 09/02/22 07:00 Intake Total 1190 ml Output Total 4950 ml Balance -3760 ml Capillary Refill : Less Than 3 Seconds General Appearance: No Apparent Distress Respiratory: Crackles (Few in apical region) Cardiovascular: Regular Rate, Rhythm Gastrointestinal: soft Results Lab Laboratory Tests 09/01/22 17:05: Glucometer 215H 09/01/22 20:10: Glucometer 275H 09/02/22 03:34: White Blood Count 7.7, Red Blood Count 3.13L, Hemoglobin 7.9L, Hematocrit 26L, Mean Corpuscular Volume 82, Mean Corpuscular Hemoglobin 25, Mean Corpuscular Hemoglobin Concent 31L, Red Cell Distribution Width 14.8H, Platelet Count 312, Mean Platelet Volume 9.6, Immature Granulocyte % (Auto) 1, Neutrophils (%) (Auto) 75, Lymphocytes (%) (Auto) 9L, Monocytes (%) (Auto) 12, Eosinophils (%) (Auto) 3, Basophils (%) (Auto) 0, Neutrophils # (Auto) 5.7, Lymphocytes # (Auto) 0.7L, Monocytes # (Auto) 0.9, Eosinophils # (Auto) 0.2, Basophils # (Auto) 0.0, Immature Granulocyte # (Auto) 0.1, Sodium Level 136, Potassium Level 3.7, Chloride Level 100, Carbon Dioxide Level 24, Anion Gap 12, Blood Urea Nitrogen 103*H, Creatinine 3.27H, Estimat Glomerular Filtration Rate 21, BUN/Creatinine Ratio 31, Glucose Level 181H, Calcium Level 8.5, Corrected Calcium 9.5, Phosphorus Level 4.1, Magnesium Level 2.1, Total Bilirubin 0.4, Aspartate Amino Transf (AST/SGOT) 14, Alanine Aminotransferase (ALT/SGPT) 20, Alkaline Phosphatase 85, Total Protein 5.9L, Albumin 2.7L Assessment/Plan Assessment/Plan Assess & Plan/Chief Complaint 1. Dyspnea and this appears to be related to the interstitial infiltrates consistent with pneumonia -patient has been initiated on azithromycin as well as ceftriaxone 08/25 -plan on rechecking chest x-ray in the morning of August 2608/26 -CXR this am 08/27 -CXR unchanged -pulmonary consultation 08/28 -repeat lasix this am 08/31 -furosemide 40 mg IV continues twice daily. Thus far his creatinine is stable at 3.0 -Appreciate all the cardiology input 09/01 -he continues to be on cefepime day #4 09/02 -day #5 cefepime 2. Chronic kidney disease diagnosed June 2022 -he will stay on bicarbonate as prescribed by his adjustment examiner 08/27 -spoke with Dr Chaves today. Patient is at baseline for Cr. If with mild chf, ok for lasix. 09/01 -I spoke with Dr. Chaves today and would like to go ahead and get official nephrology consultation. We discussed his edema of the extremities as well as pulmonary edema. We will add on metolazone 5 mg orally each day in addition to the Lasix 40 mg IV twice daily. Also recommendations were to wrap his lower extremities in the morning and take off in the evening. She was notified of his creatinine today of 3.25, which is up from yesterday 09/02 -patient had weight decrease from 101 kg to 97.3 kg over the course of the last 24 hours. I believe wrapping the legs helped him with mobilizing the fluid. Creatinine did increase to 3.27. 3. Status post CA June 25 -currently undergoing cardiac rehab but this will be held until he is noted to be doing better with regard to the infiltrates 08/25 -due to his BNP elevation will consult cardiology as well. 4. Diabetes mellitus type 2 -he will stay on his diabetic medication glyburide 5. Hypertension -currently on metoprolol 6. Hyperlipidemia -on Crestor 7. Anemia -recheck CBC in the morning of August 2608/28 -hg 6.6 this am -will give 1 U PRBC this am. -check occult blood from stool Clinical Quality Measures Admission Status Admission Dx 1. Dyspnea and this appears to be related to the interstitial infiltrates consistent with pneumonia 2. Chronic kidney disease diagnosed June 2022 3. Status post CA June 25 4. Diabetes mellitus type 2 5. Hypertension 6. Hyperlipidemia TIFFANY ROGERS MD Sep 02, 2022 07:44
--- NOTE | 2022-09-02 08:23 | Diagnostic Imaging Report ---
EXAMINATION: Chest 1 view HISTORY: Heart failure and shortness of breath COMPARISON: 09/01/2022 FINDINGS: There are moderate interstitial and airspace opacities in both lungs. There is a small left pleural effusion. No pneumothorax. Heart size is enlarged. IMPRESSION: 1. Moderate interstitial and airspace opacities with a small left effusion suggest pulmonary edema. Dictated by: Dictated on workstation # [id number]
[2022-09-02] MEDS: meTOprolol SUCCINATE 100 MG (TOPROL XL) TAB PO SCH ×2 (08:29→20:18)
[2022-09-02] MEDS: ASPIRIN E.C. 81 MG (ECOTRIN) TAB PO SCH (08:29)
[2022-09-02] MEDS: LORATADINE (CLARITIN) 10 MG TAB PO SCH (08:29)
[2022-09-02] MEDS: CLOPIDOGREL 75 MG (PLAVIX) TABLET PO SCH (08:30)
[2022-09-02] MEDS: SODIUM BICARBONATE 650 MG TABLET PO SCH ×2 (08:30→20:18)
[2022-09-02] MEDS: METOLAZONE 2.5 MG (ZAROXOLYN) TAB PO SCH (08:30)
--- NOTE | 2022-09-02 09:47 | Tele-ICU Progress Note ---
Subjective Date Seen by a Provider: Sep 02, 2022 Time Seen by a Provider: 09:46 Subjective/Events-last exam (Tele-ICU Physician , Progress Note ) Service provided via interactive audio and video telecommunications E-CARE system to a patient admitted to ICU bed in [facility]. Patient is seen today due to persistent need of ICU care Available chart/ vitals / labs / Images reviewed Video assessment done using teleICU camera, rest of exam as per RN Discussed with RN Events overnight : restless , confused Afebrile hemodynamically stable Respiratory - I/O = neg 2L Drips: Pressors- no Hospital course: 08-24: +Sev Sepsis COVID Neg 62 y/o M - Pneumonia - Progressive SOB - CHF 08-28: Hgb 6.6 - 1uPRBC's 08-29: Tx to ICU - Worsening infiltrates - PNA vs P Edema 09/01- 20 L 50%, lasix , 09/02- VT 25L 65% , neg 2L , restless , confused at night -> catheter placed , no change on CXr and Fio2 A/P Acute resp failure with VO . pulm edema ( No CXR evidence of ILD 06/2022, but never had any PFT or CT. -Bipap 06/09 3-4 h for sleep -VT 25L 65% , neg 2L , restless , no change on CXr and Fio2 - OFF solumedrol 08/31 Pulmonary hypertension - severe by ECHO 06/2022- RVSP 70 - cont diuresis СЕРГЕЙ / CKD - lasix , zaroxilin added 09/02 - po bicarb - fluid restriction off 09/02 - nephrology consult follow Acute and chronic anemia. - s/p transfusion 08/31 -stable PNA - empiric tx , will do short course Hyperglycemia - off insulin gtt - long acting started Nutritions - Po - adequate Lines : periph , (Central Line Necessity Reviewed) Chua: 09/02 OG: Nutrition: Analgesia: Anxiety/ delirium VTE Prophylaxis: cory 40 ( discussed with Stress Ulcer Prophylaxis: na Plans in collaboration with bedside consultants and IM MDs. Discussed with RN to reach out if any questions or concerns A total of 31 minutes of critical care time was devoted to this patient today, required to treat and/or prevent further deterioration of critical care condition ( as above ) . I am remotely monitoring this patient from another state. I am unable to do the bedside exam, and history/physical and pertinent information is taken from other notes in the computer and bedside staff. Sepsis Event Evaluation Height, Weight, BMI Height: '" Weight: lbs. oz. kg; 36.62 BMI Method: Exam Exam Patient acknowledged, consented, and participated in this virtual visit which was conducted using real time audio/video Vital Signs Date Time Temp Pulse Resp B/P (MAP) Pulse Ox O2 Delivery O2 Flow Rate FiO2 09/02/22 09:17 NIV Bilevel 50.00 09/02/22 09:00 72 24 148/78 (101) 97 Vapotherm 25.00 65.00 09/02/22 08:00 69 24 138/76 (96) 96 Vapotherm 25.00 65.00 09/02/22 07:55 Vapotherm 25.00 65.00 09/02/22 07:50 95 Vapotherm 25.00 65 09/02/22 07:38 36.5 09/02/22 07:15 76 09/02/22 07:00 71 23 149/80 (103) 97 Vapotherm 25.00 70.00 09/02/22 06:54 98 Vapotherm 25.00 70 09/02/22 06:00 76 27 148/80 (111) 95 Vapotherm 25.00 70.00 09/02/22 05:00 76 21 146/75 (106) 95 Vapotherm 25.00 70.00 09/02/22 04:25 94 Vapotherm 25.00 70 09/02/22 04:00 80 34 152/79 (107) 99 Vapotherm 25.00 70.00 09/02/22 03:27 Vapotherm 25.00 70.00 09/02/22 03:05 36.7 NIV Bilevel 50.00 09/02/22 03:00 75 144/86 (108) 97 NIV Bilevel 50.00 09/02/22 02:37 77 26 97 50.00 09/02/22 02:00 79 34 145/76 (107) 94 NIV Bilevel 50.00 09/02/22 01:00 80 09/02/22 01:00 80 22 142/72 (97) 97 NIV Bilevel 50.00 09/02/22 00:27 36.9 NIV Bilevel 50.00 09/02/22 00:19 96 NIV Bilevel 50 09/02/22 00:00 85 25 142/78 (101) 95 NIV Bilevel 50.00 09/01/22 23:00 86 22 138/74 (104) 97 NIV Bilevel 50.00 09/01/22 22:34 NIV Bilevel 50.00 09/01/22 22:20 90 24 96 50.00 09/01/22 22:00 88 147/81 (109) 93 Vapotherm 25.00 70.00 09/01/22 21:00 80 20 141/75 (103) 97 Vapotherm 25.00 70.00 09/01/22 20:00 89 147/88 (107) 92 Vapotherm 25.00 70.00 09/01/22 20:00 91 Vapotherm 25.00 70 09/01/22 19:38 Vapotherm 25.00 70.00 09/01/22 19:20 93 Vapotherm 20.00 60 09/01/22 19:00 86 149/76 (107) 91 Vapotherm 25.00 70.00 09/01/22 19:00 37.0 Vapotherm 25.00 70.00 09/01/22 19:00 86 09/01/22 18:00 93 147/91 (109) 94 Vapotherm 20.00 60.00 09/01/22 17:43 92 Vapotherm 20.00 60.00 09/01/22 17:00 85 38 137/81 (99) 90 Vapotherm 20.00 45.00 09/01/22 16:23 36.6 09/01/22 16:22 90 Vapotherm 20.00 50 09/01/22 16:00 86 37 146/76 (99) 91 Vapotherm 20.00 45.00 09/01/22 15:00 84 22 140/74 (96) 91 Vapotherm 20.00 45.00 09/01/22 14:43 94 Vapotherm 20.00 45 09/01/22 14:15 95 Vapotherm 20.00 45.00 09/01/22 14:00 82 23 138/74 (95) 93 Vapotherm 20.00 50.00 09/01/22 13:00 78 19 135/72 (93) 94 Vapotherm 20.00 50.00 09/01/22 12:59 78 09/01/22 12:00 80 20 142/78 (99) 92 Vapotherm 20.00 50.00 09/01/22 12:00 90 Vapotherm 20.00 50 09/01/22 11:00 79 36 145/81 (102) 87 Vapotherm 20.00 50.00 09/01/22 10:36 92 Vapotherm 20.00 50 09/01/22 10:00 74 18 132/71 (91) 92 Vapotherm 20.00 50.00 I & O 09/02/22 07:00 Intake Total 1190 ml Output Total 4950 ml Balance -3760 ml Height & Weight Height: '" Weight: lbs. oz. kg; 36.62 BMI Method: General Appearance: No Apparent Distress HEENT: Normal ENT Inspection Neck: Supple Respiratory: Crackles (Few in apical region) Cardiovascular: Regular Rate, Rhythm Capillary Refill: Less Than 3 Seconds Gastrointestinal: soft Extremity: Swelling (Mild) Neurologic/Psychiatric: Alert, Oriented x3 Skin: Pallor Results Lab Laboratory Tests 09/01/22 03:36 09/02/22 03:34 Assessment/Plan Assessment/Plan 1 ELEAZAR VARNER MD Sep 02, 2022 09:47
[2022-09-02 10:28] VITALS: BP 147/74
--- NOTE | 2022-09-02 11:12 | Cardiology Progress Note ---
Subjective Date Seen by Provider: Sep 02, 2022 Time Seen by Provider: 11:06 Subjective/Events-last exam Patient sitting up in bed, denies any chest pain or increased dyspnea. Objective-Cardiology Exam Last Set of Vital Signs Vital Signs 09/02/22 09/02/22 09/02/22 12:00 12:39 12:40 Temp 37.0 Pulse 89 Resp 28 B/P (MAP) 139/72 (94) Pulse Ox 95 O2 Delivery Vapotherm O2 Flow Rate 25.00 55.00 FiO2 65 I&O Intake and Output 09/02/22 00:00 Intake Total 2490 ml Output Total 4675 ml Balance -2185 ml Intake Oral 2440 ml IV Total 50 ml Output Urine Total 4675 ml General: Alert, Oriented X3 HEENT: Atraumatic, PERRLA Lungs: Normal Air Movement, Other (bilat rhonchi) Heart: Regular Rate, Normal S1, Normal S2 Abdomen: Normal Bowel Sounds, Soft Extremities: Other (Peripheral edema) Skin: No Rashes, No Significant Lesion Neuro: Normal Speech Psych/Mental Status: Mental Status NL, Mood NL Results Lab Laboratory Tests 09/02/22 03:34 A/P-Cardiology Admission Diagnosis Pneumonia Elevated BNP CAD HTN Assessment/Plan Bilateral pneumonia, acute respiratory failure Receiving antibiotics Currently in ICU and maintained on Vapotherm. Continue to monitor Congestive heart failure, acute on chronic left ventricular systolic dysfunction Receiving diuretics, maintained on Lasix 40 mg IV twice daily, responding to additional dose of Zaroxolyn We can increase the dose to 80 mg twice daily if needed Continue to monitor Coronary artery disease, History of NSTEMI in June of 2022. Stress test done June [address] Ugarte showing large, severe intensity, partially reversible basal to apical inferior and lateral defect with a small amount of inducible ischemia at the apex with a SSS 23, SDS 4. Mid to distal lateral akinesis with global hypokinesis elsewhere with severe left ventricular systolic dysfunction with a calculated ejection fraction of 28%. Patient did not undergo LHC at the time d/t underlying kidney function. Has been medically managed, maintained on ASA, Plavix and beta davy, statin as outpatient. Will plan for viability study with dobutamine stress echo once more stable Chronic kidney failure, stage IV. Monitor renal function. Hypertension, controlled, continue to monitor. Hyperlipidemia, maintained on Crestor 20mg Anemia, continue to monitor H/H Managed by primary care team Pulmonary hypertension Peripheral edema, diruese as tolerated DM, management per PCP Obesity Supervisory-Addendum Brief Supervisory Addendum Participated in pt care: history, MDM, physical Personally performed: exam, history, MDM Care discussed with: MIRNA Results interpretation: Verified all documentation Notes: Patient was seen and evaluated with Tanja, examination performed, management plan was discussed, agree with the current scribed note, I made few changes to the note using Italic font Patient was seen at bedside, was still on BiPAP, taking a nap Responding to diuretics. We will continue with the Stan wrap of the lower extremities and continue with aggressive diuresis and monitor tolerance and response TANJA WHITMAN Sep 02, 2022 11:12 SUGEY FUENTES MD Sep 02, 2022 13:14
[2022-09-02 12:40] VITALS: BP 139/72
[2022-09-02] MEDS: CEFEPIME INJECTION 1,000 MG in NS (IVPB) 50 ML IV SCH (13:26)
[2022-09-02] MEDS: ENOXAPARIN INJECTION 30 MG/0.3 ML SYR SC SCH (16:34)
[2022-09-02] MEDS: MONTELUKAST 10 MG (SINGULAIR) TAB PO SCH (20:18)
[2022-09-02] MEDS: ROSUVASTATIN 20 MG (CRESTOR) TABLET PO SCH (20:18)
[2022-09-02] MEDS: ALPRAZolam 1 MG (XANAX) TAB PO PRN (21:37)
[2022-09-02 21:41] VITALS: BP 138/65
[2022-09-03] MEDS: CEFEPIME INJECTION 1,000 MG in NS (IVPB) 50 ML IV SCH (00:07)
[2022-09-03 01:50] VITALS: BP 135/67
[2022-09-03] MEDS: RT-ALBUTEROL SULF 2.5 MG/3 ML PRE-MIX VIAL INH SCH ×3 (01:50→10:31)
[2022-09-03] MEDS: RT-IPRATROPIUM (ATROVENT) 0.5MG/2.5ML AMP IH SCH ×3 (01:50→10:31)
[2022-09-03 04:49] LABS: ABG OXYGEN SATURATION 99 % (94-100); ABG PCO2 46 MMHG (35-45); ABG PH 7.46 (7.37-7.43); ABG PO2 90 MMHG (79-93); ABG TCO2 33.6 MMOL/L (21.0-31.0)
[2022-09-03 04:52] LABS: ALLENS TEST YES-POS; INSPIRED O2 40%; PATIENT TEMP 36.4; VENTILATOR NO
[2022-09-03 05:20] LABS: BASOPHILS % (AUTO) 1 % (0-10); EOSINOPHILS # (AUTO) 0.2 10^3/uL (0.0-0.3); EOSINOPHILS % (AUTO) 3 % (0-10); HEMATOCRIT 24 % (40-54); HEMOGLOBIN 7.4 g/dL (13.3-17.7); LYMPHOCYTES # (AUTO) 0.8 10^3/uL (1.0-4.0); LYMPHOCYTES % (AUTO) 13 % (12-44); MEAN CORPUSCULAR HEMOGLOBIN 25 pg (25-34); MEAN CORPUSCULAR HGB CONC 31 g/dL (32-36); MEAN CORPUSCULAR VOLUME 81 fL (80-99); MEAN PLATELET VOLUME 9.5 fL (9.0-12.2); MONOCYTES # (AUTO) 0.7 10^3/uL (0.0-1.0); MONOCYTES % (AUTO) 10 % (0-12); NEUTROPHILS # (AUTO) 4.9 10^3/uL (1.8-7.8); NEUTROPHILS % (AUTO) 73 % (42-75); PLATELET COUNT 272 10^3/uL (130-400); WHITE BLOOD COUNT 6.6 10^3/uL (4.3-11.0)
[2022-09-03 05:30] LABS: ALBUMIN 2.8 GM/DL (3.2-4.5); POTASSIUM 3.7 MMOL/L (3.6-5.0)
[2022-09-03 05:31] LABS: CALCIUM 8.4 MG/DL (8.5-10.1)
[2022-09-03 05:33] LABS: TOTAL PROTEIN 5.9 GM/DL (6.4-8.2)
[2022-09-03 05:34] LABS: BILIRUBIN,TOTAL 0.5 MG/DL (0.1-1.0)
[2022-09-03 05:36] LABS: CREATININE SERUM 3.37 MG/DL (0.60-1.30); PHOSPHORUS 5.3 MG/DL (2.3-4.7)
[2022-09-03 05:39] LABS: MAGNESIUM 1.8 MG/DL (1.6-2.4)
[2022-09-03] MEDS: MAGNESIUM 1 GM/100 ML IVPB 100 ML IV SCH (06:09)
[2022-09-03] MEDS: POTASSIUM CL 10MEQ/50ML IVPB 50 ML IV SCH (06:09)
[2022-09-03] MEDS: inSUlin ASPART (NovoLOG) 1 UNIT/0.01 ML (CHARGE PER UNIT) SC SCH ×4 (06:10→21:28)
[2022-09-03] MEDS: KCL 20 MEQ TAB (K-DUR) PO SCH (06:10)
[2022-09-03] MEDS: FUROSEMIDE 40 MG/4 ML INJ (LASIX) IVP SCH ×2 (06:16→16:07)
[2022-09-03] MEDS: RT--FLUTICASONE/SALMETEROL 113-14 (AIRDUO RespiCLICK) IH SCH ×2 (06:32→21:55)
--- NOTE | 2022-09-03 06:45 | Diagnostic Imaging Report ---
INDICATION: 62-year-old male with shortness of breath. COMPARISONS: 09/02/2022. FINDINGS: Single view of the chest shows cardiomegaly. There is patchy five lobe alveolar consolidations, the pattern and distribution of which is similar to the previous study with minimal improvement. There is no effusion or pneumothorax. Soft tissues and bony thorax are unremarkable. IMPRESSION: 1. Cardiomegaly. 2. Patchy five lobe alveolar consolidations again noted with minimal improvement. Dictated by: Dictated on workstation # [id number]
--- NOTE | 2022-09-03 07:45 | Cardiology Progress Note ---
Subjective Date Seen by Provider: Sep 03, 2022 Time Seen by Provider: 07:44 Subjective/Events-last exam Patient was seen at bedside, feeling better, reporting improvement in swelling Review of Systems General: No Chills, No Night Sweats; Fatigue; No Malaise, No Appetite, No Other HEENT: No Head Aches, No Visual Changes, No Eye Pain, No Ear Pain, No Dysphasia, No Sinus Congestion, No Post Nasal Drip, No Sore Throat, No Other Pulmonary: Dyspnea; No Cough, No Pleuritic Chest Pain, No Other Cardiovascular: Edema; No: Chest Pain, Palpitations, Orthopnea, Paroxysmal Noc. Dyspnea, Lt Headedness, Other Objective-Cardiology Exam Last Set of Vital Signs Vital Signs 09/03/22 09/03/22 09/03/22 04:00 06:00 06:33 Temp 37.0 Pulse 70 Resp 18 B/P (MAP) 146/76 (99) Pulse Ox 95 O2 Delivery Vapotherm O2 Flow Rate 20.00 FiO2 50 I&O Intake and Output 09/03/22 00:00 Intake Total 1940 ml Output Total 6075 ml Balance -4135 ml Intake Oral 1940 ml Output Urine Total 6075 ml General: Alert, Oriented X3 HEENT: Atraumatic, PERRLA Lungs: Normal Air Movement, Other (bilat rhonchi) Heart: Regular Rate, Normal S1, Normal S2 Abdomen: Normal Bowel Sounds, Soft Extremities: Other (Peripheral edema) Skin: No Rashes, No Significant Lesion Neuro: Normal Speech Psych/Mental Status: Mental Status NL, Mood NL Results Lab Laboratory Tests 09/03/22 05:10 A/P-Cardiology Admission Diagnosis Pneumonia Elevated BNP CAD HTN Assessment/Plan Bilateral pneumonia, acute respiratory failure Maintained on Vapotherm, receiving antibiotics Managed by medical team Congestive heart failure, acute on chronic left ventricular systolic dysfunction Receiving diuretics, maintained on Lasix 40 mg IV twice daily, responding to additional dose of Zaroxolyn We can increase the dose to 80 mg twice daily if needed Continue to monitor Coronary artery disease, History of NSTEMI in June of 2022. Stress test done June [address] Ugarte showing large, severe intensity, partially reversible basal to apical inferior and lateral defect with a small amount of inducible ischemia at the apex with a SSS 23, SDS 4. Mid to distal lateral akinesis with global hypokinesis elsewhere with severe left ventricular systolic dysfunction with a calculated ejection fraction of 28%. Patient did not undergo LHC at the time d/t underlying kidney function. Has been medically managed, maintained on ASA, Plavix and beta davy, statin as outpatient. Will plan for viability study with dobutamine stress echo once more stable Chronic kidney failure, stage IV. Monitor renal function. Hypertension, controlled, continue to monitor. Hyperlipidemia, maintained on Crestor 20mg Anemia, continue to monitor H/H Managed by primary care team Pulmonary hypertension Peripheral edema, diruese as tolerated DM, management per PCP Obesity SUGEY FUENTES MD Sep 03, 2022 07:45
[2022-09-03] MEDS: METOLAZONE 2.5 MG (ZAROXOLYN) TAB PO SCH (08:17)
[2022-09-03] MEDS: ASPIRIN E.C. 81 MG (ECOTRIN) TAB PO SCH (08:17)
[2022-09-03] MEDS: LORATADINE (CLARITIN) 10 MG TAB PO SCH (08:17)
[2022-09-03] MEDS: CLOPIDOGREL 75 MG (PLAVIX) TABLET PO SCH (08:18)
[2022-09-03] MEDS: meTOprolol SUCCINATE 100 MG (TOPROL XL) TAB PO SCH ×2 (08:18→21:28)
[2022-09-03] MEDS: SODIUM BICARBONATE 650 MG TABLET PO SCH ×2 (08:18→21:28)
--- NOTE | 2022-09-03 08:59 | Tele-ICU Progress Note ---
Subjective Date Seen by a Provider: Sep 03, 2022 Time Seen by a Provider: 08:58 Subjective/Events-last exam (Tele-ICU Physician , Progress Note ) Service provided via interactive audio and video telecommunications E-CARE system to a patient admitted to ICU bed in [facility]. Patient is seen today due to persistent need of ICU care Available chart/ vitals / labs / Images reviewed Video assessment done using teleICU camera, rest of exam as per RN Discussed with RN Events overnight : restless , confused Afebrile hemodynamically stable Respiratory - I/O = neg 4 l with UO 6L Drips: Pressors- no Hospital course: 08-24: +Sev Sepsis COVID Neg 62 y/o M - Pneumonia - Progressive SOB - CHF 08-28: Hgb 6.6 - 1uPRBC's 08-29: Tx to ICU - Worsening infiltrates - PNA vs P Edema 09/01 - - OFF solumedrol 09/01- 20 L 50%, lasix , 09/02- VT 25L 65% , neg 2L , restless , confused at night -> catheter placed , no change on CXr and Fio2 / Vt 20L 60% , BIPAP at night , UO 6 L 3/ A/P Acute resp failure with VO . pulm edema ( No CXR evidence of ILD 06/2022, but never had any PFT or CT. -Bipap 06/09 3-4 h for sleep -UO 6 L 09/03 - Fio2 and symtoms better , VT Vt 20L 60% , better on CXr Pulmonary hypertension - severe by ECHO 06/2022- RVSP 70 - cont diuresis СЕРГЕЙ / CKD - lasix , zaroxilin added 09/02 - UO 6 L last 24 h - po bicarb - fluid restriction off 09/02 - nephrology consult follow Acute and chronic anemia. - s/p transfusion 08/31 -stable, follow PNA - empiric tx , - CONSIDER TO STOP TODAY Hyperglycemia - off insulin gtt - long acting started Nutritions - Po - adequate Mild epistaxis -with VT dry - will apply moisture Lines : periph , (Central Line Necessity Reviewed) Chua: 09/02 OG: Nutrition: Analgesia: Anxiety/ delirium VTE Prophylaxis: cory 40 ( discussed with Stress Ulcer Prophylaxis: na Plans in collaboration with bedside consultants and IM MDs. Discussed with RN to reach out if any questions or concerns A total of 31 minutes of critical care time was devoted to this patient today, required to treat and/or prevent further deterioration of critical care condition ( as above ) . I am remotely monitoring this patient from another state. I am unable to do the bedside exam, and history/physical and pertinent information is taken from other notes in the computer and bedside staff. Sepsis Event Evaluation Height, Weight, BMI Height: '" Weight: lbs. oz. kg; 36.62 BMI Method: Exam Exam Patient acknowledged, consented, and participated in this virtual visit which was conducted using real time audio/video Vital Signs Date Time Temp Pulse Resp B/P (MAP) Pulse Ox O2 Delivery O2 Flow Rate FiO2 09/03/22 08:00 36.6 09/03/22 08:00 79 44 148/75 (99) 95 Vapotherm 20.00 50.00 09/03/22 07:00 76 20 141/79 (99) 95 Vapotherm 20.00 50.00 09/03/22 07:00 74 09/03/22 06:33 95 Vapotherm 20.00 50 09/03/22 06:20 Vapotherm 20.00 50.00 09/03/22 06:00 70 18 146/76 (99) 96 NIV Bilevel 40.00 09/03/22 05:00 72 17 139/74 (95) 98 NIV Bilevel 40.00 09/03/22 04:00 37.0 09/03/22 04:00 95 NIV Bilevel 40 09/03/22 04:00 71 24 134/76 (95) 94 NIV Bilevel 40.00 09/03/22 03:00 75 17 120/63 (82) 94 NIV Bilevel 40.00 09/03/22 02:00 76 31 144/80 (101) 98 NIV Bilevel 40.00 09/03/22 01:50 73 22 98 40.00 09/03/22 01:00 80 09/03/22 01:00 76 21 135/67 (89) 97 NIV Bilevel 40.00 09/03/22 00:00 77 20 136/66 (89) 96 NIV Bilevel 40.00 09/02/22 23:59 95 NIV Bilevel 40 09/02/22 23:00 78 20 136/66 (89) 97 NIV Bilevel 40.00 09/02/22 22:00 76 18 146/73 (97) 97 NIV Bilevel 40.00 09/02/22 21:50 NIV Bilevel 40.00 09/02/22 21:45 93 Vapotherm 20.00 50 09/02/22 21:41 83 33 95 40.00 09/02/22 21:00 79 22 138/65 (89) 96 Vapotherm 25.00 55.00 09/02/22 20:01 36.7 09/02/22 20:00 81 28 153/80 (104) 93 Vapotherm 25.00 55.00 09/02/22 20:00 95 Vapotherm 20.00 50 09/02/22 19:00 80 09/02/22 19:00 81 27 141/72 (95) 93 Vapotherm 25.00 55.00 09/02/22 18:09 93 Vapotherm 20.00 50 09/02/22 18:00 78 33 143/73 (96) 95 Vapotherm 25.00 55.00 09/02/22 17:00 76 24 143/79 (100) 94 Vapotherm 25.00 55.00 09/02/22 16:30 96 Vapotherm 20.00 50 09/02/22 16:00 75 23 141/76 (97) 94 Vapotherm 25.00 55.00 09/02/22 15:48 36.7 09/02/22 15:00 75 26 142/75 (97) 95 Vapotherm 25.00 55.00 09/02/22 14:31 93 Vapotherm 20.00 50 09/02/22 14:00 79 26 143/84 (103) 90 Vapotherm 25.00 55.00 09/02/22 13:14 69 09/02/22 13:00 74 19 150/79 (102) 96 Vapotherm 25.00 55.00 09/02/22 12:40 37.0 89 95 65 09/02/22 12:39 100 Vapotherm 25.00 55.00 09/02/22 12:30 94 Vapotherm 25.00 55 09/02/22 12:00 37.0 09/02/22 12:00 89 28 139/72 (94) 95 Vapotherm 25.00 65.00 09/02/22 11:00 75 132/66 (88) 97 NIV Bilevel 50.00 09/02/22 10:28 80 31 96 50.00 09/02/22 10:00 70 18 145/74 (97) 97 NIV Bilevel 50.00 09/02/22 09:17 NIV Bilevel 50.00 09/02/22 09:00 72 24 148/78 (101) 97 Vapotherm 25.00 65.00 I & O 09/03/22 07:00 Intake Total 2340 ml Output Total 5925 ml Balance -3585 ml Height & Weight Height: '" Weight: lbs. oz. kg; 36.62 BMI Method: General Appearance: No Apparent Distress HEENT: Normal ENT Inspection Neck: Supple Respiratory: Crackles (Few in apical region) Cardiovascular: Regular Rate, Rhythm Capillary Refill: Less Than 3 Seconds Gastrointestinal: soft Extremity: Swelling (Mild) Neurologic/Psychiatric: Alert, Oriented x3 Skin: Pallor Results Lab Laboratory Tests 09/02/22 03:34 09/03/22 05:10 Assessment/Plan Assessment/Plan 1 ELEAZAR VARNER MD Sep 03, 2022 08:59
[2022-09-03] MEDS ORDERED: KCL 20 MEQ TAB (K-DUR) PO ONE (09:00)
--- NOTE | 2022-09-03 09:12 | Progress Note ---
Progress Note Assessment/Plan Date Seen by Provider: Sep 03, 2022 Time Seen by Provider: 09:40 Events since last exam pt is improving with his soa and edema Assessment/Plan СЕРГЕЙ on CKD 4 now with volume overload- cr stable baseline likely 2.7 no recent nsaids but did use them 06/2022 previously ruled out obstruction with renal u/s 06/2022 renally dose meds agree with holding off on cath until сергей resolves avoid use of acei/arb given сергей volume overload due to nephrotic syndrome secondary to h/o dm recommend mobilizing fluid with compression continue lasix 40 iv bid added metolazone 5mg qday replace k daily prn based on labs may need to increase lasix to 80 bid goal net negative 1-2L/day based on I/Os met acidosis continue po bicarb 1300 bid goal 22-24 elevated trop with abnormal stress test on previous admission will need LHC in the future once сергей resolves previously followed by Dr. Ugarte HTN goal <130/80 will monitor This visit was conducted using secure video chat. Pt gave verbal consen Vitals Last set of Vitals Signs Vital Signs Date Time Temp Pulse Resp B/P (MAP) Pulse Ox O2 Delivery O2 Flow Rate FiO2 09/03/22 08:00 36.6 09/03/22 08:00 79 44 148/75 (99) 95 Vapotherm 20.00 50.00 09/03/22 06:33 50 I&O I&O Intake and Output 09/03/22 00:00 Intake Total 1940 ml Output Total 6075 ml Balance -4135 ml Intake Oral 1940 ml Output Urine Total 6075 ml Labs Laboratory Tests 09/02/22 10:17: Glucometer 148H 09/02/22 15:39: Glucometer 105 09/02/22 20:12: Glucometer 166H 09/03/22 04:43: Blood Gas Puncture Site RR, Blood Gas Patient Temperature 36.4, Arterial Blood pH 7.46H, Arterial Blood Partial Pressure CO2 46H, Arterial Blood Partial Pressure O2 90, Arterial Blood HCO3 32H, Arterial Blood Total CO2 33.6H, Arterial Blood Oxygen Saturation 99, Arterial Blood Base Excess 8.0H, Juan Test YES-POS, Blood Gas Ventilator Setting NO, Blood Gas Inspired Oxygen 40% 09/03/22 05:10: White Blood Count 6.6, Red Blood Count 2.91L, Hemoglobin 7.4L, Hematocrit 24L, Mean Corpuscular Volume 81, Mean Corpuscular Hemoglobin 25, Mean Corpuscular Hemoglobin Concent 31L, Red Cell Distribution Width 14.6H, Platelet Count 272, Mean Platelet Volume 9.5, Immature Granulocyte % (Auto) 1, Neutrophils (%) (Auto) 73, Lymphocytes (%) (Auto) 13, Monocytes (%) (Auto) 10, Eosinophils (%) (Auto) 3, Basophils (%) (Auto) 1, Neutrophils # (Auto) 4.9, Lymphocytes # (Auto) 0.8L, Monocytes # (Auto) 0.7, Eosinophils # (Auto) 0.2, Basophils # (Auto) 0.0, Immature Granulocyte # (Auto) 0.0, Sodium Level 138, Potassium Level 3.7, Chloride Level 97L, Carbon Dioxide Level 27, Anion Gap 14, Blood Urea Nitrogen 95H, Creatinine 3.37H, Estimat Glomerular Filtration Rate 20, BUN/Creatinine Ratio 28, Glucose Level 105, Calcium Level 8.4L, Corrected Calcium 9.4, Phosphorus Level 5.3H, Magnesium Level 1.8, Total Bilirubin 0.5, Aspartate Amino Transf (AST/SGOT) 15, Alanine Aminotransferase (ALT/SGPT) 22, Alkaline Phosphatase 71, Total Protein 5.9L, Albumin 2.8L MOODY JAY MD Sep 03, 2022 09:12
--- NOTE | 2022-09-03 11:17 | Physical Therapy Evaluation ---
PT Evaluation-General Medical Diagnosis Admission Date Aug 24, 2022 at 12:01 Medical Diagnosis: bilateral pneumonia Onset Date: Aug 24, 2022 Therapy Diagnosis Therapy Diagnosis: debility/weakness Precautions Precautions/Isolations: Fall Prevention, Standard Precautions Referral Physician: Dee Reason for Referral: Evaluation/Treatment Medical History Pertinent Medical History: COPD, DM, HTN, SD Current History ER secondary to SOA for 3-4 days Reviewed History: Yes Social History Home: Single Level Current Living Status: Spouse Entry Into Home: Stairs With Railing PT Steps Into Home: 2 Prior Prior Level of Function SCALE: Activities may be completed with or without assistive devices. 5-Eyforynoft-vxmdyyn completes the activity by him/herself with no assistance from a helper. 5-Set-up or Clean-up Assistance-helper sets up or cleans up; patient completes activity. [place] assists only prior to or following the activity. 4-Supervision or Touching Assistance-helper provides verbal cues and/or touching/steadying and/or contact guard assistance as patient completes activity. Assistance may be provided throughout the activity or intermittently. 3-Partial/Moderate Assistance-helper does LESS THAN HALF the effort. [place] lifts, holds or supports trunk or limbs, but provides less than half the effort. 2-Substantial/Maximal Assistance-helper does MORE THAN HALF the effort. [place] lifts or holds trunk or limbs and provides more than half the effort. 2-Rekxpabbi-pbozjg does ALL the effort. Patient does none of the effort to complete the activity. Or, the assistance of 2 or more helpers is required for the patient to complete the activity. If activity was not attempted, code reason: 7-Patient Refused. 9-Not Applicable-not attempted and the patient did not perform the activity before the current illness, exacerbation or injury. 10-Not Attempted due to Environmental Limitations-(lack of equipment, weather restraints, etc.). 88-Not Attempted due to Medical Conditions or Safety Concerns. Bed Mobility: 6 Transfers (B,C,W/C): 6 Gait: 6 Stairs: 6 Indoor Mobility (Ambulation): Independent Stairs: Independent Prior Devices Use: Other-see list below Prior Device Use: cane PT Evaluation-Current Subjective Patient agrees to PT. Objective Patient Orientation: Normal For Age Attachments: Oxygen (8L HF NC) ROM/Strength ROM Lower Extremities bilateral LE WFL Strength Lower Extremities 4/5 grossly bilateral LE all planes Integumentary/Posture Bladder Incontinence: Chua Cath Posture WFL Neuromuscular (Tone, Coordination, Reflexes) grossly intact Sensory Vision: Wears Glasses Hearing: Functional Transfers Lying to Sitting/Side of Bed(Q: 4 Sit to Stand (QC): 4 Chair/Jno-xi-Mojhr Xfer(QC): 4 Gait Mode of Locomotion: Walk Anticipated Mode of Locomotion: Walk Walk 10 feet (QC): 4 Walk 50 ft with 2 Turns(QC): 88 Walk 150 ft (QC): 88 Distance: 10' Gait Assistive Device: FWW Comments/Gait Description functional gait sequence Balance Sitting Static: Normal Sitting Dynamic: Normal Standing Static: Normal Standing Dynamic: Normal Assessment/Needs Patient's SAO2 decreases with minimal activity to 75% on 8L NC HF. RN notified. Patient will benefit from skilled PT to address functional strength and mobility to improve current LOF to safely return to home at maximum LOF. Rehab Potential: Fair PT Cam Maker Goals Halfway Goals PT Halfway Goals Time Frame: Sep 12, 2022 Roll Left & Right (QC): 6 Sit to Lying (QC): 6 Lying-Sitting on Side/Bed(QC): 6 Sit to Stand (QC): 6 Chair/Uck-un-Fmwgz Xfer(QC): 6 Toilet Transfer (QC): 6 Walk 10 feet (QC): 6 Walk 50ft with 2 Turns (QC): 6 Walk 150 ft (QC): 6 PT Plan Problem List Problem List: Activity Tolerance, Functional Strength, Safety, Balance Treatment/Plan Treatment Plan: Continue Plan of Care Treatment Plan: Bed Mobility, Education, Functional Activity [place], Functional Strength, Gait, Safety, Therapeutic Exercise, Transfers Treatment Duration: Sep 12, 2022 Frequency: 6 times per week Estimated Hrs Per Day: .25 hour per day Patient and/or Family Agrees t: Yes Time Time In: 1045 Time Out: 1058 DATE: Sep 03, 2022 Total Billed Treatment Time: 13 Total Billed Treatment 1 visit EVMod 13 min CHARITY IVERSON PT Sep 03, 2022 11:17
[2022-09-03] MEDS: RT-ALBUTEROL HFA 8.5 GM INHALER IH SCH ×3 (14:08→21:55)
[2022-09-03] MEDS: ENOXAPARIN INJECTION 30 MG/0.3 ML SYR SC SCH (16:07)
[2022-09-03] MEDS: ROSUVASTATIN 20 MG (CRESTOR) TABLET PO SCH (21:28)
[2022-09-03] MEDS: MONTELUKAST 10 MG (SINGULAIR) TAB PO SCH (21:28)
[2022-09-03] MEDS: ALPRAZolam 1 MG (XANAX) TAB PO PRN (21:57)
[2022-09-04] MEDS: RT-ALBUTEROL HFA 8.5 GM INHALER IH SCH ×6 (02:50→22:05)
[2022-09-04 05:27] LABS: BASOPHILS % (AUTO) 1 % (0-10); EOSINOPHILS # (AUTO) 0.3 10^3/uL (0.0-0.3); EOSINOPHILS % (AUTO) 5 % (0-10); HEMATOCRIT 24 % (40-54); HEMOGLOBIN 7.7 g/dL (13.3-17.7); LYMPHOCYTES # (AUTO) 0.9 10^3/uL (1.0-4.0); LYMPHOCYTES % (AUTO) 15 % (12-44); MEAN CORPUSCULAR HEMOGLOBIN 26 pg (25-34); MEAN CORPUSCULAR HGB CONC 32 g/dL (32-36); MEAN CORPUSCULAR VOLUME 81 fL (80-99); MEAN PLATELET VOLUME 9.9 fL (9.0-12.2); MONOCYTES # (AUTO) 0.6 10^3/uL (0.0-1.0); MONOCYTES % (AUTO) 10 % (0-12); NEUTROPHILS # (AUTO) 4.2 10^3/uL (1.8-7.8); NEUTROPHILS % (AUTO) 69 % (42-75); PLATELET COUNT 291 10^3/uL (130-400); WHITE BLOOD COUNT 6.2 10^3/uL (4.3-11.0)
[2022-09-04 05:28] LABS: ALBUMIN 2.8 GM/DL (3.2-4.5); POTASSIUM 3.8 MMOL/L (3.6-5.0)
[2022-09-04 05:29] LABS: CALCIUM 8.5 MG/DL (8.5-10.1)
[2022-09-04 05:32] LABS: BILIRUBIN,TOTAL 0.4 MG/DL (0.1-1.0)
[2022-09-04 05:33] LABS: PHOSPHORUS 5.8 MG/DL (2.3-4.7)
[2022-09-04 05:34] LABS: CREATININE SERUM 3.17 MG/DL (0.60-1.30)
[2022-09-04 05:37] LABS: MAGNESIUM 1.7 MG/DL (1.6-2.4)
[2022-09-04] MEDS: inSUlin ASPART (NovoLOG) 1 UNIT/0.01 ML (CHARGE PER UNIT) SC SCH ×4 (05:40→20:46)
[2022-09-04] MEDS ORDERED: NS IV 500 ML 500 ML IV PRN (05:45)
[2022-09-04] MEDS: MAGNESIUM 1 GM/100 ML IVPB 100 ML IV SCH ×3 (05:59→07:31)
[2022-09-04] MEDS ORDERED: POTASSIUM CL 10MEQ/50ML IVPB 50 ML IV SCH (06:00)
[2022-09-04] MEDS ORDERED: MAGNESIUM 1 GM/100 ML IVPB 100 ML IV SCH (06:00)
[2022-09-04] MEDS ORDERED: KCL 20 MEQ TAB (K-DUR) PO SCH (06:00)
--- NOTE | 2022-09-04 06:15 | Diagnostic Imaging Report ---
INDICATION: Dyspnea. Comparison is made with prior examination 09/03/2022 FINDINGS: There is cardiomegaly. There is diffuse bilateral airspace disease. There is no pleural effusion or pneumothorax. Mediastinum is unremarkable. IMPRESSION: Cardiomegaly and diffuse bilateral airspace disease. This likely reflects a combination of pneumonia and congestive failure. Recommend clinical correlation. Dictated by: Dictated on workstation # [id number]
[2022-09-04] MEDS: FUROSEMIDE 40 MG/4 ML INJ (LASIX) IVP SCH ×2 (06:17→16:13)
[2022-09-04] MEDS: RT--FLUTICASONE/SALMETEROL 113-14 (AIRDUO RespiCLICK) IH SCH ×2 (07:30→22:05)
--- NOTE | 2022-09-04 08:29 | Progress Note ---
Subjective Date Seen by a Provider: Sep 04, 2022 Time Seen by a Provider: 06:45 Subjective/Events-last exam patient resting comfortably this morning. He went through the entire evening on 4 L nasal cannula oxygen. His saturations remained above 90 percentile. He feels fine this morning. Objective Exam Vital Signs Date Time Temp Pulse Resp B/P (MAP) Pulse Ox O2 Delivery O2 Flow Rate FiO2 09/04/22 08:00 77 13 138/74 (104) 90 High Flow N/C 4.00 09/04/22 08:00 36.3 09/04/22 07:32 96 High Flow N/C 4.00 09/04/22 07:31 96 High Flow N/C 4.00 09/04/22 07:00 76 19 134/81 (98) 92 High Flow N/C 4.00 09/04/22 07:00 71 09/04/22 06:00 69 17 129/71 (90) 91 High Flow N/C 4.00 09/04/22 05:00 74 93 High Flow N/C 4.00 09/04/22 04:00 69 17 132/66 (88) 98 High Flow N/C 4.00 09/04/22 04:00 94 High Flow N/C 4.00 09/04/22 03:37 36.7 09/04/22 03:00 69 28 141/76 (97) 97 High Flow N/C 4.00 09/04/22 02:51 98 High Flow N/C 4.00 09/04/22 02:00 71 17 142/66 (91) 98 High Flow N/C 4.00 09/04/22 01:00 80 09/04/22 01:00 74 27 153/73 (99) 97 High Flow N/C 4.00 09/04/22 00:00 80 35 145/71 (95) 98 High Flow N/C 4.00 09/03/22 23:59 94 High Flow N/C 4.00 09/03/22 23:58 36.4 09/03/22 23:00 80 20 146/81 (102) 95 High Flow N/C 4.00 09/03/22 22:00 85 148/70 (96) 95 High Flow N/C 4.00 09/03/22 21:56 96 High Flow N/C 4.00 09/03/22 21:00 78 150/75 (100) 100 High Flow N/C 4.00 09/03/22 20:00 101 156/71 (99) 100 High Flow N/C 4.00 09/03/22 20:00 96 High Flow N/C 4.00 09/03/22 19:50 36.7 09/03/22 19:00 80 09/03/22 19:00 79 18 150/66 (94) 98 High Flow N/C 4.00 09/03/22 18:34 96 High Flow N/C 4.00 09/03/22 18:33 High Flow N/C 4.00 09/03/22 18:00 80 14 146/76 (99) 98 High Flow N/C 8.00 09/03/22 17:00 104 19 137/78 (97) 97 High Flow N/C 8.00 09/03/22 16:00 82 22 95 High Flow N/C 8.00 09/03/22 15:07 96 High Flow N/C 5.00 09/03/22 15:00 80 17 141/68 (92) 93 High Flow N/C 8.00 09/03/22 14:09 99 High Flow N/C 8.00 09/03/22 14:00 72 20 140/68 (92) 100 High Flow N/C 8.00 09/03/22 13:00 77 09/03/22 13:00 82 17 135/64 (87) 99 High Flow N/C 8.00 09/03/22 12:00 75 17 132/70 (90) 97 High Flow N/C 8.00 09/03/22 12:00 36.6 09/03/22 11:41 100 High Flow N/C 8.00 09/03/22 11:00 80 43 143/73 (96) 95 High Flow N/C 8.00 09/03/22 10:48 High Flow N/C 8.00 09/03/22 10:48 High Flow N/C 8.00 09/03/22 10:42 95 High Flow N/C 8.00 09/03/22 10:31 97 Vapotherm 20.00 50 09/03/22 10:00 80 25 158/82 (107) 94 Vapotherm 20.00 50.00 09/03/22 09:00 76 25 141/73 (95) 99 Vapotherm 20.00 50.00 I & O 09/04/22 07:00 Intake Total 3840 ml Output Total 6350 ml Balance -2510 ml Capillary Refill : Less Than 3 Seconds General Appearance: No Apparent Distress Respiratory: Lungs Clear (In apical regions this morning) Cardiovascular: Regular Rate, Rhythm Extremity: No Swelling Results Lab Laboratory Tests 09/03/22 10:47: Glucometer 140H 09/03/22 16:10: Glucometer 181H 09/03/22 21:02: Glucometer 216H 09/04/22 04:40: White Blood Count 6.2, Red Blood Count 2.99L, Hemoglobin 7.7L, Hematocrit 24L, Mean Corpuscular Volume 81, Mean Corpuscular Hemoglobin 26, Mean Corpuscular Hemoglobin Concent 32, Red Cell Distribution Width 14.6H, Platelet Count 291, Mean Platelet Volume 9.9, Immature Granulocyte % (Auto) 1, Neutrophils (%) (Auto) 69, Lymphocytes (%) (Auto) 15, Monocytes (%) (Auto) 10, Eosinophils (%) (Auto) 5, Basophils (%) (Auto) 1, Neutrophils # (Auto) 4.2, Lymphocytes # (Auto) 0.9L, Monocytes # (Auto) 0.6, Eosinophils # (Auto) 0.3, Basophils # (Auto) 0.0, Immature Granulocyte # (Auto) 0.0, Sodium Level 138, Potassium Level 3.8, Chloride Level 95L, Carbon Dioxide Level 29, Anion Gap 14, Blood Urea Nitrogen 100*H, Creatinine 3.17H, Estimat Glomerular Filtration Rate 21, BUN/Creatinine Ratio 32, Glucose Level 114H, Calcium Level 8.5, Corrected Calcium 9.5, Phosphorus Level 5.8H, Magnesium Level 1.7, Total Bilirubin 0.4, Aspartate Amino Transf (AST/SGOT) 21, Alanine Aminotransferase (ALT/SGPT) 20, Alkaline Phosph atase 88, Total Protein 6.0L, Albumin 2.8L Assessment/Plan Assessment/Plan Assess & Plan/Chief Complaint 1. Dyspnea and this appears to be related to the interstitial infiltrates consistent with pneumonia -patient has been initiated on azithromycin as well as ceftriaxone 08/25 -plan on rechecking chest x-ray in the morning of August 2608/26 -CXR this am 08/27 -CXR unchanged -pulmonary consultation 08/28 -repeat lasix this am 08/31 -furosemide 40 mg IV continues twice daily. Thus far his creatinine is stable at 3.0 -Appreciate all the cardiology input 09/01 -he continues to be on cefepime day #4 09/02 -day #5 cefepime 09/04 -cefepime discontinued yesterday -I am hopeful to move patient to floor within the next 48 hours -He has also began some ambulation now 2. Chronic kidney disease diagnosed June 2022 -he will stay on bicarbonate as prescribed by his morphologist 08/27 -spoke with Dr Chaves today. Patient is at baseline for Cr. If with mild chf, ok for lasix. 09/01 -I spoke with Dr. Chaves today and would like to go ahead and get official nephrology consultation. We discussed his edema of the extremities as well as pulmonary edema. We will add on metolazone 5 mg orally each day in addition to the Lasix 40 mg IV twice daily. Also recommendations were to wrap his lower extremities in the morning and take off in the evening. She was notified of his creatinine today of 3.25, which is up from yesterday 09/02 -patient had weight decrease from 101 kg to 97.3 kg over the course of the last 24 hours. I believe wrapping the legs helped him with mobilizing the fluid. Creatinine did increase to 3.27. 09/04 -creatinine 3.17 this morning 3. Status post ND June 25 -currently undergoing cardiac rehab but this will be held until he is noted to be doing better with regard to the infiltrates 08/25 -due to his BNP elevation will consult cardiology as well. 4. Diabetes mellitus type 2 -he will stay on his diabetic medication glyburide 5. Hypertension -currently on metoprolol 6. Hyperlipidemia -on Crestor 7. Anemia -recheck CBC in the morning of August 2608/28 -hg 6.6 this am -will give 1 U PRBC this am. -check occult blood from stool 09/04 -hemoglobin 7.7 this morning which is up from yesterday. Clinical Quality Measures Admission Status Admission Dx 1. Dyspnea and this appears to be related to the interstitial infiltrates consistent with pneumonia 2. Chronic kidney disease diagnosed June 2022 3. Status post ND June 25 4. Diabetes mellitus type 2 5. Hypertension 6. Hyperlipidemia TIFFANY ROGERS MD Sep 04, 2022 08:29
[2022-09-04] MEDS: ASPIRIN E.C. 81 MG (ECOTRIN) TAB PO SCH (08:49)
[2022-09-04] MEDS: METOLAZONE 2.5 MG (ZAROXOLYN) TAB PO SCH (08:49)
[2022-09-04] MEDS: SODIUM BICARBONATE 650 MG TABLET PO SCH ×2 (08:49→20:46)
[2022-09-04] MEDS: CLOPIDOGREL 75 MG (PLAVIX) TABLET PO SCH (08:49)
[2022-09-04] MEDS: meTOprolol SUCCINATE 100 MG (TOPROL XL) TAB PO SCH ×2 (08:49→20:46)
[2022-09-04] MEDS: LORATADINE (CLARITIN) 10 MG TAB PO SCH (08:50)
[2022-09-04] MEDS ORDERED: KCL 20 MEQ TAB (K-DUR) PO ONE (09:00)
--- NOTE | 2022-09-04 09:14 | Physical Therapy Daily Note ---
PT Daily Note-Current Subjective Patient sitting in chair upon PT arrival, agreeable to treatment. and nurse in the room. Patient rates pain at 5/10 in his "wanger", due to the "broomstick they stuck in there". Nurse aware of patient pain complaints. Pain Section J - Health Conditions 1. Rarely or not at all 2. Occasionally 3. Frequently 4. Almost constantly 8. Unable to answer Pain Effect on Sleep: 2 Pain Interference with Therapy: 2 Pain Interference w/Day-to-Day: 2 Mental Status Patient Orientation: Person, Place, Time, Situation Transfers SCALE: Activities may be completed with or without assistive devices. 5-Grabhwkvjn-uvuhwjj completes the activity by him/herself with no assistance fr om a helper. 5-Set-up or Clean-up Assistance-helper sets up or cleans up; patient completes activity. [place] assists only prior to or following the activity. 4-Supervision or Touching Assistance-helper provides verbal cues and/or touching/steadying and/or contact guard assistance as patient completes activity. Assistance may be provided throughout the activity or intermittently. 3-Partial/Moderate Assistance-helper does LESS THAN HALF the effort. [place] lifts, holds or supports trunk or limbs, but provides less than half the effort. 2-Substantial/Maximal Assistance-helper does MORE THAN HALF the effort. [place] lifts or holds trunk or limbs and provides more than half the effort. 7-Zfaimezhu-rqfcfl does ALL the effort. Patient does none of the effort to complete the activity. Or, the assistance of 2 or more helpers is required for the patient to complete the activity. If activity was not attempted, code reason: 7-Patient Refused. 9-Not Applicable-not attempted and the patient did not perform the activity before the current illness, exacerbation or injury. 10-Not Attempted due to Environmental Limitations-(lack of equipment, weather restraints, etc.). 88-Not Attempted due to Medical Conditions or Safety Concerns. Sit to Stand (QC): 4 Chair/Kau-sh-Kxgnh Xfer(QC): 4 Weight Bearing Right Lower Extremity: Right Full Weight Bearing Left Lower Extremity: Left Full Weight Bearing Gait Training Does the Patient Walk?: Yes Distance: 150 ft Walk 10 feet (QC): 4 Walk 50 ft with 2 Turns(QC): 4 Walk 150 ft (QC): 4 Gait Persons Needed: 1 Gait Assistive Device: FWW Exercises Supine Ex: Ankle pumps, Quad Set, Glut sets Supine Reps: 20 Assessment Current Status: Good Progress Patient tolerated treatment well. Reports nurses had to assist him out of the bed initially, but requires SBA for all observed transfers. Patient ambulates 150 feet with FWW, with SBA and verbal cues for safety, progression, posture and conservation of energy. Patient in chair post treatment with and nurse in the room, call light in reach and all needs met. PT Chcf Goals Turnaround Planner Goals PT Turnaround Planner Goals Time Frame: Sep 12, 2022 Roll Left & Right (QC): 6 Sit to Lying (QC): 6 Lying-Sitting on Side/Bed(QC): 6 Sit to Stand (QC): 6 Chair/Nxn-na-Kpwqi Xfer(QC): 6 Toilet Transfer (QC): 6 Walk 10 feet (QC): 6 Walk 50ft with 2 Turns (QC): 6 Walk 150 ft (QC): 6 PT Plan Treatment/Plan Treatment Plan: Continue Plan of Care Treatment Plan: Bed Mobility, Education, Functional Activity [place], Functional Strength, Gait, Safety, Therapeutic Exercise, Transfers Treatment Duration: Sep 12, 2022 Frequency: 6 times per week Estimated Hrs Per Day: .25 hour per day Patient and/or Family Agrees t: Yes Safety Risks/Education Patient Education: Gait Training, Transfer Techniques Teaching Recipient: Patient, Family Teaching Methods: Demonstration, Discussion Response to Teaching: Verbalize Understanding, Return Demonstration Time Time In: 0850 Time Out: 905 DATE: Sep 04, 2022 Total Billed Treatment Time: 15 Total Billed Treatment Visit, BRIDGETTE Shipman PT Sep 04, 2022 09:13
--- NOTE | 2022-09-04 10:19 | Cardiology Progress Note ---
Subjective Date Seen by Provider: Sep 04, 2022 Time Seen by Provider: 10:18 Subjective/Events-last exam Patient was seen and evaluated at bedside, feeling significantly better, was walking earlier. On nasal cannula Review of Systems General: No Chills, No Night Sweats; Fatigue; No Malaise, No Appetite, No Other HEENT: No Head Aches, No Visual Changes, No Eye Pain, No Ear Pain, No Dysphasia, No Sinus Congestion, No Post Nasal Drip, No Sore Throat, No Other Pulmonary: Dyspnea; No Cough, No Pleuritic Chest Pain, No Other Cardiovascular: No: Chest Pain, Palpitations, Orthopnea, Paroxysmal Noc. Dyspnea, Edema, Lt Headedness, Other Objective-Cardiology Exam Last Set of Vital Signs Vital Signs 09/03/22 09/04/22 09/04/22 10:31 08:00 09:00 Temp 36.3 Pulse 78 Resp 13 B/P (MAP) 147/81 (104) Pulse Ox 96 O2 Delivery High Flow N/C O2 Flow Rate 4.00 FiO2 50 I&O Intake and Output 09/04/22 00:00 Intake Total 3740 ml Output Total 6150 ml Balance -2410 ml Intake Oral 3740 ml Output Urine Total 6150 ml # Bowel Movements 1 General: Alert, Oriented X3 HEENT: Atraumatic, PERRLA Lungs: Normal Air Movement, Other (bilat rhonchi) Heart: Regular Rate, Normal S1, Normal S2 Abdomen: Normal Bowel Sounds, Soft Extremities: Other (Peripheral edema) Skin: No Rashes, No Significant Lesion Neuro: Normal Speech Psych/Mental Status: Mental Status NL, Mood NL Results Lab Laboratory Tests 09/04/22 04:40 A/P-Cardiology Admission Diagnosis Pneumonia Elevated BNP CAD HTN Assessment/Plan Bilateral pneumonia, status post acute respiratory failure, improved, Currently on nasal cannula, exercising slowly and doing better Managed by medical team Congestive heart failure, acute on chronic left ventricular systolic dysfunction Receiving diuretics, significant improvement, At this point he is more intravascular volume depleted, BUN is 100. Continue to monitor closely Coronary artery disease, History of NSTEMI in June of 2022. Stress test done June [address] Ugarte showing large, severe intensity, partially reversible basal to apical inferior and lateral defect with a small amount of inducible ischemia at the apex with a SSS 23, SDS 4. Mid to distal lateral akinesis with global hypokinesis elsewhere with severe left ventricular systolic dysfunction with a calculated ejection fraction of 28%. Patient did not undergo LHC at the time d/t underlying kidney function. Has been medically managed, maintained on ASA, Plavix and beta davy, statin as outpatient. Will plan for viability study with dobutamine stress echo once more stable Chronic kidney failure, stage IV. Monitor renal function. Hypertension, controlled, continue to monitor. Hyperlipidemia, maintained on Crestor 20mg Anemia, continue to monitor H/H Managed by primary care team Pulmonary hypertension Peripheral edema, diruese as tolerated DM, management per PCP Obesity SUGEY FUENTES MD Sep 04, 2022 10:19
--- NOTE | 2022-09-04 11:18 | Tele-ICU Progress Note ---
Subjective Date Seen by a Provider: Sep 04, 2022 Time Seen by a Provider: 11:14 Subjective/Events-last exam (Tele-ICU Physician , Progress Note ) Service provided via interactive audio and video telecommunications E-CARE system to a patient admitted to ICU bed in [facility]. Patient is seen today due to persistent need of ICU care Available chart/ vitals / labs / Images reviewed Video assessment done using teleICU camera, rest of exam as per RN Discussed with RN Events overnight : restless , confused Afebrile hemodynamically stable Respiratory - I/O = neg 4 l with UO 6L Drips: Pressors- no Hospital course: 08-24: +Sev Sepsis COVID Neg 62 y/o M - Pneumonia - Progressive SOB - CHF 08-28: Hgb 6.6 - 1uPRBC's 08-29: Tx to ICU - Worsening infiltrates - PNA vs P Edema 09/01 - - OFF solumedrol 09/01- 20 L 50%, lasix , 09/02- VT 25L 65% , neg 2L , restless , confused at night -> catheter placed , no change on CXr and Fio2 09/03 Vt 20L 60% , BIPAP at night , UO 6 L 09/03 09/04 - on 4 l NC A/P Acute resp failure with VO . pulm edema ( No CXR evidence of ILD 06/2022, but never had any PFT or CT. -Bipap 06/09 3-4 h for sleep -UO 18 L in 3 days - Fio2 and symptoms better , in NC now Pulmonary hypertension - severe by ECHO 06/2022- RVSP 70 - cont diuresis as per renal - UO 18 L last 3days СЕРГЕЙ / CKD - asix , zaroxilin added 09/02 - po bicarb - fluid restriction off 09/02 - nephrology consult follow Acute and chronic anemia. - s/p transfusion 08/31 -stable, follow PNA - empiric tx , - stopped Hyperglycemia - off insulin gtt - long acting started Nutritions - Po - adequate Mild epistaxis -with VT dry - will apply moisture hematuria 09/04 - catheter to be be removed Lines : periph , (Central Line Necessity Reviewed) Chua: 09/02 OG: Nutrition: Analgesia: Anxiety/ delirium VTE Prophylaxis: cory 40 ( discussed with Stress Ulcer Prophylaxis: na Plans in collaboration with bedside consultants and IM MDs. Discussed with RN to reach out if any questions or concerns A total of 20 minutes of critical care time was devoted to this patient today, required to treat and/or prevent further deterioration of critical care conditi on ( as above ) . I am remotely monitoring this patient from another state. I am unable to do the bedside exam, and history/physical and pertinent information is taken from other notes in the computer and bedside staff. Sepsis Event Evaluation Height, Weight, BMI Height: '" Weight: lbs. oz. kg; 36.62 BMI Method: Exam Exam Patient acknowledged, consented, and participated in this virtual visit which was conducted using real time audio/video Vital Signs Date Time Temp Pulse Resp B/P (MAP) Pulse Ox O2 Delivery O2 Flow Rate FiO2 09/04/22 10:00 71 10 137/69 (97) 98 High Flow N/C 4.00 09/04/22 09:00 78 147/81 (104) 96 High Flow N/C 4.00 09/04/22 08:00 96 High Flow N/C 4.00 09/04/22 08:00 77 13 138/74 (104) 90 High Flow N/C 4.00 09/04/22 08:00 36.3 09/04/22 07:32 96 High Flow N/C 4.00 09/04/22 07:31 96 High Flow N/C 4.00 09/04/22 07:00 76 19 134/81 (98) 92 High Flow N/C 4.00 09/04/22 07:00 71 09/04/22 06:00 69 17 129/71 (90) 91 High Flow N/C 4.00 09/04/22 05:00 74 93 High Flow N/C 4.00 09/04/22 04:00 69 17 132/66 (88) 98 High Flow N/C 4.00 09/04/22 04:00 94 High Flow N/C 4.00 09/04/22 03:37 36.7 09/04/22 03:00 69 28 141/76 (97) 97 High Flow N/C 4.00 09/04/22 02:51 98 High Flow N/C 4.00 09/04/22 02:00 71 17 142/66 (91) 98 High Flow N/C 4.00 09/04/22 01:00 80 3/3/23 01:00 74 27 153/73 (99) 97 High Flow N/C 4.00 09/04/22 00:00 80 35 145/71 (95) 98 High Flow N/C 4.00 09/03/22 23:59 94 High Flow N/C 4.00 09/03/22 23:58 36.4 09/03/22 23:00 80 20 146/81 (102) 95 High Flow N/C 4.00 09/03/22 22:00 85 148/70 (96) 95 High Flow N/C 4.00 09/03/22 21:56 96 High Flow N/C 4.00 09/03/22 21:00 78 150/75 (100) 100 High Flow N/C 4.00 09/03/22 20:00 101 156/71 (99) 100 High Flow N/C 4.00 09/03/22 20:00 96 High Flow N/C 4.00 09/03/22 19:50 36.7 09/03/22 19:00 80 09/03/22 19:00 79 18 150/66 (94) 98 High Flow N/C 4.00 09/03/22 18:34 96 High Flow N/C 4.00 09/03/22 18:33 High Flow N/C 4.00 09/03/22 18:00 80 14 146/76 (99) 98 High Flow N/C 8.00 09/03/22 17:00 104 19 137/78 (97) 97 High Flow N/C 8.00 09/03/22 16:00 82 22 95 High Flow N/C 8.00 09/03/22 15:07 96 High Flow N/C 5.00 09/03/22 15:00 80 17 141/68 (92) 93 High Flow N/C 8.00 09/03/22 14:09 99 High Flow N/C 8.00 09/03/22 14:00 72 20 140/68 (92) 100 High Flow N/C 8.00 09/03/22 13:00 77 09/03/22 13:00 82 17 135/64 (87) 99 High Flow N/C 8.00 09/03/22 12:00 75 17 132/70 (90) 97 High Flow N/C 8.00 09/03/22 12:00 36.6 09/03/22 11:41 100 High Flow N/C 8.00 I & O 09/04/22 07:00 Intake Total 3840 ml Output Total 6350 ml Balance -2510 ml Height & Weight Height: '" Weight: lbs. oz. kg; 36.62 BMI Method: General Appearance: No Apparent Distress HEENT: Normal ENT Inspection Neck: Supple Respiratory: Lungs Clear (In apical regions this morning) Cardiovascular: Regular Rate, Rhythm Capillary Refill: Less Than 3 Seconds Gastrointestinal: soft Extremity: No Swelling Neurologic/Psychiatric: Alert, Oriented x3 Skin: Pallor Results Lab Laboratory Tests 09/03/22 05:10 09/04/22 04:40 Assessment/Plan Assessment/Plan 1 ELEAZAR VARNER MD Sep 04, 2022 11:18
--- NOTE | 2022-09-04 11:59 | Progress Note ---
Subjective Date Seen by a Provider: Sep 03, 2022 Time Seen by a Provider: 06:45 Subjective/Events-last exam patient appears to be in good spirits. He was wearing BiPAP early in the evening but switched to Vapotherm before making rounds. He is eating heart healthy diet. He has been urinating quite a bit as he states. Objective Exam Vital Signs Date Time Temp Pulse Resp B/P (MAP) Pulse Ox O2 Delivery O2 Flow Rate FiO2 09/04/22 11:19 97 High Flow N/C 4.00 09/04/22 11:00 74 19 140/76 (108) 96 High Flow N/C 4.00 09/04/22 10:00 71 10 137/69 (97) 98 High Flow N/C 4.00 09/04/22 09:00 78 147/81 (104) 96 High Flow N/C 4.00 09/04/22 08:00 96 High Flow N/C 4.00 09/04/22 08:00 77 13 138/74 (104) 90 High Flow N/C 4.00 09/04/22 08:00 36.3 09/04/22 07:32 96 High Flow N/C 4.00 09/04/22 07:31 96 High Flow N/C 4.00 09/04/22 07:00 76 19 134/81 (98) 92 High Flow N/C 4.00 09/04/22 07:00 71 09/04/22 06:00 69 17 129/71 (90) 91 High Flow N/C 4.00 09/04/22 05:00 74 93 High Flow N/C 4.00 09/04/22 04:00 69 17 132/66 (88) 98 High Flow N/C 4.00 09/04/22 04:00 94 High Flow N/C 4.00 09/04/22 03:37 36.7 09/04/22 03:00 69 28 141/76 (97) 97 High Flow N/C 4.00 09/04/22 02:51 98 High Flow N/C 4.00 09/04/22 02:00 71 17 142/66 (91) 98 High Flow N/C 4.00 09/04/22 01:00 80 09/04/22 01:00 74 27 153/73 (99) 97 High Flow N/C 4.00 09/04/22 00:00 80 35 145/71 (95) 98 High Flow N/C 4.00 09/03/22 23:59 94 High Flow N/C 4.00 09/03/22 23:58 36.4 09/03/22 23:00 80 20 146/81 (102) 95 High Flow N/C 4.00 09/03/22 22:00 85 148/70 (96) 95 High Flow N/C 4.00 09/03/22 21:56 96 High Flow N/C 4.00 09/03/22 21:00 78 150/75 (100) 100 High Flow N/C 4.00 09/03/22 20:00 101 156/71 (99) 100 High Flow N/C 4.00 09/03/22 20:00 96 High Flow N/C 4.00 09/03/22 19:50 36.7 09/03/22 19:00 80 09/03/22 19:00 79 18 150/66 (94) 98 High Flow N/C 4.00 09/03/22 18:34 96 High Flow N/C 4.00 09/03/22 18:33 High Flow N/C 4.00 09/03/22 18:00 80 14 146/76 (99) 98 High Flow N/C 8.00 09/03/22 17:00 104 19 137/78 (97) 97 High Flow N/C 8.00 09/03/22 16:00 82 22 95 High Flow N/C 8.00 09/03/22 15:07 96 High Flow N/C 5.00 09/03/22 15:00 80 17 141/68 (92) 93 High Flow N/C 8.00 09/03/22 14:09 99 High Flow N/C 8.00 09/03/22 14:00 72 20 140/68 (92) 100 High Flow N/C 8.00 09/03/22 13:00 77 09/03/22 13:00 82 17 135/64 (87) 99 High Flow N/C 8.00 09/03/22 12:00 75 17 132/70 (90) 97 High Flow N/C 8.00 09/03/22 12:00 36.6 I & O 09/04/22 07:00 Intake Total 3840 ml Output Total 6350 ml Balance -2510 ml Capillary Refill : Less Than 3 Seconds General Appearance: No Apparent Distress Respiratory: Crackles ([employer] [place] [employer] in apical area) Cardiovascular: Regular Rate, Rhythm Gastrointestinal: soft Extremity: No Swelling Results Lab Laboratory Tests 09/03/22 16:10: Glucometer 181H 09/03/22 21:02: Glucometer 216H 09/04/22 04:40: White Blood Count 6.2, Red Blood Count 2.99L, Hemoglobin 7.7L, Hematocrit 24L, Mean Corpuscular Volume 81, Mean Corpuscular Hemoglobin 26, Mean Corpuscular Hemoglobin Concent 32, Red Cell Distribution Width 14.6H, Platelet Count 291, Mean Platelet Volume 9.9, Immature Granulocyte % (Auto) 1, Neutrophils (%) (Auto) 69, Lymphocytes (%) (Auto) 15, Monocytes (%) (Auto) 10, Eosinophils (%) (Auto) 5, Basophils (%) (Auto) 1, Neutrophils # (Auto) 4.2, Lymphocytes # (Auto) 0.9L, Monocytes # (Auto) 0.6, Eosinophils # (Auto) 0.3, Basophils # (Auto) 0.0, Immature Granulocyte # (Auto) 0.0, Sodium Level 138, Potassium Level 3.8, Chloride Level 95L, Carbon Dioxide Level 29, Anion Gap 14, Blood Urea Nitrogen 100*H, Creatinine 3.17H, Estimat Glomerular Filtration Rate 21, BUN/Creatinine Ratio 32, Glucose Level 114H, Calcium Level 8.5, Corrected Calcium 9.5, Phosphorus Level 5.8H, Magnesium Level 1.7, Total Bilirubin 0.4, Aspartate Amino Transf (AST/SGOT) 21, Alanine Aminotransferase (ALT/SGPT) 20, Alkaline Phosphatase 88, Total Protein 6.0L, Albumin 2.8L 09/04/22 10:17: Glucometer 150H Assessment/Plan Assessment/Plan Assess & Plan/Chief Complaint 1. Dyspnea and this appears to be related to the interstitial infiltrates consistent with pneumonia -patient has been initiated on azithromycin as well as ceftriaxone 08/25 -plan on rechecking chest x-ray in the morning of August 2608/26 -CXR this 08/27 -CXR unchanged -pulmonary consultation 08/28 -repeat lasix this 08/31 -furosemide 40 mg IV continues twice daily. Thus far his creatinine is stable at 3.0 1. Dyspnea and this appears to be related to the interstitial infiltrates consistent with pneumonia -patient has been initiated on azithromycin as well as ceftriaxone 08/25 -plan on rechecking chest x-ray in the morning of August 2608/26 -CXR this am 08/27 -CXR unchanged -pulmonary consultation 08/28 -repeat lasix this 08/31 -furosemide 40 mg IV continues twice daily. Thus far his creatinine is stable at 3.0 -Appreciate all the cardiology input 09/01 -he continues to be on cefepime day #4 09/02 -day #5 cefepime 09/03 -day #6 cefepime 2. Chronic kidney disease diagnosed June 2022 -he will stay on bicarbonate as prescribed by his market research analyst 08/27 -spoke with Dr Chaves today. Patient is at baseline for Cr. If with mild chf, ok for lasix. 09/01 -I spoke with Dr. Chaves today and would like to go ahead and get official nephrology consultation. We discussed his edema of the extremities as well as pulmonary edema. We will add on metolazone 5 mg orally each day in addition to the Lasix 40 mg IV twice daily. Also recommendations were to wrap his lower extremities in the morning and take off in the evening. She was notified of his creatinine today of 3.25, which is up from yesterday 09/02 -patient had weight decrease from 101 kg to 97.3 kg over the course of the last 24 hours. I believe wrapping the legs helped him with mobilizing the fluid. Creatinine did increase to 3.27. 09/03 -creatinine has increased to 3.3. Will continue with diuresis as this is necessary for improvement. 3. Status post [place] June 25 -currently undergoing cardiac rehab but this will be held until he is noted to be doing better with regard to the infiltrates 08/25 -due to his BNP elevation will consult cardiology as well. 4. Diabetes mellitus type 2 -he will stay on his diabetic medication glyburide 5. Hypertension -currently on metoprolol 6. Hyperlipidemia -on Crestor 7. Anemia -recheck CBC in the morning of August 2608/28 -hg 6.6 this am -will give 1 U PRBC this am. -check occult blood from stool 09/03 -hemoglobin stable at 7.4 today Clinical Quality Measures Admission Status Admission Dx 1. Dyspnea and this appears to be related to the interstitial infiltrates consistent with pneumonia 2. Chronic kidney disease diagnosed June 2022 3. Status post [place] June 25 4. Diabetes mellitus type 2 5. Hypertension 6. Hyperlipidemia TIFFANY ROGERS MD Sep 04, 2022 11:59
[2022-09-04] MEDS: ENOXAPARIN INJECTION 30 MG/0.3 ML SYR SC SCH (15:35)
[2022-09-04 18:44] VITALS: BP 133/71
[2022-09-04] MEDS: ALPRAZolam 1 MG (XANAX) TAB PO PRN (20:46)
[2022-09-04] MEDS: ROSUVASTATIN 20 MG (CRESTOR) TABLET PO SCH (20:46)
[2022-09-04] MEDS: MONTELUKAST 10 MG (SINGULAIR) TAB PO SCH (20:46)
[2022-09-05] MEDS: RT-ALBUTEROL HFA 8.5 GM INHALER IH SCH ×6 (02:37→23:45)
[2022-09-05 04:43] LABS: BASOPHILS % (AUTO) 1 % (0-10); EOSINOPHILS # (AUTO) 0.3 10^3/uL (0.0-0.3); EOSINOPHILS % (AUTO) 5 % (0-10); HEMATOCRIT 24 % (40-54); HEMOGLOBIN 7.6 g/dL (13.3-17.7); LYMPHOCYTES # (AUTO) 0.9 10^3/uL (1.0-4.0); LYMPHOCYTES % (AUTO) 15 % (12-44); MEAN CORPUSCULAR HEMOGLOBIN 25 pg (25-34); MEAN CORPUSCULAR HGB CONC 32 g/dL (32-36); MEAN CORPUSCULAR VOLUME 80 fL (80-99); MEAN PLATELET VOLUME 9.6 fL (9.0-12.2); MONOCYTES # (AUTO) 0.6 10^3/uL (0.0-1.0); MONOCYTES % (AUTO) 10 % (0-12); NEUTROPHILS # (AUTO) 4.1 10^3/uL (1.8-7.8); NEUTROPHILS % (AUTO) 70 % (42-75); PLATELET COUNT 309 10^3/uL (130-400); WHITE BLOOD COUNT 5.8 10^3/uL (4.3-11.0)
[2022-09-05 05:05] LABS: ALBUMIN 2.8 GM/DL (3.2-4.5); BILIRUBIN,TOTAL 0.4 MG/DL (0.1-1.0); CALCIUM 8.7 MG/DL (8.5-10.1); CREATININE SERUM 3.25 MG/DL (0.60-1.30); MAGNESIUM 1.7 MG/DL (1.6-2.4); PHOSPHORUS 4.9 MG/DL (2.3-4.7); POTASSIUM 3.6 MMOL/L (3.6-5.0); TOTAL PROTEIN 6.2 GM/DL (6.4-8.2)
[2022-09-05] MEDS: inSUlin ASPART (NovoLOG) 1 UNIT/0.01 ML (CHARGE PER UNIT) SC SCH ×3 (05:27→20:51)
[2022-09-05] MEDS: RT--FLUTICASONE/SALMETEROL 113-14 (AIRDUO RespiCLICK) IH SCH ×2 (06:58→23:45)
--- NOTE | 2022-09-05 07:16 | Diagnostic Imaging Report ---
EXAMINATION: Chest 1 view HISTORY: Short of breath COMPARISON: 09/04/2022 FINDINGS: There are moderate interstitial opacities. Heart size is enlarged. No pleural effusion or pneumothorax. IMPRESSION: 1. Enlarged heart with moderate interstitial opacities favored to represent edema. Dictated by: Dictated on workstation # [id number]
--- NOTE | 2022-09-05 07:37 | Progress Note - Hospitalist ---
Subjective HPI/CC On Admission Date Seen by Provider: Sep 05, 2022 Time Seen by Provider: 11:00 Subjective/Events-last exam Much improved Moving to 4th floor No edema now Diuresis successful Monitoring creat Review of Systems General: Fatigue, Malaise Objective Exam Vital Signs Vital Signs Date Time Temp Pulse Resp B/P (MAP) Pulse Ox O2 Delivery O2 Flow Rate FiO2 09/06/22 03:54 36.8 72 16 129/77 (94) 94 Nasal Cannula 2.00 09/04/22 18:44 36 Capillary Refill : Less Than 3 Seconds General Appearance: No Apparent Distress, WD/WN, Obese Respiratory: Lungs Clear, Normal Breath Sounds Cardiovascular: Regular Rate, Rhythm Neurologic/Psychiatric: Alert, Oriented x3, No Motor/Sensory Deficits, Normal Mood/Affect Results/Procedures Lab Laboratory Tests 09/06/22 04:49 Patient resulted labs reviewed. Assessment/Plan Assessment and Plan Assess & Plan/Chief Complaint Assessment: Acute on chronic heart failure Acute on chronic respiratory failure CKD Anemia s/p 1 unit of blood DM Plan: May need dialysis if volume overload cannot be resolved with diuresis Critical Care Critically Ill Patient GABBI CALDERA DO Sep 05, 2022 07:37
--- NOTE | 2022-09-05 08:48 | Cardiology Progress Note ---
Subjective Date Seen by Provider: Sep 05, 2022 Time Seen by Provider: 08:47 Subjective/Events-last exam Patient was seen at bedside, laying down comfortably Feeling better today Review of Systems General: Fatigue Pulmonary: No Dyspnea, No Cough, No Pleuritic Chest Pain, No Other Cardiovascular: No: Chest Pain, Palpitations, Orthopnea, Paroxysmal Noc. Dyspnea, Edema, Lt Headedness, Other Objective-Cardiology Exam Last Set of Vital Signs Vital Signs 09/04/22 09/05/22 18:44 08:00 Temp 36.6 Pulse 70 Resp 28 B/P (MAP) 150/87 (113) Pulse Ox 93 O2 Delivery High Flow N/C O2 Flow Rate 2.00 FiO2 36 I&O Intake and Output 09/05/22 00:00 Intake Total 3180 ml Output Total 6000 ml Balance -2820 ml Intake Oral 3080 ml IV Total 100 ml Output Urine Total 6000 ml # Bowel Movements 2 General: Alert, Oriented X3 HEENT: Atraumatic, PERRLA Lungs: Normal Air Movement, Other (bilat rhonchi) Heart: Regular Rate, Normal S1, Normal S2 Abdomen: Normal Bowel Sounds, Soft Extremities: Other (Peripheral edema) Skin: No Rashes, No Significant Lesion Neuro: Normal Speech Psych/Mental Status: Mental Status NL, Mood NL Results Lab Laboratory Tests 09/05/22 03:04 A/P-Cardiology Admission Diagnosis Pneumonia Elevated BNP CAD HTN Assessment/Plan Bilateral pneumonia, status post acute respiratory failure, improved, Currently on nasal cannula, exercising slowly and doing better Managed by medical team Congestive heart failure, acute on chronic left ventricular systolic dysfunction Receiving diuretics, significant improvement, Improving. Continue with diuresis and monitor renal function Coronary artery disease, History of NSTEMI in June of 2022. Stress test done June [address] gUarte showing large, severe intensity, partially reversible basal to apical inferior and lateral defect with a small amount of inducible ischemia at the apex with a SSS 23, SDS 4. Mid to distal lateral akinesis with global hypokinesis elsewhere with severe left ventricular systolic dysfunction with a calculated ejection fraction of 28%. Patient did not undergo LHC at the time d/t underlying kidney function. Has been medically managed, maintained on ASA, Plavix and beta davy, statin as outpatient. Will plan for viability study with dobutamine stress echo once more stable Chronic kidney failure, stage IV. Monitor renal function. Hypertension, controlled, continue to monitor. Hyperlipidemia, maintained on Crestor 20mg Anemia, continue to monitor H/H Managed by primary care team Pulmonary hypertension Peripheral edema, diruese as tolerated DM, management per PCP Obesity SUGEY FUENTES MD Sep 05, 2022 08:48
--- NOTE | 2022-09-05 09:04 | Physical Therapy Daily Note ---
PT Daily Note-Current Subjective Pt did not report any issues. He is eager to go home. Pain Section J - Health Conditions 1. Rarely or not at all 2. Occasionally 3. Frequently 4. Almost constantly 8. Unable to answer Pain Effect on Sleep: 2 Pain Interference with Therapy: 2 Pain Interference w/Day-to-Day: 2 Mental Status Patient Orientation: Person, Place, Time, Situation Attachments: Oxygen Transfers SCALE: Activities may be completed with or without assistive devices. 8-Ixmvqcrfka-[id number] completes the activity by him/herself with no assistance fr om a helper. 5-Set-up or Clean-up Assistance-helper sets up or cleans up; patient completes activity. [place] assists only prior to or following the activity. 4-Supervision or Touching Assistance-helper provides verbal cues and/or touching/steadying and/or contact guard assistance as patient completes activity. Assistance may be provided throughout the activity or intermittently. 3-Partial/Moderate Assistance-helper does LESS THAN HALF the effort. [place] lifts, holds or supports trunk or limbs, but provides less than half the effort. 2-Substantial/Maximal Assistance-helper does MORE THAN HALF the effort. [place] lifts or holds trunk or limbs and provides more than half the effort. 0-Nlfonfdwc-ofnpfl does ALL the effort. Patient does none of the effort to complete the activity. Or, the assistance of 2 or more helpers is required for the patient to complete the activity. If activity was not attempted, code reason: 7-Patient Refused. 9-Not Applicable-not attempted and the patient did not perform the activity before the current illness, exacerbation or injury. 10-Not Attempted due to Environmental Limitations-(lack of equipment, weather restraints, etc.). 88-Not Attempted due to Medical Conditions or Safety Concerns. Roll Left & Right (QC): 6 Sit to Lying (QC): 6 Lying to Sitting/Side of Bed(Q: 6 Sit to Stand (QC): 6 Weight Bearing Right Lower Extremity: Right Full Weight Bearing Left Lower Extremity: Left Full Weight Bearing Gait Training Does the Patient Walk?: Yes Distance: 150ft Walk 10 feet (QC): 5 Walk 50 ft with 2 Turns(QC): 5 Walk 150 ft (QC): 5 Gait Persons Needed: 1 Gait Assistive Device: FWW Wheelchair Training Does the Pt Use a Wheelchair?: No Assessment Current Status: Good Progress Pt was able to perform supine to sit to stand and gait without contact assist. Good stability with gait and no dyspnea (3L oxygen per nc) PT Usp Goals User Experience Lead Goals PT User Experience Lead Goals Time Frame: Sep 12, 2022 Roll Left & Right (QC): 6 Sit to Lying (QC): 6 Lying-Sitting on Side/Bed(QC): 6 Sit to Stand (QC): 6 Chair/[id number]-Xtndy Xfer(QC): 6 Toilet Transfer (QC): 6 Walk 10 feet (QC): 6 Walk 50ft with 2 Turns (QC): 6 Walk 150 ft (QC): 6 PT Plan Treatment/Plan Treatment Plan: Continue Plan of Care Treatment Plan: Bed Mobility, Education, Functional Activity [place], Functional Strength, Gait, Safety, Therapeutic Exercise, Transfers Treatment Duration: Sep 12, 2022 Frequency: 6 times per week Estimated Hrs Per Day: .25 hour per day Patient and/or Family Agrees t: Yes Time Time In: 48 Time Out: 900 DATE: Sep 05, 2022 Total Billed Treatment Time: 13 Total Billed Treatment 1, gt 13 GWEN ANTOINE PT Sep 05, 2022 09:04
[2022-09-05] MEDS: METOLAZONE 2.5 MG (ZAROXOLYN) TAB PO SCH (09:15)
[2022-09-05] MEDS: ASPIRIN E.C. 81 MG (ECOTRIN) TAB PO SCH (09:16)
[2022-09-05] MEDS: SODIUM BICARBONATE 650 MG TABLET PO SCH ×2 (09:16→20:50)
[2022-09-05] MEDS: meTOprolol SUCCINATE 100 MG (TOPROL XL) TAB PO SCH ×2 (09:16→20:50)
[2022-09-05] MEDS: CLOPIDOGREL 75 MG (PLAVIX) TABLET PO SCH (09:16)
[2022-09-05] MEDS: LORATADINE (CLARITIN) 10 MG TAB PO SCH (09:17)
[2022-09-05] MEDS: FUROSEMIDE 40 MG/4 ML INJ (LASIX) IVP SCH ×2 (09:17→17:17)
[2022-09-05 14:05] VITALS: BP 143/82
[2022-09-05 15:57] VITALS: BP 142/69
[2022-09-05] MEDS: ENOXAPARIN INJECTION 30 MG/0.3 ML SYR SC SCH (17:17)
[2022-09-05 19:52] VITALS: BP 130/66
[2022-09-05] MEDS: ROSUVASTATIN 20 MG (CRESTOR) TABLET PO SCH (20:50)
[2022-09-05] MEDS: MONTELUKAST 10 MG (SINGULAIR) TAB PO SCH (20:50)
[2022-09-05] MEDS: ALPRAZolam 1 MG (XANAX) TAB PO PRN (20:50)
[2022-09-05 23:19] VITALS: BP 121/68
[2022-09-06] MEDS: RT-ALBUTEROL HFA 8.5 GM INHALER IH SCH ×6 (02:34→22:00)
[2022-09-06 03:54] VITALS: BP 129/77
[2022-09-06 05:22] LABS: BASOPHILS % (AUTO) 1 % (0-10); EOSINOPHILS # (AUTO) 0.3 10^3/uL (0.0-0.3); EOSINOPHILS % (AUTO) 5 % (0-10); HEMATOCRIT 27 % (40-54); HEMOGLOBIN 8.4 g/dL (13.3-17.7); LYMPHOCYTES % (AUTO) 18 % (12-44); MEAN CORPUSCULAR HEMOGLOBIN 25 pg (25-34); MEAN CORPUSCULAR HGB CONC 31 g/dL (32-36); MEAN CORPUSCULAR VOLUME 80 fL (80-99); MEAN PLATELET VOLUME 9.3 fL (9.0-12.2); MONOCYTES # (AUTO) 0.6 10^3/uL (0.0-1.0); MONOCYTES % (AUTO) 10 % (0-12); NEUTROPHILS # (AUTO) 3.8 10^3/uL (1.8-7.8); NEUTROPHILS % (AUTO) 66 % (42-75); PLATELET COUNT 309 10^3/uL (130-400); WHITE BLOOD COUNT 5.7 10^3/uL (4.3-11.0)
[2022-09-06 05:43] LABS: BILIRUBIN,TOTAL 0.4 MG/DL (0.1-1.0); CALCIUM 8.9 MG/DL (8.5-10.1); CREATININE SERUM 3.38 MG/DL (0.60-1.30); MAGNESIUM 1.7 MG/DL (1.6-2.4); PHOSPHORUS 5.1 MG/DL (2.3-4.7); POTASSIUM 3.6 MMOL/L (3.6-5.0); TOTAL PROTEIN 6.6 GM/DL (6.4-8.2)
[2022-09-06] MEDS: inSUlin ASPART (NovoLOG) 1 UNIT/0.01 ML (CHARGE PER UNIT) SC SCH ×4 (05:47→20:30)
[2022-09-06] MEDS: FUROSEMIDE 40 MG/4 ML INJ (LASIX) IVP SCH ×2 (05:49→16:51)
--- NOTE | 2022-09-06 07:14 | Progress Note - Hospitalist ---
Subjective HPI/CC On Admission Date Seen by Provider: Sep 06, 2022 Time Seen by Provider: 11:00 Subjective/Events-last exam Much improved overall No pain No edema O2 weaning Review of Systems General: Fatigue, Malaise Objective Exam Vital Signs Vital Signs Date Time Temp Pulse Resp B/P (MAP) Pulse Ox O2 Delivery O2 Flow Rate FiO2 09/06/22 11:28 36.7 76 18 132/67 (88) 94 Room Air 09/06/22 11:09 0.50 09/04/22 18:44 36 Capillary Refill : Less Than 3 Seconds General Appearance: No Apparent Distress, WD/WN Respiratory: Lungs Clear, Normal Breath Sounds Cardiovascular: Regular Rate, Rhythm Neurologic/Psychiatric: Alert, Oriented x3, No Motor/Sensory Deficits, Normal Mood/Affect Results/Procedures Lab Laboratory Tests 09/06/22 04:49 Patient resulted labs reviewed. Assessment/Plan Assessment and Plan Assess & Plan/Chief Complaint Assessment: Acute on chronic heart failure Acute on chronic respiratory failure CKD Anemia s/p 1 unit of blood DM Plan: Improved Wean O2 Critical Care Critically Ill Patient GABBI CALDERA DO Sep 06, 2022 07:14
[2022-09-06 07:31] VITALS: BP 141/73
[2022-09-06] MEDS: RT--FLUTICASONE/SALMETEROL 113-14 (AIRDUO RespiCLICK) IH SCH ×2 (08:03→21:15)
[2022-09-06] MEDS: METOLAZONE 2.5 MG (ZAROXOLYN) TAB PO SCH (10:17)
[2022-09-06] MEDS: ASPIRIN E.C. 81 MG (ECOTRIN) TAB PO SCH (10:17)
[2022-09-06] MEDS: SODIUM BICARBONATE 650 MG TABLET PO SCH ×2 (10:17→20:29)
[2022-09-06] MEDS: meTOprolol SUCCINATE 100 MG (TOPROL XL) TAB PO SCH ×2 (10:17→20:29)
[2022-09-06] MEDS: LORATADINE (CLARITIN) 10 MG TAB PO SCH (10:17)
[2022-09-06] MEDS: CLOPIDOGREL 75 MG (PLAVIX) TABLET PO SCH (10:17)
--- NOTE | 2022-09-06 10:23 | Cardiology Progress Note ---
Subjective Date Seen by Provider: Sep 06, 2022 Time Seen by Provider: 10:22 Subjective/Events-last exam Patient was seen at bedside laying down comfortably, feeling better Review of Systems General: No Chills, No Night Sweats; Fatigue; No Malaise, No Appetite, No Other HEENT: No Head Aches, No Visual Changes, No Eye Pain, No Ear Pain, No Dysphasia, No Sinus Congestion, No Post Nasal Drip, No Sore Throat, No Other Pulmonary: No Dyspnea, No Cough, No Pleuritic Chest Pain, No Other Cardiovascular: No: Chest Pain, Palpitations, Orthopnea, Paroxysmal Noc. Dyspnea, Edema, Lt Headedness, Other Objective-Cardiology Exam Last Set of Vital Signs Vital Signs 09/04/22 09/06/22 09/06/22 18:44 07:31 08:07 Temp 36.6 Pulse 68 Resp 18 B/P (MAP) 141/73 (95) Pulse Ox 93 O2 Delivery High Flow N/C O2 Flow Rate 1.00 FiO2 36 I&O Intake and Output 09/06/22 00:00 Intake Total 1645 ml Output Total 3150 ml Balance -1505 ml Intake Oral 1645 ml Output Urine Total 3150 ml # Bowel Movements 1 General: Alert, Oriented X3 HEENT: Atraumatic, PERRLA Lungs: Clear to Auscultation, Normal Air Movement Heart: Regular Rate, Normal S1, Normal S2 Abdomen: Normal Bowel Sounds, Soft Extremities: Other (Peripheral edema) Skin: No Rashes, No Significant Lesion Neuro: Normal Speech Psych/Mental Status: Mental Status NL, Mood NL Results Lab Laboratory Tests 09/06/22 04:49 A/P-Cardiology Admission Diagnosis Pneumonia Elevated BNP CAD HTN Assessment/Plan Bilateral pneumonia, status post acute respiratory failure, improved, Feeling better, currently on 2 L nasal cannula, will try to wean him off oxygen and evaluate his tolerance and response Congestive heart failure, acute on chronic left ventricular systolic dysfunction Receiving diuretics, significant improvement, Improving. Continue with diuresis and monitor renal function Coronary artery disease, History of NSTEMI in June of 2022. Stress test done June [address] Ugarte showing large, severe intensity, partially reversible basal to apical inferior and lateral defect with a small amount of inducible ischemia at the apex with a SSS 23, SDS 4. Mid to distal lateral akinesis with global hypokinesis elsewhere with severe left ventricular systolic dysfunction with a calculated ejection fraction of 28%. Patient did not undergo LHC at the time d/t underlying kidney function. Has been medically managed, maintained on ASA, Plavix and beta davy, statin as outpatient. Will plan for viability study with dobutamine stress echo once more stable Chronic kidney failure, stage IV. Monitor renal function. Hypertension, controlled, continue to monitor. Hyperlipidemia, maintained on Crestor 20mg Anemia, continue to monitor H/H Managed by primary care team Pulmonary hypertension Peripheral edema, diruese as tolerated DM, management per PCP Obesity SUGEY FUENTES MD Sep 06, 2022 10:23
[2022-09-06 11:28] VITALS: BP 132/67
[2022-09-06 15:24] VITALS: BP 128/70
[2022-09-06] MEDS: ENOXAPARIN INJECTION 30 MG/0.3 ML SYR SC SCH (16:51)
[2022-09-06 20:16] VITALS: BP 126/67
[2022-09-06] MEDS: ROSUVASTATIN 20 MG (CRESTOR) TABLET PO SCH (20:29)
[2022-09-06] MEDS: MONTELUKAST 10 MG (SINGULAIR) TAB PO SCH (20:30)
[2022-09-07 00:02] VITALS: BP 136/77
[2022-09-07] MEDS: RT-ALBUTEROL HFA 8.5 GM INHALER IH SCH ×2 (02:36→08:09)
[2022-09-07 04:39] LABS: BASOPHILS % (AUTO) 0 % (0-10); EOSINOPHILS # (AUTO) 0.3 10^3/uL (0.0-0.3); EOSINOPHILS % (AUTO) 4 % (0-10); HEMATOCRIT 28 % (40-54); HEMOGLOBIN 8.9 g/dL (13.3-17.7); LYMPHOCYTES % (AUTO) 15 % (12-44); MEAN CORPUSCULAR HEMOGLOBIN 25 pg (25-34); MEAN CORPUSCULAR HGB CONC 32 g/dL (32-36); MEAN CORPUSCULAR VOLUME 79 fL (80-99); MONOCYTES # (AUTO) 0.6 10^3/uL (0.0-1.0); MONOCYTES % (AUTO) 9 % (0-12); NEUTROPHILS # (AUTO) 4.7 10^3/uL (1.8-7.8); NEUTROPHILS % (AUTO) 70 % (42-75); PLATELET COUNT 297 10^3/uL (130-400); WHITE BLOOD COUNT 6.8 10^3/uL (4.3-11.0)
[2022-09-07 04:56] LABS: ALBUMIN 3.2 GM/DL (3.2-4.5); BILIRUBIN,TOTAL 0.4 MG/DL (0.1-1.0); CALCIUM 9.1 MG/DL (8.5-10.1); CREATININE SERUM 3.37 MG/DL (0.60-1.30); MAGNESIUM 1.6 MG/DL (1.6-2.4); PHOSPHORUS 4.8 MG/DL (2.3-4.7); POTASSIUM 3.8 MMOL/L (3.6-5.0); TOTAL PROTEIN 6.9 GM/DL (6.4-8.2)
[2022-09-07] MEDS: inSUlin ASPART (NovoLOG) 1 UNIT/0.01 ML (CHARGE PER UNIT) SC SCH (05:18)
[2022-09-07] MEDS: FUROSEMIDE 40 MG/4 ML INJ (LASIX) IVP SCH (06:03)
--- NOTE | 2022-09-07 06:43 | Progress Note ---
Subjective Date Seen by a Provider: Sep 07, 2022 Time Seen by a Provider: 06:45 Subjective/Events-last exam Patient is now on fourth medical Objective Exam Vital Signs Date Time Temp Pulse Resp B/P (MAP) Pulse Ox O2 Delivery O2 Flow Rate FiO2 09/07/22 02:36 94 Room Air 09/07/22 00:02 37.2 74 18 136/77 (96) 92 Room Air 09/06/22 22:15 92 Room Air 09/06/22 20:30 Room Air 09/06/22 20:16 37.1 77 18 126/67 (86) 94 Room Air 09/06/22 19:02 94 Room Air 09/06/22 15:24 36.9 81 20 128/70 (89) 94 Room Air 09/06/22 14:59 92 Room Air 09/06/22 11:28 36.7 76 18 132/67 (88) 94 Room Air 09/06/22 11:09 92 High Flow N/C 0.50 09/06/22 08:07 93 High Flow N/C 1.00 09/06/22 08:03 93 High Flow N/C 1.00 09/06/22 08:00 93 High Flow N/C 1.00 09/06/22 07:31 36.6 68 18 141/73 (95) 92 Nasal Cannula 1.00 I & O 09/07/22 07:00 Intake Total 2480 ml Balance 2480 ml Capillary Refill : Less Than 3 Seconds General Appearance: No Apparent Distress Results Lab Laboratory Tests 09/06/22 10:24: Glucometer 162H 09/06/22 15:26: Glucometer 239H 09/06/22 20:19: Glucometer 265H 09/07/22 04:22: White Blood Count 6.8, Red Blood Count 3.57L, Hemoglobin 8.9L, Hematocrit 28L, Mean Corpuscular Volume 79L, Mean Corpuscular Hemoglobin 25, Mean Corpuscular Hemoglobin Concent 32, Red Cell Distribution Width 14.6H, Platelet Count 297, Mean Platelet Volume 9.0, Immature Granulocyte % (Auto) 0, Neutrophils (%) (Auto) 70, Lymphocytes (%) (Auto) 15, Monocytes (%) (Auto) 9, Eosinophils (%) (Auto) 4, Basophils (%) (Auto) 0, Neutrophils # (Auto) 4.7, Lymphocytes # (Auto) 1.0, Monocytes # (Auto) 0.6, Eosinophils # (Auto) 0.3, Basophils # (Auto) 0.0, Immature Granulocyte # (Auto) 0.0, Sodium Level 138, Potassium Level 3.8, Chloride Level 92L, Carbon Dioxide Level 29, Anion Gap 17H, Blood Urea Nitrogen 97H, Creatinine 3.37H, Estimat Glomerular Filtration Rate 20, BUN/Creatinine Ratio 29, Glucose Level 104, Calcium Level 9.1, Corrected Calcium 9.7, Phosphorus Level 4.8H, Magnesium Level 1.6, Total Bilirubin 0.4, Aspartate Amino Transf (AST/SGOT) 28, Alanine Aminotransferase (ALT/SGPT) 31, Alkaline Phosphatase 87, Total Protein 6.9, Albumin 3.2 Assessment/Plan Assessment/Plan Assess & Plan/Chief Complaint 1. Dyspnea and this appears to be related to the interstitial infiltrates consistent with pneumonia -patient has been initiated on azithromycin as well as ceftriaxone 08/25 -plan on rechecking chest x-ray in the morning of August 2608/26 -CXR this am 08/27 -CXR unchanged -pulmonary consultation 08/28 -repeat lasix this am 08/31 -furosemide 40 mg IV continues twice daily. Thus far his creatinine is stable at 3.0 1. Dyspnea and this appears to be related to the interstitial infiltrates consistent with pneumonia -patient has been initiated on azithromycin as well as ceftriaxone 08/25 -plan on rechecking chest x-ray in the morning of August 2608/26 -CXR this am 08/27 -CXR unchanged -pulmonary consultation 08/28 -repeat lasix this am 08/31 -furosemide 40 mg IV continues twice daily. Thus far his creatinine is stable at 3.0 -Appreciate all the cardiology input 09/01 -he continues to be on cefepime day #4 3/ -day #5 cefepime 3/ -day #6 cefepime 3 -Off all antibiotics. Patient will need to become more ambulatory 2. Chronic kidney disease diagnosed June 2022 -he will stay on bicarbonate as prescribed by his blueprinter 08/27 -spoke with Dr Chaves today. Patient is at baseline for Cr. If with mild chf, ok for lasix. 09/01 -I spoke with Dr. Chaves today and would like to go ahead and get official nephrology consultation. We discussed his edema of the extremities as well as pulmonary edema. We will add on metolazone 5 mg orally each day in addition to the Lasix 40 mg IV twice daily. Also recommendations were to wrap his lower extremities in the morning and take off in the evening. She was notified of his creatinine today of 3.25, which is up from yesterday 09/02 -patient had weight decrease from 101 kg to 97.3 kg over the course of the last 24 hours. I believe wrapping the legs helped him with mobilizing the fluid. Creatinine did increase to 3.27. 09/03 -creatinine has increased to 3.3. Will continue with diuresis as this is necessary for improvement. 09/07 -Creatinine 3.37 3. Status post [place] June 25 -currently undergoing cardiac rehab but this will be held until he is noted to be doing better with regard to the infiltrates 08/25 -due to his BNP elevation will consult cardiology as well. 4. Diabetes mellitus type 2 -he will stay on his diabetic medication glyburide 5. Hypertension -currently on metoprolol 6. Hyperlipidemia -on Crestor 7. Anemia -recheck CBC in the morning of August 2608/28 -hg 6.6 this am -will give 1 U PRBC this am. -check occult blood from stool 09/03 -hemoglobin stable at 7.4 today Clinical Quality Measures Admission Status Admission Dx 1. Dyspnea and this appears to be related to the interstitial infiltrates consistent with pneumonia 2. Chronic kidney disease diagnosed June 2022 3. Status post [place] June 25 4. Diabetes mellitus type 2 5. Hypertension 6. Hyperlipidemia TIFFANY ROGERS MD Sep 07, 2022 06:43
[2022-09-07 07:44] VITALS: BP 139/77
[2022-09-07] MEDS: RT--FLUTICASONE/SALMETEROL 113-14 (AIRDUO RespiCLICK) IH SCH (08:09)
[2022-09-07] MEDS ORDERED: MONT-40 PO (08:11)
[2022-09-07] MEDS ORDERED: METO2.5T PO (08:11)
[2022-09-07] MEDS ORDERED: FLUT1AER4 IH (08:11)
--- NOTE | 2022-09-07 08:13 | Discharge Inst-Simple/Standard ---
Discharge Inst-Standard Discharge Medications New, Converted or Re-Newed RX: Transmitted to Pharmacy ([facility]) Patient Instructions/Follow Up Plan of Care/Instructions/FU: Dr Rogers in 2-3 days Activity as Tolerated: Yes Discharge Diet: Low Fat/Low Cholesterol Return to [facility] Hospital For: labored breathing, shortness of breath, severe chest pain, significant leg swelling TIFFANY ROGERS MD Sep 07, 2022 08:13
--- NOTE | 2022-09-07 08:16 | Discharge Summary ---
Diagnosis/Chief Complaint Date of Admission Aug 24, 2022 at 12:01 Date of Discharge September 07, 2022 Discharge Date: Sep 07, 2022 Admission Diagnosis Admission Diagnosis 1. Dyspnea and this appears to be related to the interstitial infiltrates consistent with pneumonia 2. Chronic kidney disease diagnosed June 2022 3. S/P PA June 2022 4. Diabetes mellitus type 2 5. Hypertension 6. Hyperlipidemia 7. Anemia Discharge Diagnosis 1. Dyspnea secondary to pneumonia and pulmonary edema due to CHF 2. Chronic kidney disease diagnosed June 2022 3. S/P PA June 2022 4. Diabetes mellitus type 2 5. Hypertension 6. Hyperlipidemia 7. Anemia Reason Hospital Visit Robson is a 62-year-old male who presents to emergency department with shortness of breath. Within the last few months he has chronic kidney disease. He has also been undergoing cardiac rehab and apparently over the past few weeks has had low oxygen saturation. He was started on oxygen by nasal cannula at home but both patient and report he did not seem to be improving with the oxygen. Today he was somewhat anxious and this prompted her to bring him out to the emergency department for evaluation. He also did have a myocardial infarction in June 2022. He currently denies any significant fever or chilling. Discharge Summary Hospital Course Was the Problem List Reviewed?: Yes Hospital Course On admission patient's dyspnea appears to be related to the interstitial infiltrates consistent with pneumonia -patient has been initiated on azithromycin as well as ceftriaxone in the ED. Chest Xray was followed during the coarse of his stay. On 08/27 Pulmonary was consulted. He was given lasix in addition to continueing with antibiotics. 08/31 -furosemide 40 mg IV continues twice daily. Thus far his creatinine is stable at 3.0 09/01 -he continues to be on cefepime day #4 3/1 -day #5 cefepime 3/2 -day #6 cefepime 09/07 -Off all antibiotics. Patient will need to become more ambulatory Also during the coarse of his stay, Chronic kidney disease was monitored and this was diagnosed June 2022 -he will stay on bicarbonate as prescribed by his court administrator 08/27 -spoke with Dr Chaves today. Patient is at baseline for Cr. If with mild chf, ok for lasix. 09/01 -I spoke with Dr. Chaves today and would like to go ahead and get official n ephrology consultation. We discussed his edema of the extremities as well as pulmonary edema. We will add on metolazone 5 mg orally each day in addition to the Lasix 40 mg IV twice daily. Also recommendations were to wrap his lower extremities in the morning and take off in the evening. She was notified of his creatinine today of 3.25, which is up from yesterday 09/02 -patient had weight decrease from 101 kg to 97.3 kg over the course of the last 24 hours. I believe wrapping the legs helped him with mobilizing the fluid. Creatinine did increase to 3.27. 09/03 -creatinine has increased to 3.3. Will continue with diuresis as this is necessary for improvement. 09/07 -Creatinine 3.37 3. Status post PA June 25 -currently undergoing cardiac rehab but this will be held until he is noted to be doing better with regard to the infiltrates 08/25 -due to his BNP elevation will consult cardiology as well. 4. Diabetes mellitus type 2 -he will stay on his diabetic medication glyburide 5. Hypertension -currently on metoprolol 6. Hyperlipidemia -on Crestor 7. Anemia -recheck CBC in the morning of August 2608/28 -hg 6.6 this am -will give 1 U PRBC this am. -check occult blood from stool 09/03 -hemoglobin stable at 7.4 today Labs Laboratory Tests 09/05/22 10:48: Glucometer 172H 09/05/22 15:59: Glucometer 181H 09/05/22 19:51: Glucometer 280H 09/06/22 04:49: Red Blood Count 3.35L, Hemoglobin 8.4L, Hematocrit 27L, Mean Corpuscular Hemoglobin Concent 31L, Red Cell Distribution Width 14.6H, Chloride Level 91L, Anion Gap 16H, Blood Urea Nitrogen 96H, Creatinine 3.38H, Glucose Level 109H, Phosphorus Level 5.1H, Albumin 3.0L 09/06/22 10:24: Glucometer 162H 09/06/22 15:26: Glucometer 239H 09/06/22 20:19: Glucometer 265H 09/07/22 04:22: Red Blood Count 3.57L, Hemoglobin 8.9L, Hematocrit 28L, Mean Corpuscular Volume 79L, Red Cell Distribution Width 14.6H, Chloride Level 92L, Anion Gap 17H, Blood Urea Nitrogen 97H, Creatinine 3.37H, Phosphorus Level 4.8H 09/07/22 13:06: Procedures None. Consultations 1. Cardiology 2. Nephrology 3. Pulmonary 4. Tele-ICU Discharge Physical Examination Allergies: Coded Allergies: No Known Drug Allergies (Unverified , 06/11/22) Vitals & I&Os Vital Signs Date Time Temp Pulse Resp B/P (MAP) Pulse Ox O2 Delivery O2 Flow Rate FiO2 09/07/22 09:19 36.5 72 18 139/77 93 Room Air 0.50 09/04/22 18:44 36 General Appearance: No Acute Distress Respiratory: Clear to Auscultation Cardiovascular: Regular Rate Abdominal: Soft Extremities: No Edema Neuro: Normal Gait, Normal Speech Discharge Home Medications Reviewed and agree with Discharge Medication list on patient's Discharge Instruction sheet Instructions to Patient/Family Please see electronic discharge instructions given to patient. TIFFANY ROGERS MD Sep 07, 2022 08:16
[2022-09-07] MEDS: LORATADINE (CLARITIN) 10 MG TAB PO SCH (08:23)
[2022-09-07] MEDS: SODIUM BICARBONATE 650 MG TABLET PO SCH (08:23)
[2022-09-07] MEDS: METOLAZONE 2.5 MG (ZAROXOLYN) TAB PO SCH (08:23)
[2022-09-07] MEDS: meTOprolol SUCCINATE 100 MG (TOPROL XL) TAB PO SCH (08:23)
[2022-09-07] MEDS: CLOPIDOGREL 75 MG (PLAVIX) TABLET PO SCH (08:23)
[2022-09-07] MEDS: ASPIRIN E.C. 81 MG (ECOTRIN) TAB PO SCH (08:23)
--- NOTE | 2022-09-07 09:14 | Cardiology Progress Note ---
Subjective Date Seen by Provider: Sep 07, 2022 Time Seen by Provider: 09:14 Subjective/Events-last exam Patient was seen at bedside, feeling better, ready to go home Review of Systems General: No Chills, No Night Sweats, No Fatigue, No Malaise, No Appetite, No Other HEENT: No Head Aches, No Visual Changes, No Eye Pain, No Ear Pain, No Dysphasia, No Sinus Congestion, No Post Nasal Drip, No Sore Throat, No Other Pulmonary: No Dyspnea, No Cough, No Pleuritic Chest Pain, No Other Cardiovascular: No: Chest Pain, Palpitations, Orthopnea, Paroxysmal Noc. Dyspnea, Edema, Lt Headedness, Other Objective-Cardiology Exam Last Set of Vital Signs Vital Signs 09/04/22 09/06/22 09/07/22 09/07/22 18:44 11:09 07:44 08:11 Temp 36.5 Pulse 72 Resp 18 B/P (MAP) 139/77 (97) Pulse Ox 93 O2 Delivery Room Air O2 Flow Rate 0.50 FiO2 36 I&O Intake and Output 09/07/22 00:00 Intake Total 2680 ml Balance 2680 ml Intake Oral 2680 ml # Voids 9 # Bowel Movements 5 General: No Acute Distress HEENT: Atraumatic, PERRLA Lungs: Clear to Auscultation Heart: Regular Rate Abdomen: Soft Extremities: No Edema Skin: No Rashes, No Significant Lesion Neuro: Normal Gait, Normal Speech Psych/Mental Status: Mental Status NL, Mood NL Results Lab Laboratory Tests 09/07/22 04:22 A/P-Cardiology Admission Diagnosis Pneumonia Elevated BNP CAD HTN Assessment/Plan Bilateral pneumonia, status post acute respiratory failure, improved, Feeling better, ready for discharge Congestive heart failure, acute on chronic left ventricular systolic dysfunction Receiving diuretics, significant improvement, Patient is feeling better Okay for discharge today and follow-up as an outpatient Coronary artery disease, History of NSTEMI in June of 2022. Stress test done June [address] Ugarte showing large, severe intensity, partially reversible basal to apical inferior and lateral defect with a small amount of inducible ischemia at the apex with a SSS 23, SDS 4. Mid to distal lateral akinesis with global hypokinesis elsewhere with severe left ventricular systolic dysfunction with a calculated ejection fraction of 28%. Patient did not undergo LHC at the time d/t underlying kidney function. Has been medically managed, maintained on ASA, Plavix and beta davy, statin as outpatient. Will plan for viability study with dobutamine stress echo once more stable Chronic kidney failure, stage IV. Monitor renal function. Hypertension, controlled, continue to monitor. Hyperlipidemia, maintained on Crestor 20mg Anemia, continue to monitor H/H Managed by primary care team Pulmonary hypertension Peripheral edema, diruese as tolerated DM, management per PCP Obesity SUGEY FUENTES MD Sep 07, 2022 09:14
[2022-09-07 09:19] VITALS: BP 139/77
--- NOTE | 2022-09-08 14:05 | Progress Note ---
Progress Note Assessment/Plan Date Seen by Provider: Sep 02, 2022 Time Seen by Provider: 11:00 Events since last exam pt continues to have improving o2 requirements and edema Assessment/Plan СЕРГЕЙ on CKD 4 now with volume overload- cr stable baseline likely 2.7 no recent nsaids but did use them 06/2022 previously ruled out obstruction with renal u/s 06/2022 renally dose meds agree with holding off on cath until сергей resolves avoid use of acei/arb given сергей volume overload due to nephrotic syndrome secondary to h/o dm recommend mobilizing fluid with compression continue lasix 40 iv bid added metolazone 5mg qday replace k daily prn based on labs may need to increase lasix to 80 bid goal net negative 1-2L/day based on I/Os met acidosis continue po bicarb 1300 bid goal 22-24 elevated trop with abnormal stress test on previous admission will need LHC in the future once сергей resolves previously followed by Dr. Ugarte HTN goal <130/80 will monitor This visit was conducted using secure video chat. Pt gave verbal consen Vitals Last set of Vitals Signs Vital Signs Date Time Temp Pulse Resp B/P (MAP) Pulse Ox O2 Delivery O2 Flow Rate FiO2 09/07/22 09:19 36.5 72 18 139/77 93 Room Air 0.50 09/04/22 18:44 36 I&O I&O Intake and Output 09/08/22 00:00 Intake Total 400 ml Balance 400 ml Intake Oral 400 ml # Voids 2 MOODY JAY MD Sep 08, 2022 14:05
--- NOTE | 2022-09-08 14:07 | Progress Note ---
Progress Note Assessment/Plan Date Seen by Provider: Sep 04, 2022 Time Seen by Provider: 11:01 Events since last exam pt continues to improve. making urine. Assessment/Plan СЕРГЕЙ on CKD 4 now with volume overload- cr stable baseline likely 2.7 no recent nsaids but did use them 06/2022 previously ruled out obstruction with renal u/s 06/2022 renally dose meds agree with holding off on cath until сергей resolves avoid use of acei/arb given сергей volume overload due to nephrotic syndrome secondary to h/o dm recommend mobilizing fluid with compression continue lasix 40 iv bid added metolazone 5mg qday replace k daily prn based on labs may need to increase lasix to 80 bid goal net negative 1-2L/day based on I/Os met acidosis continue po bicarb 1300 bid goal 22-24 elevated trop with abnormal stress test on previous admission will need LHC in the future once сергей resolves previously followed by Dr. Ugarte HTN goal <130/80 will monitor This visit was conducted using secure video chat. Pt gave verbal consen Vitals Last set of Vitals Signs Vital Signs Date Time Temp Pulse Resp B/P (MAP) Pulse Ox O2 Delivery O2 Flow Rate FiO2 09/07/22 09:19 36.5 72 18 139/77 93 Room Air 0.50 09/04/22 18:44 36 I&O I&O Intake and Output 09/08/22 00:00 Intake Total 400 ml Balance 400 ml Intake Oral 400 ml # Voids 2 MOODY JAY MD Sep 08, 2022 14:06
--- NOTE | 2022-09-08 14:08 | Progress Note ---
Progress Note Assessment/Plan Date Seen by Provider: Sep 05, 2022 Time Seen by Provider: 09:50 Events since last exam pt feels a lot better overall. Assessment/Plan СЕРГЕЙ on CKD 4 now with volume overload- cr stable baseline likely 2.7 no recent nsaids but did use them 06/2022 previously ruled out obstruction with renal u/s 06/2022 renally dose meds agree with holding off on cath until сергей resolves avoid use of acei/arb given сергей volume overload due to nephrotic syndrome secondary to h/o dm recommend mobilizing fluid with compression continue lasix 40 iv bid added metolazone 5mg qday replace k daily prn based on labs plan to d/c home on torsemide 50mg qday goal net negative 1-2L/day based on I/Os met acidosis continue po bicarb 1300 bid goal 22-24 elevated trop with abnormal stress test on previous admission will need LHC in the future once сергей resolves previously followed by Dr. Ugarte HTN goal <130/80 will monitor This visit was conducted using secure video chat. Pt gave verbal consen Vitals Last set of Vitals Signs Vital Signs Date Time Temp Pulse Resp B/P (MAP) Pulse Ox O2 Delivery O2 Flow Rate FiO2 09/07/22 09:19 36.5 72 18 139/77 93 Room Air 0.50 09/04/22 18:44 36 I&O I&O Intake and Output 09/08/22 00:00 Intake Total 400 ml Balance 400 ml Intake Oral 400 ml # Voids 2 MOODY JAY MD Sep 08, 2022 14:08
== END 2022-09-07 09:55 | disposition home or self-care (01) | DRG 682 ==
LOC: EDUNIT# 09:05 → ER 09:07 → 4TH 12:01 → ICU 08-29 12:07 → 4TH 09-05 13:46
PROVIDERS: ADMIT Family Medicine; ATTEND Family Medicine
PROC: 5A09357 Assistance with Respiratory Ventilation, Less than 24 Consecutive Hours, Continuous Positive Airway Pressure (ICD-10-PCS; 2022-08-25)
PROC: 5A0945A Assistance with Respiratory Ventilation, 24-96 Consecutive Hours, High Flow/Velocity Cannula (ICD-10-PCS; principal; 2022-08-30)
DX: I12.9 Hypertensive chronic kidney disease with stage 1 through stage 4 chronic kidney disease, or unspecified chronic kidney disease (principal); I50.43 Acute on chronic combined systolic (congestive) and diastolic (congestive) heart failure; J18.9 Pneumonia, unspecified organism; J96.21 Acute and chronic respiratory failure with hypoxia; N18.4 Chronic kidney disease, stage 4 (severe); N17.9 Acute kidney failure, unspecified; E87.20 Acidosis, unspecified; E11.22 Type 2 diabetes mellitus with diabetic chronic kidney disease; I27.20 Pulmonary hypertension, unspecified; Z20.822 Contact with and (suspected) exposure to COVID-19; E11.65 Type 2 diabetes mellitus with hyperglycemia; F32.A Depression, unspecified; D63.1 Anemia in chronic kidney disease; I25.10 Atherosclerotic heart disease of native coronary artery without angina pectoris; E66.9 Obesity, unspecified; H54.7 Unspecified visual loss; R04.0 Epistaxis; R31.9 Hematuria, unspecified; E78.5 Hyperlipidemia, unspecified; I25.2 Old myocardial infarction; Z68.37 Body mass index [BMI] 37.0-37.9, adult; Z79.84 Long term (current) use of oral hypoglycemic drugs; Z87.891 Personal history of nicotine dependence; Z79.82 Long term (current) use of aspirin; Z79.899 Other long term (current) drug therapy
CPT/HCPCS: 36415; 36600; 71045; 71046; 80048; 80053; 80076; 82248; 82274; 82728; 82805; 82947; 83540; 83550; 83735; 83880; 84100; 84484; 85007; 85014; 85018; 85025; 85027; 85379; 86850; 86900; 86901; 86920; 87449; 87636; 93005; 94640; 94660; 94664; 94760; 96365; 96375

== ENCOUNTER → 2022-10-02 | Outpatient (RCR) | payer OTHER ==
[~2022-10-02] MED LIST changes: +ACET-2267 PO; +ASPI-1238 PO; +ERGO1250 PO; +FLUT16SP22 NSEACH; +FLUT1AER4 IH; +METO2.5T PO; +MONT-40 PO; +NF-SODBICA PO; +PROP10DR2 OU
== END | disposition home or self-care (01) ==
LOC: CR 09-28 10:31
PROVIDERS: ATTEND Internal Medicine Cardiovascular Disease
DX: Z29.8 Encounter for other specified prophylactic measures (principal); I25.2 Old myocardial infarction
CPT/HCPCS: 93798

== ENCOUNTER 2022-10-30 10:17 | Outpatient (RCR) | payer OTHER ==
[2022-11-02] MEDS ORDERED: MONT-40 PO ×2 (14:45)
[2022-11-02] MEDS ORDERED: TORS20TA3 PO ×2 (14:45)
[2022-11-10] MEDS ORDERED: FURO-125 PO ×2 (08:15)
== END 2022-11-01 | disposition home or self-care (01) ==
LOC: CR 10:17
PROVIDERS: ATTEND Internal Medicine Cardiovascular Disease
DX: Z29.8 Encounter for other specified prophylactic measures (principal); I25.2 Old myocardial infarction
CPT/HCPCS: 93798

== ENCOUNTER 2022-11-01 20:38 | Inpatient (IN) | payer OTHER ==
[~2022-11-01] VITALS: Ht 163 cm; Wt 96.4 kg
[2022-11-01 20:58] LABS: BASOPHILS % (AUTO) 0 % (0-10); EOSINOPHILS # (AUTO) 0.3 10^3/uL (0.0-0.3); EOSINOPHILS % (AUTO) 2 % (0-10); HEMATOCRIT 33 % (40-54); HEMOGLOBIN 10.1 g/dL (13.3-17.7); LYMPHOCYTES # (AUTO) 1.6 10^3/uL (1.0-4.0); LYMPHOCYTES % (AUTO) 13 % (12-44); MEAN CORPUSCULAR HEMOGLOBIN 26 pg (25-34); MEAN CORPUSCULAR HGB CONC 31 g/dL (32-36); MEAN CORPUSCULAR VOLUME 85 fL (80-99); MEAN PLATELET VOLUME 9.5 fL (9.0-12.2); MONOCYTES % (AUTO) 8 % (0-12); NEUTROPHILS # (AUTO) 9.5 10^3/uL (1.8-7.8); NEUTROPHILS % (AUTO) 76 % (42-75); PLATELET COUNT 375 10^3/uL (130-400); WHITE BLOOD COUNT 12.4 10^3/uL (4.3-11.0)
[2022-11-01] MEDS ORDERED: methylPREDNISolone 125 MG (Solu-MEDROL) VIAL IV STA (21:02)
[2022-11-01] MEDS ORDERED: RT-ALBUTEROL SULF 2.5 MG/3 ML PRE-MIX VIAL INH STA (21:02)
--- NOTE | 2022-11-01 21:13 | Diagnostic Imaging Report ---
CHEST 1 VIEW, AP/PA ONLY INDICATION: DYSPNEA, CP. COMPARISON: Chest radiograph 09/05/2022 FINDINGS: Diffuse bilateral perihilar and bibasilar airspace opacities and interstitial opacities. Cardiomegaly with pulmonary vascular congestion. No pleural effusion or pneumothorax. No acute osseous findings. IMPRESSION: Perihilar and bibasilar airspace opacities and diffuse bilateral interstitial opacities concerning for pulmonary edema. Superimposed infection cannot be excluded. Cardiomegaly with pulmonary vascular congestion. Dictated by: Dictated on workstation # [id number]
[2022-11-01] MEDS ORDERED: FUROSEMIDE 40 MG/4 ML INJ (LASIX) IVP ONE (21:15)
[2022-11-01] MEDS ORDERED: RT-ALBUTEROL/IPRATROPIUM 3 ML (DUONEB) VIAL INH ONE (21:15)
[2022-11-01] MEDS ORDERED: CEFEPIME INJECTION 1,000 MG in NS (IVPB) 50 ML IV ONE (21:15)
[2022-11-01 21:17] LABS: CHLORIDE 104 MMOL/L (98-107); POTASSIUM 4.6 MMOL/L (3.6-5.0); SODIUM 139 MMOL/L (135-145)
--- NOTE | 2022-11-01 21:17 | ED Respiratory ---
General Chief Complaint: Respiratory Problems Stated Complaint: SOA Nursing Triage Note: PT TO ED BY POV WITH WITH C/O SOA. REPORTS PT O2 WITH HOME SAT PROBE WAS 50%. 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 PT IS SCHEDULED FOR AN ECHO 11/02 AND HAS NOT TAKEN HIS HOME MEDS THE LAST COUPLE OF DAYS. DENIES CP. Source: patient, old records History of Present Illness Date Seen by Provider: Nov 01, 2022 Time Seen by Provider: 20:39 Initial Comments PT ARRIVES VIA POV, NEEDING WHEELCHAIR AND ASSIST OUT OF VEHICLE C/O SHORTNESS OF BREATH X 1 HOUR, WHILE WATCHING TV PT HAS COPD, AND CHECKED HIS O2 SAT AT HOME, AND IT WAS 50% PT IS ON HOME O2 AT 2-3 L/NC CONTINUOUSLY HE WAS ADMITTED 08/24-09/07 FOR BILATERAL PNEUMONIA PT STATES HE IS SUPPOSED TO HAVE AN ECHOCARDIOGRAM IN THE MORNING, SO HE HAS NOT TAKEN ANY OF HIS MEDICATIONS FOR THE LAST [address] FUENTES IS HIS COMMISSIONING AGENT. HE DID HAVE AN NSTEMI 06/2022--ON INTERVENTION HE HAS BEEN HAVING A NON-PRODUCTIVE COUGH NO FEVER/SWEATS/CHILLS NO CHEST PAIN AT ANY TIME HE HAS BEEN HAVING ALOT OF LEG SWELLING, ESPECIALLY THE LAST COUPLE OF DAYS HE HAS CHRONIC RENAL INSUFFICIENCY, BUT IS NOT ON DIALYSIS, HE SEES DR. MOODY JAY FOR NEPHROLOGY PT ADMITS TO NOT FOLLOWING UP ON A VERY REGULAR BASIS WITH DR. ROGERS--HISTORICALLY ONLY SEES HIM ONCE OR TWICE A YEAR PT DOES NOT CHECK HIS BLOOD SUGAR OR FOLLOW A DIABETIC DIET HE STATES HE DID QUIT SMOKING "AWHILE BACK" PCP: DR. ROGERS COMMISSIONING AGENT: DR. FUENTES Allergies and Home Medications Allergies Coded Allergies: No Known Drug Allergies (Unverified , 06/11/22) Patient Home Medication List Home Medication List Reviewed: Yes Alprazolam (Alprazolam) 1 Mg Tablet, 0.5-1 MG PO Q8H PRN for ANXIETY, (Reported) Entered as Reported by: CAMERON WALDRON on 06/11/22 1609 Amlodipine Besylate (Amlodipine Besylate) 10 Mg Tablet, 10 MG PO DAILY, (Reported) Entered as Reported by: YEIMY HAYS on 08/24/22 1521 Aspirin (Aspirin EC) 81 Mg Tablet.dr, 81 MG PO DAILY, (Reported) Entered as Reported by: YEIMY HAYS on 08/24/22 152 Clopidogrel Bisulfate (Clopidogrel) 75 Mg Tablet, 75 MG PO DAILY, (Reported) Entered as Reported by: YEIMY HAYS on 08/24/22 152 Ergocalciferol (Vitamin D2) (Vitamin D2) 1,250 Mcg (76788 Unit) Capsule, 1,250 MCG PO WEDNESDAY, (Reported) Entered as Reported by: YEIMY HAYS on 08/24/22 152 Fluticasone/Salmeterol (Fluticasone-Salmeterol 113-14) 113 Mcg-14 Mcg/Actuation Aer.pow.ba, 1 EACH IH RTBID Prescribed by: TIFFANY ROGERS on 09/07/22 08 Glyburide (Glyburide) 5 Mg Tablet, 5 MG PO DAILY, (Reported) Entered as Reported by: CAMERON WALDRON on 06/11/22 1609 Metolazone (Metolazone) 2.5 Mg Tablet, 5 MG PO DAILY Prescribed by: TIFFANY ROGERS on 09/07/22 0811 Metoprolol Succinate (Metoprolol Succinate) 100 Mg Tab.er.24h, 100 MG PO BID, (Reported) Entered as Reported by: YEIMY HAYS on 08/24/22 152 Montelukast Sodium (Montelukast Sodium) 10 Mg Tablet, 10 MG PO HS Prescribed by: TIFFANY ROGERS on 09/07/22 08 Rosuvastatin Calcium (Rosuvastatin Calcium) 20 Mg Tablet, 20 MG PO HS, (Reported) Entered as Reported by: YEIMY HAYS on 08/24/22 152 Sodium Bicarbonate (Sodium Bicarbonate) 650 Mg Tablet, 1,300 MG PO BID, (Reported) Entered as Reported by: YEIMY HAYS on 08/24/22 152 Review of Systems Review of Systems Constitutional: no symptoms reported EENTM: no symptoms reported Respiratory: see HPI, cough, short of breath Cardiovascular: see HPI; No chest pain; edema; No palpitations, No syncope Gastrointestinal: no symptoms reported Genitourinary: no symptoms reported Musculoskeletal: see HPI (LEG SWELLING) Skin: no symptoms reported Psychiatric/Neurological: No Symptoms Reported Hematologic/Lymphatic: No Symptoms Reported Immunological/Allergic: no symptoms reported Past Uucdrqp-Safplr-Mirely Hx Patient Social History Tobacco Use?: Yes Tobacco type used: Cigarettes Smoking Status: Former Smoker Substance use?: No Alcohol Use?: Yes Alcohol Frequency: Once in a while Immunizations Up To Date First/Initial COVID19 Vaccinat: 2020 Second COVID19 Vaccination Clark: 2020 Past Medical History Surgery/Hospitalization HX: - JUNE Surgeries: No Respiratory: Yes (Chronic SOA, pulmonary HTN; O2 AT 2-3L/NC CONTINUOUSLY) Pneumonia, COPD Cardiac: Yes (NSTEMI 06/2022--NO CATH OR INTERVENTION) Chronic Edema/Swelling, Coronary Artery Disease, Heart Attack, High Cholesterol, Hypertension Neurological: No Genitourinary: Yes (NO DIALYSIS. ) Renal Failure Gastrointestinal: No Musculoskeletal: No Endocrine: Yes Diabetes, Non-Insulin dep HEENT: No Cancer: No Psychosocial: Yes Anxiety, Depression Integumentary: No Blood Disorders: No Physical Exam Vital Signs - First Documented 11/01/22 20:39 Temp 36.4 Pulse 92 Resp 22 B/P (MAP) 146/86 (106) Pulse Ox 92 O2 Delivery Nasal Cannula O2 Flow Rate 15.00 Capillary Refill : Height: '" Weight: lbs. oz. kg; 32.00 BMI Method: General Appearance: WD/WN, moderate distress HEENT: PERRL/EOMI Neck: normal inspection Respiratory: respiratory distress, accessory muscle use, rales, other (DIFFUSE RALES, WITH DECREASED AERATION IN ALL LUNG CANDELARIA, PT IS TALKING CONTINUOUSLY IN SHORT PHRASES, AND IS MODERATELY DYSPNEIC. ) Cardiovascular: no JVD, tachycardia (100'S) Gastrointestinal: non tender, soft Extremities: no calf tenderness, normal capillary refill, pedal edema (2+ EDEMA BILATERALLY) Neurologic/Psychiatric: conveyor installer II-XII nml as tested, no motor/sensory deficits, alert, oriented x 3 Skin: normal color Focused Exam Sepsis Stage: Ruled Out Reason for ruling out sepsis: DOES NOT MEET CRITERIA Possible Source: Pulmonary Time of Focused Exam: 21:30 Respiratory: No Accessory Muscle Use, No Respiratory Distress, Other (ON BIPAP--INCREASED AERATION, IMPROVED LUNG SOUNDS WITH DECREASED RALES) Cardiovascular: Regular Rate, Rhythm, No JVD, No Murmur Capillary Refill: Less Than 3 Seconds Within 3hrs of presentation: Admin ABX, Blood cultures prior to ABX's, Focus exam, Lactate level Progress/Results/Core Measures Suspected Sepsis SIRS Temperature: Pulse: 92 Respiratory Rate: 22 Laboratory Tests 11/01/22 20:45: White Blood Count 12.4H Blood Pressure 146 /86 Mean: 106 Laboratory Tests 11/01/22 20:45: Platelet Count 375 Results/Orders Lab Results Laboratory Tests Test 11/01/22 20:45 11/01/22 20:46 Range/Units White Blood Count 12.4 H 4.3-11.0 10^3/uL Red Blood Count 3.89 L 4.30-5.52 10^6/uL Hemoglobin 10.1 L 13.3-17.7 g/dL Hematocrit 33 L 40-54 % Mean Corpuscular Volume 85 80-99 fL Mean Corpuscular Hemoglobin 26 25-34 pg Mean Corpuscular Hemoglobin Concent 31 L 32-36 g/dL Red Cell Distribution Width 18.9 H 10.0-14.5 % Platelet Count 375 130-400 10^3/uL Mean Platelet Volume 9.5 9.0-12.2 fL Immature Granulocyte % (Auto) 1 % Neutrophils (%) (Auto) 76 H 42-75 % Lymphocytes (%) (Auto) 13 12-44 % Monocytes (%) (Auto) 8 0-12 % Eosinophils (%) (Auto) 2 0-10 % Basophils (%) (Auto) 0 0-10 % Neutrophils # (Auto) 9.5 H 1.8-7.8 10^3/uL Lymphocytes # (Auto) 1.6 1.0-4.0 10^3/uL Monocytes # (Auto) 1.0 0.0-1.0 10^3/uL Eosinophils # (Auto) 0.3 0.0-0.3 10^3/uL Basophils # (Auto) 0.0 0.0-0.1 10^3/uL Immature Granulocyte # (Auto) 0.1 0.0-0.1 10^3/uL My Orders Orders - ELANA WEI DO Ekg Tracing (11/01/22 20:41) Ed Iv/Invasive Line Start (11/01/22 20:45) Ekg Tracing (11/01/22 20:45) O2 (11/01/22 20:45) Monitor-Rhythm Ecg Trace Only (11/01/22 20:45) Chest 1 View, Ap/Pa Only (11/01/22 20:45) Alcohol (11/01/22 20:45) Arterial Blood Gas (11/01/22 20:45) Bnp Hall (11/01/22 20:45) Cbc With Automated Diff (11/01/22 20:45) Comprehensive Metabolic Panel (11/01/22 20:45) Creatine Kinase (11/01/22 20:45) Creatine Kinase Mb (11/01/22 20:45) Hs C Reactive Protein (11/01/22 20:45) Fibrin Degradation Products (11/01/22 20:45) Lipase (11/01/22 20:45) Magnesium (11/01/22 20:45) Protime With Inr (11/01/22 20:45) Partial Thromboplastin Time (11/01/22 20:45) Erythrocyte Sedimentation Rate (11/01/22 20:45) Myoglobin Serum (11/01/22 20:45) Troponin I Bianka (11/01/22 20:45) Covid 19 Inhouse Test (11/01/22 20:45) Influenza A And B By Pcr (11/01/22 20:45) Isolation Central Supply Req (11/01/22 20:45) Albuterol Pre-Mix Nebs (Rt) (Proventil (11/01/22 21:02) Dexamethasone Injection (Decadron Injec (11/01/22 21:15) Rt Request For Service (11/01/22 21:02) Methylprednisolone Sod Succ (Solu-Medrol (11/01/22 21:02) Svn Small Volume Nebulizer (11/01/22 21:02) Svn Small Volume Nebulizer (11/01/22 21:02) Albuterol/Ipra Inhalation Soln (Duoneb I (11/01/22 21:15) Furosemide Injection (Lasix Injection) (11/01/22 21:15) Cefepime Injection (Maxipime Injection) (11/01/22 21:15) Vital Signs/I&O 11/01/22 20:39 Temp 36.4 Pulse 92 Resp 22 B/P (MAP) 146/86 (106) Pulse Ox 92 O2 Delivery Nasal Cannula O2 Flow Rate 15.00 Capillary Refill : Blood Pressure Mean: 106 Progress Note : Progress Note O2 SAT 60% ON O2 ON ARRIVAL PT IMMEDIATELY PLACED ON BIPAP, WITH RAPID IMPROVEMENT--PT IS NO LONGER DYSPNEIC, AND RESPIRATIONS ARE EVEN AND UNLABORED. PT STATES HE DOES NOT WANT TO BE ON VENTILATOR, BUT IS AGREEABLE TO BIPAP PT STATES HE IS "UNDECIDED" ON WHETHER HE WANTS CPR. GIVEN: -IV STEROIDS -HOUR LONG DUO NEB WITH DECARDON VIA BIPAP -LASIX -SOLU-MEDROL -CEFEPIME CXR SHOWS CHF, WITH SOME UNDERLYING PNEUMONIA SEPSIS PROTOCOL ALSO INITIATED NO DETERIORATION IN PT'S CONDITION RESPIRATIONS ARE EVEN AND UNLABORED, AND LUNG SOUNDS ARE CLEARER WITH MILD RESIDUAL RALES, BUT INCREASED AERATION DISCUSSED TEST RESULTS, NEED FOR ADMIT AND PT AGREES TO PLAN OF CARE COMPLEX MEDICAL MANAGEMENT DUE TO MULTIPLE CO-MORBIDITIES -O2 DEPENDENT COPD -HX OF CAD WITH NSTEMI 06/2022. -CHRONIC RENAL FAILURE/INSUFFICIENCY--NOT ON DIALYSIS -EVIDENCE OF CHF/FLUID OVERLOAD -UNDERLYING PNEUMONIA -NIDDM IV FLUIDS HELD DUE TO PT BEING FLUID OVERLOADED AND IN CHF, WITH CHRONIC RENAL FAILURE/INSUFFICIENCY. REVIEWED PRIOR RECORDS, ER VISITS, ADMITS/H&P'S/CONSULTS/DISCHARGE SUMMARIES, TESTS/PROCEDURES. ECG Initial ECG Impression Date: Nov 01, 2022 Initial ECG Impression Time: 20:45 Initial ECG Rate: 98 Initial ECG Rhythm: Normal Sinus (IVCD) Initial ECG Intervals NC 172 QRS 118 QT/QTC 347/402 Initial ECG Impression: Nonspecific Changes Initial ECG Comparisson: Changed (SLIGHTLY INCREASED CONDUCTION DELAY, SLIGHT CHANGE IN AXIS ) Diagnostic Imaging Comments CXR--PER RADIOLOGIST REPORT AT 2115 FINDINGS: Diffuse bilateral perihilar and bibasilar airspace opacities and interstitial opacities. Cardiomegaly with pulmonary vascular congestion. No pleural effusion or pneumothorax. No acute osseous findings. IMPRESSION: Perihilar and bibasilar airspace opacities and diffuse bilateral interstitial opacities concerning for pulmonary edema. Superimposed infection cannot be excluded. Cardiomegaly with pulmonary vascular congestion. Reviewed: Reviewed by Me Departure Communication (Admissions) 2147--SPOKE WITH DR. CALDERA, HOSPITALIST, ACCEPTS PT FOR ADMIT. Impression Primary Impression: Acute on chronic respiratory failure with hypoxia Additional Impressions: Pneumonia CHF (congestive heart failure) Chronic renal failure NIDDM Disposition: ADMITTED INPATIENT Condition: Improved Admissions Decision to Admit Reason: Admit from ER (General) Decision to Admit/Date: Nov 01, 2022 Time/Decision to Admit Time: 21:50 Departure-Patient Inst. Referrals: TIFFANY ROGERS MD (PCP/Family) Primary Care Physician ELANA WEI DO Nov 01, 2022 21:17
[2022-11-01 21:18] LABS: CALCIUM 9.1 MG/DL (8.5-10.1)
[2022-11-01 21:19] LABS: GLUCOSE 263 MG/DL (70-105)
[2022-11-01 21:20] LABS: ERYTHROCYTE SEDIMENTATION RATE 65 MM/HR (0-30); TOTAL PROTEIN 7.8 GM/DL (6.4-8.2)
[2022-11-01 21:21] LABS: BILIRUBIN,TOTAL 0.6 MG/DL (0.1-1.0); CARBON DIOXIDE 19 MMOL/L (21-32)
[2022-11-01 21:22] LABS: FIBRIN DEGRADATION PRODUCTS 1.15 UG/ML (0.00-0.49); INR 1.1 (0.8-1.4); PROTHROMBIN TIME PATIENT 14.3 SEC (12.2-14.7)
[2022-11-01 21:23] LABS: ALKALINE PHOSPHATASE 104 U/L (40-136); GFR ESTIMATED 23
[2022-11-01 21:24] LABS: BUN/CREATININE RATIO 21
[2022-11-01 21:26] LABS: ALANINE AMINOTRANSFERASE 14 U/L (0-55); MAGNESIUM 1.9 MG/DL (1.6-2.4)
[2022-11-01 21:27] LABS: CREATINE KINASE 273 U/L (30-200); LIPASE 81 U/L (8-78)
[2022-11-01 21:39] LABS: ABG BASE EXCESS -1.3 MMOL/L (-2.5-2.5); ABG OXYGEN SATURATION 92 % (94-100); ABG PCO2 42 MMHG (35-45); ABG PH 7.36 (7.37-7.43); ABG PO2 62 MMHG (79-93); ABG TCO2 24.8 MMOL/L (21.0-31.0)
[2022-11-01 21:39] LABS: CREATINE KINASE MB 17.4 NG/ML (<6.6)
[2022-11-01 21:40] LABS: ALLENS TEST YES-POS; INSPIRED O2 15L; VENTILATOR NO
[2022-11-01 21:41] LABS: PATIENT TEMP 36.4
[2022-11-01 23:27] VITALS: BP 180/66
[2022-11-01] MEDS ORDERED: CATHETER FLUSH 10 ML SYR IVP PRN (23:45)
[2022-11-01] MEDS ORDERED: ACETAMINOPHEN 500 MG TAB (TYLENOL) PO PRN (23:45)
[2022-11-01] MEDS ORDERED: ONDANSETRON 4 MG/2 ML (SDV) Z0FRAN IV PRN (23:45)
[2022-11-01 23:58] VITALS: BP 146/86
[2022-11-02] MEDS ORDERED: EPINEPHrine 1 MG INJECTION 4 MG in NS (IVPB) 248 ML IV SCH ×2
[2022-11-02] MEDS ORDERED: RT-ALBUTEROL/IPRATROPIUM 3 ML (DUONEB) VIAL INH PRN (00:15)
[2022-11-02] MEDS: VASOPRESSIN INJECTION 20 UNIT in NS (IVPB) 100 ML IV SCH ×3 (00:25→23:10)
[2022-11-02] MEDS: NOREPINEPHRINE 8 MG/250 ML 250 ML IV SCH ×2 (00:25→13:43)
[2022-11-02] MEDS ORDERED: NS IV 500 ML 500 ML IV PRN (00:30)
[2022-11-02] MEDS ORDERED: LIDOCAINE UROJET 2% GEL 10 ML PKG ONE (02:23)
[2022-11-02 02:39] VITALS: BP 140/77
[2022-11-02] MEDS: RT-ALBUTEROL/IPRATROPIUM 3 ML (DUONEB) VIAL INH SCH ×6 (02:39→22:26)
[2022-11-02 03:59] LABS: BASOPHILS % (AUTO) 0 % (0-10); EOSINOPHILS % (AUTO) 0 % (0-10); HEMATOCRIT 27 % (40-54); HEMOGLOBIN 8.4 g/dL (13.3-17.7); LYMPHOCYTES # (AUTO) 0.3 10^3/uL (1.0-4.0); LYMPHOCYTES % (AUTO) 3 % (12-44); MEAN CORPUSCULAR HEMOGLOBIN 26 pg (25-34); MEAN CORPUSCULAR HGB CONC 31 g/dL (32-36); MEAN CORPUSCULAR VOLUME 85 fL (80-99); MONOCYTES # (AUTO) 0.1 10^3/uL (0.0-1.0); MONOCYTES % (AUTO) 1 % (0-12); NEUTROPHILS # (AUTO) 7.8 10^3/uL (1.8-7.8); NEUTROPHILS % (AUTO) 95 % (42-75); PLATELET COUNT 270 10^3/uL (130-400); WHITE BLOOD COUNT 8.3 10^3/uL (4.3-11.0)
[2022-11-02 04:16] LABS: ALANINE AMINOTRANSFERASE 18 U/L (0-55); ALBUMIN 3.6 GM/DL (3.2-4.5); ALKALINE PHOSPHATASE 81 U/L (40-136); BILIRUBIN,TOTAL 0.5 MG/DL (0.1-1.0); BUN/CREATININE RATIO 22; CALCIUM 8.2 MG/DL (8.5-10.1); CARBON DIOXIDE 18 MMOL/L (21-32); CHLORIDE 104 MMOL/L (98-107); CREATININE SERUM 3.05 MG/DL (0.60-1.30); GFR ESTIMATED 22; MAGNESIUM 1.7 MG/DL (1.6-2.4); PHOSPHORUS 4.4 MG/DL (2.3-4.7); POTASSIUM 5.2 MMOL/L (3.6-5.0); SODIUM 134 MMOL/L (135-145); TOTAL PROTEIN 6.6 GM/DL (6.4-8.2)
[2022-11-02 04:25] LABS: GLUCOSE 407 MG/DL (70-105)
[2022-11-02 04:36] LABS: ELLIPT/OVALOCYTES SLIGHT; LYMPHOCYTES % (MANUAL) 2 %; METAMYELOCYTES % 1 %; MONOCYTES % (MANUAL) 2 %; NEUTROPHILS % (MANUAL) 95 %
[2022-11-02] MEDS: MAGNESIUM 1 GM/100 ML IVPB 100 ML IV SCH (04:38)
[2022-11-02] MEDS: KCL 20 MEQ TAB (K-DUR) PO SCH (04:38)
[2022-11-02] MEDS: POTASSIUM CL 10MEQ/50ML IVPB 50 ML IV SCH (04:38)
[2022-11-02] MEDS ORDERED: inSUlin ASPART (NovoLOG) 1 UNIT/0.01 ML (CHARGE PER UNIT) SC ONE (04:45)
[2022-11-02] MEDS: CATHETER FLUSH 10 ML SYR IVP SCH ×3 (04:52→23:10)
[2022-11-02] MEDS ORDERED: FUROSEMIDE 40 MG/4 ML INJ (LASIX) IV ONE (05:00)
[2022-11-02] MEDS ORDERED: inSUlin ASPART (NovoLOG) 1 UNIT/0.01 ML (CHARGE PER UNIT) SC SCH (06:00)
[2022-11-02 06:40] VITALS: BP 113/62
--- NOTE | 2022-11-02 08:01 | Diagnostic Imaging Report ---
Indication: Pneumonia and congestive heart failure. Single AP view of the chest is obtained with comparison made to study of 11/01/2022. Cardiomegaly persists. There is mild pulmonary venous congestion. There has been improvement in aeration of the lungs indicating improved edema. IMPRESSION: Improving pulmonary edema with likely background congestive heart failure. Dictated by: Dictated on workstation # [id number]
[2022-11-02] MEDS: CEFEPIME 1,000 MG/NS 50 ML IVPB IV SCH ×4 (08:21→17:18)
--- NOTE | 2022-11-02 08:39 | Consultation-Cardiology ---
HPI-Cardiology Cardiology Consultation Date of Consultation 11/02/22 Date of Admission Time Seen by Provider: 09:14 Indication: CHF HPI Patient is a 62 y/o male with history of recent pneumonia, CHF, CAD, CKD. Presented to the ER with complaints of increased dyspnea and hypoxia. Reports O2 was 60% at home. Complaining of increased shortness of breath, orthopnea and productive cough with white sputum for the past 2-3 days, as well as increased peripheral edema for the past month. Patient reports he was taken off his diuretic by his stock pitcher approx 1 month ago d/t worsening renal function. Reports 20 lb weight gain over the past month. Denies any chest pain, dizziness or syncope. Home Medications & Allergies Allergies: Coded Allergies: No Known Drug Allergies (Unverified , 06/11/22) Home Medication List Reviewed: Yes PRX-Glwwme-Eqxqvw Hx Patient Social History Marital Status: Recreational Drug Use: No Smoking Status: Former Smoker Have you traveled recently?: No Alcohol Use?: Yes Immunizations Up To Date Date of Influenza Vaccine: Jun 10, 2022 Past Medical History CHF, recent pneumonia, COPD, CAD, CKD Family Medical History Significant Family History: No Pertinent Family Hx Review of Systems-General Review of Systems Constitutional: no symptoms reported, malaise, weakness EENTM: no symptoms reported Respiratory: see HPI, cough, dyspnea on exertion; No hemoptysis; orthopnea; No phlegm; short of breath; No stridor, No wheezing, No other Cardiovascular: see HPI; No chest pain; edema; No Hx of Intervention, No palpitations, No syncope, No vascular heart diseas, No other Gastrointestinal: no symptoms reported, see HPI Genitourinary: no symptoms reported, see HPI Musculoskeletal: see HPI (LEG SWELLING) Skin: no symptoms reported, see HPI Psychiatric/Neurological: No Symptoms Reported, See HPI Reviewed Test Results Reviewed Test Results Lab Laboratory Tests 11/01/22 20:45: White Blood Count 12.4H, Red Blood Count 3.89L, Hemoglobin 10.1L, Hematocrit 33L , Mean Corpuscular Volume 85, Mean Corpuscular Hemoglobin 26, Mean Corpuscular Hemoglobin Concent 31L, Red Cell Distribution Width 18.9H, Platelet Count 375, Mean Platelet Volume 9.5, Immature Granulocyte % (Auto) 1, Neutrophils (%) (Auto) 76H, Lymphocytes (%) (Auto) 13, Monocytes (%) (Auto) 8, Eosinophils (%) (Auto) 2, Basophils (%) (Auto) 0, Neutrophils # (Auto) 9.5H, Lymphocytes # (Auto) 1.6, Monocytes # (Auto) 1.0, Eosinophils # (Auto) 0.3, Basophils # (Auto) 0.0, Immature Granulocyte # (Auto) 0.1, Erythrocyte Sedimentation Rate 65H, Prothrombin Time 14.3, INR Comment 1.1, Activated Partial Thromboplast Time 33, D-Dimer 1.15H, Sodium Level 139, Potassium Level 4.6, Chloride Level 104, Carbon Dioxide Level 19L, Anion Gap 16H, Blood Urea Nitrogen 63H, Creatinine 3.00H, Estimat Glomerular Filtration Rate 23, BUN/Creatinine Ratio 21, Glucose Level 263H, Lactic Acid Level 1.86, Calcium Level 9.1, Corrected Calcium 9.1, Magnesium Level 1.9, Total Bilirubin 0.6, Aspartate Amino Transf (AST/SGOT) 18, Alanine Aminotransferase (ALT/SGPT) 14, Alkaline Phosphatase 104, Total Creatine Kinase 273H, Creatine Kinase MB 17.4*H, Myoglobin 235.2H, Troponin I < 0.028, C- Reactive Protein High Sensitivity 2.17H, B-Type Natriuretic Peptide 1572.8H, Total Protein 7.8, Albumin 4.0, Lipase 81H, Serum Alcohol < 10 11/01/22 20:46: Influenza Type A (RT-PCR) Not Detected, Influenza Type B (RT-PCR) Not Detected, SARS-CoV-2 RNA (RT-PCR) Not Detected 11/01/22 20:48: Blood Gas Puncture Site RIGHT RADIAL, Blood Gas Patient Temperature 36.4, Arterial Blood pH 7.36L, Arterial Blood Partial Pressure CO2 42, Arterial Blood Partial Pressure O2 62L, Arterial Blood HCO3 24, Arterial Blood Total CO2 24.8, Arterial Blood Oxygen Saturation 92L, Arterial Blood Base Excess -1.3, Juan Test YES-POS, Blood Gas Ventilator Setting NO, Blood Gas Inspired Oxygen 15L 11/02/22 03:28: White Blood Count 8.3, Red Blood Count 3.22L, Hemoglobin 8.4L, Hematocrit 27L, Mean Corpuscular Volume 85, Mean Corpuscular Hemoglobin 26, Mean Corpuscular Hemoglobin Concent 31L, Red Cell Distribution Width 18.6H, Platelet Count 270, Mean Platelet Volume 10.0, Immature Granulocyte % (Auto) 1, Neutrophils (%) (Auto) 95H, Lymphocytes (%) (Auto) 3L, Monocytes (%) (Auto) 1, Eosinophils (%) (Auto) 0, Basophils (%) (Auto) 0, Neutrophils # (Auto) 7.8, Lymphocytes # (Auto) 0.3L, Monocytes # (Auto) 0.1, Eosinophils # (Auto) 0.0, Basophils # (Auto) 0.0, Immature Granulocyte # (Auto) 0.1, Sodium Level 134L, Potassium Level 5.2H, Chloride Level 104, Carbon Dioxide Level 18L, Anion Gap 12, Blood Urea Nitrogen 67H, Creatinine 3.05H, Estimat Glomerular Filtration Rate 22, BUN/Creatinine Rat io 22, Glucose Level 407*H, Calcium Level 8.2L, Corrected Calcium 8.5, Magnesium Level 1.7, Total Bilirubin 0.5, Aspartate Amino Transf (AST/SGOT) 10, Alanine Aminotransferase (ALT/SGPT) 18, Alkaline Phosphatase 81, Troponin I < 0.028, Total Protein 6.6, Albumin 3.6, Neutrophils % (Manual) 95, Lymphocytes % (Manual) 2, Monocytes % (Manual) 2, Metamyelocytes % 1, Elliptocytes SLIGHT, Phosphorus Level 4.4 Physical Exam Physical Exam Vital Signs Vital Signs - First Documented 11/01/22 11/01/22 20:39 23:37 Temp 36.4 Pulse 92 Resp 22 B/P (MAP) 146/86 (106) Pulse Ox 92 O2 Delivery Nasal Cannula O2 Flow Rate 15.00 FiO2 60 Capillary Refill : Less Than 3 Seconds Height, Weight, BMI Height: '" Weight: lbs. oz. kg; 36.73 BMI Method: General Appearance: WD/WN, Mild Distress HEENT: Normal ENT Inspection Neck: Non Tender, Supple Respiratory: No Accessory Muscle Use, No Respiratory Distress, Wheezing, Other (bilateral rales) Cardiovascular: Regular Rate, Rhythm, No Murmur, Systolic Murmur Gastrointestinal: Non Tender, Soft Back: No CVA Tenderness Extremity: Normal Capillary Refill, Normal Range of Motion, Pedal Edema Neurologic/Psychiatric: Alert, Oriented x3, No Motor/Sensory Deficits Skin: Normal Color, Warm/Dry A/P-Cardiology Admission Diagnosis Acute on chronic respiratory failure Pneumonia CHF CAD Assessment/Plan Acute on chronic respiratory failure with hypoxia, likely multifactorial with pneumonia and CHF Started on diuretics, I will add Bumex 1 dose and evaluate tolerance and response Starting bronchodilators. Pneumonia, started on antibiotics, management per medical services Congestive heart failure, acute on chronic left ventricular systolic dysfunction. Maintained on beta davy as outpatient. Intolerance to VAL-I/ARB d/t underlying kidney disease. Patient unable to afford Jardiance. Reports diuretic discontinued approx 1 month ago d/t renal function. Limited 2D Echo done June 2022 to assess ejection fraction showing normal left ventricular chamber size with severe concentric hypertrophy. Normal left ventricular systolic function with an estimated ejection fraction of 50-60%. The left ventricular diastolic function was not determined on this study. The pulmonary artery pressure was not determined on this study as no Doppler was performed. Compared to the previous study from 06/11/2022, there has been no significant change in the ejection fraction. Diurese as tolerated. Planning to reevaluate 2D Echo Coronary artery disease, History of NSTEMI in June of 2022. Stress test done June [address] Ugarte showing large, severe intensity, partially reversible basal to apical inferior and lateral defect with a small amount of inducible ischemia at the apex with a SSS 23, SDS 4. Mid to distal lateral akinesis with global hypokinesis elsewhere with severe left ventricular systolic dysfunction with a calculated ejection fraction of 28%. Patient did not undergo LHC at the time d/t underlying kidney function. Has been medically managed, maintained on ASA, Plavix and beta davy, statin Was scheduled for viability study with dobutamine stress echo as outpatient today. Will plan for this once more clinically stable Chronic kidney failure, stage IV. Monitor renal function. Hypertension, continue to monitor. Hyperlipidemia, maintained on statin as outpatient Diabetes mellitus, poor control, did not take his diabetic medicine on November 01, 2022 Managed by medical team History of anemia Pulmonary hypertension, repeat 2D echo Obesity Thank you for allowing us to participate in the management of Mr. Norman Juarez. This is Tanja Adames PA-C, as a scribe for Dr. Fowler. Patient was seen and evaluated with Tanja, I interviewed and examined the patient, discussed the management plan with Tanja and agree with the current scribed note. I made few modification using Italic font Patient has been having increasing fatigue and shortness of breath and pedal edema, has stopped taking his diuretics for the past month. Denied any fever or chills, has been having cough Appears to have wheezing and bilateral rhonchi. Pleural effusion noted on 2D echo, was not mentioned on his chest x-ray. Planning to repeat upright chest x-ray I will give additional dose of Bumex and start bronchodilators Diabetic management per medical team TANJA WHITMAN November 02, 2022 08:39 SUGEY FOWLER MD November 02, 2022 09:13
[2022-11-02] MEDS ORDERED: CEFEPIME 1,000 MG/NS 50 ML IVPB IV SCH ×2 (09:00)
[2022-11-02] MEDS ORDERED: BUMETANIDE 1 MG/4 ML (BUMEX) VIAL IV NR (09:30)
--- NOTE | 2022-11-02 09:57 | Diagnostic Imaging Report ---
INDICATION: Left shoulder pain. COMPARISON: 11/02/2022. FINDINGS: Enlargement of the cardiac silhouette has not clearly changed from prior. There is vascular distention and bilateral edema, increased in conspicuity. On the lateral view, we can confirm small posterior sulcal pleural effusions. There is no pneumothorax. IMPRESSION: Likely worsened edema. Small pleural effusions and similar cardiomegaly. Dictated by: Dictated on workstation # [id number]
--- NOTE | 2022-11-02 10:50 | Tele-ICU Consult ---
History of Present Illness History of Present Illness Date Seen by Provider: November 02, 2022 Time Seen by Provider: 10:50 Date of Admission Reason for Visit: CHF History of Present Illness (Tele-ICU Physician , consultation as per request of PCP Service provided via interactive audio and video telecommunPayfirma E-CARE system to a patient admitted to ICU bed in [facility]. Available chart/ vitals / labs / Images reviewed H&P is from ER notes Patient's information available about PMH, Shx, Fhx allergy reviewed inEMR. ROS as per chart and RN report Now in ICU, hemodynamically stable Video assessment done using teleICU camera, rest of exam as per RN Discussed with RN. Hospital course: RECENT hospitalization 08/24 - Tx in icu for PNA , CHF , VT/Bipap- improved after 18L negative volume balance 11/01: 62 y/o male presented to the ED. CXR: concerning for pulmonary edema A/P Acute resp failure with VO . pulm edema -Bipap 06/09 40 % on 4 L o2 now -diuresis initiated by cards ( 20 lb weight gain over the past month. Pulmonary hypertension - severe by ECHO 06/2022- and 11/02/22 - RVSP 70 ( Nl perfusion scan 06/12/22) - cont diuresis acute on chronic left ventricular systolic dysfunction. , CAD, NSTEMI in Dece mber of 2021. - as per cards Chronic intermittent hypoxia ( nocturnal , exertions - most likely due to all above - No CXR evidence of ILD 06/2022, but never had any PFT or CT. CKD -stable , doiuresis - n- has renal MD - need inpatient f/up if worsening Acute and chronic anemia. - s/p transfusion 08/31 -stable on this admission , follow PNA , suspected - empiric tx , Hyperglycemia - ISS - long acting ? Nutritions - Po - adequate Lines : periph , (Central Line Necessity Reviewed) Chua: 11/01 OG: Nutrition: po Analgesia: Anxiety/ delirium VTE Prophylaxis: cory ? Stress Ulcer Prophylaxis: na Plans in collaboration with bedside consultants and IM MDs. Discussed with RN to reach out if any questions or concerns A total of 31 minutes of critical care time was devoted to this patient today, required to treat and/or prevent further deterioration of critical care condition ( as above ) . I am remotely monitoring this patient from another state. I am unable to do the bedside exam, and history/physical and pertinent information is taken from other notes in the computer and bedside staff. Allergies and Home Medications Allergies Coded Allergies: No Known Drug Allergies (Unverified , 06/11/22) Home Medications Alprazolam 1 Mg Tablet, 0.5-1 MG PO Q8H PRN for ANXIETY, (Reported) Amlodipine Besylate 10 Mg Tablet, 10 MG PO DAILY, (Reported) Aspirin 81 Mg Tablet.dr, 81 MG PO DAILY, (Reported) Clopidogrel Bisulfate 75 Mg Tablet, 75 MG PO DAILY, (Reported) Ergocalciferol (Vitamin D2) 1,250 Mcg (13253 Unit) Capsule, 1,250 MCG PO WEDNESDAY, (Reported) Fluticasone/Salmeterol 113 Mcg-14 Mcg/Actuation Aer.pow.ba, 1 EACH IH RTBID Prescribed by: TIFFANY ROGERS on 09/07/22810 Glyburide 5 Mg Tablet, 5 MG PO DAILY, (Reported) Metolazone 2.5 Mg Tablet, 5 MG PO DAILY Prescribed by: TIFFANY ROGERS on 09/07/22 08 Metoprolol Succinate 100 Mg Tab.er.24h, 100 MG PO BID, (Reported) Montelukast Sodium 10 Mg Tablet, 10 MG PO HS Prescribed by: TIFFANY ROGERS on 09/07/22810 Rosuvastatin Calcium 20 Mg Tablet, 20 MG PO HS, (Reported) Sodium Bicarbonate 650 Mg Tablet, 1,300 MG PO BID, (Reported) TKAES 2 (650MG) TABS Past Medical/Social/Family Hx Patient Social History Marrital Status: Tobacco Use?: Yes Tobacco type used: Cigarettes Smoking Status: Former Smoker Smokeless type used: Chew Smokeless Tobacco Frequency: Former User Use of E-Cig and/or Vaping dev: No Substance use?: No Alcohol Use?: Yes Alcohol Frequency: Once in a while Pt stated abuse/neglect: No Immunizations Up To Date Influenza Vaccine Up-to-Date: Yes; Up-to-Date First/Initial COVID19 Vaccinat: 2020 Second COVID19 Vaccination Clark: 2020 Tetanus Booster (TDap): Unknown Hepatitis A: Yes Hepatitis B: Yes TB Skin Test: None Current Status Advance Directives: No Communicates: Verbally Primary Language: Burundian Preferred Spoken Language: Burundian Is interpretation needed?: No Implanted or Applied Medical D: None Review of Systems Constitutional: see HPI Focused Exam Lactate Level 11/01/22 20:45: Lactic Acid Level 1.86 Height, Weight, BMI Height: '" Weight: lbs. oz. kg; 36.73 BMI Method: Time of Focused Exam: 21:30 Exam Exam Patient acknowledged, consented, and participated in this virtual visit which was conducted using real time audio/video Vital Signs Date Time Temp Pulse Resp B/P (MAP) Pulse Ox O2 Delivery O2 Flow Rate FiO2 11/02/22 10:00 98 20 153/81 (105) 94 High Flow N/C 6.00 11/02/22 09:48 94 High Flow N/C 6.00 11/02/22 09:00 101 35 152/78 (102) 92 High Flow N/C 4.00 11/02/22 08:00 89 9 116/95 (102) 94 High Flow N/C 4.00 11/02/22 08:00 36.3 11/02/22 07:45 98 Room Air 4.00 11/02/22 07:16 High Flow N/C 4.00 11/02/22 07:08 79 11/02/22 07:00 74 20 117/64 (81) 98 NIV Bilevel 40.00 11/02/22 06:40 70 21 99 40.00 11/02/22 06:00 70 16 113/62 (80) 99 NIV Bilevel 40.00 11/02/22 05:00 80 17 125/70 (91) 97 NIV Bilevel 40.00 11/02/22 04:50 NIV Bilevel 40.00 11/02/22 04:14 36.4 11/02/22 04:00 75 20 136/68 (102) 98 NIV Bilevel 50.00 11/02/22 03:55 99 NIV Bilevel 50.00 11/02/22 03:50 99 NIV CPAP 50 11/02/22 03:00 73 16 124/61 (82) 98 NIV Bilevel 60.00 11/02/22 02:39 78 25 96 60.00 11/02/22 02:00 70 14 125/65 (89) 98 NIV Bilevel 60.00 11/02/22 01:00 72 11/02/22 01:00 72 17 123/65 (80) 97 NIV Bilevel 60.00 11/02/22 00:45 73 17 124/68 (93) 97 NIV Bilevel 60.00 11/02/22 00:30 75 15 134/70 (102) 97 NIV Bilevel 60.00 11/02/22 00:15 80 19 139/77 (104) 97 NIV Bilevel 60.00 11/02/22 00:00 82 21 144/77 (107) 97 NIV Bilevel 60.00 11/01/22 23:58 36.4 92 92 11/01/22 23:45 88 150/98 (110) 94 NIV Bilevel 60.00 11/01/22 23:37 98 NIV CPAP 60 11/01/22 23:34 141/83 (102) NIV Bilevel 60.00 11/01/22 23:27 96 33 100 60.00 11/01/22 23:20 100 11/01/22 23:18 36.9 87 26 180/88 (118) 100 NIV Bilevel 60.00 11/01/22 23:10 75 22 136/81 100 NIV CPAP 11/01/22 21:17 82 18 100 100.00 11/01/22 20:45 93 OxyMask 15.00 11/01/22 20:39 36.4 92 22 146/86 (106) 92 Nasal Cannula 15.00 I & O 11/02/22 07:00 Intake Total 1900 ml Output Total 1275 ml Balance 625 ml Height & Weight Height: '" Weight: lbs. oz. kg; 36.73 BMI Method: General Appearance: No Apparent Distress, WD/WN, Mild Distress HEENT: Normal ENT Inspection Neck: Non Tender, Supple Respiratory: No Accessory Muscle Use, No Respiratory Distress, Wheezing, Other (bilateral rales) Cardiovascular: Regular Rate, Rhythm, No Murmur, Systolic Murmur Capillary Refill: Less Than 3 Seconds Gastrointestinal: non tender, soft Extremity: Normal Capillary Refill, Normal Range of Motion, Pedal Edema Neurologic/Psychiatric: Alert, Oriented x3, No Motor/Sensory Deficits Skin: Normal Color, Warm/Dry Results Lab Laboratory Tests 11/01/22 20:45 11/02/22 03:28 Assessment/Plan Assessment/Plan 1 ELEAZAR VARNER MD November 02, 2022 10:50
[2022-11-02 11:06] VITALS: BP 152/89
[2022-11-02] MEDS: fentaNYL INJ 100 MCG/2 ML AMP IV PRN ×2 (11:11→13:48)
[2022-11-02] MEDS: inSUlin ASPART (NovoLOG) 1 UNIT/0.01 ML (CHARGE PER UNIT) SC SCH ×3 (11:11→20:48)
[2022-11-02] MEDS: ENOXAPARIN INJECTION 30 MG/0.3 ML SYR SC SCH (13:43)
[2022-11-02] MEDS ORDERED: MONT-40 PO ×2 (14:45)
[2022-11-02] MEDS ORDERED: TORS20TA3 PO ×2 (14:45)
--- NOTE | 2022-11-02 15:07 | Consultation ---
History of Present Illness History of Present Illness Patient Consulted On(clark/time) 11/02/22 14:54 Date Seen by Provider: November 02, 2022 Time Seen by Provider: 15:06 Reason for Visit: CHF History of Present Illness Mr. Norman Juarez is a very pleasant 62 y/o WM with past medical history of dm, htn, and arthritis seen during admission at [facility] with elevated creatinine and volume overload. Was seen in my office 09/22/22 and was told to increase torsemide to 20mg. Pt states that his weight did go up since that visit over the past few weeks. He ended up gaining. 180 09/07/22 at time of d/c from the hospital now up to 200lbs. Not eating much. Allergies and Home Medications Allergies Coded Allergies: No Known Drug Allergies (Unverified , 06/11/22) Patient Home Medication List Home Medication List Reviewed: Yes Alprazolam (Alprazolam) 1 Mg Tablet, 1.5 MG PO HS, (Reported) Entered as Reported by: CAMERON WALDRON on 06/11/22 160 Last Action: Reviewed Amlodipine Besylate (Amlodipine Besylate) 10 Mg Tablet, 10 MG PO DAILY, (Reported) Entered as Reported by: YEIMY HAYS on 08/24/22 152 Last Action: Reviewed Aspirin (Aspirin EC) 81 Mg Tablet.dr, 81 MG PO DAILY, (Reported) Entered as Reported by: YEIMY HAYS on 08/24/22 152 Last Action: Reviewed Clopidogrel Bisulfate (Clopidogrel) 75 Mg Tablet, 75 MG PO DAILY, (Reported) Entered as Reported by: YEIMY HAYS on 08/24/22 152 Last Action: Reviewed Glyburide (Glyburide) 5 Mg Tablet, 5 MG PO DAILY, (Reported) Entered as Reported by: CAMERON WALDRON on 06/11/22 160 Last Action: Reviewed Metoprolol Succinate (Metoprolol Succinate) 100 Mg Tab.er.24h, 100 MG PO BID, (Reported) Entered as Reported by: YEIMY HAYS on 08/24/22 152 Last Action: Reviewed Montelukast Sodium (Montelukast Sodium) 10 Mg Tablet, 10 MG PO HS, (Reported) Entered as Reported by: CAMERON WALDRON on 11/02/22 1445 Last Action: Reviewed Rosuvastatin Calcium (Rosuvastatin Calcium) 20 Mg Tablet, 20 MG PO HS, (Reported) Entered as Reported by: YEIMY HAYS on 08/24/221520 Last Action: Reviewed Sodium Bicarbonate (Sodium Bicarbonate) 650 Mg Tablet, 1,300 MG PO BID, (Reported) Entered as Reported by: YEIMY HAYS on 08/24/221520 Last Action: Reviewed Torsemide (Torsemide) 20 Mg Tablet, 20 MG PO DAILY, (Reported) Entered as Reported by: CAMERON WALDRON on 11/02/22 1445 Last Action: Reviewed Discontinued Medications Ergocalciferol (Vitamin D2) (Vitamin D2) 1,250 Mcg (24345 Unit) Capsule, 1,250 MCG PO WEDNESDAY, (Reported) Discontinued Reason: No Longer Taking Entered as Reported by: YEIMY HAYS on 08/24/221520 Last Action: Discontinued Fluticasone/Salmeterol (Fluticasone-Salmeterol 113-14) 113 Mcg-14 Mcg/Actuation Aer.pow.ba, 1 EACH IH RTBID Discontinued Reason: No Longer Taking Prescribed by: TIFFANY ROGERS on 09/07/22810 Last Action: Discontinued Metolazone (Metolazone) 2.5 Mg Tablet, 5 MG PO DAILY Discontinued Reason: No Longer Taking Prescribed by: TIFFANY ROGERS on 09/07/22810 Last Action: Discontinued Montelukast Sodium (Montelukast Sodium) 10 Mg Tablet, 10 MG PO HS Discontinued Reason: Duplicate Order Prescribed by: TIFFANY ROGERS on 09/07/22810 Last Action: Discontinued Past Vkasfeu-Bcekdo-Izfwlf Hx Patient Social History Tobacco Use?: Yes Tobacco type used: Cigarettes Smoking Status: Former Smoker Smokeless Tobacco Frequency: Former User Use of E-Cig and/or Vaping dev: No Substance use?: No Alcohol Use?: Yes Alcohol Frequency: Once in a while Pt feels they are or have been: No Immunizations Up To Date Influenza Vaccine Up-to-Date: Yes; Up-to-Date First/Initial COVID19 Vaccinat: 2020 Second COVID19 Vaccination Clark: 2020 Third COVID19 Vaccination Date: 2020 Past Medical History Surgery/Hospitalization HX: - JUNE Surgeries: No Respiratory: Yes (Chronic SOA, pulmonary HTN; O2 AT 2-3L/NC CONTINUOUSLY) Pneumonia, COPD Cardiac: Yes (NSTEMI 06/2022--NO CATH OR INTERVENTION) Chronic Edema/Swelling, Coronary Artery Disease, Heart Attack, High Cholesterol, Hypertension Neurological: No Genitourinary: Yes (NO DIALYSIS. ) Renal Failure Gastrointestinal: No Musculoskeletal: No Endocrine: Yes Diabetes, Non-Insulin dep HEENT: No Cancer: No Psychosocial: Yes Anxiety, Depression Integumentary: No Blood Disorders: No Family Medical History No Pertinent Family Hx Review of Systems-General Constitutional: see HPI Physical Exam-General Problems Physical Exam Vital Signs Vital Signs - First Documented 11/01/22 11/01/22 20:39 23:37 Temp 36.4 Pulse 92 Resp 22 B/P (MAP) 146/86 (106) Pulse Ox 92 O2 Delivery Nasal Cannula O2 Flow Rate 15.00 FiO2 60 Capillary Refill : Less Than 3 Seconds General Appearance: no apparent distress Cardiovascular: No no edema Assessment/Plan Assessment/Plan Admission Diagnosis/Plan СЕРГЕЙ on CKD 4 baseline recently around 3 after recent СЕРГЕЙ Plan to continue to diurese mobilize fluid with compression socks lower sodium intake continue diuretics and daily weights volume overload overall volume status better than last admission monitor weight daily on bumex; received dose today lasix this am will schedule [id number] bid iv starting 11/03/22 acute resp failure due to overload cardiology following as well manage volume as tolerated above HTN goal <140/90 monitor for orthostatics anemia monitor for bleeding could be contributing to soa as well MOODY JAY MD November 02, 2022 15:07
--- NOTE | 2022-11-02 18:14 | History & Physicial ---
History of Present Illness History of Present Illness Reason for visit/HPI 62-year-old male presents to [facility] emergency department on November 01, 2022 with hypoxemia as well as dyspnea. He recently this year has been admitted twice for dyspnea, congestive heart failure, pulmonary edema as well as chronic kidney disease. His stated he was watching TV and became extremely short of breath and they checked his home saturations and it was noted to be 50 perc entile. He was on 2-3 L nasal cannula at that time. Patient requested that his bring him to the emergency department. Patient is scheduled to have echocardiogram on November 02, 2022 as he did have a NSTEMI in June 2022. 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 His states he has gained about 20 pounds over the past month. His and him realize that the balancing act controlling his fluids and keeping his kidneys healthy. He is also diabetic and has been on oral control and he does not desire to go on injections. Date of Admission Nov 01, 2022 at 23:13 Date Seen by a Provider: November 02, 2022 Time Seen by a Provider: 11:45 I consulted on this patient on 11/02/22 18:09 Attending Physician Frank Rogers MD Admitting Physician Admitting Physician: Janet Urbina DO Attending Physician: Janet Urbina DO Consult Allergies and Home Medications Allergies Coded Allergies: No Known Drug Allergies (Unverified , 06/11/22) Patient Home Medication List Home Medication List Reviewed: Yes Alprazolam (Alprazolam) 1 Mg Tablet, 1.5 MG PO HS, (Reported) Entered as Reported by: CAMERON WALDRON on 06/11/22 0529 Last Action: Reviewed Amlodipine Besylate (Amlodipine Besylate) 10 Mg Tablet, 10 MG PO DAILY, (Reported) Entered as Reported by: YEIMY HAYS on 08/24/22 152 Last Action: Reviewed Aspirin (Aspirin EC) 81 Mg Tablet.dr, 81 MG PO DAILY, (Reported) Entered as Reported by: YEIMY HAYS on 08/24/22 152 Last Action: Reviewed Clopidogrel Bisulfate (Clopidogrel) 75 Mg Tablet, 75 MG PO DAILY, (Reported) Entered as Reported by: YEIMY HAYS on 08/24/22 152 Last Action: Reviewed Glyburide (Glyburide) 5 Mg Tablet, 5 MG PO DAILY, (Reported) Entered as Reported by: CAMERON WALDRON on 06/11/22 1609 Last Action: Reviewed Metoprolol Succinate (Metoprolol Succinate) 100 Mg Tab.er.24h, 100 MG PO BID, (Reported) Entered as Reported by: YEIMY HAYS on 08/24/22 152 Last Action: Reviewed Montelukast Sodium (Montelukast Sodium) 10 Mg Tablet, 10 MG PO HS, (Reported) Entered as Reported by: CAMERON WALDRON on 11/02/22 1445 Last Action: Reviewed Rosuvastatin Calcium (Rosuvastatin Calcium) 20 Mg Tablet, 20 MG PO HS, (Reported) Entered as Reported by: YEIMY HAYS on 08/24/221520 Last Action: Reviewed Sodium Bicarbonate (Sodium Bicarbonate) 650 Mg Tablet, 1,300 MG PO BID, (Reported) Entered as Reported by: YEIMY HAYS on 08/24/22 152 Last Action: Reviewed Torsemide (Torsemide) 20 Mg Tablet, 20 MG PO DAILY, (Reported) Entered as Reported by: CAMERON WALDRON on 11/02/22 1445 Last Action: Reviewed Discontinued Medications Ergocalciferol (Vitamin D2) (Vitamin D2) 1,250 Mcg (88338 Unit) Capsule, 1,250 MCG PO WEDNESDAY, (Reported) Discontinued Reason: No Longer Taking Entered as Reported by: YEIMY HAYS on 08/24/221520 Last Action: Discontinued Fluticasone/Salmeterol (Fluticasone-Salmeterol 113-14) 113 Mcg-14 Mcg/Actuation Aer.pow.ba, 1 EACH RTBID Discontinued Reason: No Longer Taking Prescribed by: FRANK ROGERS on 09/07/22810 Last Action: Discontinued Metolazone (Metolazone) 2.5 Mg Tablet, 5 MG PO DAILY Discontinued Reason: No Longer Taking Prescribed by: FRANK ROGERS on 09/07/22810 Last Action: Discontinued Montelukast Sodium (Montelukast Sodium) 10 Mg Tablet, 10 MG PO HS Discontinued Reason: Duplicate Order Prescribed by: FRANK ROGERS on 09/07/22810 Last Action: Discontinued Past Zlbmuac-Yqjiqs-Qncsdb Hx Patient Social History Marrital Status: Smoking Status: Former Smoker Have you traveled recently?: No Alcohol Use?: Yes Pt feels they are or have been: No Tobacco type used: Cigarettes Immunizations Up To Date Date of Influenza Vaccine: Jun 10, 2022 Surgeries No Respiratory Yes (Chronic SOA, pulmonary HTN; O2 AT 2-3L/NC CONTINUOUSLY) Cardiovascular Yes (NSTEMI 06/2022--NO CATH OR INTERVENTION) Chronic Edema/Swelling, Coronary Artery Disease, Heart Attack, High Cholesterol, Hypertension Neurological No Genitourinary Yes (NO DIALYSIS. ) Renal Failure Gastrointestinal No Musculoskeletal No Endocrine History of Endocrine Disorders: Yes Endocrine Disorders: Diabetes, Non-Insulin dep HEENT History of HEENT Disorders: No Cancer No Psychosocial History of Psychiatric Problem: Yes Behavioral Health Disorders: Anxiety, Depression Integumentary History of Skin or Integumenta: No Blood Transfusions History of Blood Disorders: No Family Medical History Significant Family History: No Pertinent Family Hx Review of Systems Constitutional: see HPI Physical Exam Vital Signs Vital Signs - First Documented 11/01/22 11/01/22 20:39 23:37 Temp 36.4 Pulse 92 Resp 22 B/P (MAP) 146/86 (106) Pulse Ox 92 O2 Delivery Nasal Cannula O2 Flow Rate 15.00 FiO2 60 Capillary Refill : Less Than 3 Seconds Height, Weight, BMI Height: '" Weight: lbs. oz. kg; 36.73 BMI Method: General Appearance: Mild Distress (And he is wearing BiPAP) Eyes: Bilateral Eye Normal Inspection HEENT: Other (BiPAP on difficult to evaluate oral exam) Neck: Supple Respiratory: Accessory Muscle Use (Mild), Rales (In basis) Cardiovascular: Regular Rate, Rhythm Gastrointestinal: Soft Rectal: Deferred Back: Normal Inspection Extremity: Pedal Edema (2+) Skin: Normal Color Comments [facility], [place] NAME: ELVA OLIVEIRAKENRICK REC#: [id number] PT STATUS: REG ER : 1960 PHYSICIAN: ELANA WEI DO ADMIT DATE: 11/01/22/ER Signed Date of Exam:11/01/22 CHEST 1 VIEW, AP/PA ONLY CHEST 1 VIEW, AP/PA ONLY INDICATION: DYSPNEA, CP. COMPARISON: Chest radiograph 09/05/2022 FINDINGS: Diffuse bilateral perihilar and bibasilar airspace opacities and interstitial opacities. Cardiomegaly with pulmonary vascular congestion. No pleural effusion or pneumothorax. No acute osseous findings. IMPRESSION: Perihilar and bibasilar airspace opacities and diffuse bilateral interstitial opacities concerning for pulmonary edema. Superimposed infection cannot be excluded. Cardiomegaly with pulmonary vascular congestion. Dictated by: Dictated on workstation # [id number] Dict: 11/01/222109 Trans: 11/01/222111 [facility] [place] [id number] Interpreted by: EDWARD ANGEL DO Electronically signed by: EDWARD ANGEL DO 11/01/222111 Assessment/Plan Assessment and Plan 1. Respiratory failure with hypoxemia and acute on chronic -further ICU care and monitoring -Oxygen by BiPAP -Pulmonary consultation 2. Congestive heart failure -. Cardiology involvement -Diuresis has been initiated 3. Chronic renal disease -Dr. Chaves consulted as well -10 daily 4. Questionable pneumoniaby x-ray -He has been started on cefepime in ED and this will be continued until we can prove otherwise no pneumonia is present 5. Ldq-aldizgw-vxckxqcxn diabetes mellitus -Sliding scale insulin -Diabetic diet Admission Diagnosis 1. Respiratory failure with hypoxemia and acute on chronic 2. Congestive heart failure 3. Chronic renal disease 4. Questionable pneumoniaby x-ray 5. Iqe-dtabcnz-fudodbady diabetes mellitus Admission Status: Inpatient Order (span 2 midnights) Reason for Inpatient Admission: Further pulmonary, cardiac as well as nephrology care. He is currently on supplemental oxygen by BiPAP FRANK ROGERS MD November 02, 2022 18:14
[2022-11-02 22:26] VITALS: BP 147/89
[2022-11-03] MEDS: CEFEPIME 1,000 MG/NS 50 ML IVPB IV SCH ×4 (00:02→08:00)
[2022-11-03] MEDS: RT-ALBUTEROL/IPRATROPIUM 3 ML (DUONEB) VIAL INH SCH ×6 (02:29→22:26)
[2022-11-03] MEDS: NOREPINEPHRINE 8 MG/250 ML 250 ML IV SCH ×2 (03:55→17:57)
[2022-11-03 04:39] LABS: BASOPHILS % (AUTO) 0 % (0-10); EOSINOPHILS % (AUTO) 0 % (0-10); HEMATOCRIT 26 % (40-54); HEMOGLOBIN 8.1 g/dL (13.3-17.7); LYMPHOCYTES # (AUTO) 0.4 10^3/uL (1.0-4.0); LYMPHOCYTES % (AUTO) 3 % (12-44); MEAN CORPUSCULAR HEMOGLOBIN 26 pg (25-34); MEAN CORPUSCULAR HGB CONC 31 g/dL (32-36); MEAN CORPUSCULAR VOLUME 84 fL (80-99); MEAN PLATELET VOLUME 9.6 fL (9.0-12.2); MONOCYTES # (AUTO) 0.6 10^3/uL (0.0-1.0); MONOCYTES % (AUTO) 5 % (0-12); NEUTROPHILS # (AUTO) 9.9 10^3/uL (1.8-7.8); NEUTROPHILS % (AUTO) 91 % (42-75); PLATELET COUNT 231 10^3/uL (130-400); WHITE BLOOD COUNT 10.8 10^3/uL (4.3-11.0)
[2022-11-03 05:08] LABS: ALBUMIN 3.5 GM/DL (3.2-4.5); BILIRUBIN,TOTAL 0.4 MG/DL (0.1-1.0); CALCIUM 8.2 MG/DL (8.5-10.1); CREATININE SERUM 3.14 MG/DL (0.60-1.30); MAGNESIUM 1.8 MG/DL (1.6-2.4); PHOSPHORUS 4.7 MG/DL (2.3-4.7); POTASSIUM 4.8 MMOL/L (3.6-5.0); TOTAL PROTEIN 6.5 GM/DL (6.4-8.2)
[2022-11-03] MEDS: POTASSIUM CL 10MEQ/50ML IVPB 50 ML IV SCH (05:15)
[2022-11-03] MEDS: KCL 20 MEQ TAB (K-DUR) PO SCH (05:15)
[2022-11-03] MEDS: MAGNESIUM 1 GM/100 ML IVPB 100 ML IV SCH (05:15)
[2022-11-03] MEDS: FUROSEMIDE 40 MG/4 ML INJ (LASIX) IVP SCH ×2 (06:19→16:50)
[2022-11-03] MEDS: inSUlin ASPART (NovoLOG) 1 UNIT/0.01 ML (CHARGE PER UNIT) SC SCH ×4 (06:19→20:49)
[2022-11-03] MEDS: CATHETER FLUSH 10 ML SYR IVP SCH ×3 (06:20→23:15)
[2022-11-03 06:48] VITALS: BP 140/83
[2022-11-03] MEDS ORDERED: BUMETANIDE 1 MG/4 ML (BUMEX) VIAL ONE (08:59)
[2022-11-03] MEDS: METOLAZONE 2.5 MG (ZAROXOLYN) TAB PO SCH (09:00)
[2022-11-03] MEDS: VASOPRESSIN INJECTION 20 UNIT in NS (IVPB) 100 ML IV SCH ×2 (09:00→20:49)
[2022-11-03] MEDS ORDERED: meTOprolol TARTRATE 50 MG (LOPRESSOR) TAB ONE (10:10)
[2022-11-03] MEDS ORDERED: amLODIPine 10 MG (NORVASC) TAB ONE (10:10)
--- NOTE | 2022-11-03 15:10 | Diagnostic Imaging Report ---
EXAMINATION: Chest 1 view HISTORY: Congestive heart failure COMPARISON: 11/02/2022 FINDINGS: Stable enlargement of the cardiac silhouette. Stable diffuse interstitial opacities throughout both lungs. There may be trace bilateral pleural effusions. No pneumothorax. Degenerative changes of the thoracic spine. Osseous structures are otherwise intact. IMPRESSION: 1. Cardiomegaly and stable diffuse interstitial opacities throughout the lungs compatible with history of congestive heart failure. Dictated by: Dictated on workstation # [id number]
[2022-11-03] MEDS ORDERED: CEFEPIME 1,000 MG/NS 50 ML IVPB IV SCH ×2 (16:00)
--- NOTE | 2022-11-03 16:24 | Cardiology Progress Note ---
Subjective Date Seen by Provider: November 03, 2022 Time Seen by Provider: 08:00 Subjective/Events-last exam Patient was seen at bedside, laying down comfortably, denied any chest pain. Review of Systems General: No Chills, No Night Sweats; Fatigue; No Malaise, No Appetite, No Other HEENT: No Head Aches, No Visual Changes, No Eye Pain, No Ear Pain, No Dysphasia, No Sinus Congestion, No Post Nasal Drip, No Sore Throat, No Other Pulmonary: Dyspnea; No Cough, No Pleuritic Chest Pain, No Other Cardiovascular: No: Chest Pain, Palpitations, Orthopnea, Paroxysmal Noc. Dyspnea, Edema, Lt Headedness, Other Focused Exam Lactate Level 11/01/22 20:45: Lactic Acid Level 1.86 Time of Focused Exam: 21:30 Objective-Cardiology Exam Last Set of Vital Signs Vital Signs 11/03/22 11/03/22 03:00 04:00 Temp 37.0 Pulse 76 Resp 34 B/P (MAP) 125/73 (90) Pulse Ox 95 O2 Delivery NIV Bilevel O2 Flow Rate 50.00 FiO2 50 I&O Intake and Output 11/03/22 00:00 Intake Total 2950 ml Output Total 3325 ml Balance -375 ml Intake Oral 2900 ml IV Total 50 ml Output Urine Total 3325 ml # Bowel Movements 1 General: Alert, Oriented X3, Cooperative HEENT: Atraumatic, PERRLA Neck: Supple, No JVD, No Thyromegaly Lungs: Normal Air Movement, Other (Bilateral rhonchi) Heart: Regular Rate, Normal S1, Normal S2, No Murmurs Abdomen: Normal Bowel Sounds, Soft, No Tenderness, No Hepatosplenomegaly, No Masses Extremities: No Clubbing, No Cyanosis, No Edema, Normal Pulses, No Tenderness /Swelling Skin: No Rashes, No Breakdown, No Significant Lesion Neuro: Normal Gait, Normal Speech, Strength at 5/5 X4 Ext, Normal Tone, Sensation Intact Psych/Mental Status: Mental Status NL, Mood NL Results Lab Laboratory Tests 11/03/22 03:51 A/P-Cardiology Admission Diagnosis Acute on chronic respiratory failure Pneumonia CHF CAD Assessment/Plan Acute on chronic respiratory failure with hypoxia, likely multifactorial with pneumonia and CHF Responding well to diuretics, I will give additional dose of Bumex today Pneumonia, started on antibiotics, management per medical services Congestive heart failure, acute on chronic left ventricular systolic dysfunction. Maintained on beta davy as outpatient. Intolerance to VAL-I/ARB d/t underlying kidney disease. Patient unable to afford Jardiance. Reports diuretic discontinued approx 1 month ago d/t renal function. Limited 2D Echo done June 2022 to assess ejection fraction showing normal left ventricular chamber size with severe concentric hypertrophy. Normal left ventricular systolic function with an estimated ejection fraction of 50-60%. The left ventricular diastolic function was not determined on this study. The pulmonary artery pressure was not determined on this study as no Doppler was performed. Compared to the previous study from 06/11/2022, there has been no significant change in the ejection fraction. Diurese as tolerated. Ejection fraction on echocardiogram was mildly reduced with inferior wall hypokinesia. Coronary artery disease, History of NSTEMI in June of 2022. Stress test done June [address] Ugarte showing large, severe intensity, partially reversible basal to apical inferior and lateral defect with a small amount of inducible ischemia at the apex with a SSS 23, SDS 4. Mid to distal lateral akinesis with global hypokinesis elsewhere with severe left ventricular systolic dysfunction with a calculated ejection fraction of 28%. Patient did not undergo LHC at the time d/t underlying kidney function. Has been medically managed, maintained on ASA, Plavix and beta davy, statin Was scheduled for viability study with dobutamine stress echo as outpatient today. Will plan for this once more clinically stable Chronic kidney failure, stage IV. Monitor renal function. Hypertension, continue to monitor. Hyperlipidemia, maintained on statin as outpatient Diabetes mellitus, poor control, did not take his diabetic medicine on November 01, 2022 Managed by medical team History of anemia Pulmonary hypertension, repeat 2D echo Obesity SUGEY FUENTES MD November 03, 2022 16:24
[2022-11-03] MEDS: ENOXAPARIN INJECTION 30 MG/0.3 ML SYR SC SCH (17:00)
[2022-11-03] MEDS: amLODIPine 10 MG (NORVASC) TAB PO SCH (17:01)
--- NOTE | 2022-11-03 18:41 | Progress Note ---
Subjective Date Seen by a Provider: November 03, 2022 Time Seen by a Provider: 07:00 Subjective/Events-last exam patient was resting comfortably with BiPAP on. He did not voice any chest pain overnight. He actually slept fairly well. He has been attempting to go off the BiPAP. Diuresis is going well. Focused Exam Lactate Level 11/01/22 20:45: Lactic Acid Level 1.86 Time of Focused Exam: 21:30 Objective Exam Vital Signs Date Time Temp Pulse Resp B/P (MAP) Pulse Ox O2 Delivery O2 Flow Rate FiO2 11/03/22 18:00 84 26 138/89 (105) 92 High Flow N/C 6.00 11/03/22 17:00 36.1 134 25 145/86 (105) 92 High Flow N/C 6.00 11/03/22 14:46 90 High Flow N/C 7.00 11/03/22 10:39 93 High Flow N/C 7.00 11/03/22 06:48 73 18 97 50.00 11/03/22 04:00 37.0 11/03/22 04:00 95 NIV Bilevel 50 11/03/22 03:00 76 34 125/73 (90) 97 NIV Bilevel 50.00 11/03/22 02:29 92 17 95 50.00 11/03/22 02:00 80 14 126/73 (88) 96 NIV Bilevel 50.00 11/03/22 01:00 91 8 139/76 (101) 95 NIV Bilevel 50.00 11/03/22 01:00 91 11/03/22 00:00 37.2 11/03/22 00:00 85 14 122/73 (93) 96 NIV Bilevel 50.00 11/02/22 23:59 95 NIV Bilevel 50 11/02/22 22:26 96 34 96 50.00 11/02/22 22:00 100 25 147/89 (113) 95 NIV Bilevel 50.00 11/02/22 21:00 105 27 154/88 (114) 95 NIV Bilevel 50.00 11/02/22 20:25 110 15 93 NIV Bilevel 50.00 11/02/22 20:00 37.4 11/02/22 20:00 110 152/85 (113) 90 NIV Bilevel 30.00 11/02/22 20:00 93 NIV Bilevel 50 11/02/22 19:55 112 36 90 NIV Bilevel 30.00 11/02/22 19:00 114 11/02/22 19:00 114 91 158/87 (110) High Flow N/C 7.00 I & O 11/03/22 07:00 Intake Total 1200 ml Output Total 2545 ml Balance -1345 ml Capillary Refill : Less Than 3 Seconds General Appearance: No Apparent Distress Neck: Full Range of Motion Respiratory: Crackles (Few in the bases) Cardiovascular: Regular Rate, Rhythm Gastrointestinal: non tender, soft Extremity: Normal Capillary Refill, No Calf Tenderness, Pedal Edema (+), Other (1+) Skin: Normal Color Results Lab Laboratory Tests 11/03/22 03:51: White Blood Count 10.8, Red Blood Count 3.14L, Hemoglobin 8.1L, Hematocrit 26L, Mean Corpuscular Volume 84, Mean Corpuscular Hemoglobin 26, Mean Corpuscular Hemoglobin Concent 31L, Red Cell Distribution Width 18.8H, Platelet Count 231, Mean Platelet Volume 9.6, Immature Granulocyte % (Auto) 1, Neutrophils (%) (Auto) 91H, Lymphocytes (%) (Auto) 3L, Monocytes (%) (Auto) 5, Eosinophils (%) (Auto) 0, Basophils (%) (Auto) 0, Neutrophils # (Auto) 9.9H, Lymphocytes # (Auto) 0.4L, Monocytes # (Auto) 0.6, Eosinophils # (Auto) 0.0, Basophils # (Auto) 0.0, Immature Granulocyte # (Auto) 0.1, Sodium Level 133L, Potassium Level 4.8, Chloride Level 102, Carbon Dioxide Level 18L, Anion Gap 13, Blood Urea Nitrogen 75H, Creatinine 3.14H, Estimat Glomerular Filtration Rate 22, BUN/Creatinine Ratio 24, Glucose Level 270H, Calcium Level 8.2L, Corrected Calcium 8.6, Phosphorus Level 4.7, Magnesium Level 1.8, Total Bilirubin 0.4, Asp artate Amino Transf (AST/SGOT) 26, Alanine Aminotransferase (ALT/SGPT) 14, Alkaline Phosphatase 76, Total Protein 6.5, Albumin 3.5 11/03/22 11:06: Glucometer 327H 11/03/22 15:16: Glucometer 262H Microbiology 11/01/22 MRSA Screen - Final, Complete 11/01/22 Blood Culture - Preliminary, Resulted No growth Assessment/Plan Assessment/Plan Assess & Plan/Chief Complaint 1. Respiratory failure with hypoxemia and acute on chronic -further ICU care and monitoring -Oxygen by BiPAP -Pulmonary consultation 2. Congestive heart failure -. Cardiology involvement -Diuresis has been initiated 11/03 -overall patient is diuresing well 3. Chronic renal disease -Dr. Chaves consulted as well 11/03 -his creatinine was noted to be 3.14 today 4. Questionable pneumoniaby x-ray -He has been started on cefepime in ED and this will be continued until we can prove otherwise no pneumonia is present 11/03 -the chest x-rays that followed his initial do not reveal pneumonia. His chest x-rays are more consistent with overall improvement of congestive heart failure 5. Nxj-nvqrnie-xsaxnahzd diabetes mellitus -Sliding scale insulin -Diabetic diet 6. Hypertension -Is medication amlodipine was restarted today Clinical Quality Measures Admission Status Admission Dx 1. Respiratory failure with hypoxemia and acute on chronic 2. Congestive heart failure 3. Chronic renal disease 4. Questionable pneumoniaby x-ray 5. Stb-yrdfnfp-srtivnsvr diabetes mellitus TIFFANY ROGERS MD November 03, 2022 18:41
[2022-11-03] MEDS: MUPIROCIN 2% OINT 22 GM (BACTROBAN) TUBE TOP SCH (20:49)
[2022-11-03] MEDS: meTOprolol SUCCINATE 100 MG (TOPROL XL) TAB PO SCH (20:49)
[2022-11-03 22:27] VITALS: BP 139/84
[2022-11-04 02:42] VITALS: BP 134/81
[2022-11-04] MEDS: RT-ALBUTEROL/IPRATROPIUM 3 ML (DUONEB) VIAL INH SCH ×6 (02:42→21:18)
[2022-11-04 05:22] LABS: BASOPHILS % (AUTO) 0 % (0-10); EOSINOPHILS % (AUTO) 0 % (0-10); HEMATOCRIT 25 % (40-54); HEMOGLOBIN 7.7 g/dL (13.3-17.7); LYMPHOCYTES # (AUTO) 0.7 10^3/uL (1.0-4.0); LYMPHOCYTES % (AUTO) 7 % (12-44); MEAN CORPUSCULAR HEMOGLOBIN 26 pg (25-34); MEAN CORPUSCULAR HGB CONC 31 g/dL (32-36); MEAN CORPUSCULAR VOLUME 84 fL (80-99); MEAN PLATELET VOLUME 9.8 fL (9.0-12.2); MONOCYTES # (AUTO) 0.9 10^3/uL (0.0-1.0); MONOCYTES % (AUTO) 8 % (0-12); NEUTROPHILS # (AUTO) 8.9 10^3/uL (1.8-7.8); NEUTROPHILS % (AUTO) 84 % (42-75); PLATELET COUNT 235 10^3/uL (130-400); WHITE BLOOD COUNT 10.7 10^3/uL (4.3-11.0)
[2022-11-04 05:42] LABS: ALBUMIN 3.4 GM/DL (3.2-4.5); BILIRUBIN,TOTAL 0.6 MG/DL (0.1-1.0); CREATININE SERUM 2.93 MG/DL (0.60-1.30); MAGNESIUM 1.7 MG/DL (1.6-2.4); PHOSPHORUS 4.5 MG/DL (2.3-4.7); POTASSIUM 4.3 MMOL/L (3.6-5.0); TOTAL PROTEIN 6.1 GM/DL (6.4-8.2)
[2022-11-04] MEDS: MAGNESIUM 1 GM/100 ML IVPB 100 ML IV SCH (05:59)
[2022-11-04] MEDS: CATHETER FLUSH 10 ML SYR IVP SCH ×3 (05:59→20:02)
[2022-11-04] MEDS: POTASSIUM CL 10MEQ/50ML IVPB 50 ML IV SCH (05:59)
[2022-11-04] MEDS: inSUlin ASPART (NovoLOG) 1 UNIT/0.01 ML (CHARGE PER UNIT) SC SCH ×4 (06:00→20:01)
[2022-11-04] MEDS: KCL 20 MEQ TAB (K-DUR) PO SCH (06:00)
[2022-11-04] MEDS: NOREPINEPHRINE 8 MG/250 ML 250 ML IV SCH ×2 (06:00→19:21)
[2022-11-04] MEDS: FUROSEMIDE 40 MG/4 ML INJ (LASIX) IVP SCH ×2 (06:16→17:20)
[2022-11-04] MEDS ORDERED: NS IV 500 ML 500 ML IV SCH (06:30)
--- NOTE | 2022-11-04 07:31 | Progress Note ---
Subjective Date Seen by a Provider: November 04, 2022 Time Seen by a Provider: 07:10 Subjective/Events-last exam patient is resting comfortably in ICU bed. He currently does not have BiPAP on and does not report any shortness of breath. Focused Exam Lactate Level 11/01/22 20:45: Lactic Acid Level 1.86 Time of Focused Exam: 21:30 Objective Exam Vital Signs Date Time Temp Pulse Resp B/P (MAP) Pulse Ox O2 Delivery O2 Flow Rate FiO2 11/04/22 06:55 93 High Flow N/C 7.00 11/04/22 06:30 83 15 88 High Flow N/C 6.00 11/04/22 06:00 67 16 118/72 (87) 100 NIV Bilevel 50.00 11/04/22 05:00 78 26 134/87 (103) 98 NIV Bilevel 50.00 11/04/22 04:00 36.6 11/04/22 04:00 69 34 123/73 (93) 98 NIV Bilevel 50.00 11/04/22 04:00 93 NIV Bilevel 50 11/04/22 03:00 70 24 120/69 (86) 99 NIV Bilevel 50.00 11/04/22 02:42 71 18 98 50.00 11/04/22 02:00 80 134/81 (98) 97 NIV Bilevel 50.00 11/04/22 01:00 80 28 132/81 (98) 97 NIV Bilevel 50.00 11/04/22 01:00 80 11/04/22 00:00 80 29 137/91 (106) 99 NIV Bilevel 50.00 11/04/22 00:00 36.8 11/03/22 23:59 93 NIV Bilevel 50 11/03/22 23:00 81 19 131/78 (95) 96 NIV Bilevel 50.00 11/03/22 22:27 79 25 95 50.00 11/03/22 22:00 85 23 139/84 (102) 90 High Flow N/C 6.00 11/03/22 21:00 97 143/87 (105) 86 High Flow N/C 6.00 11/03/22 20:00 95 High Flow N/C 6.00 11/03/22 20:00 85 23 132/80 (97) 92 High Flow N/C 6.00 11/03/22 19:44 36.5 High Flow N/C 6.00 11/03/22 19:01 92 High Flow N/C 7.00 11/03/22 19:00 86 20 138/83 (101) 91 High Flow N/C 6.00 11/03/22 19:00 86 11/03/22 18:00 84 26 138/89 (105) 92 High Flow N/C 6.00 11/03/22 17:00 36.1 134 25 145/86 (105) 92 High Flow N/C 6.00 11/03/22 14:46 90 High Flow N/C 7.00 11/03/22 10:39 93 High Flow N/C 7.00 I & O 11/04/22 07:00 Intake Total 800 ml Output Total 1300 ml Balance -500 ml Capillary Refill : Less Than 3 Seconds General Appearance: No Apparent Distress Neck: Supple Respiratory: Crackles (Very minimal in the bases) Cardiovascular: Regular Rate, Rhythm Gastrointestinal: soft Extremity: Normal Capillary Refill, Pedal Edema (1+) Neurologic/Psychiatric: Alert, Oriented x3 Results Lab Laboratory Tests 11/03/22 11:06: Glucometer 327H 11/03/22 15:16: Glucometer 262H 11/03/22 20:44: Glucometer 113H 11/04/22 04:10: White Blood Count 10.7, Red Blood Count 3.00L, Hemoglobin 7.7L, Hematocrit 25L, Mean Corpuscular Volume 84, Mean Corpuscular Hemoglobin 26, Mean Corpuscular Hemoglobin Concent 31L, Red Cell Distribution Width 18.9H, Platelet Count 235, Mean Platelet Volume 9.8, Immature Granulocyte % (Auto) 1, Neutrophils (%) (Auto) 84H, Lymphocytes (%) (Auto) 7L, Monocytes (%) (Auto) 8, Eosinophils (%) (Auto) 0, Basophils (%) (Auto) 0, Neutrophils # (Auto) 8.9H, Lymphocytes # (Auto) 0.7L, Monocytes # (Auto) 0.9, Eosinophils # (Auto) 0.0, Basophils # (Auto) 0.0, Immature Granulocyte # (Auto) 0.1, Sodium Level 134L, Potassium Level 4.3, Chloride Level 103, Carbon Dioxide Level 18L, Anion Gap 13, Blood Urea Nitrogen 82H, Creatinine 2.93H, Estimat Glomerular Filtration Rate 23, BUN/Creatinine Ratio 28, Glucose Level 125H, Calcium Level 8.0L, Corrected Calcium 8.5, Phosphorus Level 4.5, Magnesium Level 1.7, Total Bilirubin 0.6, Aspartate Amino Transf (AST/SGOT) 15, Alanine Aminotransferase (ALT/SGPT) 11, Alkaline Phosphatase 66, Total Protein 6.1L, Albumin 3.4 Microbiology 11/01/22 MRSA Screen - Final, Complete 11/01/22 Blood Culture - Preliminary, Resulted No growth Assessment/Plan Assessment/Plan Assess & Plan/Chief Complaint 1. Respiratory failure with hypoxemia and acute on chronic -further ICU care and monitoring -Oxygen by BiPAP -Pulmonary consultation 2. Congestive heart failure -. Cardiology involvement -Diuresis has been initiated 11/03 -overall patient is diuresing well 3. Chronic renal disease -Dr. Chaves consulted as well 11/03 -his creatinine was noted to be 3.14 today 11/04 -Creatinine 2.83 this morning 4. Questionable pneumoniaby x-ray -He has been started on cefepime in ED and this will be continued until we can prove otherwise no pneumonia is present 11/03 -the chest x-rays that followed his initial do not reveal pneumonia. His chest x-rays are more consistent with overall improvement of congestive heart failure 11/04 -He has normal white blood cell count, no fever, and chest x-ray not supportive of infiltrates 5. Mtr-fxlswtr-loceyisob diabetes mellitus -Sliding scale insulin -Diabetic diet 6. Hypertension -Is medication amlodipine was restarted today 7. Anemia with hemoglobin 7.7 today -Cardiology has ordered 1 unit of blood -Will check Hemoccult stools Clinical Quality Measures Admission Status Admission Dx 1. Respiratory failure with hypoxemia and acute on chronic 2. Congestive heart failure 3. Chronic renal disease 4. Questionable pneumoniaby x-ray 5. Zey-lmkzhqp-hnzefuovj diabetes mellitus TIFFANY ROGERS MD November 04, 2022 07:31
[2022-11-04] MEDS: VASOPRESSIN INJECTION 20 UNIT in NS (IVPB) 100 ML IV SCH ×2 (07:35→19:12)
[2022-11-04] MEDS: METOLAZONE 2.5 MG (ZAROXOLYN) TAB PO SCH (08:36)
[2022-11-04] MEDS: amLODIPine 10 MG (NORVASC) TAB PO SCH (08:36)
[2022-11-04] MEDS: MUPIROCIN 2% OINT 22 GM (BACTROBAN) TUBE TOP SCH ×2 (08:36→20:01)
[2022-11-04] MEDS: meTOprolol SUCCINATE 100 MG (TOPROL XL) TAB PO SCH ×2 (08:36→20:01)
--- NOTE | 2022-11-04 09:47 | Tele-ICU Progress Note ---
Subjective Date Seen by a Provider: November 04, 2022 Subjective/Events-last exam This virtual visit was conducted using real time audio/video. Thank you for asking us to see this patient for respiratory insufficiency due to CHF Recent events: Alternating BiPAP 50% 15/01 and 4L NC. to receive i unit PRBCs. PE: VSS. O2 sat 92% on NC HEENT: No obvious masses, adenopathy or JVD. Chest: crackles on auscultation. CV: RRR S1 S2 No murmur or added sounds. Abd: Non-tender. Bowel sounds Y. : Unremarkable. Chua Y. [employer]/psychiatric: Grossly intact. No obvious focal findings. Extremities: 1+ edema. Capillary refill < 3 seconds. Skin: unremarkable. Results: Elevated BUN 82, Creat 2.93. Decreased Hb 7.7. CXR: B congestion, unchanged. Available chart/ vitals / labs / images reviewed. Video assessment done using teleICU camera, rest of exam as per RN. A/P: Respiratory insufficiency: Continue present management with BiPAP/NC Monitor for increasing oxygenation needs and/or need for intubation. Critical Care: critically ill patient. Cont.Norv., lasix,KCl, Zarox., SSI, metop., Meryl. Discussed with RN .Jyoti Asked RN to reach out to eICU if any questions or concerns later. Time spent with patient/coordination of care with other health professionals (mins): 15 Sepsis Event Evaluation Height, Weight, BMI Height: '" Weight: lbs. oz. kg; 36.73 BMI Method: Focused Exam Lactate Level 11/01/22 20:45: Lactic Acid Level 1.86 Time of Focused Exam: 21:30 Exam Exam Patient acknowledged, consented, and participated in this virtual visit which was conducted using real time audio/video Vital Signs Date Time Temp Pulse Resp B/P (MAP) Pulse Ox O2 Delivery O2 Flow Rate FiO2 11/04/22 06:55 93 High Flow N/C 7.00 11/04/22 06:30 83 15 88 High Flow N/C 6.00 11/04/22 06:00 67 16 118/72 (87) 100 NIV Bilevel 50.00 11/04/22 05:00 78 26 134/87 (103) 98 NIV Bilevel 50.00 11/04/22 04:00 36.6 11/04/22 04:00 69 34 123/73 (93) 98 NIV Bilevel 50.00 11/04/22 04:00 93 NIV Bilevel 50 11/04/22 03:00 70 24 120/69 (86) 99 NIV Bilevel 50.00 11/04/22 02:42 71 18 98 50.00 11/04/22 02:00 80 134/81 (98) 97 NIV Bilevel 50.00 11/04/22 01:00 80 28 132/81 (98) 97 NIV Bilevel 50.00 11/04/22 01:00 80 11/04/22 00:00 80 29 137/91 (106) 99 NIV Bilevel 50.00 11/04/22 00:00 36.8 11/03/22 23:59 93 NIV Bilevel 50 11/03/22 23:00 81 19 131/78 (95) 96 NIV Bilevel 50.00 11/03/22 22:27 79 25 95 50.00 11/03/22 22:00 85 23 139/84 (102) 90 High Flow N/C 6.00 11/03/22 21:00 97 143/87 (105) 86 High Flow N/C 6.00 11/03/22 20:00 95 High Flow N/C 6.00 11/03/22 20:00 85 23 132/80 (97) 92 High Flow N/C 6.00 11/03/22 19:44 36.5 High Flow N/C 6.00 11/03/22 19:01 92 High Flow N/C 7.00 11/03/22 19:00 86 20 138/83 (101) 91 High Flow N/C 6.00 11/03/22 19:00 86 11/03/22 18:00 84 26 138/89 (105) 92 High Flow N/C 6.00 11/03/22 17:00 36.1 134 25 145/86 (105) 92 High Flow N/C 6.00 11/03/22 14:46 90 High Flow N/C 7.00 11/03/22 10:39 93 High Flow N/C 7.00 I & O 11/04/22 07:00 Intake Total 800 ml Output Total 1300 ml Balance -500 ml Height & Weight Height: '" Weight: lbs. oz. kg; 36.73 BMI Method: General Appearance: No Apparent Distress HEENT: Other (BiPAP on difficult to evaluate oral exam) Neck: Supple Respiratory: Crackles (Very minimal in the bases) Cardiovascular: Regular Rate, Rhythm Capillary Refill: Less Than 3 Seconds Gastrointestinal: soft Extremity: Normal Capillary Refill, Pedal Edema (1+) Neurologic/Psychiatric: Alert, Oriented x3 Skin: Normal Color Results Lab Laboratory Tests 11/03/22 03:51 11/04/22 04:10 Assessment/Plan Assessment/Plan See free text. Critical Care: Critically Ill Patient RADHA SARMIENTO MD November 04, 2022 09:47
--- NOTE | 2022-11-04 10:28 | Diagnostic Imaging Report ---
CHEST 1 VIEW, AP/PA ONLY Indication: Congestive heart failure Comparison: 11/03/2022 Findings: Mild worsening of bilateral pulmonary hazy opacities. No pleural effusion or pneumothorax. Stable cardiomegaly. Impression: 1. Worsening of pulmonary edema. Dictated by: Dictated on workstation # [id number]
--- NOTE | 2022-11-04 11:22 | Cardiology Progress Note ---
Subjective Date Seen by Provider: November 04, 2022 Time Seen by Provider: 11:19 Subjective/Events-last exam Patient was seen at bedside, feeling better, laying down in bed comfortable. Review of Systems General: No Chills, No Night Sweats, No Fatigue, No Malaise, No Appetite, No Other HEENT: No Head Aches, No Visual Changes, No Eye Pain, No Ear Pain, No Dysphasia, No Sinus Congestion, No Post Nasal Drip, No Sore Throat, No Other Pulmonary: Dyspnea; No Cough, No Pleuritic Chest Pain, No Other Cardiovascular: No: Chest Pain, Palpitations, Orthopnea, Paroxysmal Noc. Dyspnea, Edema, Lt Headedness, Other Focused Exam Lactate Level 11/01/22 20:45: Lactic Acid Level 1.86 Time of Focused Exam: 21:30 Objective-Cardiology Exam Last Set of Vital Signs Vital Signs 11/04/22 11/04/22 04:00 11:00 Pulse 96 Resp 28 B/P (MAP) 150/100 (117) Pulse Ox 90 O2 Delivery High Flow N/C O2 Flow Rate 6.00 FiO2 50 I&O Intake and Output 11/04/22 00:00 Intake Total 750 ml Output Total 1220 ml Balance -470 ml Intake Oral 550 ml IV Total 200 ml Output Urine Total 1220 ml General: Alert, Oriented X3, Cooperative HEENT: Atraumatic, PERRLA Neck: Supple, No JVD, No Thyromegaly Lungs: Normal Air Movement, Other (Bilateral rhonchi) Heart: Regular Rate, Normal S1, Normal S2, No Murmurs Abdomen: Normal Bowel Sounds, Soft, No Tenderness, No Hepatosplenomegaly, No Masses Extremities: No Clubbing, No Cyanosis, No Edema, Normal Pulses, No Tenderness/Swelling Skin: No Rashes, No Breakdown, No Significant Lesion Neuro: Normal Gait, Normal Speech, Strength at 5/5 X4 Ext, Normal Tone, Sensation Intact Psych/Mental Status: Mental Status NL, Mood NL Results Lab Laboratory Tests 11/04/22 04:10 A/P-Cardiology Admission Diagnosis Acute on chronic respiratory failure Pneumonia CHF CAD Assessment/Plan Acute on chronic respiratory failure with hypoxia, likely multifactorial with pneumonia and CHF Patient has been responding well to aggressive diuresis. I will continue with Bumex and give him additional dose today especially after the blood transfusion. Anemia, drop in H&H I will evaluate stool for occult blood and transfuse 1 unit of packed RBCs Management per primary care physician. Pneumonia, receiving antibiotics. Congestive heart failure, acute on chronic left ventricular systolic dysfunction. Maintained on beta davy as outpatient. Intolerance to VAL-I/ARB d/t underlying kidney disease. Patient unable to afford Jardiance. Reports diuretic discontinued approx 1 month ago d/t renal function. Limited 2D Echo done June 2022 to assess ejection fraction showing normal left ventricular chamber size with severe concentric hypertrophy. Normal left ventricular systolic function with an estimated ejection fraction of 50-60%. The left ventricular diastolic function was not determined on this study. The pulmonary artery pressure was not determined on this study as no Doppler was p erformed. Compared to the previous study from 06/11/2022, there has been no significant change in the ejection fraction. Diurese as tolerated. Ejection fraction on echocardiogram was mildly reduced with inferior wall hypokinesia. Coronary artery disease, History of NSTEMI in June of 2022. Stress test done June [address] Ugarte showing large, severe intensity, partially reversible basal to apical inferior and lateral defect with a small amount of inducible ischemia at the apex with a SSS 23, SDS 4. Mid to distal lateral akinesis with global hypokinesis elsewhere with severe left ventricular systolic dysfunction with a calculated ejection fraction of 28%. Patient did not undergo LHC at the time d/t underlying kidney function. Has been medically managed, maintained on ASA, Plavix and beta davy, statin Was scheduled for viability study with dobutamine stress echo as outpatient today. Will plan for this once more clinically stable Chronic kidney failure, stage IV. Monitor renal function. Hypertension, continue to monitor. Hyperlipidemia, maintained on statin as outpatient Diabetes mellitus, poor control, did not take his diabetic medicine on November 01, 2022 Managed by medical team Pulmonary hypertension, repeat 2D echo Obesity SUGEY FUENTES MD November 04, 2022 11:22
[2022-11-04] MEDS: ENOXAPARIN INJECTION 30 MG/0.3 ML SYR SC SCH (14:10)
[2022-11-04 21:18] VITALS: BP 128/84
[2022-11-04] MEDS: ALPRAZolam 1 MG (XANAX) TAB PO SCH (21:39)
[2022-11-05] MEDS: RT-ALBUTEROL/IPRATROPIUM 3 ML (DUONEB) VIAL INH SCH ×6 (02:28→22:42)
[2022-11-05 03:55] LABS: BASOPHILS % (AUTO) 0 % (0-10); EOSINOPHILS # (AUTO) 0.1 10^3/uL (0.0-0.3); EOSINOPHILS % (AUTO) 1 % (0-10); HEMATOCRIT 26 % (40-54); HEMOGLOBIN 8.1 g/dL (13.3-17.7); LYMPHOCYTES # (AUTO) 0.8 10^3/uL (1.0-4.0); LYMPHOCYTES % (AUTO) 10 % (12-44); MEAN CORPUSCULAR HEMOGLOBIN 26 pg (25-34); MEAN CORPUSCULAR HGB CONC 31 g/dL (32-36); MEAN CORPUSCULAR VOLUME 83 fL (80-99); MEAN PLATELET VOLUME 9.9 fL (9.0-12.2); MONOCYTES # (AUTO) 0.8 10^3/uL (0.0-1.0); MONOCYTES % (AUTO) 11 % (0-12); NEUTROPHILS # (AUTO) 5.7 10^3/uL (1.8-7.8); NEUTROPHILS % (AUTO) 77 % (42-75); PLATELET COUNT 214 10^3/uL (130-400); WHITE BLOOD COUNT 7.4 10^3/uL (4.3-11.0)
[2022-11-05 04:00] LABS: ALBUMIN 3.3 GM/DL (3.2-4.5)
[2022-11-05 04:01] LABS: CALCIUM 7.9 MG/DL (8.5-10.1)
[2022-11-05] MEDS: CATHETER FLUSH 10 ML SYR IVP SCH ×2 (04:03→14:39)
[2022-11-05] MEDS: KCL 20 MEQ TAB (K-DUR) PO SCH (04:03)
[2022-11-05] MEDS: POTASSIUM CL 10MEQ/50ML IVPB 50 ML IV SCH (04:03)
[2022-11-05] MEDS: VASOPRESSIN INJECTION 20 UNIT in NS (IVPB) 100 ML IV SCH ×2 (04:03→16:31)
[2022-11-05 04:04] LABS: BILIRUBIN,TOTAL 0.7 MG/DL (0.1-1.0)
[2022-11-05 04:06] LABS: CREATININE SERUM 3.06 MG/DL (0.60-1.30); PHOSPHORUS 5.9 MG/DL (2.3-4.7)
[2022-11-05 04:09] LABS: MAGNESIUM 1.7 MG/DL (1.6-2.4)
[2022-11-05] MEDS: MAGNESIUM 1 GM/100 ML IVPB 100 ML IV SCH (05:12)
[2022-11-05] MEDS: inSUlin ASPART (NovoLOG) 1 UNIT/0.01 ML (CHARGE PER UNIT) SC SCH ×4 (06:00→21:38)
[2022-11-05] MEDS: FUROSEMIDE 40 MG/4 ML INJ (LASIX) IVP SCH ×2 (06:00→16:37)
[2022-11-05 07:08] VITALS: BP 137/86
--- NOTE | 2022-11-05 07:58 | Progress Note ---
Subjective Date Seen by a Provider: November 05, 2022 Time Seen by a Provider: 06:55 Subjective/Events-last exam patient seen this morning and wearing BiPAP. Apparently his oxygen saturation last night was 85 percentile. He also has been taking alprazolam 1-1/2 mg at bedtime to help with rest. Focused Exam Time of Focused Exam: 21:30 Objective Exam Vital Signs Date Time Temp Pulse Resp B/P (MAP) Pulse Ox O2 Delivery O2 Flow Rate FiO2 11/05/22 07:46 36.7 11/05/22 07:38 90 High Flow N/C 6.00 11/05/22 07:37 92 High Flow N/C 6.00 11/05/22 07:08 65 25 95 50.00 11/05/22 06:00 66 18 125/86 (99) 97 NIV Bilevel 50.00 11/05/22 05:00 60 29 121/71 (88) 98 NIV Bilevel 50.00 11/05/22 04:00 69 25 136/78 (97) 98 NIV Bilevel 50.00 11/05/22 03:40 36.2 NIV Bilevel 50.00 11/05/22 03:40 97 NIV Bilevel 50 11/05/22 03:00 63 26 104/64 (77) 98 NIV Bilevel 50.00 11/05/22 02:28 62 22 92 50.00 11/05/22 02:00 61 22 103/63 (76) 98 NIV Bilevel 50.00 11/05/22 01:00 70 11/05/22 01:00 66 17 110/69 (83) 98 NIV Bilevel 50.00 11/05/22 00:00 70 19 108/69 (82) 97 NIV Bilevel 50.00 11/04/22 23:35 36.5 NIV Bilevel 50.00 11/04/22 23:25 98 NIV Bilevel 50 11/04/22 23:00 72 29 105/59 (74) 97 NIV Bilevel 50.00 11/04/22 22:00 80 29 104/59 (74) 98 NIV Bilevel 50.00 11/04/22 21:18 86 31 93 50.00 11/04/22 21:15 NIV Bilevel 50.00 11/04/22 21:00 83 24 128/84 (99) 93 High Flow N/C 10.00 11/04/22 20:32 High Flow N/C 10.00 11/04/22 20:08 89 High Flow N/C 8.00 11/04/22 20:00 87 30 124/76 (92) 94 NIV Bilevel 50.00 11/04/22 19:47 36.6 11/04/22 19:25 NIV Bilevel 50.00 11/04/22 19:21 140/83 11/04/22 19:20 88 High Flow N/C 8.00 11/04/22 19:00 36.9 89 22 140/83 (102) 88 High Flow N/C 8.00 11/04/22 19:00 90 11/04/22 18:49 92 High Flow N/C 7.00 11/04/22 18:00 83 29 135/81 (99) 90 High Flow N/C 6.00 11/04/22 17:00 118 20 135/81 (99) 93 High Flow N/C 6.00 11/04/22 16:13 97 High Flow N/C 6.00 11/04/22 15:37 36.7 11/04/22 15:00 80 15 91 High Flow N/C 6.00 11/04/22 14:37 92 High Flow N/C 7.00 11/04/22 14:00 90 27 143/95 (111) 91 High Flow N/C 6.00 11/04/22 13:00 86 30 92 High Flow N/C 6.00 11/04/22 12:19 98 11/04/22 12:00 84 23 128/70 (89) 93 High Flow N/C 6.00 11/04/22 12:00 97 High Flow N/C 6.00 11/04/22 11:49 36.9 11/04/22 11:00 96 28 150/100 (117) 90 High Flow N/C 6.00 11/04/22 10:45 92 21 148/93 (110) 90 High Flow N/C 6.00 11/04/22 10:35 95 High Flow N/C 7.00 11/04/22 10:30 87 130/69 (88) 86 High Flow N/C 6.00 11/04/22 10:15 84 134/82 (104) 91 High Flow N/C 6.00 11/04/22 10:00 84 127/75 (98) 91 High Flow N/C 6.00 11/04/22 09:45 122/75 (95) High Flow N/C 6.00 11/04/22 09:27 86 122/71 (93) 92 High Flow N/C 6.00 11/04/22 09:00 121/80 (105) High Flow N/C 6.00 11/04/22 08:00 97 High Flow N/C 6.00 11/04/22 08:00 37.1 120/87 (90) High Flow N/C 6.00 I & O 11/05/22 07:00 Intake Total 1925 ml Output Total 3100 ml Balance -1175 ml Capillary Refill : Less Than 3 Seconds General Appearance: Mild Distress Respiratory: No Accessory Muscle Use; Crackles (Mild in basis); No Respiratory Distress Cardiovascular: Regular Rate, Rhythm Gastrointestinal: soft Extremity: Normal Capillary Refill Results Lab Laboratory Tests 11/04/22 10:54: Glucometer 164H 11/04/22 13:38: Stool Occult Blood Immunoassay NEGATIVE 11/04/22 15:22: Glucometer 173H 11/04/22 19:52: Glucometer 265H 11/05/22 03:30: White Blood Count 7.4, Red Blood Count 3.12L, Hemoglobin 8.1L, Hematocrit 26L, Mean Corpuscular Volume 83, Mean Corpuscular Hemoglobin 26, Mean Corpuscular Hemoglobin Concent 31L, Red Cell Distribution Width 17.9H, Platelet Count 214, Mean Platelet Volume 9.9, Immature Granulocyte % (Auto) 1, Neutrophils (%) (Auto) 77H, Lymphocytes (%) (Auto) 10L, Monocytes (%) (Auto) 11, Eosinophils (%) (Auto) 1, Basophils (%) (Auto) 0, Neutrophils # (Auto) 5.7, Lymphocytes # (Auto) 0.8L, Monocytes # (Auto) 0.8, Eosinophils # (Auto) 0.1, Basophils # (Auto) 0.0, Immature Granulocyte # (Auto) 0.0, Sodium Level 134L, Potassium Level 4.0, Chloride Level 102, Carbon Dioxide Level 19L, Anion Gap 13, Blood Urea Nitrogen 91H, Creatinine 3.06H, Estimat Glomerular Filtration Rate 22, BUN/Creatinine Ratio 30, Glucose Level 146H, Calcium Level 7.9L, Corrected Calcium 8.5, Phosphorus Level 5.9H, Magnesium Level 1.7, Total Bilirubin 0.7, Aspartate Amino Transf (AST/SGOT) 13, Alanine Aminotransferase (ALT/SGPT) 15, Alkaline Phosphatase 72, Total Protein 6.0L, Albumin 3.3 11/05/22 05:56: Glucometer 139H Microbiology 11/01/22 MRSA Screen - Final, Complete 11/01/22 Blood Culture - Preliminary, Resulted No growth Procedures [facility], [place] NAME: [facility] REC#: [id number] PT STATUS: ADM IN : 1960 PHYSICIAN: GABBI CALDERA DO ADMIT DATE: 11/01/22/ICU Signed Date of Exam:11/04/22 CHEST 1 VIEW, AP/PA ONLY CHEST 1 VIEW, AP/PA ONLY Indication: Congestive heart failure Comparison: 11/03/2022 Findings: Mild worsening of bilateral pulmonary hazy opacities. No pleural effusion or pneumothorax. Stable cardiomegaly. Impression: 1. Worsening of pulmonary edema. Dictated by: Dictated on workstation # [id number] Dict: 11/04/22 1025 Trans: 11/04/22 1057 CVB [id number] Interpreted by: CHARLES MAHARAJ MD Electronically signed by: CHARLES MAHARAJ MD 11/04/22 1057 Assessment/Plan Assessment/Plan Assess & Plan/Chief Complaint 1. Respiratory failure with hypoxemia and acute on chronic -further ICU care and monitoring -Oxygen by BiPAP -Pulmonary consultation 11/05 -BiPAP continues when necessary 2. Congestive heart failure -. Cardiology involvement -Diuresis has been initiated 11/03 -overall patient is diuresing well 11/05 -diuresis continues furosemide 40 mg IV twice daily and metolazone 2.5 mg orally 3. Chronic renal disease -Dr. Chaves consulted as well 11/03 -his creatinine was noted to be 3.14 today 11/04 -Creatinine 2.83 this morning 11/05 -creatinine remained stable 4. Questionable pneumoniaby x-ray -He has been started on cefepime in ED and this will be continued until we can prove otherwise no pneumonia is present 5/2 -the chest x-rays that followed his initial do not reveal pneumonia. His chest x-rays are more consistent with overall improvement of congestive heart failure 11/04 -He has normal white blood cell count, no fever, and chest x-ray not supportive of infiltrates 5. [id number] diabetes mellitus -Sliding scale insulin -Diabetic diet 6. Hypertension -Is medication amlodipine was restarted today 7. Anemia with hemoglobin 7.7 today -Cardiology has ordered 1 unit of blood -Will check Hemoccult stools 11/05 -hemoglobin increased to 8.1 this morning Clinical Quality Measures Admission Status Admission Dx 1. Respiratory failure with hypoxemia and acute on chronic 2. Congestive heart failure 3. Chronic renal disease 4. Questionable pneumoniaby x-ray 5. [id number] diabetes mellitus TIFFANY ROGERS MD November 05, 2022 07:58
[2022-11-05] MEDS: MUPIROCIN 2% OINT 22 GM (BACTROBAN) TUBE TOP SCH ×2 (08:03→21:39)
[2022-11-05] MEDS: amLODIPine 10 MG (NORVASC) TAB PO SCH (08:03)
[2022-11-05] MEDS: METOLAZONE 2.5 MG (ZAROXOLYN) TAB PO SCH (08:03)
[2022-11-05] MEDS: meTOprolol SUCCINATE 100 MG (TOPROL XL) TAB PO SCH ×2 (08:03→21:38)
--- NOTE | 2022-11-05 08:09 | Diagnostic Imaging Report ---
Indication: Congestive heart failure and pneumonia Single AP view of the chest is obtained with comparison made to study of one day earlier. Cardiomegaly and pulmonary venous congestion persists. There may be slight worsening of bilateral airspace disease indicative of edema. No pneumothorax is identified. There is no definite pleural fluid. IMPRESSION: Findings indicate congestive heart failure with worsening bilateral diffuse pulmonary edema. Dictated by: Dictated on workstation # [id number]
--- NOTE | 2022-11-05 08:34 | Cardiology Progress Note ---
Subjective Date Seen by Provider: November 05, 2022 Time Seen by Provider: 08:33 Subjective/Events-last exam Patient was seen at bedside sitting comfortably, feeling better. Denied any chest pain. Still having dyspnea Review of Systems General: No Chills, No Night Sweats; Fatigue; No Malaise, No Appetite, No Other HEENT: No Head Aches, No Visual Changes, No Eye Pain, No Ear Pain, No Dysphasia, No Sinus Congestion, No Post Nasal Drip, No Sore Throat, No Other Pulmonary: Dyspnea; No Cough, No Pleuritic Chest Pain, No Other Cardiovascular: No: Chest Pain, Palpitations, Orthopnea, Paroxysmal Noc. Dyspnea, Edema, Lt Headedness, Other Focused Exam Time of Focused Exam: 21:30 Objective-Cardiology Exam Last Set of Vital Signs Vital Signs 11/05/22 11/05/22 11/05/22 11/05/22 11/05/22 03:40 06:00 07:08 07:38 07:46 Temp 36.7 Pulse 65 Resp 25 B/P (MAP) 125/86 (99) Pulse Ox 90 O2 Delivery High Flow N/C O2 Flow Rate 6.00 FiO2 50 I&O Intake and Output 11/05/22 00:00 Intake Total 1650 ml Output Total 2925 ml Balance -1275 ml Intake Oral 1650 ml Output Urine Total 2925 ml # Bowel Movements 1 # Emeses 1 General: Alert, Oriented X3, Cooperative HEENT: Atraumatic, PERRLA Neck: Supple, No JVD, No Thyromegaly Lungs: Normal Air Movement, Other (Bilateral rhonchi) Heart: Regular Rate, Normal S1, Normal S2, No Murmurs Abdomen: Normal Bowel Sounds, Soft, No Tenderness, No Hepatosplenomegaly, No Masses Extremities: No Clubbing, No Cyanosis, No Edema, Normal Pulses, No Tenderness/Swelling Skin: No Rashes, No Breakdown, No Significant Lesion Neuro: Normal Gait, Normal Speech, Strength at 5/5 X4 Ext, Normal Tone, S ensation Intact Psych/Mental Status: Mental Status NL, Mood NL Results Lab Laboratory Tests 11/05/22 03:30 A/P-Cardiology Admission Diagnosis Acute on chronic respiratory failure Pneumonia CHF CAD Assessment/Plan Acute on chronic respiratory failure with hypoxia, likely multifactorial with pneumonia and CHF Patient has been responding well to aggressive diuresis. Worsening renal function, hold Zaroxolyn for now, monitor renal function Continue to monitor renal function closely. Consider nephrology consultation Anemia, drop in H&H Probably anemia of chronic disease. Stool for occult blood was negative Received 1 unit of packed RBCs. Continue to monitor H&H Pneumonia, receiving antibiotics. Congestive heart failure, acute on chronic left ventricular systolic dysfunction. Maintained on beta davy as outpatient. Intolerance to VAL-I/ARB d/t underlying kidney disease. Patient unable to afford Jardiance. Reports diuretic discontinued approx 1 month ago d/t renal function. Limited 2D Echo done June 2022 to assess ejection fraction showing normal left ventricular chamber size with severe concentric hypertrophy. Normal left ventricular systolic function with an estimated ejection fraction of 50-60%. The left ventricular diastolic function was not determined on this study. The pulmonary artery pressure was not determined on this study as no Doppler was performed. Compared to the previous study from 06/11/2022, there has been no significant change in the ejection fraction. Diurese as tolerated. Ejection fraction on echocardiogram was mildly reduced with inferior wall hypokinesia. Coronary artery disease, History of NSTEMI in June of 2022. Stress test done June [address] Ugarte showing large, severe intensity, partially reversible basal to apical inferior and lateral defect with a small amount of inducible ischemia at the apex with a SSS 23, SDS 4. Mid to distal lateral akinesis with global hypokinesis elsewhere with severe left ventricular systolic dysfunction with a calculated ejection fraction of 28%. Patient did not undergo LHC at the time d/t underlying kidney function. Has been medically managed, maintained on ASA, Plavix and beta davy, statin Was scheduled for viability study with dobutamine stress echo as outpatient today. Will plan for this once more clinically stable Chronic kidney failure, stage IV. Monitor renal function. Hypertension, continue to monitor. Hyperlipidemia, maintained on statin as outpatient Diabetes mellitus, poor control, did not take his diabetic medicine on November 01, 2022 Managed by medical team Pulmonary hypertension, repeat 2D echo Obesity SUGEY FUENTES MD November 05, 2022 08:34
[2022-11-05] MEDS: NOREPINEPHRINE 8 MG/250 ML 250 ML IV SCH (10:30)
--- NOTE | 2022-11-05 10:43 | Tele-ICU Progress Note ---
Subjective Date Seen by a Provider: November 05, 2022 Time Seen by a Provider: 10:43 Subjective/Events-last exam (Tele-ICU Physician , Progress Note ) Service provided via interactive audio and video telecommunications E-CARE system to a patient admitted to ICU bed in [facility]. Patient is seen today due to persistent need of ICU care Available chart/ vitals / labs / Images reviewed Video assessment done using teleICU camera, rest of exam as per RN Discussed with RN Events overnight : Afebrile hemodynamically stable Respiratory - 6 l I/O = neg Drips: Pressors- no Hospital course: RECENT hospitalization 08/24 - Tx in icu for PNA , CHF , VT/Bipap- improved after 18L negative volume balance 11/01: 62 y/o male presented to the ED. CXR: concerning for pulmonary edema /- pRBC transfusion 1 U A/P Acute resp failure with VO . pulm edema -Bipap / 40 % at night - on 6 l O2 -diuresis to continue ( 20 lb weight gain over the past month. CKD - stable - renal follow - off Zaroxylin 11/05. on lasix 40 bid Pulmonary hypertension - severe by ECHO 06/2022- and 11/02/22 - RVSP 70 ( Nl perfusion scan 06/12/22) - cont diuresis acute on chronic left ventricular systolic dysfunction. , CAD, NSTEMI in June of 2022. - as per cards Chronic intermittent hypoxia ( nocturnal , exertions - most likely due to all above - No CXR evidence of ILD 06/2022, but never had any PFT or CT. Acute and chronic anemia. - s/p transfusion 08/31, 11/04 - drop HB 11/04- no sourse of of bleeding 11/04- pRBC transfusion 1 U -follow PNA , suspected on admission - empiric tx started oin er - cefepime stopped 11/03 Hyperglycemia - ISS - long acting ? Nutritions - Po - adequate Lines : periph , (Central Line Necessity Reviewed) Chua: 11/01 OG: Nutrition: po Analgesia: Anxiety/ delirium VTE Prophylaxis: cory ? Stress Ulcer Prophylaxis: na Plans in collaboration with bedside consultants and IM MDs. Discussed with RN to reach out if any questions or concerns A total of 20 minutes of critical care time was devoted to this patient today, required to treat and/or prevent further deterioration of critical care condition ( as above ) . I am remotely monitoring this patient from another state. I am unable to do the bedside exam, and history/physical and pertinent information is taken from other notes in the computer and bedside staff. Sepsis Event Evaluation Height, Weight, BMI Height: '" Weight: lbs. oz. kg; 36.73 BMI Method: Focused Exam Time of Focused Exam: 21:30 Exam Exam Patient acknowledged, consented, and participated in this virtual visit which was conducted using real time audio/video Vital Signs Date Time Temp Pulse Resp B/P (MAP) Pulse Ox O2 Delivery O2 Flow Rate FiO2 11/05/22 10:00 77 28 148/75 (105) 90 High Flow N/C 6.00 11/05/22 09:00 69 15 126/79 (104) 92 High Flow N/C 6.00 11/05/22 08:00 76 24 129/91 (94) 90 High Flow N/C 6.00 11/05/22 07:46 36.7 11/05/22 07:38 90 High Flow N/C 6.00 11/05/22 07:37 92 High Flow N/C 6.00 11/05/22 07:08 65 25 95 50.00 11/05/22 07:00 67 26 137/86 (108) 92 NIV Bilevel 50.00 11/05/22 07:00 70 11/05/22 06:00 66 18 125/86 (99) 97 NIV Bilevel 50.00 11/05/22 05:00 60 29 121/71 (88) 98 NIV Bilevel 50.00 11/05/22 04:00 69 25 136/78 (97) 98 NIV Bilevel 50.00 11/05/22 03:40 36.2 NIV Bilevel 50.00 11/05/22 03:40 97 NIV Bilevel 50 11/05/22 03:00 63 26 104/64 (77) 98 NIV Bilevel 50.00 11/05/22 02:28 62 22 92 50.00 11/05/22 02:00 61 22 103/63 (76) 98 NIV Bilevel 50.00 11/05/22 01:00 70 11/05/22 01:00 66 17 110/69 (83) 98 NIV Bilevel 50.00 11/05/22 00:00 70 19 108/69 (82) 97 NIV Bilevel 50.00 11/04/22 23:35 36.5 NIV Bilevel 50.00 11/04/22 23:25 98 NIV Bilevel 50 11/04/22 23:00 72 29 105/59 (74) 97 NIV Bilevel 50.00 11/04/22 22:00 80 29 104/59 (74) 98 NIV Bilevel 50.00 11/04/22 21:18 86 31 93 50.00 11/04/22 21:15 NIV Bilevel 50.00 11/04/22 21:00 83 24 128/84 (99) 93 High Flow N/C 10.00 11/04/22 20:32 High Flow N/C 10.00 11/04/22 20:08 89 High Flow N/C 8.00 11/04/22 20:00 87 30 124/76 (92) 94 NIV Bilevel 50.00 11/04/22 19:47 36.6 11/04/22 19:25 NIV Bilevel 50.00 11/04/22 19:21 140/83 11/04/22 19:20 88 High Flow N/C 8.00 11/04/22 19:00 36.9 89 22 140/83 (102) 88 High Flow N/C 8.00 11/04/22 19:00 90 11/04/22 18:49 92 High Flow N/C 7.00 11/04/22 18:00 83 29 135/81 (99) 90 High Flow N/C 6.00 11/04/22 17:00 118 20 135/81 (99) 93 High Flow N/C 6.00 11/04/22 16:13 97 High Flow N/C 6.00 11/04/22 15:37 36.7 11/04/22 15:00 80 15 91 High Flow N/C 6.00 11/04/22 14:37 92 High Flow N/C 7.00 11/04/22 14:00 90 27 143/95 (111) 91 High Flow N/C 6.00 11/04/22 13:00 86 30 92 High Flow N/C 6.00 11/04/22 12:19 98 11/04/22 12:00 84 23 128/70 (89) 93 High Flow N/C 6.00 11/04/22 12:00 97 High Flow N/C 6.00 11/04/22 11:49 36.9 11/04/22 11:00 96 28 150/100 (117) 90 High Flow N/C 6.00 11/04/22 10:45 92 21 148/93 (110) 90 High Flow N/C 6.00 I & O 11/05/22 07:00 Intake Total 1925 ml Output Total 3100 ml Balance -1175 ml Height & Weight Height: '" Weight: lbs. oz. kg; 36.73 BMI Method: General Appearance: Mild Distress HEENT: Other (BiPAP on difficult to evaluate oral exam) Neck: Supple Respiratory: No Accessory Muscle Use; Crackles (Mild in basis); No Respiratory Distress Cardiovascular: Regular Rate, Rhythm Capillary Refill: Less Than 3 Seconds Gastrointestinal: soft Extremity: Normal Capillary Refill Neurologic/Psychiatric: Alert, Oriented x3 Skin: Normal Color Results Lab Laboratory Tests 11/04/22 04:10 11/05/22 03:30 Assessment/Plan Assessment/Plan 1 ELEAZAR VARNER MD November 05, 2022 10:43
[2022-11-05] MEDS: ENOXAPARIN INJECTION 30 MG/0.3 ML SYR SC SCH (11:58)
--- NOTE | 2022-11-05 14:06 | Physical Therapy Evaluation ---
PT Evaluation-General Medical Diagnosis Admission Date Nov 01, 2022 at 23:13 Medical Diagnosis: Respiratory Failure Onset Date: Nov 01, 2022 Therapy Diagnosis Therapy Diagnosis: Gait deficit, strength deficit Precautions Precautions/Isolations: Fall Prevention, Standard Precautions Weight Bear Status Right Lower Extremity: Right Full Weight Bearing Left Lower Extremity: Left Full Weight Bearing Referral Physician: Dr. Santillan Reason for Referral: Evaluation/Treatment Medical History Pertinent Medical History: COPD, DM, HTN Reviewed History: Yes Social History Home: Single Level Current Living Status: Spouse Entry Into Home: Stairs Without Railing PT Steps Into Home: 2 Prior Prior Level of Function SCALE: Activities may be completed with or without assistive devices. 1-Rtjixjrwbn-tcgyqee completes the activity by him/herself with no assistance from a helper. 5-Set-up or Clean-up Assistance-helper sets up or cleans up; patient completes activity. [place] assists only prior to or following the activity. 4-Supervision or Touching Assistance-helper provides verbal cues and/or touching/steadying and/or contact guard assistance as patient completes activity. Assistance may be provided throughout the activity or intermittently. 3-Partial/Moderate Assistance-helper does LESS THAN HALF the effort. [place] lifts, holds or supports trunk or limbs, but provides less than half the effort. 2-Substantial/Maximal Assistance-helper does MORE THAN HALF the effort. [place] lifts or holds trunk or limbs and provides more than half the effort. 2-Ogkeuxfhh-mvsjfn does ALL the effort. Patient does none of the effort to complete the activity. Or, the assistance of 2 or more helpers is required for the patient to complete the activity. If activity was not attempted, code reason: 7-Patient Refused. 9-Not Applicable-not attempted and the patient did not perform the activity before the current illness, exacerbation or injury. 10-Not Attempted due to Environmental Limitations-(lack of equipment, weather restraints, etc.). 88-Not Attempted due to Medical Conditions or Safety Concerns. Bed Mobility: 6 Transfers (B,C,W/C): 6 Gait: 6 Stairs: 6 Indoor Mobility (Ambulation): Independent Stairs: Independent Prior Devices Use: None PT Evaluation-Current Subjective Patient lying supine in bed upon PT arrival, agreeable to treatment. Patient rates pain at 0/10 currently. Objective Patient Orientation: Person, Place, Time, Situation Attachments: Oxygen, Chua Catheter, IV ROM/Strength ROM Lower Extremities WFLs BLEs all planes Strength Lower Extremities 4/5 BLEs all planes Sensory Vision: Wears Glasses Hearing: Hearing Aid/Aides Sensation Right Lower Extremit: Intact Sensation Left Lower Extremity: Intact Transfers Roll Left to Right (QC): 4 Sit to Lying (QC): 4 Lying to Sitting/Side of Bed(Q: 4 Sit to Stand (QC): 4 Chair/Luy-mc-Msddk Xfer(QC): 4 Gait Does the Patient Walk?: Yes Mode of Locomotion: Walk Anticipated Mode of Locomotion: Walk Walk 10 feet (QC): 4 Distance: 40 feet Gait Assistive Device: FWW Balance Sitting Static: Normal Sitting Dynamic: Normal Standing Static: Good Standing Dynamic: Good Assessment/Needs Patient tolerated treatment well. Patient performs all observed bed mobility and transfers with SBA. Patient ambulates 40 feet with FWW, with 10 L O2 (increased by nurse), and verbal cues for conservation of energy. Patient in chair post treatment with all needs met, nurse in room and call light in hand. Rehab Potential: Good PT [facility] Goals Hotel Office Manager Goals PT Hotel Office Manager Goals Time Frame: December 02, 2022 Roll Left & Right (QC): 6 Sit to Lying (QC): 6 Lying-Sitting on Side/Bed(QC): 6 Sit to Stand (QC): 6 Chair/Zze-pe-Bpiev Xfer(QC): 6 Toilet Transfer (QC): 6 Does the Patient Walk: Yes Walk 10 feet (QC): 6 Walk 50ft with 2 Turns (QC): 6 Walk 150 ft (QC): 6 1 Step (curb) (QC): 4 4 Steps (QC): 4 PT Plan Problem List Problem List: Activity Tolerance, Functional Strength, Safety, Balance, Gait, Transfer, Bed Mobility, ROM Treatment/Plan Treatment Plan: Continue Plan of Care Treatment Plan: Bed Mobility, Education, Functional Activity [place], Functional Strength, Group Therapy, Gait, Safety, Therapeutic Exercise, Transfers Treatment Duration: December 02, 2022 Frequency: 6 times per week Estimated Hrs Per Day: .25 hour per day Patient and/or Family Agrees t: Yes Safety Risks/Education Patient Education: Gait Training, Transfer Techniques Teaching Recipient: Patient Teaching Methods: Demonstration, Discussion Response to Teaching: Verbalize Understanding, Return Demonstration Time Time In: 1334 Time Out: 1400 DATE: November 05, 2022 Total Billed Treatment Time: 26 Total Billed Treatment Visit, RENY COWART JOHN A PT November 05, 2022 14:06
--- NOTE | 2022-11-05 15:00 | Occ Therapy Progress Note ---
Therapy Progress Note OT order received, patient w/ Noel. OT will return at next available opportunity. LEON ALBERTS OT November 05, 2022 15:00
[2022-11-05] MEDS: ALPRAZolam 1 MG (XANAX) TAB PO SCH (21:39)
[2022-11-05 22:43] VITALS: BP 135/75
[2022-11-06] MEDS: NOREPINEPHRINE 8 MG/250 ML 250 ML IV SCH ×2 (00:08→11:45)
[2022-11-06 02:36] VITALS: BP 114/66
[2022-11-06] MEDS: RT-ALBUTEROL/IPRATROPIUM 3 ML (DUONEB) VIAL INH SCH ×5 (02:36→21:36)
[2022-11-06] MEDS: CATHETER FLUSH 10 ML SYR IVP SCH ×4 (02:48→21:12)
[2022-11-06 04:33] LABS: BASOPHILS % (AUTO) 0 % (0-10); EOSINOPHILS # (AUTO) 0.2 10^3/uL (0.0-0.3); EOSINOPHILS % (AUTO) 3 % (0-10); HEMATOCRIT 25 % (40-54); HEMOGLOBIN 8.2 g/dL (13.3-17.7); LYMPHOCYTES # (AUTO) 1.1 10^3/uL (1.0-4.0); LYMPHOCYTES % (AUTO) 14 % (12-44); MEAN CORPUSCULAR HEMOGLOBIN 26 pg (25-34); MEAN CORPUSCULAR HGB CONC 32 g/dL (32-36); MEAN CORPUSCULAR VOLUME 82 fL (80-99); MEAN PLATELET VOLUME 9.6 fL (9.0-12.2); MONOCYTES # (AUTO) 0.7 10^3/uL (0.0-1.0); MONOCYTES % (AUTO) 10 % (0-12); NEUTROPHILS # (AUTO) 5.5 10^3/uL (1.8-7.8); NEUTROPHILS % (AUTO) 73 % (42-75); PLATELET COUNT 203 10^3/uL (130-400); WHITE BLOOD COUNT 7.6 10^3/uL (4.3-11.0)
[2022-11-06 04:50] LABS: ALBUMIN 3.3 GM/DL (3.2-4.5); BILIRUBIN,TOTAL 0.6 MG/DL (0.1-1.0); CALCIUM 7.6 MG/DL (8.5-10.1); CREATININE SERUM 3.17 MG/DL (0.60-1.30); MAGNESIUM 1.9 MG/DL (1.6-2.4); PHOSPHORUS 6.7 MG/DL (2.3-4.7); POTASSIUM 3.4 MMOL/L (3.6-5.0); TOTAL PROTEIN 5.3 GM/DL (6.4-8.2)
[2022-11-06] MEDS: VASOPRESSIN INJECTION 20 UNIT in NS (IVPB) 100 ML IV SCH ×2 (04:52→16:00)
[2022-11-06] MEDS: inSUlin ASPART (NovoLOG) 1 UNIT/0.01 ML (CHARGE PER UNIT) SC SCH ×4 (05:56→20:53)
[2022-11-06] MEDS: KCL 20 MEQ TAB (K-DUR) PO SCH (06:17)
[2022-11-06] MEDS: MAGNESIUM 1 GM/100 ML IVPB 100 ML IV SCH (06:17)
[2022-11-06] MEDS: POTASSIUM CL 10MEQ/50ML IVPB 50 ML IV SCH (06:17)
[2022-11-06 06:51] VITALS: BP 134/78
--- NOTE | 2022-11-06 07:45 | Physical Therapy Daily Note ---
PT Daily Note-Current Subjective Patient agrees to PT. He reports he is feeling much better today. Pain Section J - Health Conditions 1. Rarely or not at all 2. Occasionally 3. Frequently 4. Almost constantly 8. Unable to answer Pain Effect on Sleep: 1 Pain Interference with Therapy: 1 Pain Interference w/Day-to-Day: 1 Mental Status Patient Orientation: Normal For Age Attachments: Oxygen (5L HF NC) Transfers SCALE: Activities may be completed with or without assistive devices. 4-Njogcboniq-xqgqpuq completes the activity by him/herself with no assistance from a helper. 5-Set-up or Clean-up Assistance-helper sets up or cleans up; patient completes activity. [place] assists only prior to or following the activity. 4-Supervision or Touching Assistance-helper provides verbal cues and/or touching/steadying and/or contact guard assistance as patient completes activity. Assistance may be provided throughout the activity or intermittently. 3-Partial/Moderate Assistance-helper does LESS THAN HALF the effort. [place] lifts, holds or supports trunk or limbs, but provides less than half the effort. 2-Substantial/Maximal Assistance-helper does MORE THAN HALF the effort. [place] lifts or holds trunk or limbs and provides more than half the effort. 0-Tpzdzgwer-bweggs does ALL the effort. Patient does none of the effort to complete the activity. Or, the assistance of 2 or more helpers is required for the patient to complete the activity. If activity was not attempted, code reason: 7-Patient Refused. 9-Not Applicable-not attempted and the patient did not perform the activity before the current illness, exacerbation or injury. 10-Not Attempted due to Environmental Limitations-(lack of equipment, weather restraints, etc.). 88-Not Attempted due to Medical Conditions or Safety Concerns. Lying to Sitting/Side of Bed(Q: 6 Sit to Stand (QC): 5 Chair/Roy-la-Qognw Xfer(QC): 5 Weight Bearing Right Lower Extremity: Right Full Weight Bearing Left Lower Extremity: Left Full Weight Bearing Gait Training Distance: 400' Walk 10 feet (QC): 5 Walk 50 ft with 2 Turns(QC): 5 Walk 150 ft (QC): 5 Gait Assistive Device: FWW FWW for energy conservation Assessment Patient much improved on this date with SAO2 remaining 94% on 6L O2 with activity. RN notified. Patient to ambulate PRN in hallway with nursing staff. PT to dismiss patient from skilled services at this time. PT [place] Flaker Goals Alf Goals PT [place] Flaker Goals Time Frame: December 02, 2022 Roll Left & Right (QC): 6 Sit to Lying (QC): 6 Lying-Sitting on Side/Bed(QC): 6 Sit to Stand (QC): 6 Chair/Hkd-dc-Ypglb Xfer(QC): 6 Toilet Transfer (QC): 6 Does the Patient Walk: Yes Walk 10 feet (QC): 6 Walk 50ft with 2 Turns (QC): 6 Walk 150 ft (QC): 6 1 Step (curb) (QC): 4 4 Steps (QC): 4 PT Plan Treatment/Plan Treatment Plan: Discontinue PT Treatment Plan: Bed Mobility, Education, Functional Activity [place], Functional Strength, Group Therapy, Gait, Safety, Therapeutic Exercise, Transfers Treatment Duration: December 02, 2022 Frequency: 6 times per week Estimated Hrs Per Day: .25 hour per day Patient and/or Family Agrees t: Yes Time Time In: 720 Time Out: 736 DATE: November 06, 2022 Total Billed Treatment Time: 16 Total Billed Treatment 1 visit FA 16 min CHARITY IVERSON PT November 06, 2022 07:45
--- NOTE | 2022-11-06 07:57 | Diagnostic Imaging Report ---
EXAMINATION: Chest 1 view HISTORY: Followup heart failure. COMPARISON: 11/05/2022. FINDINGS: Stable cardiomegaly with slight improved central pulmonary vascular congestion and pulmonary edema. No large pleural effusion. No pneumothorax. IMPRESSION: 1. Slightly improved heart failure with stable cardiomegaly. Dictated by: Dictated on workstation # [id number]
[2022-11-06] MEDS: FUROSEMIDE 40 MG/4 ML INJ (LASIX) IVP SCH ×2 (08:45→17:13)
[2022-11-06] MEDS: meTOprolol SUCCINATE 100 MG (TOPROL XL) TAB PO SCH ×2 (08:45→20:53)
[2022-11-06] MEDS: amLODIPine 10 MG (NORVASC) TAB PO SCH (08:45)
[2022-11-06] MEDS: MUPIROCIN 2% OINT 22 GM (BACTROBAN) TUBE TOP SCH ×2 (08:46→20:55)
--- NOTE | 2022-11-06 09:24 | Cardiology Progress Note ---
Subjective Date Seen by Provider: November 06, 2022 Time Seen by Provider: 09:21 Subjective/Events-last exam Patient was seen at bedside, sitting comfortably Feeling better. Reporting improvement. Review of Systems General: No Chills, No Night Sweats, No Fatigue, No Malaise, No Appetite, No Other HEENT: No Head Aches, No Visual Changes, No Eye Pain, No Ear Pain, No Dysph paula, No Sinus Congestion, No Post Nasal Drip, No Sore Throat, No Other Pulmonary: Dyspnea; No Cough, No Pleuritic Chest Pain, No Other Cardiovascular: No: Chest Pain, Palpitations, Orthopnea, Paroxysmal Noc. Dyspnea, Edema, Lt Headedness, Other Focused Exam Time of Focused Exam: 21:30 Objective-Cardiology Exam Last Set of Vital Signs Vital Signs 11/06/22 11/06/22 11/06/22 11/06/22 11/06/22 04:00 06:00 06:51 07:00 08:00 Temp 36.5 Pulse 73 Resp 28 B/P (MAP) 134/78 (96) Pulse Ox 100 O2 Delivery High Flow N/C O2 Flow Rate 50.00 FiO2 50 I&O Intake and Output 11/06/22 00:00 Intake Total 1975 ml Output Total 2575 ml Balance -600 ml Intake Oral 1975 ml Output Urine Total 2575 ml General: Alert, Oriented X3, Cooperative HEENT: Atraumatic, PERRLA Neck: Supple, No JVD, No Thyromegaly Lungs: Normal Air Movement, Other (Bilateral rhonchi) Heart: Regular Rate, Normal S1, Normal S2, No Murmurs Abdomen: Normal Bowel Sounds, Soft, No Tenderness, No Hepatosplenomegaly, No Masses Extremities: No Clubbing, No Cyanosis, No Edema, Normal Pulses, No Tenderness/Swelling Skin: No Rashes, No Breakdown, No Significant Lesion Neuro: Normal Gait, Normal Speech, Strength at 5/5 X4 Ext, Normal Tone, Sensation Intact Psych/Mental Status: Mental Status NL, Mood NL Results Lab Laboratory Tests 11/06/22 04:01 A/P-Cardiology Admission Diagnosis Acute on chronic respiratory failure Pneumonia CHF CAD Assessment/Plan Acute on chronic respiratory failure with hypoxia, likely multifactorial with pneumonia and CHF Patient has been responding well to aggressive diuresis. Worsening renal function Currently Zaroxolyn is on hold, he received Bumex 1 mg IV for 3 days since admission Receiving Lasix IV at this point Continue to monitor Anemia, drop in H&H Probably anemia of chronic disease. Stool for occult blood was negative Received 1 unit of packed RBCs On November 05, 2022 Continue to monitor H&H Pneumonia, receiving antibiotics. Managed by primary care team Congestive heart failure, acute on chronic left ventricular systolic dysfunction. Maintained on beta davy as outpatient. Intolerance to VAL-I/ARB d/t underlying kidney disease. Patient unable to afford Jardiance. Reports diuretic discontinued approx 1 month ago d/t renal function. Limited 2D Echo done June 2022 to assess ejection fraction showing normal left ventricular chamber size with severe concentric hypertrophy. Normal left ventricular systolic function with an estimated ejection fraction of 50-60%. The left ventricular diastolic function was not determined on this study. The pulmonary artery pressure was not determined on this study as no Doppler was performed. Compared to the previous study from 06/11/2022, there has been no significant change in the ejection fraction. Diurese as tolerated. Ejection fraction on echocardiogram was mildly reduced with inferior wall hypokinesia. Coronary artery disease, History of NSTEMI in June of 2022. Stress test done June [address] Ugarte showing large, severe intensity, partially reversible basal to apical inferior and lateral defect with a small amount of inducible ischemia at the apex with a SSS 23, SDS 4. Mid to distal lateral akinesis with global hypokinesis elsewhere with severe left ventricular systolic dysfunction with a calculated ejection fraction of 28%. Patient did not undergo LHC at the time d/t underlying kidney function. Has been medically managed, maintained on ASA, Plavix and beta davy, statin Was scheduled for viability study with dobutamine stress echo as outpatient today. Will plan for this once more clinically stable Chronic kidney failure, stage IV Worsening renal function, consider nephrology consultation with Dr. Deborah Hays Hypertension, continue to monitor. Hyperlipidemia, maintained on statin as outpatient Diabetes mellitus, poor control, did not take his diabetic medicine on November 01, 2022 Managed by medical team Pulmonary hypertension, repeat 2D echo Obesity SUGEY FUENTES MD November 06, 2022 09:24
[2022-11-06] MEDS: ENOXAPARIN INJECTION 30 MG/0.3 ML SYR SC SCH (11:27)
--- NOTE | 2022-11-06 12:12 | Progress Note ---
Subjective Date Seen by a Provider: November 06, 2022 Time Seen by a Provider: 07:15 Subjective/Events-last exam Robson resting comfortably with BiPAP on. he does not believe he is breathing worse. He does have times when he has BiPAP off. Focused Exam Time of Focused Exam: 21:30 Objective Exam Vital Signs Date Time Temp Pulse Resp B/P (MAP) Pulse Ox O2 Delivery O2 Flow Rate FiO2 11/06/22 11:00 79 138/76 (96) 96 High Flow N/C 5.00 11/06/22 10:21 100 High Flow N/C 5.00 11/06/22 10:00 63 126/71 (89) 100 High Flow N/C 5.00 11/06/22 09:00 73 132/70 (90) 100 High Flow N/C 5.00 11/06/22 08:00 95 High Flow N/C 5.00 11/06/22 08:00 36.5 11/06/22 08:00 73 128/82 (97) 97 High Flow N/C 5.00 11/06/22 07:00 64 135/78 (97) 100 High Flow N/C 5.00 11/06/22 07:00 73 11/06/22 06:51 64 28 100 50.00 11/06/22 06:00 62 134/78 (96) 100 High Flow N/C 5.00 11/06/22 05:00 61 123/67 (85) 100 High Flow N/C 5.00 11/06/22 04:00 94 NIV Bilevel 50 11/06/22 04:00 66 135/72 (93) 100 High Flow N/C 5.00 11/06/22 03:00 64 114/66 (82) 100 High Flow N/C 5.00 11/06/22 02:36 63 17 100 50.00 11/06/22 02:00 63 114/66 (82) 100 High Flow N/C 5.00 11/06/22 01:00 67 26 115/66 (82) 100 High Flow N/C 5.00 11/06/22 01:00 70 11/06/22 00:00 72 123/72 (89) 100 High Flow N/C 5.00 11/05/22 23:59 93 High Flow N/C 5.00 11/05/22 23:00 88 116/94 (101) 100 High Flow N/C 5.00 11/05/22 22:43 76 28 98 50.00 11/05/22 22:00 78 135/75 (95) 96 High Flow N/C 5.00 11/05/22 21:00 77 23 138/77 (97) 90 High Flow N/C 5.00 11/05/22 20:00 94 High Flow N/C 5.00 11/05/22 20:00 37.0 11/05/22 19:54 36.6 86 26 128/75 (92) 88 High Flow N/C 5.00 11/05/22 19:00 68 17 128/75 (92) 100 High Flow N/C 5.00 11/05/22 19:00 85 11/05/22 18:55 96 High Flow N/C 5.00 11/05/22 18:00 76 30 138/76 (87) 93 High Flow N/C 5.00 11/05/22 17:00 79 17 138/93 (109) 92 High Flow N/C 5.00 11/05/22 16:42 36.5 11/05/22 16:38 High Flow N/C 5.00 11/05/22 16:00 93 High Flow N/C 6.00 11/05/22 16:00 76 20 128/86 (112) 95 High Flow N/C 6.00 11/05/22 15:00 93 21 91 High Flow N/C 6.00 11/05/22 14:27 92 High Flow N/C 6.00 11/05/22 14:00 81 90 High Flow N/C 6.00 11/05/22 13:00 78 24 127/86 (97) 89 High Flow N/C 6.00 11/05/22 12:53 79 I & O 11/06/22 07:00 Intake Total 1900 ml Output Total 2325 ml Balance -425 ml Capillary Refill : Less Than 3 Seconds General Appearance: No Apparent Distress Respiratory: Crackles (In bases but they are faint) Cardiovascular: Regular Rate, Rhythm Gastrointestinal: soft Extremity: Normal Capillary Refill Results Lab Laboratory Tests 11/05/22 15:31: Glucometer 164H 11/05/22 20:32: Glucometer 184H 11/06/22 04:01: White Blood Count 7.6, Red Blood Count 3.11L, Hemoglobin 8.2L, Hematocrit 25L, Mean Corpuscular Volume 82, Mean Corpuscular Hemoglobin 26, Mean Corpuscular Hemoglobin Concent 32, Red Cell Distribution Width 17.2H, Platelet Count 203, Mean Platelet Volume 9.6, Immature Granulocyte % (Auto) 1, Neutrophils (%) (Auto) 73, Lymphocytes (%) (Auto) 14, Monocytes (%) (Auto) 10, Eosinophils (%) (Auto) 3, Basophils (%) (Auto) 0, Neutrophils # (Auto) 5.5, Lymphocytes # (Auto) 1.1, Monocytes # (Auto) 0.7, Eosinophils # (Auto) 0.2, Basophils # (Auto) 0.0, Immature Granulocyte # (Auto) 0.0, Sodium Level 134L, Potassium Level 3.4L, Chloride Level 100, Carbon Dioxide Level 21, Anion Gap 13, Blood Urea Nitrogen 97H, Creatinine 3.17H, Estimat Glomerular Filtration Rate 21, BUN/Creatinine Ratio 31, Glucose Level 115H, Calcium Level 7.6L, Corrected Calcium 8.2L, Phosphorus Level 6.7H, Magnesium Level 1.9, Total Bilirubin 0.6, Aspartate Amino Transf (AST/SGOT) 11, Alanine Aminotransferase (ALT/SGPT) 16, Alkaline Phosphatase 71, Total Protein 5.3L, Albumin 3.3 11/06/22 10:38: Glucometer 218H Microbiology 11/01/22 MRSA Screen - Final, Complete 11/01/22 Blood Culture - Preliminary, Resulted No growth Assessment/Plan Assessment/Plan Assess & Plan/Chief Complaint 1. Respiratory failure with hypoxemia and acute on chronic. -further ICU care and monitoring -Oxygen by BiPAP -Pulmonary consultation 11/05 -BiPAP continues when necessary 11/06 -patient has severe pulmonary hypertension in this is accounting for his hypoxemia -His diuresis is managed by cardiology and is requiring careful kidney study monitoring. 2. Congestive heart failure -. Cardiology involvement -Diuresis has been initiated 11/03 -overall patient is diuresing well 11/05 -diuresis continues furosemide 40 mg IV twice daily and metolazone 2.5 mg orally 3. Chronic renal disease -Dr. Chaves consulted as well 11/03 -his creatinine was noted to be 3.14 today 11/04 -Creatinine 2.83 this morning 11/05 -creatinine remained stable 4. Questionable pneumoniaby x-ray -He has been started on cefepime in ED and this will be continued until we can prove otherwise no pneumonia is present 11/03 -the chest x-rays that followed his initial do not reveal pneumonia. His chest x-rays are more consistent with overall improvement of congestive heart failure 11/04 -He has normal white blood cell count, no fever, and chest x-ray not supportive of infiltrates 5. Mox-pxcjzfz-fzjtuqqzm diabetes mellitus -Sliding scale insulin -Diabetic diet 6. Hypertension -Is medication amlodipine was restarted today 7. Anemia with hemoglobin 7.7 today -Cardiology has ordered 1 unit of blood -Will check Hemoccult stools 11/05 -hemoglobin increased to 8.1 this morning Clinical Quality Measures Admission Status Admission Dx 1. Respiratory failure with hypoxemia and acute on chronic 2. Congestive heart failure 3. Chronic renal disease 4. Questionable pneumoniaby x-ray 5. Cba-kswdokd-ntuodaapv diabetes mellitus TIFFANY ROGERS MD November 06, 2022 12:12
--- NOTE | 2022-11-06 12:22 | Tele-ICU Progress Note ---
Subjective Date Seen by a Provider: November 06, 2022 Time Seen by a Provider: 12:00 Subjective/Events-last exam (Tele-ICU Physician , Progress Note ) Service provided via interactive audio and video telecommunications E-CARE system to a patient admitted to ICU bed in [facility]. Patient is seen today due to persistent need of ICU care Available chart/ vitals / labs / Images reviewed Video assessment done using teleICU camera, rest of exam as per RN Discussed with RN Events overnight : Afebrile hemodynamically stable Respiratory - 6 l I/O = neg Drips: Pressors- no Hospital course: RECENT hospitalization 08/24 - Tx in icu for PNA , CHF , VT/Bipap- improved after 18L negative volume balance 11/01: 62 y/o male presented to the ED. CXR: concerning for pulmonary edema 11/04- pRBC transfusion 1 U A/P Acute resp failure with VO . pulm edema -Bipap 06/09 40 % at night - on 6 l O2 -diuresis to continue ( 20 lb weight gain over the past month. CKD - stable - renal follow - off Zaroxylin 11/05. on lasix 40 bid Pulmonary hypertension- PLEASE SEE SEPARATE DISCUSSION BELOW - severe by ECHO 06/2022- and 11/02/22 - RVSP 70 ( Nl perfusion scan 06/12/22) - cont diuresis acute on chronic left ventricular systolic dysfunction. , CAD, NSTEMI in June of 2022. - as per cards Chronic intermittent hypoxia ( nocturnal , exertions - most likely due to all above - No CXR evidence of ILD 06/2022, but never had any PFT or CT. Acute and chronic anemia. - s/p transfusion 08/31, 11/04 - drop HB 11/04- no sourse of of bleeding 11/04- pRBC transfusion 1 U -follow PNA , suspected on admission - empiric tx started oin er - cefepime stopped 11/03 Hyperglycemia - ISS - long acting ? Nutritions - Po - adequate Lines : periph , (Central Line Necessity Reviewed) Chua: 11/01 OG: Nutrition: po Analgesia: Anxiety/ delirium VTE Prophylaxis: cory ? 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 bronchospam No family history of lung disease LAST 2 YEARS ++cough, morning and intermittent , occasionally with sputum, NO hemoptysis, NO wheezing, Not reports dyspnea on exertion, but did noted + nasal congestion, + snoring, SLEEPING IN A CHAIR FOR LAST YEAR + PND no symptoms of GERD + chronic BISI " Recurrent admissions are due to right side failure in face of sever pulmonary HTN in fase of chronic hypoxia and TITUS ( with possible other etiology - not established yet ) 1. presumed possible component of pulm dz ( bronchospam, flat diaphragms on cxr ) 2. Suspected chronic nocturnal hypoxia with suspected TITUS 3. Pulm HTN RVSP 70 mmHg ( in volume overload state) - ethology most likely hypoxia and TITUS - no CXR evidence of ILD 06/2022 - NL perfusion scan 06/12/22 and no DVT then -never had any PFT or CT. 4. Dyspnea and fluid retention due to all above ( Anemia might play a role ( not main ) , ? CAD - as per cards . PLAN inpatient -keep NIPPV nocturnal in patient , and at home if possible- consider autotitrat ion home device on d/c -cont diuretics with renal service guidance - maintain SaO2 >92% exertion , sleep .. Outpatient plan ( when in dry weight " -Sleep study and Tcx TITUS -supplemental O2 -PFT -close f/up with renal and cards If TITUS and hypoxia reversed , but RVSP still high , will need additional w/up as HRCT chest and pulmonary consult , along with foloing pulm HTN specialist Plans in collaboration with bedside consultants and IM MDs. A total of 40 minutes of critical care time was devoted to this patient today, required to treat and/or prevent further deterioration of critical care condition ( as above ) . I am remotely monitoring this patient from another state. I am unable to do the bedside exam, and history/physical and pertinent information is taken from other notes in the computer and bedside staff. Sepsis Event Evaluation Height, Weight, BMI Height: '" Weight: lbs. oz. kg; 36.50 BMI Method: Focused Exam Time of Focused Exam: 21:30 Exam Exam Patient acknowledged, consented, and participated in this virtual visit which was conducted using real time audio/video Vital Signs Date Time Temp Pulse Resp B/P (MAP) Pulse Ox O2 Delivery O2 Flow Rate FiO2 11/06/22 11:45 79 138/76 11/06/22 11:00 79 138/76 (96) 96 High Flow N/C 5.00 11/06/22 10:21 100 High Flow N/C 5.00 11/06/22 10:00 63 126/71 (89) 100 High Flow N/C 5.00 11/06/22 09:00 73 132/70 (90) 100 High Flow N/C 5.00 11/06/22 08:00 95 High Flow N/C 5.00 11/06/22 08:00 36.5 11/06/22 08:00 73 128/82 (97) 97 High Flow N/C 5.00 11/06/22 07:00 64 135/78 (97) 100 High Flow N/C 5.00 11/06/22 07:00 73 11/06/22 06:51 64 28 100 50.00 11/06/22 06:00 62 134/78 (96) 100 High Flow N/C 5.00 11/06/22 05:00 61 123/67 (85) 100 High Flow N/C 5.00 11/06/22 04:00 94 NIV Bilevel 50 11/06/22 04:00 66 135/72 (93) 100 High Flow N/C 5.00 11/06/22 03:00 64 114/66 (82) 100 High Flow N/C 5.00 11/06/22 02:36 63 17 100 50.00 11/06/22 02:00 63 114/66 (82) 100 High Flow N/C 5.00 11/06/22 01:00 67 26 115/66 (82) 100 High Flow N/C 5.00 11/06/22 01:00 70 11/06/22 00:00 72 123/72 (89) 100 High Flow N/C 5.00 11/05/22 23:59 93 High Flow N/C 5.00 11/05/22 23:00 88 116/94 (101) 100 High Flow N/C 5.00 11/05/22 22:43 76 28 98 50.00 11/05/22 22:00 78 135/75 (95) 96 High Flow N/C 5.00 11/05/22 21:00 77 23 138/77 (97) 90 High Flow N/C 5.00 11/05/22 20:00 94 High Flow N/C 5.00 11/05/22 20:00 37.0 11/05/22 19:54 36.6 86 26 128/75 (92) 88 High Flow N/C 5.00 11/05/22 19:00 68 17 128/75 (92) 100 High Flow N/C 5.00 11/05/22 19:00 85 11/05/22 18:55 96 High Flow N/C 5.00 11/05/22 18:00 76 30 138/76 (87) 93 High Flow N/C 5.00 11/05/22 17:00 79 17 138/93 (109) 92 High Flow N/C 5.00 11/05/22 16:42 36.5 11/05/22 16:38 High Flow N/C 5.00 11/05/22 16:00 93 High Flow N/C 6.00 11/05/22 16:00 76 20 128/86 (112) 95 High Flow N/C 6.00 11/05/22 15:00 93 21 91 High Flow N/C 6.00 11/05/22 14:27 92 High Flow N/C 6.00 11/05/22 14:00 81 90 High Flow N/C 6.00 11/05/22 13:00 78 24 127/86 (97) 89 High Flow N/C 6.00 11/05/22 12:53 79 I & O 11/06/22 07:00 Intake Total 1900 ml Output Total 2325 ml Balance -425 ml Height & Weight Height: '" Weight: lbs. oz. kg; 36.50 BMI Method: General Appearance: Mild Distress HEENT: Other (BiPAP on difficult to evaluate oral exam) Neck: Supple Respiratory: No Accessory Muscle Use; Crackles (Mild in basis); No Respiratory Distress Cardiovascular: Regular Rate, Rhythm Capillary Refill: Less Than 3 Seconds Gastrointestinal: soft Extremity: Normal Capillary Refill Neurologic/Psychiatric: Alert, Oriented x3 Skin: Normal Color Results Lab Laboratory Tests 11/05/22 03:30 11/06/22 04:01 Assessment/Plan Assessment/Plan 1 ELEAZAR VARNER MD November 06, 2022 12:22
--- NOTE | 2022-11-06 14:10 | Occupational Therapy Eval ---
OT Evaluation-General/PLF Medical Diagnosis Admission Date Nov 01, 2022 at 23:13 Medical Diagnosis: Respiratory Failure Onset Date: Nov 01, 2022 Therapy Diagnosis Therapy Diagnosis: weakness Precautions Precautions/Isolations: Fall Prevention, Standard Precautions Weight Bear Status Weight Bearing Restriction: Full Weight Bearing Referral Physician: Dr. Santillan Referral Reason: Activity Tolerance, Self Care, Evaluation/Treatment, Strengthening/ROM Medical History Pertinent Medical History: COPD, DM, HTN Additional Medical History 62-year-old male presents to [facility] emergency department on November 01, 2022 with hypoxemia as well as dyspnea. He recently this year has been admitted twice for dyspnea, congestive heart failure, pulmonary edema as well as chronic kidney disease. His stated he was watching TV and became extremely short of breath and they checked his home saturations and it was noted to be 50 percentile. He was on 2-3 L nasal cannula at that time. Patient requested that his bring him to the emergency department. Patient is scheduled to have echocardiogram on November 02, 2022 as he did have a NSTEMI in June 2022. 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 His states he has gained about 20 pounds over the past month. His and him realize that the balancing act controlling his fluids and keeping his kidneys healthy. He is also diabetic and has been on oral control and he does not desire to go on injections. Social History Home: Single Level Current Living Status: Spouse Entry Into Home: Stairs Without Railing Steps Into Home: 2 ADL-Prior Level of Function SCALE: Activities may be completed with or without assistive devices. 5-Vqrqufrold-gwxzici completes the activity by him/herself with no assistance from a helper. 5-Set-up or Clean-up Assistance-helper sets up or cleans up; patient completes activity. [place] assists only prior to or following the activity. 4-Supervision or Touching Assistance-helper provides verbal cues and/or touching/steadying and/or contact guard assistance as patient completes activity. Assistance may be provided throughout the activity or intermittently. 3-Partial/Moderate Assistance-helper does LESS THAN HALF the effort. [place] lifts, holds or supports trunk or limbs, but provides less than half the effort. 2-Substantial/Maximal Assistance-helper does MORE THAN HALF the effort. [place] lifts or holds trunk or limbs and provides more than half the effort. 9-Uixlbkexj-mdjpas does ALL the effort. Patient does none of the effort to comp lete the activity. Or, the assistance of 2 or more helpers is required for the patient to complete the activity. If activity was not attempted, code reason: 7-Patient Refused. 9-Not Applicable-not attempted and the patient did not perform the activity before the current illness, exacerbation or injury. 10-Not Attempted due to Environmental Limitations-(lack of equipment, weather restraints, etc.). 88-Not Attempted due to Medical Conditions or Safety Concerns. Self Care: Independent Functional Cognition: Independent Drive Self: Yes OT Current Status Subjective UP in recliner, agreeable to OT Current Glasses/Contacts: Yes Upper Extremity ROM BUE ROM WNLs Upper Extremity Coordination INTACT Upper Extremity Sensation INTACT Upper Extremity Strength BUE STRENGTH WFLs, +4/5 slight decreased extension of BUE for shoulders and elbows 4/5 ADL-Treatment Eating (QC): 6 Oral Hygiene (QC): 6 Shower/Bathe Self (QC): 7 Upper Body Dressing (QC): 6 Lower Body Dressing (QC): 6 On/Off Footwear (QC): 6 Toileting Hygiene (QC): 6 Education OT Patient Education: Purpose of tx/functional activities, Rehab process, Safe ty issues Teaching Recipient: Patient Teaching Methods: Demonstration, Discussion Response to Teaching: Return Demonstration OT Hi Lo Driver Goals Skilled Nursing Goals 1=Demonstrate adherence to instructed precautions during ADL tasks. 2=Patient will verbalize/demonstrate understanding of assistive devices/modifications for ADL. 3=Patient will improve strength/tolerance for activity to enable patient to perform ADL's. OT Education/Plan Problem List/Assessment Assessment: No Skilled OT Needs ID'd Discharge Recommendations Plan/Recommendations: Discontinue OT Treatment Plan/Plan of Care Treatment,Training & Education: Yes Patient would benefit from OT for education, treatment and training to promote independence in ADL's, mobility, safety and/or upper extremity function for ADL's. Plan of Care: OTHER (EVAL only) Treatment Duration: November 06, 2022 Frequency: 1 time per week Rehab Potential: Good Time Start Time: 11:00 Stop Time: 11:15 DATE: November 06, 2022 Total Time Billed (hr/min): 15 Billed Treatment Time EVL 15 min LEON ALBERTS OT November 06, 2022 14:10
[2022-11-06 15:07] VITALS: BP 138/76
[2022-11-06] MEDS: ALPRAZolam 1 MG (XANAX) TAB PO SCH (20:54)
[2022-11-07 02:28] VITALS: BP 134/74
[2022-11-07] MEDS: VASOPRESSIN INJECTION 20 UNIT in NS (IVPB) 100 ML IV SCH (03:07)
[2022-11-07] MEDS: NOREPINEPHRINE 8 MG/250 ML 250 ML IV SCH (03:59)
[2022-11-07 04:15] LABS: BASOPHILS % (AUTO) 0 % (0-10); EOSINOPHILS # (AUTO) 0.2 10^3/uL (0.0-0.3); EOSINOPHILS % (AUTO) 3 % (0-10); HEMATOCRIT 25 % (40-54); HEMOGLOBIN 8.1 g/dL (13.3-17.7); LYMPHOCYTES # (AUTO) 0.9 10^3/uL (1.0-4.0); LYMPHOCYTES % (AUTO) 12 % (12-44); MEAN CORPUSCULAR HEMOGLOBIN 26 pg (25-34); MEAN CORPUSCULAR HGB CONC 33 g/dL (32-36); MEAN CORPUSCULAR VOLUME 81 fL (80-99); MEAN PLATELET VOLUME 9.6 fL (9.0-12.2); MONOCYTES # (AUTO) 0.8 10^3/uL (0.0-1.0); MONOCYTES % (AUTO) 11 % (0-12); NEUTROPHILS # (AUTO) 5.3 10^3/uL (1.8-7.8); NEUTROPHILS % (AUTO) 73 % (42-75); PLATELET COUNT 201 10^3/uL (130-400); WHITE BLOOD COUNT 7.2 10^3/uL (4.3-11.0)
[2022-11-07 04:39] LABS: ALBUMIN 3.2 GM/DL (3.2-4.5); POTASSIUM 3.3 MMOL/L (3.6-5.0)
[2022-11-07 04:40] LABS: CALCIUM 7.9 MG/DL (8.5-10.1)
[2022-11-07 04:42] LABS: TOTAL PROTEIN 5.8 GM/DL (6.4-8.2)
[2022-11-07 04:43] LABS: BILIRUBIN,TOTAL 0.6 MG/DL (0.1-1.0)
[2022-11-07 04:45] LABS: CREATININE SERUM 2.99 MG/DL (0.60-1.30); PHOSPHORUS 6.4 MG/DL (2.3-4.7)
[2022-11-07 04:48] LABS: MAGNESIUM 1.7 MG/DL (1.6-2.4)
[2022-11-07] MEDS: MAGNESIUM 1 GM/100 ML IVPB 100 ML IV SCH (05:07)
[2022-11-07] MEDS: KCL 20 MEQ TAB (K-DUR) PO SCH (05:07)
[2022-11-07] MEDS: POTASSIUM CL 10MEQ/50ML IVPB 50 ML IV SCH (05:07)
[2022-11-07] MEDS: inSUlin ASPART (NovoLOG) 1 UNIT/0.01 ML (CHARGE PER UNIT) SC SCH ×4 (05:08→21:31)
[2022-11-07] MEDS: CATHETER FLUSH 10 ML SYR IVP SCH ×3 (06:25→21:33)
--- NOTE | 2022-11-07 06:55 | Progress Note - Hospitalist ---
Subjective HPI/CC On Admission Date Seen by Provider: November 07, 2022 Time Seen by Provider: 11:00 Subjective/Events-last exam No major issues No pain reported Breathing well BUN 112 will start NS at 50cc/hr Move to 4th Review of Systems General: Fatigue, Malaise Pulmonary: Dyspnea Focused Exam Time of Focused Exam: 21:30 Objective Exam Vital Signs Vital Signs Date Time Temp Pulse Resp B/P (MAP) Pulse Ox O2 Delivery O2 Flow Rate FiO2 11/07/22 12:26 70 11/07/22 11:46 36.7 11/07/22 11:00 26 137/77 (98) 99 High Flow N/C 3.00 11/06/22 04:00 50 Capillary Refill : Less Than 3 Seconds General Appearance: No Apparent Distress, WD/WN, Chronically ill Respiratory: Lungs Clear, Normal Breath Sounds Cardiovascular: Regular Rate, Rhythm Neurologic/Psychiatric: Alert, Oriented x3, No Motor/Sensory Deficits, Normal Mood/Affect Results/Procedures Lab Laboratory Tests 11/07/22 03:42 Patient resulted labs reviewed. Assessment/Plan Assessment and Plan Assess & Plan/Chief Complaint Assessment: Acute on chronic respiratory failure with hypoxemia PHTN CHF CKD Plan: Move to 4th NS at 50cc/hr Critical Care Critically Ill Patient WERNERGABBI FULLER November 07, 2022 06:55
[2022-11-07] MEDS: RT-ALBUTEROL/IPRATROPIUM 3 ML (DUONEB) VIAL INH SCH ×3 (06:57→21:55)
[2022-11-07] MEDS: meTOprolol SUCCINATE 100 MG (TOPROL XL) TAB PO SCH ×2 (08:23→21:32)
[2022-11-07] MEDS: amLODIPine 10 MG (NORVASC) TAB PO SCH (08:23)
--- NOTE | 2022-11-07 08:23 | Diagnostic Imaging Report ---
EXAMINATION: Chest 1 view HISTORY: Pneumonia. Shortness of breath. COMPARISON: 11/06/2022. FINDINGS: Stable cardiomegaly and central pulmonary vascular congestion with stable edema. No large pleural effusion or pneumothorax. IMPRESSION: 1. Stable chest with stable findings of heart failure. Dictated by: Dictated on workstation # [id number]
[2022-11-07] MEDS: FUROSEMIDE 40 MG/4 ML INJ (LASIX) IVP SCH (08:24)
[2022-11-07] MEDS: MUPIROCIN 2% OINT 22 GM (BACTROBAN) TUBE TOP SCH ×2 (08:24→21:32)
--- NOTE | 2022-11-07 08:53 | Tele-ICU Progress Note ---
Subjective Date Seen by a Provider: November 07, 2022 Subjective/Events-last exam This virtual visit was conducted using real time audio/video. Thank you for asking us to see this patient for respiratory insufficiency due to CHF Recent events: Alternating BiPAP 06/09 and 3L NC. to receive i unit PRBCs. PE: Comfortable. VSS. O2 sat 96% on NC HEENT: No obvious masses, adenopathy or JVD. Chest: crackles on auscultation. CV: RRR S1 S2 No murmur or added sounds. Abd: Non-tender. Bowel sounds Y. : Unremarkable. Chua N. WELDING ESTIMATOR/psychiatric: Grossly intact. No obvious focal findings. Extremities: trace edema. Capillary refill < 3 seconds. Skin: unremarkable. Results: Elevated BUN 112, Creat 2.99. Decreased Hb 8.1, K 3.3. CXR: B congestion, improved. Available chart/ vitals / labs / images reviewed. Video assessment done using teleICU camera, rest of exam as per RN. A/P: Respiratory insufficiency: Continue present management with BiPAP/NC Consider transfer. Critical Care: critically ill patient. Cont.Norv., lasix, KCl, SSI, metop., Meryl. Replace K. Discussed with RN .Jyoti Asked RN to reach out to eICU if any questions or concerns later. Time spent with patient/coordination of care with other health professionals (mins): 15 Sepsis Event Evaluation Height, Weight, BMI Height: '" Weight: lbs. oz. kg; 36.28 BMI Method: Focused Exam Time of Focused Exam: 21:30 Exam Exam Patient acknowledged, consented, and participated in this virtual visit which was conducted using real time audio/video Vital Signs Date Time Temp Pulse Resp B/P (MAP) Pulse Ox O2 Delivery O2 Flow Rate FiO2 11/07/22 08:00 86 23 144/82 (113) 97 High Flow N/C 3.00 11/07/22 07:57 36.4 11/07/22 07:05 95 High Flow N/C 3.00 11/07/22 07:00 83 38 121/74 (95) 100 High Flow N/C 3.00 11/07/22 07:00 69 11/07/22 06:00 66 18 135/80 (98) 95 High Flow N/C 3.00 11/07/22 05:00 62 20 136/74 (94) 98 High Flow N/C 3.00 11/07/22 04:00 96 High Flow N/C 3.00 11/07/22 04:00 36.3 11/07/22 04:00 60 16 132/74 (93) 99 High Flow N/C 3.00 11/07/22 03:00 62 16 130/84 (99) 100 High Flow N/C 3.00 11/07/22 02:28 60 17 100 35.00 11/07/22 02:00 60 134/74 (94) 100 High Flow N/C 3.00 11/07/22 01:00 62 11/07/22 01:00 62 15 126/69 (88) 100 High Flow N/C 3.00 11/07/22 00:00 68 130/72 (91) 96 High Flow N/C 3.00 11/07/22 00:00 36.6 11/06/22 23:59 97 High Flow N/C 3.00 11/06/22 23:00 67 125/68 (87) 96 High Flow N/C 3.00 11/06/22 22:00 70 124/80 (95) 97 High Flow N/C 3.00 11/06/22 21:37 95 High Flow N/C 3.00 11/06/22 21:00 85 94 High Flow N/C 3.00 11/06/22 20:00 71 140/79 (99) 96 High Flow N/C 3.00 11/06/22 20:00 97 High Flow N/C 3.00 11/06/22 19:51 High Flow N/C 3.00 11/06/22 19:47 36.6 11/06/22 19:00 73 130/77 (94) 96 High Flow N/C 3.00 11/06/22 19:00 73 11/06/22 18:00 70 135/76 (95) 100 High Flow N/C 3.00 11/06/22 17:00 67 161/112 (128) 99 High Flow N/C 3.00 11/06/22 16:00 95 High Flow N/C 5.00 11/06/22 16:00 73 138/76 11/06/22 16:00 72 144/76 (98) 99 High Flow N/C 3.00 11/06/22 15:07 36.5 73 100 11/06/22 15:05 100 High Flow N/C 5.00 11/06/22 15:00 98 142/81 (101) 99 High Flow N/C 3.00 11/06/22 14:00 67 131/84 (100) 100 High Flow N/C 5.00 11/06/22 13:00 73 11/06/22 13:00 74 137/71 (93) 97 High Flow N/C 5.00 11/06/22 12:00 71 139/78 (98) 100 High Flow N/C 5.00 11/06/22 12:00 95 High Flow N/C 5.00 11/06/22 12:00 36.5 11/06/22 11:45 79 138/76 11/06/22 11:00 79 138/76 (96) 96 High Flow N/C 5.00 11/06/22 10:21 100 High Flow N/C 5.00 11/06/22 10:00 63 126/71 (89) 100 High Flow N/C 5.00 11/06/22 09:00 73 132/70 (90) 100 High Flow N/C 5.00 I & O 11/07/22 07:00 Intake Total 2725 ml Output Total 3300 ml Balance -575 ml Height & Weight Height: '" Weight: lbs. oz. kg; 36.28 BMI Method: General Appearance: Mild Distress HEENT: Other (BiPAP on difficult to evaluate oral exam) Neck: Supple Respiratory: No Accessory Muscle Use; Crackles (Mild in basis); No Respiratory Distress Cardiovascular: Regular Rate, Rhythm Capillary Refill: Less Than 3 Seconds Gastrointestinal: soft Extremity: Normal Capillary Refill Neurologic/Psychiatric: Alert, Oriented x3 Skin: Normal Color Results Lab Laboratory Tests 11/06/22 04:01 11/07/22 03:42 Assessment/Plan Assessment/Plan See free text. Critical Care: Critically Ill Patient RADHA SARMIENTO MD November 07, 2022 08:53
--- NOTE | 2022-11-07 10:55 | Progress Note - Cardiology ---
Cardiology SOAP Progress Note Subjective: No cp or palp or syncope No shortness of breath No n/v/d No weakness or focal weakness Objective: I&O/Vital Signs 11/06/22 11/06/22 11/07/22 11/07/22 23:00 23:59 00:00 00:00 Temp 36.6 Pulse 67 68 B/P (MAP) 125/68 (87) 130/72 (91) Pulse Ox 96 97 96 O2 Delivery High Flow N/C High Flow N/C High Flow N/C O2 Flow Rate 3.00 3.00 3.00 11/07/22 11/07/22 11/07/22 11/07/22 01:00 01:00 02:00 02:28 Pulse 62 62 60 60 Resp 15 17 B/P (MAP) 126/69 (88) 134/74 (94) Pulse Ox 100 100 100 O2 Delivery High Flow N/C High Flow N/C O2 Flow Rate 3.00 3.00 35.00 11/07/22 11/07/22 11/07/22 11/07/22 03:00 04:00 04:00 04:00 Temp 36.3 Pulse 62 60 Resp 16 16 B/P (MAP) 130/84 (99) 132/74 (93) Pulse Ox 100 99 96 O2 Delivery High Flow N/C High Flow N/C High Flow N/C O2 Flow Rate 3.00 3.00 3.00 11/07/22 11/07/22 11/07/22 11/07/22 05:00 06:00 07:00 07:00 Pulse 62 66 69 83 Resp 20 18 38 B/P (MAP) 136/74 (94) 135/80 (98) 121/74 (95) Pulse Ox 98 95 100 O2 Delivery High Flow N/C High Flow N/C High Flow N/C O2 Flow Rate 3.00 3.00 3.00 11/07/22 11/07/22 11/07/22 11/07/22 07:05 07:57 08:00 08:00 Temp 36.4 Pulse 86 Resp 23 B/P (MAP) 144/82 (113) Pulse Ox 95 96 97 O2 Delivery High Flow N/C High Flow N/C High Flow N/C O2 Flow Rate 3.00 3.00 3.00 11/07/22 11/07/22 09:00 10:00 Pulse 67 66 Resp 14 20 B/P (MAP) 130/72 (96) 131/87 (108) Pulse Ox 99 99 O2 Delivery High Flow N/C High Flow N/C O2 Flow Rate 3.00 3.00 11/07/22 00:00 Intake Total 1125 ml Output Total 2100 ml Balance -975 ml Constitutional: AAO x 3, well-developed, well-nourished Respiratory: No accessory muscle use; chest expansion is symmetric, chest is bilaterally symmetric, other (good, bilat air entry) Cardiovascular: regular rate-rhythm, S1 and S2, systolic murmur (soft ELI at card base) Gastrointestional: No tender; soft; No guarding, No rebound; audible bowel sounds Extremities: No clubbing, No cyanosis, No significant edema Neurologic/Psychiatric: oriented x 3, other (moves all limbs equally) Skin: normal color, warm/dry; No cyanosis, No cool, No rash on exposed areas, No ulcerations on exposed areas Results/Procedures: Labs Laboratory Tests 11/06/22 16:37: Glucometer 155H 11/06/22 20:34: Glucometer 232H 11/07/22 03:42: White Blood Count 7.2, Red Blood Count 3.08L, Hemoglobin 8.1L, Hematocrit 25L, Mean Corpuscular Volume 81, Mean Corpuscular Hemoglobin 26, Mean Corpuscular Hemoglobin Concent 33, Red Cell Distribution Width 16.9H, Platelet Count 201, M munira Platelet Volume 9.6, Immature Granulocyte % (Auto) 0, Neutrophils (%) (Auto) 73, Lymphocytes (%) (Auto) 12, Monocytes (%) (Auto) 11, Eosinophils (%) (Auto) 3, Basophils (%) (Auto) 0, Neutrophils # (Auto) 5.3, Lymphocytes # (Auto) 0.9L, Monocytes # (Auto) 0.8, Eosinophils # (Auto) 0.2, Basophils # (Auto) 0.0, Immature Granulocyte # (Auto) 0.0, Sodium Level 135, Potassium Level 3.3L, Chloride Level 100, Carbon Dioxide Level 20L, Anion Gap 15H, Blood Urea Nitrogen 112*H, Creatinine 2.99H, Estimat Glomerular Filtration Rate 23, BUN/Creatinine Ratio 37, Glucose Level 120H, Calcium Level 7.9L, Corrected Calcium 8.5, Phosphorus Level 6.4H, Magnesium Level 1.7, Total Bilirubin 0.6, Aspartate Amino Transf (AST/SGOT) 12, Alanine Aminotransferase (ALT/SGPT) 14, Alkaline Phosphatase 69, Total Protein 5.8L, Albumin 3.2 11/07/22 10:37: Glucometer 192H Microbiology 11/01/22 MRSA Screen - Final, Complete 11/01/22 Blood Culture - Preliminary, Resulted No growth A/P: Assessment: Acute on chronic respiratory failure with hypoxia, likely multifactorial: pneumonia and CHF Ac systolic and diastolic CHF - Limited 2D Echo done June 2022 is reported to have shown normal left ventricular chamber size with severe concentric hypertrophy. Normal left ventricular systolic function with an estimated ejection fraction of 50-60%. The left ventricular diastolic function was not determined on this study. The pulmonary artery pressure was not determined on this study as no Doppler was performed. - Stress test in Jun 2022 is reported to have shown partially reversible basal to apical inferior and lateral defect with a small amount of inducible ischemia at the apex with a SSS 23, SDS 4. Mid to distal lateral akinesis with global hypokinesis elsewhere with severe left ventricular systolic dysfunction with a calculated ejection fraction of 28% - During this admission, he has been responding well to diuresis but renal function has been worsening. Currently Zaroxolyn is on hold, continues receiving Lasix IV - He has not been able affford SGLT-2 inhibitors (per history) Anemia - Probably anemia of chronic disease. Stool for occult blood was negative. Monitored and managed by the [facility] [place] Pneumonia - Managed by the [facility] [place] Coronary artery disease - History of NSTEMI in June of 2022. - Stress test done June [address] Ugarte showing large, severe intensity, partially reversible basal to apical inferior and lateral defect with a small amount of inducible ischemia at the apex with a SSS 23, SDS 4. Mid to distal lateral akinesis with global hypokinesis elsewhere with severe left ventricular systolic dysfunction with a calculated ejection fraction of 28%. Patient did not undergo LHC at the time d/t underlying kidney function. Has been medically managed, maintained on ASA, Plavix and beta davy, statin Chronic kidney failure, stage IV - worsening with diuresis (there currently appears to be a component of pre- renal azotemia due to volume depletion) Hypertension Hyperlipidemia - maintained on statin as outpatient Diabetes mellitus II Managed by medical team H/o pulm htn Plan: * I interviewed and examined the patient, and reviewed his records * Complex management due to multiple comorbidities * Not suitable for VAL-inhib or ARB due to renal failure * Continue bb * Reduce diuretics and gentle iv fluids because of component of pre-renal azotemia * Replenish K * Monitor labs * I discussed his CV issues with him in detail and answered questions DAVID MATAMOROS MD FACP FAC CCDS November 07, 2022 10:55
[2022-11-07] MEDS: ENOXAPARIN INJECTION 30 MG/0.3 ML SYR SC SCH (11:20)
[2022-11-07] MEDS: NS IV 1000 ML 1,000 ML IV SCH (11:21)
[2022-11-07 16:20] VITALS: BP 123/85
[2022-11-07 19:55] VITALS: BP 148/71
[2022-11-07] MEDS: ROSUVASTATIN 20 MG (CRESTOR) TABLET PO SCH (21:32)
[2022-11-07] MEDS: ALPRAZolam 1 MG (XANAX) TAB PO SCH (21:32)
[2022-11-07] MEDS: SODIUM BICARBONATE 650 MG TABLET PO SCH (21:32)
[2022-11-07] MEDS: MONTELUKAST 10 MG (SINGULAIR) TAB PO SCH (21:32)
[2022-11-08] VITALS (7 sets, daily range): BP systolic 128–144; BP diastolic 66–80
[2022-11-08 05:43] LABS: BASOPHILS % (AUTO) 0 % (0-10); EOSINOPHILS # (AUTO) 0.2 10^3/uL (0.0-0.3); EOSINOPHILS % (AUTO) 2 % (0-10); HEMATOCRIT 27 % (40-54); HEMOGLOBIN 8.6 g/dL (13.3-17.7); LYMPHOCYTES # (AUTO) 0.7 10^3/uL (1.0-4.0); LYMPHOCYTES % (AUTO) 11 % (12-44); MEAN CORPUSCULAR HEMOGLOBIN 26 pg (25-34); MEAN CORPUSCULAR HGB CONC 32 g/dL (32-36); MEAN CORPUSCULAR VOLUME 81 fL (80-99); MONOCYTES # (AUTO) 0.8 10^3/uL (0.0-1.0); MONOCYTES % (AUTO) 12 % (0-12); NEUTROPHILS % (AUTO) 75 % (42-75); PLATELET COUNT 197 10^3/uL (130-400); WHITE BLOOD COUNT 6.8 10^3/uL (4.3-11.0)
[2022-11-08 05:59] LABS: ALBUMIN 3.4 GM/DL (3.2-4.5); BILIRUBIN,TOTAL 0.6 MG/DL (0.1-1.0); CALCIUM 7.8 MG/DL (8.5-10.1); CREATININE SERUM 2.83 MG/DL (0.60-1.30); MAGNESIUM 1.8 MG/DL (1.6-2.4); POTASSIUM 3.2 MMOL/L (3.6-5.0)
[2022-11-08] MEDS: inSUlin ASPART (NovoLOG) 1 UNIT/0.01 ML (CHARGE PER UNIT) SC SCH ×4 (06:06→21:36)
[2022-11-08] MEDS: CATHETER FLUSH 10 ML SYR IVP SCH ×3 (06:06→21:36)
[2022-11-08] MEDS: NS IV 1000 ML 1,000 ML IV SCH (06:29)
[2022-11-08] MEDS ORDERED: FUROSEMIDE 40 MG/4 ML INJ (LASIX) IVP SCH (07:00)
--- NOTE | 2022-11-08 07:02 | Progress Note - Hospitalist ---
Subjective HPI/CC On Admission Date Seen by Provider: November 08, 2022 Time Seen by Provider: 11:00 Subjective/Events-last exam No major issues HLIVF BUN and creat improved No falls Review of Systems General: Fatigue, Malaise Focused Exam Time of Focused Exam: 21:30 Objective Exam Vital Signs Vital Signs Date Time Temp Pulse Resp B/P (MAP) Pulse Ox O2 Delivery O2 Flow Rate FiO2 11/08/22 14:12 36.6 74 94 32 11/08/22 11:15 18 135/71 (92) Nasal Cannula 3.00 Capillary Refill : Less Than 3 Seconds General Appearance: No Apparent Distress, WD/WN, Chronically ill Respiratory: Lungs Clear, Normal Breath Sounds Cardiovascular: Regular Rate, Rhythm Neurologic/Psychiatric: Alert, Oriented x3 Results/Procedures Lab Laboratory Tests 11/08/22 05:00 Patient resulted labs reviewed. Assessment/Plan Assessment and Plan Assess & Plan/Chief Complaint Assessment: Acute on chronic respiratory failure with hypoxemia PHTN CHF CKD Plan: HLIVF Critical Care Critically Ill Patient GABBI CALDERA DO November 08, 2022 06:54
[2022-11-08] MEDS: amLODIPine 10 MG (NORVASC) TAB PO SCH (08:17)
[2022-11-08] MEDS: meTOprolol SUCCINATE 100 MG (TOPROL XL) TAB PO SCH ×2 (08:17→20:38)
[2022-11-08] MEDS: CLOPIDOGREL 75 MG (PLAVIX) TABLET PO SCH (08:17)
[2022-11-08] MEDS: SODIUM BICARBONATE 650 MG TABLET PO SCH ×2 (08:17→20:38)
[2022-11-08] MEDS: ASPIRIN E.C. 81 MG (ECOTRIN) TAB PO SCH (08:17)
[2022-11-08] MEDS: MUPIROCIN 2% OINT 22 GM (BACTROBAN) TUBE TOP SCH (08:17)
[2022-11-08] MEDS: RT-ALBUTEROL/IPRATROPIUM 3 ML (DUONEB) VIAL INH SCH ×3 (10:40→18:56)
[2022-11-08] MEDS: ENOXAPARIN INJECTION 30 MG/0.3 ML SYR SC SCH (11:28)
[2022-11-08] MEDS ORDERED: KCL 20 MEQ TAB (K-DUR) PO NR (12:00)
--- NOTE | 2022-11-08 17:17 | Progress Note - Cardiology ---
Cardiology SOAP Progress Note Subjective: No cp or palp or syncope or shortness of breath at rest No n/v/d No focal weakness Some gen weakness and malaise present Objective: I&O/Vital Signs 11/08/22 11/08/22 11/08/22 11/08/22 07:23 07:47 08:00 10:40 Temp 37.0 Pulse 69 67 Resp 16 B/P (MAP) 144/80 (101) Pulse Ox 92 96 O2 Delivery Nasal Cannula High Flow N/C High Flow N/C O2 Flow Rate 3.00 3.00 3.00 11/08/22 11/08/22 11/08/22 11/08/22 11:15 13:22 14:12 15:13 Temp 36.6 36.6 Pulse 72 74 74 Resp 18 B/P (MAP) 135/71 (92) Pulse Ox 94 94 96 O2 Delivery Nasal Cannula High Flow N/C O2 Flow Rate 3.00 3.00 FiO2 32 11/08/22 16:11 Temp 37.2 Pulse 73 Resp 18 B/P (MAP) 128/66 (86) Pulse Ox 94 O2 Delivery High Flow N/C O2 Flow Rate 3.00 11/08/22 00:00 Intake Total 1180 ml Output Total 700 ml Balance 480 ml Constitutional: AAO x 3, well-developed, well-nourished Respiratory: No accessory muscle use; chest expansion is symmetric, chest is bilaterally symmetric, other (good, bilat air entry) Cardiovascular: regular rate-rhythm, S1 and S2, systolic murmur (soft ELI at card base) Gastrointestional: No tender; soft; No guarding, No rebound; audible bowel sounds Extremities: No clubbing, No cyanosis, No significant edema Neurologic/Psychiatric: oriented x 3, other (moves all limbs equally) Skin: normal color, warm/dry; No cyanosis, No cool, No rash on exposed areas, No ulcerations on exposed areas Results/Procedures: Labs Laboratory Tests 11/07/22 17:19: Glucometer 163H 11/07/22 21:01: Glucometer 206H 11/08/22 05:00: White Blood Count 6.8, Red Blood Count 3.29L, Hemoglobin 8.6L, Hematocrit 27L, Mean Corpuscular Volume 81, Mean Corpuscular Hemoglobin 26, Mean Corpuscular Hemoglobin Concent 32, Red Cell Distribution Width 16.7H, Platelet Count 197, Mean Platelet Volume 10.0, Immature Granulocyte % (Auto) 0, Neutrophils (%) (Auto) 75, Lymphocytes (%) (Auto) 11L, Monocytes (%) (Auto) 12, Eosinophils (%) (Auto) 2, Basophils (%) (Auto) 0, Neutrophils # (Auto) 5.0, Lymphocytes # (Auto) 0.7L, Monocytes # (Auto) 0.8, Eosinophils # (Auto) 0.2, Basophils # (Auto) 0.0, Immature Granulocyte # (Auto) 0.0, Sodium Level 135, Potassium Level 3.2L, Chloride Level 100, Carbon Dioxide Level 21, Anion Gap 14, Blood Urea Nitrogen 108*H, Creatinine 2.83H, Estimat Glomerular Filtration Rate 24, BUN/Creatinine Ratio 38, Glucose Level 136H, Calcium Level 7.8L, Corrected Calcium 8.3L, Magnesium Level 1.8, Total Bilirubin 0.6, Aspartate Amino Transf (AST/SGOT) 10, Alanine Aminotransferase (ALT/SGPT) 14, Alkaline Phosphatase 71, Total Protein 6.0L, Albumin 3.4 11/08/22 10:38: Glucometer 184H 11/08/22 15:38: Glucometer 210H Microbiology 11/01/22 MRSA Screen - Final, Complete 11/01/22 Blood Culture - Final, Complete No growth Laboratory Tests 11/07/22 03:42 11/08/22 05:00 A/P: Assessment: Acute on chronic respiratory failure with hypoxia, likely multifactorial: pneumonia and CHF Ac systolic and diastolic CHF - Limited 2D Echo done June 2022 is reported to have shown normal left ventricular chamber size with severe concentric hypertrophy. Normal left ventricular systolic function with an estimated ejection fraction of 50-60%. The left ventricular diastolic function was not determined on this study. The pulmonary artery pressure was not determined on this study as no Doppler was performed. - Stress test in Jun 2022 is reported to have shown partially reversible basal to apical inferior and lateral defect with a small amount of inducible ischemia at the apex with a SSS 23, SDS 4. Mid to distal lateral akinesis with global hypokinesis elsewhere with severe left ventricular systolic dysfunction with a calculated ejection fraction of 28% - During this admission, he has been responding well to diuresis but renal function has been worsening. Currently Zaroxolyn is on hold, continues receiving Lasix IV - He has not been able affford SGLT-2 inhibitors (per history) Anemia - Probably anemia of chronic disease. Stool for occult blood was negative. Monitored and managed by the [facility] [place] Pneumonia - Managed by the [facility] [place] Coronary artery disease - History of NSTEMI in June of 2022. - Stress test done June [address] Ugarte showing large, severe intensity, partially reversible basal to apical inferior and lateral defect with a small amount of inducible ischemia at the apex with a SSS 23, SDS 4. Mid to distal lateral akinesis with global hypokinesis elsewhere with severe left ventricular systolic dysfunction with a calculated ejection fraction of 28%. Patient did not undergo LHC at the time d/t underlying kidney function. Has been medically managed, maintained on ASA, Plavix and beta davy, statin Chronic kidney failure, stage IV - worsening with diuresis (there currently appears to be a component of pre- renal azotemia due to volume depletion) Hypertension Hyperlipidemia - maintained on statin as outpatient Diabetes mellitus II Managed by medical team H/o pulm htn Plan: * Not suitable for VAL-inhib or ARB due to renal failure * Continue bb * Reduce diuretics and gentle iv fluids because of component of pre-renal azotemia * Replenish K (Dr Urbina managing) * Monitor labs DAVID MATAMOROS MD FACP FACC CCDS November 08, 2022 17:17
[2022-11-08] MEDS: MONTELUKAST 10 MG (SINGULAIR) TAB PO SCH (20:38)
[2022-11-08] MEDS: ROSUVASTATIN 20 MG (CRESTOR) TABLET PO SCH (20:38)
[2022-11-08] MEDS: ALPRAZolam 1 MG (XANAX) TAB PO SCH (20:38)
[2022-11-09] VITALS (7 sets, daily range): BP systolic 123–145; BP diastolic 63–73
[2022-11-09 04:33] LABS: BASOPHILS % (AUTO) 0 % (0-10); EOSINOPHILS # (AUTO) 0.2 10^3/uL (0.0-0.3); EOSINOPHILS % (AUTO) 2 % (0-10); HEMATOCRIT 25 % (40-54); LYMPHOCYTES # (AUTO) 0.6 10^3/uL (1.0-4.0); LYMPHOCYTES % (AUTO) 9 % (12-44); MEAN CORPUSCULAR HEMOGLOBIN 26 pg (25-34); MEAN CORPUSCULAR HGB CONC 32 g/dL (32-36); MEAN CORPUSCULAR VOLUME 81 fL (80-99); MEAN PLATELET VOLUME 9.7 fL (9.0-12.2); MONOCYTES # (AUTO) 0.7 10^3/uL (0.0-1.0); MONOCYTES % (AUTO) 10 % (0-12); NEUTROPHILS # (AUTO) 5.3 10^3/uL (1.8-7.8); NEUTROPHILS % (AUTO) 78 % (42-75); PLATELET COUNT 178 10^3/uL (130-400); WHITE BLOOD COUNT 6.8 10^3/uL (4.3-11.0)
[2022-11-09 04:50] LABS: ALBUMIN 3.2 GM/DL (3.2-4.5); BILIRUBIN,TOTAL 0.6 MG/DL (0.1-1.0); CALCIUM 7.7 MG/DL (8.5-10.1); CREATININE SERUM 2.93 MG/DL (0.60-1.30); MAGNESIUM 1.7 MG/DL (1.6-2.4); POTASSIUM 3.4 MMOL/L (3.6-5.0); TOTAL PROTEIN 5.9 GM/DL (6.4-8.2)
[2022-11-09] MEDS: CATHETER FLUSH 10 ML SYR IVP SCH ×3 (06:15→20:15)
[2022-11-09] MEDS: inSUlin ASPART (NovoLOG) 1 UNIT/0.01 ML (CHARGE PER UNIT) SC SCH ×4 (06:55→20:14)
[2022-11-09] MEDS: RT-ALBUTEROL/IPRATROPIUM 3 ML (DUONEB) VIAL INH SCH ×3 (07:00→21:07)
--- NOTE | 2022-11-09 07:39 | Progress Note ---
Subjective Date Seen by a Provider: November 09, 2022 Time Seen by a Provider: 07:10 Subjective/Events-last exam patient is now on fourth medical. He is resting comfortably on 3 L nasal cannula. He has not done any independent walking other than walking with physical therapy. Focused Exam Time of Focused Exam: 21:30 Objective Exam Vital Signs Date Time Temp Pulse Resp B/P (MAP) Pulse Ox O2 Delivery O2 Flow Rate FiO2 11/09/22 07:18 36.8 74 18 126/67 (86) 94 Nasal Cannula 3.00 11/09/22 07:00 93 Nasal Cannula 3.00 11/09/22 04:12 37.0 66 18 127/72 (90) 92 High Flow N/C 3.00 11/09/22 01:00 67 11/09/22 00:00 37.2 67 18 123/68 (86) 95 High Flow N/C 3.00 11/08/22 20:43 36.8 77 18 130/72 (91) 94 High Flow N/C 3.00 11/08/22 20:00 High Flow N/C 3.00 11/08/22 19:00 74 11/08/22 18:56 96 High Flow N/C 3.00 11/08/22 16:11 37.2 73 18 128/66 (86) 94 High Flow N/C 3.00 11/08/22 15:13 96 High Flow N/C 3.00 11/08/22 14:12 36.6 74 94 32 11/08/22 13:22 74 11/08/22 11:15 36.6 72 18 135/71 (92) 94 Nasal Cannula 3.00 11/08/22 10:40 96 High Flow N/C 3.00 11/08/22 08:00 High Flow N/C 3.00 11/08/22 07:47 67 I & O 11/09/22 06:59 Intake Total 3380 ml Balance 3380 ml Capillary Refill : Less Than 3 Seconds General Appearance: No Apparent Distress Respiratory: Crackles (In bases) Cardiovascular: Regular Rate, Rhythm Gastrointestinal: soft Extremity: No Pedal Edema Neurologic/Psychiatric: Alert, Oriented x3 Skin: Normal Color, Warm/Dry Results Lab Laboratory Tests 11/08/22 10:38: Glucometer 184H 11/08/22 15:38: Glucometer 210H 11/08/22 21:09: Glucometer 191H 11/09/22 04:12: White Blood Count 6.8, Red Blood Count 3.08L, Hemoglobin 8.0L, Hematocrit 25L, Mean Corpuscular Volume 81, Mean Corpuscular Hemoglobin 26, Mean Corpuscular Hemoglobin Concent 32, Red Cell Distribution Width 16.5H, Platelet Count 178, Mean Platelet Volume 9.7, Immature Granulocyte % (Auto) 0, Neutrophils (%) (Auto) 78H, Lymphocytes (%) (Auto) 9L, Monocytes (%) (Auto) 10, Eosinophils (%) (Auto) 2, Basophils (%) (Auto) 0, Neutrophils # (Auto) 5.3, Lymphocytes # (Auto) 0.6L, Monocytes # (Auto) 0.7, Eosinophils # (Auto) 0.2, Basophils # (Auto) 0.0, Immature Granulocyte # (Auto) 0.0, Sodium Level 136, Potassium Level 3.4L, Chloride Level 101, Carbon Dioxide Level 21, Anion Gap 14, Blood Urea Nitrogen 107*H, Creatinine 2.93H, Estimat Glomerular Filtration Rate 23, BUN/Creatinine Ratio 37, Glucose Level 114H, Calcium Level 7.7L, Corrected Calcium 8.3L, Magnesium Level 1.7, Total Bilirubin 0.6, Aspartate Amino Transf (AST/SGOT) 12, Alanine Aminotransferase (ALT/SGPT) 14, Alkaline Phosphatase 77, Total Protein 5.9L, Albumin 3.2 Microbiology 11/01/22 MRSA Screen - Final, Complete 11/01/22 Blood Culture - Final, Complete No growth Assessment/Plan Assessment/Plan Assess & Plan/Chief Complaint 1. Respiratory failure with hypoxemia and acute on chronic. -further ICU care and monitoring -Oxygen by BiPAP -Pulmonary consultation 11/05 -BiPAP continues when necessary 11/06 -patient has severe pulmonary hypertension in this is accounting for his hypoxemia -His diuresis is managed by cardiology and is requiring careful kidney study monitoring. 11/09 -Will begin home planning. Have home oxygen qualification testing 2. Congestive heart failure -. Cardiology involvement -Diuresis has been initiated 11/03 -overall patient is diuresing well 11/05 -diuresis continues furosemide 40 mg IV twice daily and metolazone 2.5 mg orally 11/09 -he is on Lasix and this will be continued when he is at home as well 3. Chronic renal disease -Dr. Chaves consulted as well 11/03 -his creatinine was noted to be 3.14 today 11/04 -Creatinine 2.83 this morning 11/05 -creatinine remained stable 4. Questionable pneumoniaby x-ray -He has been started on cefepime in ED and this will be continued until we can prove otherwise no pneumonia is present 11/03 -the chest x-rays that followed his initial do not reveal pneumonia. His chest x-rays are more consistent with overall improvement of congestive heart failure 11/04 -He has normal white blood cell count, no fever, and chest x-ray not supportive of infiltrates 5. [id number] diabetes mellitus -Sliding scale insulin -Diabetic diet 11/09 -patient will need to adhere to his diabetic diet while home 6. Hypertension -Is medication amlodipine was restarted today 7. Anemia with hemoglobin 7.7 today -Cardiology has ordered 1 unit of blood -Will check Hemoccult stools 11/05 -hemoglobin increased to 8.1 this morning Clinical Quality Measures Admission Status Admission Dx 1. Respiratory failure with hypoxemia and acute on chronic 2. Congestive heart failure 3. Chronic renal disease 4. Questionable pneumoniaby x-ray 5. [id number] diabetes mellitus TIFFANY ROGERS MD November 09, 2022 07:39
[2022-11-09] MEDS: CLOPIDOGREL 75 MG (PLAVIX) TABLET PO SCH (09:01)
[2022-11-09] MEDS: amLODIPine 10 MG (NORVASC) TAB PO SCH (09:01)
[2022-11-09] MEDS: meTOprolol SUCCINATE 100 MG (TOPROL XL) TAB PO SCH ×2 (09:01→20:15)
[2022-11-09] MEDS: ASPIRIN E.C. 81 MG (ECOTRIN) TAB PO SCH (09:01)
[2022-11-09] MEDS: SODIUM BICARBONATE 650 MG TABLET PO SCH ×2 (09:02→20:15)
--- NOTE | 2022-11-09 09:50 | Cardiology Progress Note ---
Subjective Date Seen by Provider: November 09, 2022 Time Seen by Provider: 08:20 Subjective/Events-last exam Patient in bed, no new complaints. Denies any chest pain or increased edema. Focused Exam Time of Focused Exam: 21:30 Objective-Cardiology Exam Last Set of Vital Signs Vital Signs 11/08/22 11/09/22 11/09/22 11/09/22 14:12 07:18 07:35 10:11 Temp 36.8 Pulse 71 Resp 18 B/P (MAP) 126/67 (86) Pulse Ox 91 O2 Delivery Nasal Cannula O2 Flow Rate 3.00 FiO2 32 I&O Intake and Output 11/09/22 00:00 Intake Total 3030 ml Balance 3030 ml Intake Oral 3030 ml # Voids 8 # Bowel Movements 4 General: Alert, Oriented X3, Cooperative HEENT: Atraumatic, PERRLA Neck: Supple, No JVD, No Thyromegaly Lungs: Normal Air Movement, Other (Bilateral rhonchi) Heart: Regular Rate, Normal S1, Normal S2, No Murmurs Abdomen: Normal Bowel Sounds, Soft, No Tenderness, No Hepatosplenomegaly, No Masses Extremities: No Clubbing, No Cyanosis, No Edema, Normal Pulses, No Tenderness/Swelling Skin: No Rashes, No Breakdown, No Significant Lesion Neuro: Normal Gait, Normal Speech, Strength at 5/5 X4 Ext, Normal Tone, Sensation Intact Psych/Mental Status: Mental Status NL, Mood NL Results Lab Laboratory Tests 11/09/22 04:12 A/P-Cardiology Admission Diagnosis Acute on chronic respiratory failure Pneumonia CHF CAD Assessment/Plan Acute on chronic respiratory failure with hypoxia, likely multifactorial with pneumonia and CHF Patient has been responding well to aggressive diuresis. Worsening renal function, diuretics on hold. Anemia, Probably anemia of chronic disease. Stool for occult blood was negative Received 1 unit of packed RBCs On November 05, 2022 Continue to monitor H&H Pneumonia, receiving antibiotics. Managed by primary care team Congestive heart failure, acute on chronic left ventricular systolic dysfunction. Maintained on beta davy as outpatient. Intolerance to VAL-I/ARB d/t underlying kidney disease. Patient unable to afford Jardiance. Reports diuretic discontinued approx 1 month ago d/t renal function. Limited 2D Echo done June 2022 to assess ejection fraction showing normal left ventricular chamber size with severe concentric hypertrophy. Normal left ventricular systolic function with an estimated ejection fraction of 50-60%. The left ventricular diastolic function was not determined on this study. The pulmonary artery pressure was not determined on this study as no Doppler was performed. Compared to the previous study from 06/11/2022, there has been no significant change in the ejection fraction. Diurese as tolerated. Ejection fraction on echocardiogram was mildly reduced with inferior wall hypokinesia. Coronary artery disease, History of NSTEMI in June of 2022. Stress test done June [address] Ugarte showing large, severe intensity, partially reversible basal to apical inferior and lateral defect with a small amount of inducible ischemia at the apex with a SSS 23, SDS 4. Mid to distal lateral akinesis with global hypokinesis elsewhere with severe left ventricular systolic dysfunction with a calculated ejection fraction of 28%. Patient did not undergo LHC at the time d/t underlying kidney function. Has been medically managed, maintained on ASA, Plavix and beta davy, statin Was scheduled for viability study with dobutamine stress echo . Will plan for this oon day of admittion. Will plan to evaluate once more clinically stable Chronic kidney failure, stage IV. Following with Dr. Deborah Hays. 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 Hyperlipidemia, maintained on statin as outpatient Diabetes mellitus, poor control, did not take his diabetic medicine on November 01, 2022 Managed by medical team Pulmonary hypertension, repeat 2D echo Obesity Supervisory-Addendum Brief Supervisory Addendum Participated in pt care: history, MDM, physical Personally performed: exam, history, MDM Care discussed with: MIRNA Results interpretation: Verified all documentation Notes: Patient was seen and evaluated with Tanja, examination performed, management plan was discussed, agree with the current scribed note, I made few changes to the note using Italic font Patient was seen at bedside sitting comfortably, maintained on 3 L nasal cannula Lungs are clear, no significant edema noted Currently diuretics on hold Continue to monitor, okay for discharge and maintained on home oxygen TANJA WHITMAN November 09, 2022 09:49 SUGEY FUENTES MD November 09, 2022 11:29
--- NOTE | 2022-11-09 11:20 | Physical Therapy Evaluation ---
PT Evaluation-General Medical Diagnosis Admission Date Nov 01, 2022 at 23:13 Medical Diagnosis: Respiratory Failure Onset Date: Nov 01, 2022 Therapy Diagnosis Therapy Diagnosis: decreased pulmonary function Precautions Precautions/Isolations: Standard Precautions Weight Bear Status Right Lower Extremity: Right Full Weight Bearing Left Lower Extremity: Left Full Weight Bearing Referral Physician: Carlitos Reason for Referral: Evaluation/Treatment Medical History Pertinent Medical History: COPD, DM, HTN Current History Received orders to reevaluate patient Reviewed History: Yes Social History Home: Single Level Current Living Status: Spouse Entry Into Home: Stairs Without Railing PT Steps Into Home: 2 Prior Prior Level of Function SCALE: Activities may be completed with or without assistive devices. 3-Odsnbpbchp-nfytosi completes the activity by him/herself with no assistance from a helper. 5-Set-up or Clean-up Assistance-helper sets up or cleans up; patient completes activity. Moon assists only prior to or following the activity. 4-Supervision or Touching Assistance-helper provides verbal cues and/or touching/steadying and/or contact guard assistance as patient completes activity. Assistance may be provided throughout the activity or intermittently. 3-Partial/Moderate Assistance-helper does LESS THAN HALF the effort. Moon lifts, holds or supports trunk or limbs, but provides less than half the effort. 2-Substantial/Maximal Assistance-helper does MORE THAN HALF the effort. Moon lifts or holds trunk or limbs and provides more than half the effort. 5-Fgmcftgen-ytohop does ALL the effort. Patient does none of the effort to complete the activity. Or, the assistance of 2 or more helpers is required for the patient to complete the activity. If activity was not attempted, code reason: 7-Patient Refused. 9-Not Applicable-not attempted and the patient did not perform the activity before the current illness, exacerbation or injury. 10-Not Attempted due to Environmental Limitations-(lack of equipment, weather restraints, etc.). 88-Not Attempted due to Medical Conditions or Safety Concerns. Bed Mobility: 6 Transfers (B,C,W/C): 6 Gait: 6 Stairs: 6 Indoor Mobility (Ambulation): Independent Stairs: Independent Prior Devices Use: None PT Evaluation-Current Subjective Patient agrees to PT. Objective Patient Orientation: Normal For Age Attachments: Oxygen (3L HF NC) ROM/Strength ROM Lower Extremities bilateral LE WFL Strength Lower Extremities 4/5 grossly bilateral LE all planes Integumentary/Posture Bowel Incontinence: No Bladder Incontinence: No Posture WFL Neuromuscular (Tone, Coordination, Reflexes) grossly intact Sensory Vision: Wears Glasses Hearing: Hearing Aid/Aides Sensation Right Lower Extremit: Intact Sensation Left Lower Extremity: Intact Transfers Lying to Sitting/Side of Bed(Q: 6 Sit to Stand (QC): 6 Chair/Obg-mc-Xbhww Xfer(QC): 6 Gait Mode of Locomotion: Walk Anticipated Mode of Locomotion: Walk Walk 10 feet (QC): 6 Walk 50 ft with 2 Turns(QC): 6 Walk 150 ft (QC): 6 Distance: 300' Gait Assistive Device: FWW Comments/Gait Description safe and functional with no deviation Balance Sitting Static: Normal Sitting Dynamic: Normal Standing Static: Normal Standing Dynamic: Normal Treatment RT home O2 study/patient requires 4L HF NC with activity due to decrease SAO2 84% on 3L HF NC Assessment/Needs Patient is at independent PLOF with all gross motor skills. No skilled PT indicated. Rehab Potential: Fair PT Usp Goals Nursing Resident Goals Does the Patient Walk: Yes PT Plan Treatment/Plan Treatment Plan: Discontinue PT Treatment Plan: Bed Mobility, Education, Functional Activity [place], Functional Strength, Group Therapy, Gait, Safety, Therapeutic Exercise, Transfers Treatment Duration: November 09, 2022 Frequency: 6 times per week Estimated Hrs Per Day: .25 hour per day Patient and/or Family Agrees t: Yes Time Time In: 946 Time Out: 1001 DATE: November 09, 2022 Total Billed Treatment Time: 15 Total Billed Treatment 1 visit EVMod 15 min CHARITY IVERSON PT November 09, 2022 11:20
[2022-11-09] MEDS: ENOXAPARIN INJECTION 30 MG/0.3 ML SYR SC SCH (11:32)
[2022-11-09] MEDS: ROSUVASTATIN 20 MG (CRESTOR) TABLET PO SCH (20:14)
[2022-11-09] MEDS: ALPRAZolam 1 MG (XANAX) TAB PO SCH (20:14)
[2022-11-09] MEDS: MONTELUKAST 10 MG (SINGULAIR) TAB PO SCH (20:14)
[2022-11-10 03:42] VITALS: BP 131/62
[2022-11-10] MEDS: inSUlin ASPART (NovoLOG) 1 UNIT/0.01 ML (CHARGE PER UNIT) SC SCH ×3 (04:47→15:51)
[2022-11-10] MEDS: CATHETER FLUSH 10 ML SYR IVP SCH ×2 (04:47→15:53)
[2022-11-10 05:12] LABS: BASOPHILS % (AUTO) 0 % (0-10); EOSINOPHILS # (AUTO) 0.2 10^3/uL (0.0-0.3); EOSINOPHILS % (AUTO) 2 % (0-10); HEMATOCRIT 24 % (40-54); HEMOGLOBIN 7.8 g/dL (13.3-17.7); LYMPHOCYTES # (AUTO) 0.7 10^3/uL (1.0-4.0); LYMPHOCYTES % (AUTO) 11 % (12-44); MEAN CORPUSCULAR HEMOGLOBIN 26 pg (25-34); MEAN CORPUSCULAR HGB CONC 32 g/dL (32-36); MEAN CORPUSCULAR VOLUME 81 fL (80-99); MEAN PLATELET VOLUME 10.3 fL (9.0-12.2); MONOCYTES # (AUTO) 0.6 10^3/uL (0.0-1.0); MONOCYTES % (AUTO) 10 % (0-12); NEUTROPHILS % (AUTO) 77 % (42-75); PLATELET COUNT 202 10^3/uL (130-400); WHITE BLOOD COUNT 6.5 10^3/uL (4.3-11.0)
[2022-11-10 05:31] LABS: ALBUMIN 3.2 GM/DL (3.2-4.5); BILIRUBIN,TOTAL 0.5 MG/DL (0.1-1.0); CALCIUM 7.8 MG/DL (8.5-10.1); CREATININE SERUM 2.8 MG/DL (0.60-1.30); MAGNESIUM 1.7 MG/DL (1.6-2.4); POTASSIUM 3.3 MMOL/L (3.6-5.0); TOTAL PROTEIN 5.9 GM/DL (6.4-8.2)
[2022-11-10] MEDS: RT-ALBUTEROL/IPRATROPIUM 3 ML (DUONEB) VIAL INH SCH ×3 (07:13→15:16)
[2022-11-10] MEDS ORDERED: FURO-125 PO ×2 (08:15)
[2022-11-10] MEDS: SODIUM BICARBONATE 650 MG TABLET PO SCH (08:17)
[2022-11-10] MEDS: CLOPIDOGREL 75 MG (PLAVIX) TABLET PO SCH (08:17)
[2022-11-10] MEDS: ASPIRIN E.C. 81 MG (ECOTRIN) TAB PO SCH (08:17)
[2022-11-10] MEDS: meTOprolol SUCCINATE 100 MG (TOPROL XL) TAB PO SCH (08:17)
[2022-11-10] MEDS: amLODIPine 10 MG (NORVASC) TAB PO SCH (08:17)
--- NOTE | 2022-11-10 08:18 | Discharge Inst-Simple/Standard ---
Discharge Inst-Standard Reconcile Patient Problems Problems Reviewed?: Yes Discharge Medications New, Converted or Re-Newed RX: Transmitted to Pharmacy ([facility]) Patient Instructions/Follow Up Plan of Care/Instructions/FU: Dr. Rogers within the week. Continue to utilize oxygen by nasal cannula 3 L while resting and 4 L with activity. Be careful not to over indulge in Excessive oral fluids and maintain a good diet specifically diabetic diet. Keep appointment with Dr. Chaves December 03, 2022 Activity as Tolerated: Yes Discharge Diet: ADA Diet Return to The Hospital For: Difficulty breathing, saturations remaining in the low 80% despite oxygen use. TIFFANY ROGERS MD November 10, 2022 08:18
--- NOTE | 2022-11-10 08:21 | Cardiology Progress Note ---
Subjective Date Seen by Provider: November 10, 2022 Time Seen by Provider: 08:20 Subjective/Events-last exam Patient was seen at bedside, laying down comfortably. Feeling better Review of Systems General: No Chills, No Night Sweats; Fatigue; No Malaise, No Appetite, No Other HEENT: No Head Aches, No Visual Changes, No Eye Pain, No Ear Pain, No Dysphasia, No Sinus Congestion, No Post Nasal Drip, No Sore Throat, No Other Pulmonary: No Dyspnea, No Cough, No Pleuritic Chest Pain, No Other Cardiovascular: No: Chest Pain, Palpitations, Orthopnea, Paroxysmal Noc. Dyspnea, Edema, Lt Headedness, Other Focused Exam Time of Focused Exam: 21:30 Objective-Cardiology Exam Last Set of Vital Signs Vital Signs 11/08/22 11/10/22 11/10/22 14:12 03:42 07:13 Temp 36.5 Pulse 67 Resp 18 B/P (MAP) 131/62 (85) Pulse Ox 90 O2 Delivery Nasal Cannula O2 Flow Rate 4.00 FiO2 32 I&O Intake and Output 11/10/22 00:00 Intake Total 2250 ml Balance 2250 ml Intake Oral 2250 ml # Voids 8 # Bowel Movements 4 General: Alert, Oriented X3, Cooperative HEENT: Atraumatic, PERRLA Neck: Supple, No JVD, No Thyromegaly Lungs: Normal Air Movement, Other (Bilateral rhonchi) Heart: Regular Rate, Normal S1, Normal S2, No Murmurs Abdomen: Normal Bowel Sounds, Soft, No Tenderness, No Hepatosplenomegaly, No Masses Extremities: No Clubbing, No Cyanosis, No Edema, Normal Pulses, No Tenderness/Swelling Skin: No Rashes, No Breakdown, No Significant Lesion Neuro: Normal Gait, Normal Speech, Strength at 5/5 X4 Ext, Normal Tone, Sensation Intact Psych/Mental Status: Mental Status NL, Mood NL Results Lab Laboratory Tests 11/10/22 04:39 A/P-Cardiology Admission Diagnosis Acute on chronic respiratory failure Pneumonia CHF CAD Assessment/Plan Acute on chronic respiratory failure with hypoxia, likely multifactorial with pneumonia and CHF Patient has been responding well to aggressive diuresis. Worsening renal function, diuretics on hold. Okay for discharge, will place on Lasix 20 mg daily and take additional dose as needed Anemia, Probably anemia of chronic disease. Stool for occult blood was negative Received 1 unit of packed RBCs On November 05, 2022 Continue to monitor H&H Pneumonia, receiving antibiotics. Managed by primary care team Congestive heart failure, acute on chronic left ventricular systolic dysfunction. Maintained on beta davy as outpatient. Intolerance to VAL-I/ARB d/t underlying kidney disease. Patient unable to afford Jardiance. Reports diuretic discontinued approx 1 month ago d/t renal function. Limited 2D Echo done June 2022 to assess ejection fraction showing normal left ventricular chamber size with severe concentric hypertrophy. Normal left ventricular systolic function with an estimated ejection fraction of 50-60%. The left ventricular diastolic function was not determined on this study. The pulmonary artery pressure was not determined on this study as no Doppler was performed. Compared to the previous study from 06/11/2022, there has been no significant change in the ejection fraction. Diurese as tolerated. Ejection fraction on echocardiogram was mildly reduced with inferior wall hypokinesia. Coronary artery disease, History of NSTEMI in June of 2022. Stress test done June [address] Ugarte showing large, severe intensity, partially reversible basal to apical inferior and lateral defect with a small amount of inducible ischemia at the apex with a SSS 23, SDS 4. Mid to distal lateral akinesis with global hypokinesis elsewhere with severe left ventricular systolic dysfunction with a calculated ejection fraction of 28%. Patient did not undergo LHC at the time d/t underlying kidney function. Has been medically managed, maintained on ASA, Plavix and beta davy, statin Was scheduled for viability study with dobutamine stress echo . Will plan for this oon day of admittion. Will plan to evaluate once more clinically stable Chronic kidney failure, stage IV. Following with Dr. Deborah Hays. 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 Hyperlipidemia, maintained on statin as outpatient Diabetes mellitus, poor control, did not take his diabetic medicine on November 01, 2022 Managed by medical team Pulmonary hypertension, repeat 2D echo Obesity SUGEY FUENTES MD November 10, 2022 08:21
--- NOTE | 2022-11-10 08:22 | Discharge Summary ---
Diagnosis/Chief Complaint Date of Admission Nov 01, 2022 at 23:13 Date of Discharge november 10, 2022 Discharge Date: November 10, 2022 Admission Diagnosis Admission Diagnosis 1. Respiratory failure with hypoxemia and acute on chronic. 2. Congestive heart failure 3. Chronic renal disease 4. Questionable pneumoniaby x-ray 5. Odi-ubvtphe-qjjjegiyk diabetes mellitus 6. Hypertension Discharge Diagnosis 1. Respiratory failure with hypoxemia, acute on chronic. 2. Pulmonary hypertension along with Congestive heart failure 3. Chronic renal disease 4. Giq-kynrkez-xfwasfxmx diabetes mellitus 5. Hypertension 6. Anemia of chronic disease Reason Hospital Visit 62-year-old male presents to [facility] emergency department on November 01, 2022 with hypoxemia as well as dyspnea. He recently this year has been admitted twice for dyspnea, congestive heart failure, pulmonary edema as well as chronic kidney disease. His stated he was watching TV and became extremely short of breath and they checked his home saturations and it was noted to be 50 percentile. He was on 2-3 L nasal cannula at that time. Patient requested that his bring him to the emergency department. Patient is scheduled to have echocardiogram on November 02, 2022 as he did have a NSTEMI in June 2022. 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 His states he has gained about 20 pounds over the past month. His and him realize that the balancing act controlling his fluids and keeping his kidneys healthy. He is also diabetic and has been on oral control and he does not desire to go on injections. Discharge Summary Hospital Course Hospital Course 1. Respiratory failure with hypoxemia and acute on chronic. -further ICU care and monitoring -Oxygen by BiPAP -Pulmonary consultation 11/05 -BiPAP continues when necessary 11/06 -patient has severe pulmonary hypertension in this is accounting for his hypoxemia -His diuresis is managed by cardiology and is requiring careful kidney study monitoring. 11/09 -Will begin home planning. Have home oxygen qualification testing 2. Congestive heart failure -. Cardiology involvement -Diuresis has been initiated 11/03 -overall patient is diuresing well 11/05 -diuresis continues furosemide 40 mg IV twice daily and metolazone 2.5 mg orally 11/09 -he is on Lasix and this will be continued when he is at home as well 3. Chronic renal disease -Dr. Andie consulted as well 11/03 -his creatinine was noted to be 3.14 today 11/04 -Creatinine 2.83 this morning 11/05 -creatinine remained stable 4. Questionable pneumoniaby x-ray -He has been started on cefepime in ED and this will be continued until we can prove otherwise no pneumonia is present 11/03 -the chest x-rays that followed his initial do not reveal pneumonia. His chest x-rays are more consistent with overall improvement of congestive heart failure 11/04 -He has normal white blood cell count, no fever, and chest x-ray not supportive of infiltrates 5. Lck-kgxourh-dyyykyfuk diabetes mellitus -Sliding scale insulin -Diabetic diet 11/09 -patient will need to adhere to his diabetic diet while home 6. Hypertension -Is medication amlodipine was restarted today 7. Anemia with hemoglobin 7.7 today -Cardiology has ordered 1 unit of blood -Will check Hemoccult stools 11/05 -hemoglobin increased to 8.1 this morning Labs Laboratory Tests 11/07/22 10:37: Glucometer 192H 11/07/22 17:19: Glucometer 163H 11/07/22 21:01: Glucometer 206H 11/08/22 05:00: Red Blood Count 3.29L, Hemoglobin 8.6L, Hematocrit 27L, Red Cell Distribution Width 16.7H, Lymphocytes (%) (Auto) 11L, Lymphocytes # (Auto) 0.7L, Potassium Level 3.2L, Blood Urea Nitrogen 108*H, Creatinine 2.83H, Glucose Level 136H, Calcium Level 7.8L, Corrected Calcium 8.3L, Total Protein 6.0L 11/08/22 10:38: Glucometer 184H 11/08/22 15:38: Glucometer 210H 11/08/22 21:09: Glucometer 191H 11/09/22 04:12: Red Blood Count 3.08L, Hemoglobin 8.0L, Hematocrit 25L, Red Cell Distribution Width 16.5H, Neutrophils (%) (Auto) 78H, Lymphocytes (%) (Auto) 9L, Lymphocytes # (Auto) 0.6L, Potassium Level 3.4L, Blood Urea Nitrogen 107*H, Creatinine 2.93H , Glucose Level 114H, Calcium Level 7.7L, Corrected Calcium 8.3L, Total Protein 5.9L 11/09/22 10:52: Glucometer 164H 11/09/22 16:01: Glucometer 200H 11/09/22 19:56: Glucometer 235H 11/10/22 04:38: Glucometer 124H 11/10/22 04:39: Red Blood Count 3.00L, Hemoglobin 7.8L, Hematocrit 24L, Red Cell Distribution Width 16.2H, Neutrophils (%) (Auto) 77H, Lymphocytes (%) (Auto) 11L, Lymphocytes # (Auto) 0.7L, Potassium Level 3.3L, Blood Urea Nitrogen 106*H, Creatinine 2.80H , Glucose Level 129H, Calcium Level 7.8L, Corrected Calcium 8.4L, Total Protein 5.9L Procedures None. Discharge Physical Examination Allergies: Coded Allergies: No Known Drug Allergies (Unverified , 06/11/22) Vitals & I&Os Vital Signs Date Time Temp Pulse Resp B/P (MAP) Pulse Ox O2 Delivery O2 Flow Rate FiO2 11/10/22 07:13 90 Nasal Cannula 4.00 11/10/22 03:42 36.5 67 18 131/62 (85) 11/08/22 14:12 32 General Appearance: No Acute Distress (And comfortably wearing nasal cannula) Respiratory: Clear to Auscultation Cardiovascular: Regular Rate Abdominal: Normal Bowel Sounds, Soft Skin: No Rashes Neuro: Normal Gait, Normal Speech Psych/Mental Status: Mental Status NL Discharge Home Medications Reviewed and agree with Discharge Medication list on patient's Discharge Instruction sheet Instructions to Patient/Family Please see electronic discharge instructions given to patient. TIFFANY ROGERS MD November 10, 2022 08:22
[2022-11-10 08:24] VITALS: BP 134/76
[2022-11-10 11:45] VITALS: BP 133/73
[2022-11-10] MEDS: ENOXAPARIN INJECTION 30 MG/0.3 ML SYR SC SCH (12:59)
[2022-11-10 14:40] VITALS: BP 133/73
[2022-11-10 16:25] VITALS: BP 131/68
== END 2022-11-10 16:40 | disposition home or self-care (01) | DRG 291 ==
LOC: EDUNIT# 20:38 → ER 20:39 → ICU 23:13 → 4TH 11-07 13:29
PROVIDERS: ADMIT Internal Medicine; ATTEND Family Medicine
PROC: 8E0ZXY6 Isolation (ICD-10-PCS; principal; 2022-11-01)
PROC: 5A09357 Assistance with Respiratory Ventilation, Less than 24 Consecutive Hours, Continuous Positive Airway Pressure (ICD-10-PCS; 2022-11-01)
PROC: 5A0945A Assistance with Respiratory Ventilation, 24-96 Consecutive Hours, High Flow/Velocity Cannula (ICD-10-PCS; 2022-11-06)
DX: I13.0 Hypertensive heart and chronic kidney disease with heart failure and stage 1 through stage 4 chronic kidney disease, or unspecified chronic kidney disease (principal); I50.43 Acute on chronic combined systolic (congestive) and diastolic (congestive) heart failure; J96.21 Acute and chronic respiratory failure with hypoxia; N18.4 Chronic kidney disease, stage 4 (severe); J44.0 Chronic obstructive pulmonary disease with (acute) lower respiratory infection; N17.9 Acute kidney failure, unspecified; I27.20 Pulmonary hypertension, unspecified; I25.10 Atherosclerotic heart disease of native coronary artery without angina pectoris; E11.22 Type 2 diabetes mellitus with diabetic chronic kidney disease; F41.9 Anxiety disorder, unspecified; F32.A Depression, unspecified; Z20.822 Contact with and (suspected) exposure to COVID-19; E78.00 Pure hypercholesterolemia, unspecified; E11.65 Type 2 diabetes mellitus with hyperglycemia; E66.9 Obesity, unspecified; D63.8 Anemia in other chronic diseases classified elsewhere; M19.90 Unspecified osteoarthritis, unspecified site; G47.33 Obstructive sleep apnea (adult) (pediatric); I25.2 Old myocardial infarction; Z99.81 Dependence on supplemental oxygen; Z87.891 Personal history of nicotine dependence; Z79.899 Other long term (current) drug therapy; Z79.84 Long term (current) use of oral hypoglycemic drugs; Z68.36 Body mass index [BMI] 36.0-36.9, adult; Z79.82 Long term (current) use of aspirin; Z22.322 Carrier or suspected carrier of Methicillin resistant Staphylococcus aureus
CPT/HCPCS: 36415; 71045; 71046; 80053; 80320; 82274; 82550; 82553; 82805; 82947; 83605; 83690; 83735; 83874; 83880; 84100; 84484; 85007; 85025; 85027; 85379; 85610; 85652; 85730; 86141; 86850; 86900; 86901; 86920; 87040; 87081; 87636; 93005; 93041; 93306; 94640; 94660; 94760; 94761; 96365; 96375

== ENCOUNTER 2022-11-25 19:48 | Emergency (ER) | payer OTHER ==
[~2022-11-25 19:48] MED LIST changes: -DOBUTamine DRIP 250 ML IV ONE; -DOBUTamine DRIP 250 ML IV SCH; -LOSA100T57 PO; +LOSA100T58 PO
[2022-11-25] MEDS ORDERED: methylPREDNISolone 125 MG (Solu-MEDROL) VIAL IV STA (19:53)
[2022-11-25] MEDS ORDERED: RT-ALBUTEROL/IPRATROPIUM 3 ML (DUONEB) VIAL INH ONE (20:00)
[2022-11-25] MEDS ORDERED: LIDOCAINE UROJET 2% GEL 10 ML PKG TOP ONE (20:00)
--- NOTE | 2022-11-25 20:17 | Diagnostic Imaging Report ---
EXAMINATION: Chest radiograph, portable AP view. DATE: 11/25/2022 8:08 PM INDICATION: 62-year-old male, hypoxia, dyspnea. COMPARISON: November 07, 2022. FINDINGS: The heart is enlarged. There is no identified pneumothorax. There are multifocal bilateral alveolar and interstitial opacities. There is blunting of the left lateral costophrenic angle and mild blunting of the right lateral costophrenic angle. IMPRESSION: 1. Multifocal bilateral alveolar and interstitial opacities. Differential diagnostic considerations would include multifocal pneumonia including atypical infectious etiologies, pulmonary edema and pneumonitis. 2. Potential bilateral pleural effusions. 3. Redemonstrated cardiomegaly. Dictated by: Dictated on workstation # [id number]
[2022-11-25 20:29] LABS: BASOPHILS % (AUTO) 0 % (0-10); EOSINOPHILS # (AUTO) 0.1 10^3/uL (0.0-0.3); EOSINOPHILS % (AUTO) 1 % (0-10); HEMATOCRIT 29 % (40-54); HEMOGLOBIN 9.1 g/dL (13.3-17.7); LYMPHOCYTES # (AUTO) 0.5 10^3/uL (1.0-4.0); LYMPHOCYTES % (AUTO) 6 % (12-44); MEAN CORPUSCULAR HEMOGLOBIN 26 pg (25-34); MEAN CORPUSCULAR HGB CONC 31 g/dL (32-36); MEAN CORPUSCULAR VOLUME 82 fL (80-99); MEAN PLATELET VOLUME 9.5 fL (9.0-12.2); MONOCYTES # (AUTO) 0.7 10^3/uL (0.0-1.0); MONOCYTES % (AUTO) 7 % (0-12); NEUTROPHILS # (AUTO) 7.7 10^3/uL (1.8-7.8); NEUTROPHILS % (AUTO) 85 % (42-75); PLATELET COUNT 299 10^3/uL (130-400)
[2022-11-25] MEDS ORDERED: CEFEPIME INJECTION 1,000 MG in NS (IVPB) 50 ML IV ONE (20:30)
[2022-11-25 20:42] LABS: INR 1.1 (0.8-1.4); PROTHROMBIN TIME PATIENT 14.3 SEC (12.2-14.7)
[2022-11-25 20:43] LABS: ABG BASE EXCESS 0.8 MMOL/L (-2.5-2.5); ABG PCO2 40 MMHG (35-45); ABG PH 7.41 (7.37-7.43); ABG PO2 152 MMHG (79-93); ABG TCO2 26.3 MMOL/L (21.0-31.0)
[2022-11-25 20:44] LABS: FIBRIN DEGRADATION PRODUCTS 0.83 UG/ML (0.00-0.49)
[2022-11-25 20:47] LABS: ABG OXYGEN SATURATION 100 % (94-100); ALLENS TEST YES-POS; INSPIRED O2 100%; PATIENT TEMP 36.7; VENTILATOR NO
[2022-11-25 20:47] LABS: ANISOCYTOSIS SLIGHT; ELLIPT/OVALOCYTES SLIGHT; EOSINOPHILS % (MANUAL) 2 %; LYMPHOCYTES % (MANUAL) 4 %; MONOCYTES % (MANUAL) 3 %; NEUTROPHILS % (MANUAL) 91 %; PLATELET ESTIMATE NORMAL; POIKILOCYTOSIS MODERATE; POLYCHROMASIA SLIGHT
[2022-11-25 20:49] LABS: ALBUMIN 3.9 GM/DL (3.2-4.5); CHLORIDE 101 MMOL/L (98-107); POTASSIUM 4.4 MMOL/L (3.6-5.0); SODIUM 139 MMOL/L (135-145)
[2022-11-25 20:50] LABS: CALCIUM 8.8 MG/DL (8.5-10.1); ERYTHROCYTE SEDIMENTATION RATE 69 MM/HR (0-30)
[2022-11-25 20:51] LABS: GLUCOSE 316 MG/DL (70-105); TOTAL PROTEIN 7.1 GM/DL (6.4-8.2)
[2022-11-25 20:52] LABS: CARBON DIOXIDE 23 MMOL/L (21-32)
[2022-11-25 20:53] LABS: BILIRUBIN,TOTAL 0.8 MG/DL (0.1-1.0)
[2022-11-25 20:55] LABS: ALKALINE PHOSPHATASE 110 U/L (40-136); CREATININE SERUM 3.59 MG/DL (0.60-1.30); GFR ESTIMATED 18
[2022-11-25 20:56] LABS: BUN/CREATININE RATIO 21
[2022-11-25 20:58] LABS: ALANINE AMINOTRANSFERASE 22 U/L (0-55); MAGNESIUM 1.5 MG/DL (1.6-2.4)
[2022-11-25 20:59] LABS: CREATINE KINASE 233 U/L (30-200)
[2022-11-25 20:59] LABS: BILIRUBIN,URINE NEGATIVE (NEGATIVE); CLARITY,URINE CLEAR; COLOR,URINE YELLOW; GLUCOSE, URINE (UA) 2+ (NEGATIVE); KETONES,URINE NEGATIVE (NEGATIVE); LEUKOCYTE ESTERASE ,URINE NEGATIVE (NEGATIVE); NITRITE,URINE NEGATIVE (NEGATIVE); PH,URINE 6.5 (5-9); PROTEIN,URINE 3+ (NEGATIVE)
[2022-11-25 21:10] LABS: CREATINE KINASE MB 14.4 NG/ML (<6.6)
[2022-11-25 21:15] LABS: AMORPHOUS SEDIMENT,UR RARE AMOR URATES /LPF; BACTERIA,URINE TRACE /HPF; RBC,URINE 0-2 /HPF; WBC,URINE RARE /HPF
[2022-11-25] MEDS ORDERED: MAGNESIUM 1 GM/100 ML IVPB 100 ML IV ONE (21:15)
[2022-11-25] MEDS ORDERED: FUROSEMIDE 40 MG/4 ML INJ (LASIX) IVP ONE (21:30)
[2022-11-25 23:53] VITALS: BP 145/85
== END 2022-11-25 23:53 | disposition short-term general hospital (02) ==
LOC: EDUNIT# 19:48 → ER 19:49
DX: R06.02 Shortness of breath (principal)
CPT/HCPCS: 36415; 36600; 51702; 71045; 80053; 81000; 82550; 82553; 82805; 83605; 83735; 83880; 84484; 85007; 85027; 85379; 85610; 85652; 85730; 86141; 87040; 87088; 87636; 93005; 93041; 94640; 94660; 94664; 96365; 96367; 96375; 99291

== ENCOUNTER → 2022-11-25 | Outpatient (CLI) | payer OTHER ==
[~2022-11-25] MED LIST changes: +DOBUTamine DRIP 250 ML IV ONE; +DOBUTamine DRIP 250 ML IV SCH; +FURO-125 PO; +TORS20TA3 PO
[2022-11-25 15:32] VITALS: BP 142/86
== END ==
LOC: CARD 14:22
PROVIDERS: ATTEND Physician Assistant
DX: I50.22 Chronic systolic (congestive) heart failure (principal)

== ENCOUNTER 2023-03-04 12:10 | Emergency (ER) | payer SELFPAY ==
[~2023-03-04 12:10] MED LIST changes: -ROSU20TA32 PO; +ROSU20TA73 PO
[2023-03-04 12:25] LABS: BASOPHILS % (AUTO) 0 % (0-10); EOSINOPHILS # (AUTO) 0.1 10^3/uL (0.0-0.3); EOSINOPHILS % (AUTO) 1 % (0-10); HEMATOCRIT 29 % (40-54); HEMOGLOBIN 10.2 g/dL (13.3-17.7); LYMPHOCYTES # (AUTO) 0.7 10^3/uL (1.0-4.0); LYMPHOCYTES % (AUTO) 6 % (12-44); MEAN CORPUSCULAR HEMOGLOBIN 28 pg (25-34); MEAN CORPUSCULAR HGB CONC 36 g/dL (32-36); MEAN CORPUSCULAR VOLUME 78 fL (80-99); MEAN PLATELET VOLUME 9.4 fL (9.0-12.2); MONOCYTES # (AUTO) 0.8 10^3/uL (0.0-1.0); MONOCYTES % (AUTO) 7 % (0-12); NEUTROPHILS # (AUTO) 10.2 10^3/uL (1.8-7.8); NEUTROPHILS % (AUTO) 85 % (42-75); PLATELET COUNT 298 10^3/uL (130-400)
[2023-03-04] MEDS ORDERED: NS IV 1000 ML 1,000 ML IV SCH ×2 (12:30→14:00)
[2023-03-04 12:41] LABS: EOSINOPHILS % (MANUAL) 1 %; LYMPHOCYTES % (MANUAL) 6 %; MONOCYTES % (MANUAL) 12 %; NEUTROPHILS % (MANUAL) 81 %
[2023-03-04 12:42] LABS: RBC MORPH NORMAL
[2023-03-04 12:51] LABS: ALBUMIN 4.1 GM/DL (3.2-4.5); BILIRUBIN,TOTAL 0.6 MG/DL (0.1-1.0); CALCIUM 6.8 MG/DL (8.5-10.1); CREATININE SERUM 8.75 MG/DL (0.60-1.30); MAGNESIUM 1.6 MG/DL (1.6-2.4); TOTAL PROTEIN 7.9 GM/DL (6.4-8.2)
--- NOTE | 2023-03-04 13:16 | Diagnostic Imaging Report ---
EXAMINATION: CT head without contrast. TECHNIQUE: Multiple contiguous axial images were obtained through the brain without the use of intravenous contrast. All CT scans use one or more of the following dose optimizing techniques: automated exposure control, MA and/or KvP adjustment based on patient size and exam type or iterative reconstruction. HISTORY: Altered mental status. Weakness. COMPARISON: None available. FINDINGS: No large acute territorial ischemia, mass, or hemorrhage. No midline shift or mass effect. The ventricles, cortical sulci, and basilar cisterns are patent and unremarkable. The orbits are normal. Paranasal sinuses are normal. Mastoid air cells are clear. No soft tissue abnormality is seen. No osseus lesions or fractures are seen. IMPRESSION: No large acute territorial ischemia, mass, or hemorrhage. Dictated by: Dictated on workstation # [id number]
[2023-03-04 13:25] LABS: POTASSIUM 2.3 MMOL/L (3.6-5.0)
[2023-03-04] MEDS ORDERED: POTASSIUM CL 10MEQ/50ML IVPB 50 ML IV ONE (14:00)
--- NOTE | 2023-03-04 14:28 | ED General ---
General Chief Complaint: General Problems/Pain Stated Complaint: WEAKNESS Nursing Triage Note: PT TO RM 6 BY WC WITH C/O INCREASED WEAKNESS AND DECREASED APPETITE SINCE BEGINGING February. STATES PT HAS HAD EXTREME DRY MOUTH AND CONFUSION. PT ALSO HAVING PANIC ATTACKS Source of Information: Patient Exam Limitations: No Limitations History of Present Illness Date Seen by Provider: Mar 04, 2023 Time Seen by Provider: 12:16 Initial Comments This 62-year-old gentleman presents to the emergency room as directed by Dr. nAdie Price, his commanding officer motorized squad, with concerns about worsening renal function and weight loss. Labs were obtained on February 22 demonstrating an increase of creatinine from 3.8 to 6.0. BUN was 158. Potassium was 2.7. Mentation seemed altered to Dr. Carter in the clinic. Patient had been traveling between the lab draw and his visit today. Patient presents today by private vehicle accompanied by his . He is somewhat disoriented and not able to identify the year. He is intermittently emotionally distraught as well. He has had notable weight loss in recent weeks. He also reports a sandpapery feeling in his mouth making it difficult to swallow. He feels like his mouth is very dry. He had spent some time out in the heat the first week of February painting the house, and then last week he traveled to [place]. 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 He takes Xanax at night because of difficulty sleeping. He has been on diuretics due to fluid retention previously, and he feels like he urinates often. He has had some dry heaving last week but no vomiting or diarrhea now. He has been excessively somnolent in recent days. was concerned that he may have had a TIA or stroke because of his generalized weakness and confusion over the last couple of days. Allergies and Home Medications Allergies Coded Allergies: bee venom protein (honey bee) (Verified Allergy, Unknown, 03/04/23) Patient Home Medication List Home Medication List Reviewed: Yes Alprazolam (Alprazolam) 1 Mg Tablet, 1.5 MG PO HS, (Reported) Entered as Reported by: CAMERON WALDRON on 06/11/22 1609 Amlodipine Besylate (Amlodipine Besylate) 10 Mg Tablet, 10 MG PO DAILY, (Reported) Entered as Reported by: YEIMY HAYS on 08/24/22 1521 Aspirin (Aspirin EC) 81 Mg Tablet.dr, 81 MG PO DAILY, (Reported) Entered as Reported by: YEIMY HAYS on 08/24/22 1521 Clopidogrel Bisulfate (Clopidogrel) 75 Mg Tablet, 75 MG PO DAILY, (Reported) Entered as Reported by: YEIMY HAYS on 08/24/22 1521 Furosemide (Lasix) 20 Mg Tablet, 20 MG PO DAILY Prescribed by: TIFFANY ROGERS on 11/10/22 0815 Glyburide (Glyburide) 5 Mg Tablet, 5 MG PO DAILY, (Reported) Entered as Reported by: CAMERON WALDRON on 06/11/22 1609 Metoprolol Succinate (Metoprolol Succinate) 100 Mg Tab.er.24h, 100 MG PO BID, (Reported) Entered as Reported by: YEIMY HAYS on 08/24/22 1521 Montelukast Sodium (Montelukast Sodium) 10 Mg Tablet, 10 MG PO HS, (Reported) Entered as Reported by: CAMERON WLADRON on 11/02/22 1445 Rosuvastatin Calcium (Rosuvastatin Calcium) 20 Mg Tablet, 20 MG PO HS, (Reported) Entered as Reported by: YEIMY HAYS on 08/24/22 1521 Sodium Bicarbonate (Sodium Bicarbonate) 650 Mg Tablet, 1,300 MG PO BID, (R eported) Entered as Reported by: YEIMY HAYS on 08/24/22 1521 Review of Systems Review of Systems Constitutional: see HPI EENTM: see HPI Respiratory: no symptoms reported Cardiovascular: no symptoms reported Gastrointestinal: see HPI Genitourinary: see HPI Musculoskeletal: no symptoms reported Skin: no symptoms reported Psychiatric/Neurological: See HPI Hematologic/Lymphatic: No Symptoms Reported Immunological/Allergic: no symptoms reported Past Yrxeuzh-Qppviz-Pjpurc Hx Patient Social History Tobacco Use?: No Use of E-Cig and/or Vaping dev: No Substance use?: No Alcohol Use?: No Pt feels they are or have been: No Immunizations Up To Date First/Initial COVID19 Vaccinat: 2020 Second COVID19 Vaccination Clark: 2020 Third COVID19 Vaccination Date: 2020 Past Medical History Surgery/Hospitalization HX: - JUNE CKD, NO DIALYSIS Surgeries: No Respiratory: Yes (Chronic SOA, pulmonary HTN; O2 AT 2L/NC CONTINUOUSLY) Cardiac: Yes Coronary Artery Disease, Heart Attack, Hypertension Neurological: No Genitourinary: No Gastrointestinal: No Musculoskeletal: No Endocrine: Yes Diabetes, Non-Insulin dep HEENT: No Cancer: No Psychosocial: Yes Depression Integumentary: No Blood Disorders: No Physical Exam Vital Signs Vital Signs - First Documented 03/04/23 12:12 Temp 36.6 Pulse 76 Resp 16 B/P (MAP) 113/66 (82) Pulse Ox 97 O2 Delivery Room Air Capillary Refill : Height, Weight, BMI Height: '" Weight: lbs. oz. kg; 36.69 BMI Method: General Appearance: No Apparent Distress, WD/WN HEENT: PERRL/EOMI, Normal ENT Inspection, Pharynx Normal Neck: Normal Inspection; No JVD Respiratory: Lungs Clear, Normal Breath Sounds, No Accessory Muscle Use Cardiovascular: Regular Rate, Rhythm, No Edema, No Murmur Gastrointestinal: Normal Bowel Sounds, Non Tender, Soft; No Distended Extremity: Normal Inspection, No Pedal Edema Neurologic/Psychiatric: Alert, loan analyst II-XII Norm as Tested, Other (Generalized weakness. No focal deficits. Disoriented to some questions but not others, im proving with hydration and potassium replacement. Emotionally labile and tearful at times.) Skin: Normal Color, Warm/Dry, Other (Skin appears dry and somewhat crinkled/desiccated) Progress/Results/Core Measures Suspected Sepsis SIRS Temperature: Pulse: 76 Respiratory Rate: 16 Laboratory Tests 03/04/23 12:17: White Blood Count 12.0H Blood Pressure 113 /66 Mean: 82 Laboratory Tests 03/04/23 12:17: Creatinine 8.75H, Platelet Count 298, Total Bilirubin 0.6 Results/Orders Lab Results Laboratory Tests Test 03/04/23 12:17 03/04/23 13:24 03/04/23 14:25 Range/Units White Blood Count 12.0 H 4.3-11.0 10^3/uL Red Blood Count 3.66 L 4.30-5.52 10^6/uL Hemoglobin 10.2 L 13.3-17.7 g/dL Hematocrit 29 L 40-54 % Mean Corpuscular Volume 78 L 80-99 fL Mean Corpuscular Hemoglobin 28 25-34 pg Mean Corpuscular Hemoglobin Concent 36 32-36 g/dL Red Cell Distribution Width 14.3 10.0-14.5 % Platelet Count 298 130-400 10^3/uL Mean Platelet Volume 9.4 9.0-12.2 fL Immature Granulocyte % (Auto) 1 % Neutrophils (%) (Auto) 85 H 42-75 % Lymphocytes (%) (Auto) 6 L 12-44 % Monocytes (%) (Auto) 7 0-12 % Eosinophils (%) (Auto) 1 0-10 % Basophils (%) (Auto) 0 0-10 % Neutrophils # (Auto) 10.2 H 1.8-7.8 10^3/uL Lymphocytes # (Auto) 0.7 L 1.0-4.0 10^3/uL Monocytes # (Auto) 0.8 0.0-1.0 10^3/uL Eosinophils # (Auto) 0.1 0.0-0.3 10^3/uL Basophils # (Auto) 0.0 0.0-0.1 10^3/uL Immature Granulocyte # (Auto) 0.1 0.0-0.1 10^3/uL Neutrophils % (Manual) 81 % Lymphocytes % (Manual) 6 % Monocytes % (Manual) 12 % Eosinophils % (Manual) 1 % Blood Morphology Comment NORMAL Sodium Level 129 L 135-145 MMOL/L Potassium Level 2.3 *L 3.6-5.0 MMOL/L Chloride Level 75 L 98-107 MMOL/L Carbon Dioxide Level 26 21-32 MMOL/L Anion Gap 28 H 5-14 MMOL/L Blood Urea Nitrogen 181 *H 7-18 MG/DL Creatinine 8.75 H 0.60-1.30 MG/DL Estimat Glomerular Filtration Rate 6 BUN/Creatinine Ratio 21 Glucose Level 82 70-105 MG/DL Calcium Level 6.8 L 8.5-10.1 MG/DL Corrected Calcium 6.7 L 8.5-10.1 MG/DL Phosphorus Level 10.0 H 2.3-4.7 MG/DL Magnesium Level 1.6 1.6-2.4 MG/DL Total Bilirubin 0.6 0.1-1.0 MG/DL Aspartate Amino Transf (AST/SGOT) 16 5-34 U/L Alanine Aminotransferase (ALT/SGPT) 24 0-55 U/L Alkaline Phosphatase 109 40-136 U/L Total Protein 7.9 6.4-8.2 GM/DL Albumin 4.1 3.2-4.5 GM/DL Influenza Type A (RT-PCR) Not Detected Not Detecte Influenza Type B (RT-PCR) Not Detected Not Detecte SARS-CoV-2 RNA (RT-PCR) Not Detected Not Detecte Urine Color YELLOW Urine Clarity CLEAR Urine pH 5.0 5-9 Urine Specific [place] 1.025 H 1.016-1.022 Urine Protein 2+ H NEGATIVE Urine Glucose (UA) NEGATIVE NEGATIVE Urine Ketones NEGATIVE NEGATIVE Urine Nitrite NEGATIVE NEGATIVE Urine Bilirubin NEGATIVE NEGATIVE Urine Urobilinogen 0.2 < = 1.0 MG/DL Urine Leukocyte Esterase NEGATIVE NEGATIVE Urine RBC (Auto) 1+ H NEGATIVE Urine RBC 2-5 H /HPF Urine WBC RARE /HPF Urine Crystals PRESENT H /LPF Urine Amorphous Sediment MOD THU URATES H /LPF Urine Bacteria NEGATIVE /HPF Urine Casts NONE /LPF Urine Mucus NEGATIVE /LPF Urine Culture Indicated NO My Orders Orders - ZACK MUNROE MD Cbc With Automated Diff (03/04/23 12:16) Comprehensive Metabolic Panel (03/04/23 12:16) Magnesium (03/04/23 12:16) Ua Culture If Indicated (03/04/23 12:16) Phosphorus (03/04/23 12:16) Ed Iv/Invasive Line Start (03/04/23 12:16) Ns Iv 1000 Ml (Ns Iv 1000 Ml) (03/04/23 12:30) Manual Differential (03/04/23 12:17) Ct Head Wo (03/04/23 12:46) Covid 19 Inhouse Test (03/04/23 13:20) Influenza A And B By Pcr (03/04/23 13:20) Ekg Tracing (03/04/23 13:26) Monitor-Rhythm Ecg Trace Only (03/04/23 13:26) Ns Iv 1000 Ml (Ns Iv 1000 Ml) (03/04/23 14:00) Potassium Cl 10meq/50ml Ivpb (Kcl 10 Meq (03/04/23 14:00) Potassium Chloride (Tablet) (Potassium C (03/04/23 16:15) Ns Iv 1000 Ml (Ns Iv 1000 Ml) (03/04/23 16:30) Heart Healthy (03/04/23 Dinner) Medications Given in ED Current Medications Medications Dose Ordered Sig/Sofie Route Start Time Stop Time Status Last Admin Dose Admin Potassium Chloride 20 meq ONCE ONCE PO 03/04/23 16:15 03/04/23 16:16 DC 03/04/23 16:25 20 MEQ Potassium Chloride 50 ml @ 50 mls/hr ONCE ONCE IV 03/04/23 14:00 03/04/23 14:59 DC 03/04/23 14:10 50 MLS/HR Vital Signs/I&O 03/04/23 12:12 Temp 36.6 Pulse 76 Resp 16 B/P (MAP) 113/66 (82) Pulse Ox 97 O2 Delivery Room Air Capillary Refill : Blood Pressure Mean: 82 Progress Note : Progress Note Patient was interviewed and examined along with his 's interview not long after arrival. Labs were obtained and compared with prior. Creatinine was notably increased at 8.75 with an elevated BUN of 181. Potassium also had changed to 2.3. Magnesium was normal. Sodium was low at 129, chloride low at 75, CO2 normal at 26, phosphorus high at 10.0, and calcium corrected low at 6.7. Patient was treated with 2 L of IV normal saline and potassium 10 mEq by IV route. This was followed by potassium 20 mEq orally. Normal saline was then run at 150 mL/h. Case was discussed extensively with Dr. Rosas. Admission was recommended. We discussed location of admission. For cost and social reasons, patient would like to be admitted at [facility] in [place]. Admission was declined by Dr. Rogers, PCP of record, due to his severe renal failure exacerbation. Transfer to [facility] was sought. Patient and declined transfer by medical personnel as EMS transport crew would not be available until much later in the evening and flight did not appear necessary and would incur other risk and possible cost. Patient and were willing to accept risks of transfer by private vehicle. Risks and benefits of more immediate transfer by private vehicle were reviewed. Risks included possible decline in condition including arrhythmias, vital sign changes, discomfort, etc. Benefits of going by private vehicle included less cost and more immediate transfer. Transfer was excepted by hospitalist Dr. Galdamez and commanding officer motorized squad Dr. Price at [facility] in [place]. Patient was feeling significantly improved after receiving 2 L of IV fluid and potassium replacement. His disorientation resolved. ECG Initial ECG Impression Date: Mar 04, 2023 Initial ECG Impression Time: 13:37 Initial ECG Rate: 72 Initial ECG Rhythm: Normal Sinus Comment Sinus rhythm with no ST elevation or depression. No significant abnormal intervals or axis deviation. PVC noted. No significant change from prior on record. Departure Impression Primary Impression: Acute on chronic renal failure Qualified Codes: N17.9 - Acute kidney failure, unspecified; N18.9 - Chronic kidney disease, unspecified Additional Impressions: Hypokalemia Altered mental status Qualified Codes: R41.0 - Disorientation, unspecified Disposition: 02 XFER SHT-TRM HOSP Condition: Stable Transfer Transfer Reason: Exceeds level of care Time Spoke to Accepting Phy: 16:00 Transfer Progress Notes Transfer accepted by Dr. Galdamez (hospitalist) with Dr. Andie Price (commanding officer motorized squad) consulting. Transfer Time: 17:42 Transfer Facility: [facility] Method of Transfer: Private Vehicle Departure-Patient Inst. Referrals: TIFFANY ROGERS MD (PCP/Family) Primary Care Physician Copy Copies To 1: TIFFANY ROGERS MD Copies To 2: ANDIE PRICE MD, JOSHUA T MD Mar 04, 2023 14:28
[2023-03-04 15:14] LABS: AMORPHOUS SEDIMENT,UR MOD AMOR URATES /LPF; BACTERIA,URINE NEGATIVE /HPF; BILIRUBIN,URINE NEGATIVE (NEGATIVE); CLARITY,URINE CLEAR; COLOR,URINE YELLOW; GLUCOSE, URINE (UA) NEGATIVE (NEGATIVE); KETONES,URINE NEGATIVE (NEGATIVE); LEUKOCYTE ESTERASE ,URINE NEGATIVE (NEGATIVE); NITRITE,URINE NEGATIVE (NEGATIVE); PROTEIN,URINE 2+ (NEGATIVE); WBC,URINE RARE /HPF
[2023-03-04] MEDS ORDERED: POTASSIUM CHLORIDE 10 MEQ TABLET PO ONE (16:15)
[2023-03-04] MEDS ORDERED: NS IV 1000 ML 1,000 ML IV ONE (16:30)
[2023-03-04 17:37] VITALS: BP 105/54
== END 2023-03-04 18:05 | disposition short-term general hospital (02) ==
LOC: EDUNIT# 12:14 → ER 12:15
DX: N17.9 Acute kidney failure, unspecified (principal); I12.9 Hypertensive chronic kidney disease with stage 1 through stage 4 chronic kidney disease, or unspecified chronic kidney disease; E11.22 Type 2 diabetes mellitus with diabetic chronic kidney disease; N18.9 Chronic kidney disease, unspecified; E87.6 Hypokalemia; R41.0 Disorientation, unspecified; Z79.899 Other long term (current) drug therapy; Z20.822 Contact with and (suspected) exposure to COVID-19
CPT/HCPCS: 36415; 70450; 80053; 81000; 83735; 84100; 85007; 85027; 87636; 93005